=== PATIENT | female | born 1940 | race Caucasian/White ===

== ENCOUNTER → 2018-03-09 14:29 | Outpatient (CLI) | payer MEDICARE, OTHER, SELFPAY ==
[2018-03-09 17:29] LABS: Absolute Lymphocyte Count 2.05 X10^3/ul (0.83-4.51); Absolute Neutrophil Count 5.2 X10^3/uL (2.0-7.7); Basophil# 0.05 X10^3/uL; Basophil% 0.6 % (0-1); Eosinophil# 0.08 X10^3/uL; Hematocrit 40.9 % (37-47); Hemoglobin 13.3 g/dl (12.0-15.0); Lymphocyte # 2.05 X10^3/ul (4.0); Lymphocyte % 26.2 % (19-41); Mean Corp Hgb Conc 32.5 g/gl (32-36); Mean Corpuscular Hgb 28.2 pg (27.0-32.0); Mean Corpuscular Volume 86.7 fL (81-99); Monocyte# 0.42 X10^3/uL; Monocyte% 5.4 % (0-10); Neutrophil % 66.7 % (47-70); Platelet Count 372 K/mm3 (150-450); RBC Distribution Width CV 14.7 % (11.6-14.6); RBC Distribution Width SD 46.1 fl (35.1-43.9); Red Blood Count 4.72 M/mm3 (4.2-5.4); White Blood Count 7.8 K/mm3 (4.4-11.0)
[2018-03-09 17:31] LABS: POSITIVE COUNT NO; POSITIVE DIFFERENTIAL NO; POSITIVE MORPHOLOGY NO
[2018-03-09 18:31] LABS: ALB/GLOB Ratio 0.9 RATIO (0.9-2.4); AST(SGOT) 35 U/L (15-37); Alanine Aminotransfer ALT/SGPT 24 U/L (13-56); Albumin, Serum 3.6 g/dL (3.2-5.0); Alkaline Phosphatase 92 U/L (45-117); Anion Gap 11 (5-15); BUN 22 mg/dL (7-18); Calcium,Total 8.9 mg/dL (8.5-10.1); Chloride 108 mmol/L (98-107); Cholesterol 198 mg/dL (200); EST Glomerular Filtration Rate 51 mL/min (>60); Est Glom Filt Rate - Afr Amer 62 mL/min (>60); Globulin 3.9 g/dL (2.2-4.2); Glucose 81 mg/dL (74-106); High Density Lipoprotein 75 mg/dL; Iron 50 ug/dL (50-170); Potassium 3.8 mmol/L (3.5-5.1); Protein, Total 7.5 g/dL (6.4-8.2); Sodium Level 141 mmol/L (136-145); Thyroid Stim Hormone (TSH) 1.87 uIU/mL (0.358-3.74); Triglycerides 110 mg/dL; Uric Acid 5.2 mg/dL (2.6-6.0); Very Low Density Lipoprotein 22 mg/dL (5-40)
[2018-03-09 20:46] LABS: Vitamin D,25 Hydroxy 30.8 ng/mL (29.95-100.01)
== END ==
PROVIDERS: Family Provider Family Medicine; PCP Family Medicine; Visit Provider Family Medicine
DX: D64.9 Anemia, unspecified (principal); E78.5 Hyperlipidemia, unspecified; E55.9 Vitamin D deficiency, unspecified; M85.80 Other specified disorders of bone density and structure, unspecified site; M10.9 Gout, unspecified
CPT/HCPCS: 36415; 80053; 80061; 82306; 83540; 84443; 84550; 85025

== ENCOUNTER → 2018-09-06 08:19 | Outpatient (CLI) | payer MEDICARE, OTHER, SELFPAY ==
[2017-07-07 21:22] VITALS: BMI 26.4
[2018-09-06 10:29] LABS: ALB/GLOB Ratio 1.2 RATIO (0.9-2.4); AST(SGOT) 30 U/L (15-37); Alanine Aminotransfer ALT/SGPT 21 U/L (13-56); Albumin, Serum 3.5 g/dL (3.2-5.0); Alkaline Phosphatase 83 U/L (45-117); Anion Gap 10 (5-15); BUN 32 mg/dL (7-18); BUN/Creat Ratio 32.3 RATIO (10-20); Calcium,Total 8.7 mg/dL (8.5-10.1); Chloride 110 mmol/L (98-107); Creatinine, Serum 0.99 mg/dL (0.55-1.02); EST Glomerular Filtration Rate 57 mL/min (>60); Est Glom Filt Rate - Afr Amer 70 mL/min (>60); Globulin 2.9 g/dL (2.2-4.2); Glucose 120 mg/dL (74-106); Protein, Total 6.4 g/dL (6.4-8.2); Sodium Level 146 mmol/L (136-145)
== END ==
PROVIDERS: Family Provider Family Medicine; PCP Family Medicine; Referring Provider Family Medicine; Visit Provider Family Medicine
DX: E78.5 Hyperlipidemia, unspecified (principal)
CPT/HCPCS: 36415; 80053

== ENCOUNTER → 2019-04-04 14:14 | Outpatient (CLI) | payer MEDICARE, OTHER, SELFPAY ==
--- NOTE | 2019-04-04 14:18 | BI_ITS ---
BILATERAL DIGITAL MAMMOGRAM WITH TOMOSYNTHESIS: Mediolateraloblique and craniocaudal views demonstrate a dominant spiculated masslike lesion seen in the superior lateral aspect of the right breast at the 10:00 position. An abnormal cluster of new microcalcifications is noted surrounding this spiculated lesion with architectural distortion. Previously this abnormality was not seen on the prior mammogram obtained on 10/01/2016 and is highly suspicious for breast cancer. It must be noted this patient had a previous biopsy of previously noted calcifications in a more medial portion of the right breast which is distant to the above-described lesion. The previously noted calcifications are no longer seen at the biopsy site. No evidence of skin thickening is identified. The left breast appears to be normal. Breast Density: The breast tissue is heterogeneously dense, which may obscure small masses. CAD was used to assist in final assessment. IMPRESSION: A spiculated density containing architectural distortion and new microcalcifications is noted involving the superior lateral aspect of the right breast highly suspicious for breast cancer. A targeted right breast ultrasound of the superior lateral right breast and a biopsy are recommended for further evaluation. FINAL ASSESSMENT: BI-RAD CATEGORY IV (SUSPICIOUS ABNORMALITY - BIOPSY RECOMMENDED). Electronically Signed: Elie Trevino, at 20:33 EDT Tel , Service support , BI/SCREEN MAMM (CAD) W/LUIS CARLOS HOGAN
== END ==
PROVIDERS: Family Provider Family Medicine; PCP Family Medicine; Referring Provider Family Medicine; Visit Provider Family Medicine
DX: Z12.31 Encounter for screening mammogram for malignant neoplasm of breast (principal)
CPT/HCPCS: 77063; 77067

== ENCOUNTER → 2019-04-10 15:09 | Outpatient (CLI) | payer MEDICARE, OTHER, SELFPAY ==
--- NOTE | 2019-04-10 15:14 | US_ITS ---
STUDY: ULTRASOUND BREAST - RIGHT REASON FOR EXAM: Female, 78 years old. Abnormal screening mammogram. TECHNIQUE: Axial and longitudinal images of the RIGHT breast were performed with a high resolution ultrasound transducer. COMPARISON: Comparison is made with prior mammogram dated April 04, 2019. FINDINGS: RIGHT Breast: The mammographic abnormality corresponds to a 9 mm x 6 mm x 8 mm ill-defined hypoechoic solid nodule at the 11:00 position breast at 5 cm from nipple. A carcinoma should be ruled out. Biopsy recommended. US/Breast Limited Unilateral IMPRESSION: The mammographic abnormality corresponds to a suspicious 9 mm x 6 mm x 8 mm hypoechoic irregular solid nodule at the 11:00 position of the breast at 5 cm from nipple. Biopsy is recommended. ASSESSMENT CATEGORY: BIRADS Category 5: Highly Suggestive of Malignancy - Appropriate Action Should Be Taken. A letter regarding these results will be sent to the patient by the facility within 30 days. Electronically Signed: Mann Dinero, at 11:27 EDT , Service support ,
== END ==
PROVIDERS: Family Provider Family Medicine; PCP Family Medicine; Referring Provider Family Medicine; Visit Provider Family Medicine
DX: R92.2 Inconclusive mammogram (principal)
CPT/HCPCS: 76642

== ENCOUNTER → 2019-04-13 10:30 | Outpatient (CLI) | payer MEDICARE, OTHER, SELFPAY ==
[2019-04-11 08:58] VITALS: BMI 26.4
[2019-04-13 12:37] LABS: Anion Gap 6 (5-15); BUN 18 mg/dL (7-18); BUN/Creat Ratio 18.9 RATIO (10-20); Calcium,Total 9.1 mg/dL (8.5-10.1); Chloride 107 mmol/L (98-107); Creatinine, Serum 0.95 mg/dL (0.55-1.02); EST Glomerular Filtration Rate 60 mL/min (>60); Est Glom Filt Rate - Afr Amer 73 mL/min (>60); Glucose 136 mg/dL (74-106); Potassium 3.9 mmol/L (3.5-5.1); Sodium Level 140 mmol/L (136-145)
== END ==
PROVIDERS: Family Provider Family Medicine; PCP Family Medicine; Referring Provider Family Medicine; Visit Provider Family Medicine
DX: I10 Essential (primary) hypertension (principal)
CPT/HCPCS: 36415; 80048

== ENCOUNTER → 2019-04-17 09:43 | Outpatient (CLI) | payer MEDICARE, OTHER, SELFPAY ==
[2019-04-11 08:49] VITALS: BMI 26.4
[2019-04-11 08:58] VITALS: BMI 26.4
--- NOTE | 2019-04-11 09:02 | HP_ITS ---
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 Is patient in pain?: No Allergies codeine Allergy (Verified 04/11/19 08:50) Other Medications Allopurinol [Zyloprim] 300 mg PO DAILY 07/07/17 [History Confirmed 04/11/19] Aspirin [Aspirin, Baby] 81 mg PO DAILY@0800 07/07/17 [History Confirmed 04/11/19] Calcium Carbonate [Calcium] 1,000 mg PO DAILY 07/07/17 [History Confirmed 04/11/19] Cinnamon Bark [Cinnamon] 500 mg PO DAILY 07/07/17 [History Confirmed 04/11/19] Ferrous Gluconate [Iron] 28 mg PO DAILY 07/07/17 [History Confirmed 04/11/19] Fish Oil/Dha/Epa [Fish Oil 1,200 mg Fish Oil] 1 ea PO DAILY 07/07/17 [History Confirmed 04/11/19] Multivit-Min/FA/Lycopen/Lutein [Centrum Silver Tablet] 1 ea PO DAILY 07/07/17 [History Confirmed 04/11/19] Pravastatin [Pravachol] 40 mg PO DAILY 07/07/17 [History Confirmed 04/11/19] Travoprost [Travatan Z] 5 ml EACHEYE QHS 07/07/17 [History Confirmed 04/11/19] acetaminophen ER 650 mg tablet,extended release 650 mg PO ONCE 04/11/19 [History Confirmed 04/11/19] losartan 50 mg tablet 50 mg PO DAILY 04/11/19 [History Confirmed 04/11/19] Is last menstrual period known: No Post menopausal: No Patient : No PFSH Medical History GERD (gastroesophageal reflux disease) (Acute) Gout (Acute) Osteoarthritis (Acute) HTN (hypertension) (Chronic) Surgical History History of colonoscopy (Acute ~2010) History of hysterectomy (Acute) History of lumpectomy of right breast (Acute) Family History Mother Breast cancer CVA (cerebral vascular accident) Brother CVA (cerebral vascular accident) Heart disease Social History (Updated 04/11/19 @ 09:03 by Vishnu Marsh MD) Smoking Status: Never smoker HPI HPI HPI: KING KAUFFMAN, is a 78 F who presents to the office today for HPI HPI Surgical H&P: Yes HPI: KING KAUFFMAN is a 78 F who presents to the office today for Abnormal mammogram and ultrasound patient had her mammogram and ultrasound completed [facility] on 04/04/2019. This was read as a BI-RADS Category 4 showing a lesion within the right breast with new microcalcifications in the superior lateral aspect of the right breast highly suspicious for breast cancer. Ultrasound also confirmed a lobulated mass in this area. Patient herself has not noticed any new lumps or bumps she is not having any breast pain. Patient does have a family history of breast cancer. ROS General General: No weight change, appetite, fatigue, colon cancer, breast cancer or weakness HEENT HEENT: No difficulty swallowing, eye injury, eye surgery, swollen glands or hoarseness Endo Endocrine: No thyroid disease, diabetes mellitus, thyroid cancer, Hair loss, heat intolerance or cold intolerance Breast Breast: Yes abnormal mammogram and abnormal US; no left breast lump, right breast lump, nipple discharge, breast pain or breast enlargement Cardio Cardiovascular: Yes high blood pressure; no murmur, pacemaker, heart disease, atrial fibrillation, heart attack, heart stent, palpitations, shortness of breat with exertion or chest pain Resp Respiratory: No shortness of breath, No sleep apnea, No cough, No COPD, No asthma, No emphysema, No wheezing Gastro Gastrointestinal: No abdominal pain, No nausea or vomiting, No diarrhea, No constipation, No blood in stool, Yes acid reflux, No hemorrhoids, No ulcers, No gallbladder problem, No black,tarry stools Neuro Neurologic: No weakness Exam [facility] Head: normal to inspection, normocephalic, atraumatic Mouth: oropharynx normal, moist mucous membranes Eyes General: appearance normal, both eyes and all related structures Sclera: sclerae normal Neck Neck: trachea midline, no lymphadenopathy noted Neck mass: No Thyroid: thyroid normal Lymphatic: no lymphadenopathy noted Chest Breast inspection: normal inspection of the breasts Breast Palpation: No nipple discharge Resp Other: Respiratory Exam: Deferred Cardio Heart Sounds: no murmurs Other: Cardiac Exam: Deferred GI Other: GI Exam: Deferred Other: Rectal Exam: Deferred Extrem Other: Extremity Exam: Deferred Assessment & Plan Problems 1. Microcalcification of right breast on mammogram R92.0 Plan I have discussed above with the patient. I have recommended Stereotactic guided needle core breast biopsy with vacuum assistance. I have described the procedure to the patient. I have discussed with the patient that sometimes the Stereotactic lesion may be artifact and is user dependent and therefore prior to undergoing the procedure, the patient will have a definitive US to ensure that the lesion is truly present and is not artifact. A marker clip will be placed to identify the location. Patient has been counseled to the risks/benefits of the procedure. I have explained the risks of the surgery, including but not limited to: infection, bleeding, injury to any blood vessels/nerves, scar tissue, missing the lesion, further surgery, etc. - the patient understands and agrees to proceed. I have answered all of the patient's questions to her satisfaction and she has no further questions. Coding Level of Care Code Off vis,new,level 3 Diagnoses Microcalcification of right breast on mammogram R92.0 04/11/19 0903 <Electronically signed by Vishnu mendez MD> Date _ Vishnu Marsh MD I have re-examined the patient. There are no clinical changes since date of exam.
--- NOTE | 2019-04-17 | IMM_PTH ---
PATIENT: KING KAUFFMAN LOC: [facility] U#:[id number] AGE/SX: 84/F ROOM: RE04/17/[address]: Dr. Vishnu Marsh MD : 1940 BED: DIS: SPEC #: [id number] RECD: 04/18/19 15:13 STATUS: FABY REQ #: [id number] OZZIE: 04/17/19 00:[address]: Vishnu Marsh DEPT: IMMUNOHISTOCHEMISTRY RECD BY: Denise Wild ENTERED: 04/18/19 15:14 SP TYPE: IMMUNO OTHR DR: Dr. Alverto Packer MD Tissues: Right breast, NOS Procedures: CALPONIN-1 (add) CK5-6 (add) CK8 (add) E-CAD (add) HER2 FRED (add) KI-67 (add) P53 (add) MT (add) P40 (add) ER (initial) PHYSICIAN & INSTITUTION [place] [address] SPECIMEN INFORMATION: Tissue Source: Right breast Clinical Info: Right breast UOQ microcalcifications Specimen Number: [id number] #1 CPT code: 47138, 86279 x6, 71815 x3 METHODOLOGY: Deparaffinized sections of prefer/formalin-fixed tissue or PAP/DQ stained slides are incubated with monoclonal/polyclonal antibodies/oligonucleotide probes. Localization is made via biotin free immunoperoxidase method. Appropriate controls are performed and reacted as expected. Results on target cell population are indicated in the following table: RESULTS: ANTIBODY / CLONE RESULT E-Cad (ECH-6) positive CK8 (66bhxfX39) positive Calponin-1 (BY164W) negative * CK5-6 (D5 & 1684) negative * P40 (BC28) negative * P53 (DO-7) negative Ki-67 (30-9) positive, moderate *?Positive in the area of ductal carcinoma in situ. MORPHOMETRIC ANALYSIS ER (clone 6F11) 0% MT (clone 16/1E2) 0% Her-2Neu (clone CB11) 3+ The prognostic test for HER2 is performed on formalin-fixed paraffin embedded tissue. A 3+ (positive) staining pattern is defined as intense, homogeneous, complete, circumferential membranous staining in >10% of contiguous tumor cells. A similar weak (2+) staining pattern is interpreted as equivocal. OSMANI follow-up testing is recommended for all equivocal cases. Positivity/negativity for ER/MT is reported if > or < 1% of the tumor cells are immuno- reactive, respectively. The ASCO/CAP criteria is used for scoring. Reference: Journal of Clinical Oncology, 2013; 31:9316-9146 & 2010; 16:1967-1973. Duration of fixation: 8 Hrs; Sample Adequate: Yes. These assays have not been validated on decalcified tissues. Results should be interpreted with caution given the likelihood of false negativity on decalcified specimens. These tests were developed and their performance characteristics determined by [facility]. They may not have been cleared or approved by the U.S. Food and Drug Administration. The FDA has determined that such clearance or approval is not necessary. The above immunohistochemical/dualISH markers are ordered and reviewed by the Pathologist. 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 Negative for estrogen receptors (unfavorable prognostic indicator). Negative for progesterone receptors (unfavorable prognostic indicator). Positive for overexpression of WYU7ben. SJ:tisha 04/19/19
--- NOTE | 2019-04-17 10:45 | BRBX_PTH ---
PATIENT: KING KAUFFMAN LOC: [facility] U#:[id number] AGE/SX: 84/F ROOM: RE04/17/[address]: Dr. Vishnu Marsh MD : 1940 BED: DIS: SPEC #: [id number] RECD: 04/17/19 11:29 STATUS: FABY OWEN #: [id number] OZZIE: 04/17/19 10:[address]: Vishnu Marsh DEPT: SURGICAL PATHOLOGY RECD BY: Hunter Ugarte ENTERED: 04/17/19 11:48 SP TYPE: BREAST BX OTHR DR: Dr. Alverto Packer MD Tissues: Right breast, NOS Procedures: Surgery Specimen Level IV HEADER OPERATION: Right breast stereotactic needle core biopsy PRE-OP DIAGNOSIS: Right breast UOQ microcalcifications TISSUE SUBMITTED: Right breast needle core biopsy ISCHEMIC TIME: 2 minutes FIXATION TIME: 8 hours MICROSCOPIC DIAGNOSIS Right breast, upper outer quadrant microcalcifications, stereotactic needle core biopsy: Invasive ductal carcinoma, nuclear grade 3 (0.8 cm in greatest length). Ductal carcinoma in situ. See comment. RENEE:tisha 04/18/19 COMMENT Ductal carcinoma in situ shows comedo and solid pattern, high nuclear grade, comedo necrosis and calcification. The ductal carcinoma in situ comprise about 50% of the total tumor volume. Immunohistochemistry ([id number]) supports the above diagnosis. ER/MS/Gfp7gzh studies are being performed on sections of tumor and the results from this study will be reported separately ([id number]). MICROSCOPIC DESCRIPTION Slides are reviewed. GROSS DESCRIPTION Received is one container labeled with the patient's name and not further designated. The specimen consists of multiple elongated fragments of ray-yellow fibroadipose tissue that in aggregate measure 5 x 3 x 0.6 cm. The entire specimen is submitted in four cassettes. / RENEE:tisha 04/17/19 TC:0 CPT: 05881
== END ==
PROVIDERS: Family Provider Family Medicine; PCP Family Medicine; Referring Provider Surgery; Visit Provider Surgery
DX: D05.11 Intraductal carcinoma in situ of right breast (principal); K21.9 Gastro-esophageal reflux disease without esophagitis; M10.9 Gout, unspecified; M19.90 Unspecified osteoarthritis, unspecified site; I10 Essential (primary) hypertension; Z80.3 Family history of malignant neoplasm of breast; Z79.82 Long term (current) use of aspirin; Z79.899 Other long term (current) drug therapy
CPT/HCPCS: 19081; 88305; 88341; 88342; J7050; A4648

== ENCOUNTER 2019-04-27 06:45 | Day surgery (SDC) | payer MEDICARE, OTHER, SELFPAY ==
--- NOTE | 2019-04-11 09:02 | HP_ITS ---
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 Is patient in pain?: No Allergies codeine Allergy (Verified 04/11/19 08:50) Other Medications Allopurinol [Zyloprim] 300 mg PO DAILY 07/07/17 [History Confirmed 04/11/19] Aspirin [Aspirin, Baby] 81 mg PO DAILY@0800 07/07/17 [History Confirmed 04/11/19] Calcium Carbonate [Calcium] 1,000 mg PO DAILY 07/07/17 [History Confirmed 04/11/19] Cinnamon Bark [Cinnamon] 500 mg PO DAILY 07/07/17 [History Confirmed 04/11/19] Ferrous Gluconate [Iron] 28 mg PO DAILY 07/07/17 [History Confirmed 04/11/19] Fish Oil/Dha/Epa [Fish Oil 1,200 mg Fish Oil] 1 ea PO DAILY 07/07/17 [History Confirmed 04/11/19] Multivit-Min/FA/Lycopen/Lutein [Centrum Silver Tablet] 1 ea PO DAILY 07/07/17 [History Confirmed 04/11/19] Pravastatin [Pravachol] 40 mg PO DAILY 07/07/17 [History Confirmed 04/11/19] Travoprost [Travatan Z] 5 ml EACHEYE QHS 07/07/17 [History Confirmed 04/11/19] acetaminophen ER 650 mg tablet,extended release 650 mg PO ONCE 04/11/19 [History Confirmed 04/11/19] losartan 50 mg tablet 50 mg PO DAILY 04/11/19 [History Confirmed 04/11/19] Is last menstrual period known: No Post menopausal: No Patient : No PFSH Medical History GERD (gastroesophageal reflux disease) (Acute) Gout (Acute) Osteoarthritis (Acute) HTN (hypertension) (Chronic) Surgical History History of colonoscopy (Acute ~2010) History of hysterectomy (Acute) History of lumpectomy of right breast (Acute) Family History Mother Breast cancer CVA (cerebral vascular accident) Brother CVA (cerebral vascular accident) Heart disease Social History (Updated 04/11/19 @ 09:03 by Vishnu Marsh MD) Smoking Status: Never smoker HPI HPI HPI: KING KAUFFMAN, is a 78 F who presents to the office today for HPI HPI Surgical H&P: Yes HPI: KING KAUFFMAN is a 78 F who presents to the office today for Abnormal mammogram and ultrasound patient had her mammogram and ultrasound completed [facility] on 04/04/2019. This was read as a BI-RADS Category 4 showing a lesion within the right breast with new microcalcifications in the superior lateral aspect of the right breast highly suspicious for breast cancer. Ultrasound also confirmed a lobulated mass in this area. Patient herself has not noticed any new lumps or bumps she is not having any breast pain. Patient does have a family history of breast cancer. ROS General General: No weight change, appetite, fatigue, colon cancer, breast cancer or weakness HEENT HEENT: No difficulty swallowing, eye injury, eye surgery, swollen glands or hoarseness Endo Endocrine: No thyroid disease, diabetes mellitus, thyroid cancer, Hair loss, heat intolerance or cold intolerance Breast Breast: Yes abnormal mammogram and abnormal US; no left breast lump, right breast lump, nipple discharge, breast pain or breast enlargement Cardio Cardiovascular: Yes high blood pressure; no murmur, pacemaker, heart disease, atrial fibrillation, heart attack, heart stent, palpitations, shortness of breat with exertion or chest pain Resp Respiratory: No shortness of breath, No sleep apnea, No cough, No COPD, No asthma, No emphysema, No wheezing Gastro Gastrointestinal: No abdominal pain, No nausea or vomiting, No diarrhea, No constipation, No blood in stool, Yes acid reflux, No hemorrhoids, No ulcers, No gallbladder problem, No black,tarry stools Neuro Neurologic: No weakness Exam [facility] Head: normal to inspection, normocephalic, atraumatic Mouth: oropharynx normal, moist mucous membranes Eyes General: appearance normal, both eyes and all related structures Sclera: sclerae normal Neck Neck: trachea midline, no lymphadenopathy noted Neck mass: No Thyroid: thyroid normal Lymphatic: no lymphadenopathy noted Chest Breast inspection: normal inspection of the breasts Breast Palpation: No nipple discharge Resp Other: Respiratory Exam: Deferred Cardio Heart Sounds: no murmurs Other: Cardiac Exam: Deferred GI Other: GI Exam: Deferred Other: Rectal Exam: Deferred Extrem Other: Extremity Exam: Deferred Assessment & Plan Problems 1. Microcalcification of right breast on mammogram R92.0 Plan I have discussed above with the patient. I have recommended Stereotactic guided needle core breast biopsy with vacuum assistance. I have described the procedure to the patient. I have discussed with the patient that sometimes the Stereotactic lesion may be artifact and is user dependent and therefore prior to undergoing the procedure, the patient will have a definitive US to ensure that the lesion is truly present and is not artifact. A marker clip will be placed to identify the location. Patient has been counseled to the risks/benefits of the procedure. I have explained the risks of the surgery, including but not limited to: infection, bleeding, injury to any blood vessels/nerves, scar tissue, missing the lesion, further surgery, etc. - the patient understands and agrees to proceed. I have answered all of the patient's questions to her satisfaction and she has no further questions. Coding Level of Care Code Off vis,new,level 3 Diagnoses Microcalcification of right breast on mammogram R92.0 04/11/19 0903 <Electronically signed by Vishnu mendez MD> Date _ Vishnu Marsh MD I have re-examined the patient. There are no clinical changes since date of exam.
[2019-04-21 08:03] VITALS: BMI 26.4
--- NOTE | 2019-04-27 | IMM_PTH ---
PATIENT: KING KAUFFMAN LOC: [facility] [place] U#:[id number] AGE/SX: 78/F ROOM: RE04/27/[address]: Dr. Vishnu Marsh MD : 1940 BED: DIS: 04/27/2019 SPEC #: [id number] RECD: 05/01/19 10:21 STATUS: FABY RETorito #: [id number] OZZIE: 04/27/19 00:[address]: Vishnu Marsh DEPT: IMMUNOHISTOCHEMISTRY RECD BY: Denise Wild ENTERED: 05/01/19 10:23 SP TYPE: IMMUNO OTHR DR: Dr. Alverto Packer MD Tissues: B - Axillary lymph node, NOS C - Axillary lymph node, NOS Procedures: CK7 (add) Pankeratin (initial) Pankeratin (add) PHYSICIAN & INSTITUTION [place] [address] SPECIMEN INFORMATION: Tissue Source: B - [place] lymph nodes, C - Additional sentinel lymph node Clinical Info: Right breast microcalcification Specimen Number: [id number] B1-B4, C1 CPT code: 70860 x2, 07783 x8 METHODOLOGY: Deparaffinized sections of prefer/formalin-fixed tissue or PAP/DQ stained slides are incubated with monoclonal/polyclonal antibodies/oligonucleotide probes. Localization is made via biotin free immunoperoxidase method. Appropriate controls are performed and reacted as expected. Results on target cell population are indicated in the following table: RESULTS: ANTIBODY / CLONE RESULT Block B1 AE1-3 (AE1/AE3/PCK26) negative CK7 (OV-TL12/30) negative Block B2 AE1-3 (AE1/AE3/PCK26) negative CK7 (OV-TL12/30) negative Block B3 AE1-3 (AE1/AE3/PCK26) negative CK7 (OV-TL12/30) negative Block B4 AE1-3 (AE1/AE3/PCK26) negative CK7 (OV-TL12/30) negative Block C1 AE1-3 (AE1/AE3/PCK26) negative CK7 (OV-TL12/30) negative These tests were developed and their performance characteristics determined by [facility]. They may not have been cleared or approved by the U.S. Food and Drug Administration. The FDA has determined that such clearance or approval is not necessary. The above immunohistochemical/dualISH markers are ordered and reviewed by the Pathologist. INTERPRETATION: B. [place] lymph nodes, biopsy: Three out of three lymph nodes, negative for metastatic carcinoma. C. Additional sentinel lymph node, biopsy: One lymph node, negative for metastatic carcinoma. SJ:tisha 05/01/19
--- NOTE | 2019-04-27 | BRBX_PTH ---
PATIENT: KING KAUFFMAN [place] [facility] [place][id number] AGE/SX: 78/F ROOM: RE04/27/[address]: Dr. Vishnu Marsh MD : [id number] BED: DIS: 04/27/2019 SPEC #: [id number] RECD: 04/27/19 10:41 STATUS: FABY OWEN #: [id number] OZZIE: 04/27/19 00:[address]: Vishnu Marsh DEPT: SURGICAL PATHOLOGY RECD BY: Denise Wild ENTERED: 04/27/19 11:27 SP TYPE: BREAST BX OTHR DR: Dr. Alverto Packer MD Tissues: A - Right breast, NOS B - Axillary lymph node, NOS C - Axillary lymph node, NOS Procedures: Frozen Section (charge) Frozen Section Add'l ([facility]) Surgery Specimen Level V HEADER OPERATION: Ultrasound-guided wire localization lumpectomy with sentinel lymph node biopsy PRE-OP DIAGNOSIS: Microcalcification of right breast R92.0 TISSUE SUBMITTED: A - Right breast lumpectomy, B - [place] node biopsy, C - Additional sentinel node biopsy FROZEN SECTION DIAGNOSIS B. [place] lymph nodes, biopsy: Three out of three lymph nodes, negative for metastatic carcinoma. C. Additional sentinel lymph node, biopsy: One lymph node, negative for metastatic carcinoma. SJ:tisha 04/27/19 MICROSCOPIC DIAGNOSIS A. 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 Changes consistent with previous biopsy site. See cancer summary below. B. [place] lymph nodes, biopsy: Three out of three lymph nodes, negative for metastatic carcinoma. See comment. C. Additional sentinel lymph node, biopsy: One lymph node, negative for metastatic carcinoma. See comment. RENEE:tisha 05/01/19 INVASIVE BREAST CANCER SUMMARY: (Specimen A) Specimen - partial breast Procedure - excision with wire-guided localization Lymph node sampling - sentinel lymph nodes Specimen integrity - single intact specimen Specimen size - 8 x 5.5 x 4 cm Specimen laterality - right Tumor site - upper outer quadrant (as per clinical information) Tumor size - 1.5 x 1.2 x 1.2 cm Tumor focality - single focus of invasive carcinoma Macroscopic and Microscopic extent of tumor: Skin - invasive carcinoma does not invade into the dermis or epidermis. Nipple - not applicable Skeletal muscle - not applicable Ductal carcinoma in situ (DCIS) - present Extensive intraductal component (EIC) - negative Estimated size (extent) of DCIS - DCIS comprise about 20% of the total tumor volume. Number of blocks with DCIS - 3 Number of blocks examined - 12 Architectural patterns - comedo and solid Nuclear grade - grade 3 (high) Necrosis - present, central (expansive comedo necrosis) Lobular carcinoma in situ (LCIS) - not identified Histologic type of invasive carcinoma - invasive ductal carcinoma (not otherwise specified) Histologic Grade (Lily grade): Glandular/tubular differentiation - score 3 Nuclear pleomorphism - score 3 Mitotic count - score 3 Overall grade - 3 (score of 9) Margins - Margins uninvolved by invasive carcinoma. The DCIS and invasive carcinoma are 0.2 cm away from the closest anterior-superior margin of the specimen. Treatment effect: Response to presurgical (neoadjuvant) therapy - no known presurgical therapy. Lymph-Vascular invasion - not identified Dermal lymph-vascular invasion - not identified Lymph nodes: Number of sentinel lymph nodes examined - 4 Total number of lymph nodes examined (sentinel and nonsentinel) - 4 Number of lymph nodes with macrometastases, micrometastases and isolated tumor cells - 0 Method of evaluation of sentinel lymph nodes - H & E, multiple levels and IHC. Distant metastasis - not applicable Additional pathologic findings - fibrocystic changes and intraductal hyperplasia without atypia. Extensive changes consistent with previous biopsy site. Skin - dermal chronic inflammation and changes consistent with previous biopsy site in the dermis. Ancillary studies - previously performed on section of tumor ([id number] / [id number]). ER - negative (0%) [place] - negative (0%) Her2 jaime - positive (3+) Microcalcifications - present in DCIS and non-neoplastic tissue Clinical history - Please make reference to previous specimen ([id number]) right breast, upper outer quadrant microcalcifications, stereotactic needle core biopsy with diagnosis of invasive ductal carcinoma and ductal carcinoma in situ. PATHOLOGIC STAGE: pT1c pN0(sn) Mx The above summary is in compliance with [employer] (CAP) Cancer Protocols Checklist and [place] Joint Committee on Cancer (AJCC), Staging Manual, 8th Ed. COMMENT B & C - The lymph nodes are negative for metastatic carcinoma on multiple H & E levels and immunohistochemical stains for cytokeratins ([id number]). Case has been reviewed in consultation with Dr. Michelle who concurs with the above diagnosis. IDC:AM MICROSCOPIC DESCRIPTION Slides are reviewed. GROSS DESCRIPTION A - Received fresh for intraoperative consultation labeled with the patient's name is a specimen designated right breast lumpectomy. The specimen consists of a piece of fibroadipose tissue with needle localization measuring 8 x 5.5 x 4 cm. A piece of skin is noted anterior-superiorly measuring 1.5 x 0.5 cm. The specimen is oriented as follows: wire out - anterior-superior, double long - medial, double short - lateral, single long - inferior. The specimen is inked as follows: anterior - yellow, posterior - black, superior - blue, inferior - green, medial - red and lateral - orange. Serial sections reveal a biopsy cavity filled with blood clot measuring 4.5 x 1.5 x 1.5 cm. Focal indurated tumor consistent with tumor mass is noted adjacent to the biopsy cavity which measures 1.5 x 1.2 x 1.2 cm. This mass is 2 mm from the closest anterior-superior margin of the specimen. This information is conveyed to the surgeon intraoperatively. Sections of the rest of the specimen reveal ray-yellow adipose cut surfaces mixed with ray-white fibrous area. The biopsy cavity extends from medial to lateral margin. [employer] sections are submitted as follows: 1 - skin, entirely submitted and perpendicular medial and lateral margins, 2??perpendicular inferior and posterior margins, 3-6 - entire tumor with central biopsy cavity and closest anterior and superior margins, 7-12 - biopsy cavity with surrounding area. / RENEE:tisha 04/28/19 B - Received fresh for frozen section diagnosis labeled with the patient's name is a specimen designated sentinel lymph nodes. The specimen consists of two pieces of adipose tissue measuring 4.5 x 2.5 x 1 cm and 3 x 2.1 cm. Three nodules consistent with lymph nodes are identified measuring 0.5 to 3 cm in greatest dimension. The lymph nodes are submitted for frozen section diagnosis in entirety as follows: 1 & 2 - one bisected lymph node, 3 & 4 - each containing one lymph node. / RENEE:tisha 04/28/19 C - Received fresh for frozen section diagnosis labeled with the patient's name is a specimen designated additional sentinel lymph node. The specimen consists of a piece of adipose tissue measuring 2 x 2 x 0.5 cm. A nodule consistent with lymph node is identified measuring 1 cm in greatest dimension. The lymph node is bisected and submitted in entirety for frozen section diagnosis in one cassette. / RENEE:tisha 04/28/19 TC:0 CPT: 24340 x3, 62510 x2, 50249 x3, 01108
[2019-04-27 07:12] VITALS: BMI 25.9
[2019-04-27 07:29] VITALS: BP 169/71; PULSE 75; RESP 18; TEMP 37; O2SAT 95; BMI 25.9
[2019-04-27] MEDS: Lactated Ringers 1,000 ML 100 ML IV ×2 (07:33→11:31)
--- NOTE | 2019-04-27 07:50 | NM_ITS ---
PROCEDURE: NUCLEAR MEDICINE Injection [place] Node - RIGHT breast(s). REASON FOR EXAM: Female, 78 years old. Right breast cancer. TECHNIQUE: [place] node localization using radionuclide methods of the RIGHT breast(s) was performed following subcutaneous administration of 1.0 mCi of of sulfur colloid Tc-99m. FINDINGS: 1 mCi of technetium labeled sulfur colloid was injected subcutaneously in 4 equal aliquots in the upper slightly lateral aspect of the right breast for sentinel node imaging. NM/Lymph Node Injection Only IMPRESSION: Subcutaneous injection of 1 mCi of technetium labeled sulfur colloid for right sentinel node imaging. Electronically Signed: Mann Dinero, at 8:30 EDT , Service support ,
--- NOTE | 2019-04-27 09:54 | PCM.OPRPT ---
Problem List (1) Malignant neoplasm of upper-outer quadrant of right female breast Status: Acute Qualifiers: Estrogen receptor status: negative Qualified Code(s): C50.411 - Malignant neoplasm of upper-outer quadrant of right female breast; Z17.1 - Estrogen receptor negative status [ER-] Report of Operation Date of Procedure: 04/27/19 Pre-Operative Diagnosis: Female breast cancer upper outer quadrant of right breast estrogen receptor negative Post-Operative Diagnosis: Same Surgery/Procedure Performed:: 1. Ultrasound-guided wire localization of female breast cancer right upper outer quadrant of breast. 2. Injection of 5 cc of Lymphazurin blue. 3. Partial mastectomy right breast upper outer quadrant. 4. Right sentinel lymph node biopsies Type of Anesthesia:: General Anesthesiologist: Rich Hurtado Estimated Blood Loss (mL): <25 cc Description of Procedure: Patient was brought into the operating room and placed in the supine position. Under excellent general anesthetic ultrasound of the right breast revealed the lesion in question. Prepped the skin with alcohol a Kopan's wire was placed through the lesion under direct visualization. After this I prepped the nipple with alcohol and 5 cc of Lymphazurin blue was injected circumareolar Reid. The breast was massaged for 5 minutes. The breast and axillary area were then sterilely prepped and draped in usual fashion. Local was injected in the upper outer quadrant of the breast and incision was made ellipsing around the previous stereotactic biopsy incision. Electrocautery was used to gain access circumferentially around the lesion using the Kopan's wire as my guide. I marked the lesion double long medial double short lateral single long inferiorly in the wire and skin came out anteriorly superiorly. The specimen was sent to radiology for leg the clip in the specimen. I then used electrocautery and went into the clavipectoral fascia and dissected through this area I was using the [place] counter to try to find any hot lymph nodes none of the lymph nodes that I was identified with a blue dye were lighting up on the gamma probe. And in fact no gamma probe activity was identified anywhere within the axillary area. I saw for blue lymph nodes I remove them and sent them to pathology all of them came back negative. I irrigated out my wound I had good hemostasis I brought the subcu together with 2-0 Vicryl deep dermals with 3-0 Vicryl then a running 4-0 Monocryl Dermabond was applied sterile dressings were applied and the patient tolerated the procedure well. - Admit VTE Documentation VTE Present on Admission: No VTE Mechan Device Prophylaxis: SCD's VTE Pharm Prophylaxis ordered?: No Reason prophylaxis not ordered:: Treatment Not Indicated
[2019-04-27] MEDS: Cefazolin 2 GM in 0.9% Normal Saline 100 ML IV (09:55)
[2019-04-27] MEDS: Isosulfan Blue 1% 5 ML Vial (10:12)
--- NOTE | 2019-04-27 10:32 | BI_ITS ---
SURGICAL BREAST SPECIMEN RADIOGRAPH CLINICAL: Document presence of calcifications in biopsy specimen. FINDINGS: Specimen shows presence of calcifications. Electronically Signed: Mann Dinero, at 12:41 EDT , Service support , BI/Breast Biopsy Specimen
[2019-04-27] MEDS: Bupivacaine Mpf 0.5% 30 ML VIAL (10:58)
[2019-04-27 11:23] VITALS: BP 120/59; BP 169/71; PULSE 85; RESP 20; TEMP 36.4; O2SAT 97
[2019-04-27 11:30] VITALS: BP 126/55; BP 169/71; PULSE 85; RESP 18; O2SAT 92
--- NOTE | 2019-04-27 11:36 | DCINST_ITS ---
Discharge Diet: No Restrictions Discharge Activity: May Not Drive - for 2-3 days or while taking narcotic pain meds. May shower in (days): 1 Lifting Restrictions: 10 pounds for 1 week. Call your doctor if your incision/area has: Continuous Slow Oozing, Sudden In creased Bleeding Call your doctor if you observe: Fever of 101 or Higher Suture Line Care: Avoid Pulling/Pushing, Avoid Pinching/Bending Remove Dressing in (days):: 1 - Remove bulky dressing tomorrow. May leave any opsite dressing for 3-4 days. Keep dressing in place until your follow-up appointment. Additional Dressing/Incision Instructions:: Remove bulky dressing tomorrow. May leave any opsite dressing for 3-4 days. Keep dressing in place until your follow-up appointment. Allergies/Adverse Reactions: Allergies codeine Adverse Reaction (Verified 04/27/19 07:11) Other hallucinations Medications to take at Discharge Allopurinol [Zyloprim] 300 mg PO DAILY 07/07/17 Aspirin [Aspirin, Baby] 81 mg PO DAILY@0800 07/07/17 Calcium Carbonate [Calcium] 1,000 mg PO DAILY 07/07/17 Cinnamon Bark [Cinnamon] 500 mg PO DAILY 07/07/17 Ferrous Gluconate [Iron] 28 mg PO DAILY 07/07/17 Fish Oil/Dha/Epa [Fish Oil 1,200 mg Fish Oil] 1 ea PO DAILY 07/07/17 Multivit-Min/FA/Lycopen/Lutein [Centrum Silver Tablet] 1 ea PO DAILY 07/07/17 Pravastatin [Pravachol] 40 mg PO DAILY 07/07/17 Travoprost [Travatan Z] 5 ml EACHEYE QHS 07/07/17 acetaminophen ER 650 mg tablet,extended release 650 mg PO PRN PRN 04/11/19 losartan 50 mg tablet 50 mg PO DAILY 04/11/19 Brimonidine Tartrate 0.2% [Brimonidine 0.2% 5Ml Bottle] 1 drp EACH EYE BID 04/26/19 Timolol 0.5% [Timoptic] 1 drp EACH EYE BID 04/26/19 Oxycodone HCl/Acetaminophen [Percocet 5/325] 1 - 2 tab PO Q4H PRN PRN 6 Days #30 tab 04/27/19 The following prescriptions were given: Oxycodone HCl/Acetaminophen [Percocet 5/325] 1 - 2 tab PO Q4H PRN PRN 6 Days #30 tab PRN Reason: Pain Prescription Printed Primary Care Physician: Jeffrey Packer MD [Primary Care Provider] -
[2019-04-27 11:45] VITALS: BP 132/63; BP 169/71; PULSE 87; RESP 16; O2SAT 92
[2019-04-27 11:57] VITALS: BP 135/59; BP 169/71; PULSE 80; RESP 16; TEMP 36.4; O2SAT 93
[2019-04-27 13:28] VITALS: BP 142/59; BP 169/71; PULSE 96; RESP 16; TEMP 37.2; O2SAT 96
== END 2019-04-27 13:40 | disposition home or self-care (01) ==
LOC: SDC 06:45 → AC 06:46
PROVIDERS: Family Provider Family Medicine; PCP Family Medicine; Referring Provider Surgery; Visit Provider Surgery
PROC: (CPT 19301; principal; 2019-04-27 09:45)
DX: C50.411 Malignant neoplasm of upper-outer quadrant of right female breast (principal); Z17.1 Estrogen receptor negative status [ER-]; K21.9 Gastro-esophageal reflux disease without esophagitis; M10.9 Gout, unspecified; M19.90 Unspecified osteoarthritis, unspecified site; I10 Essential (primary) hypertension; G25.81 Restless legs syndrome; E61.1 Iron deficiency; E78.00 Pure hypercholesterolemia, unspecified; Z80.3 Family history of malignant neoplasm of breast; Z78.0 Asymptomatic menopausal state; Z85.42 Personal history of malignant neoplasm of other parts of uterus; Z79.82 Long term (current) use of aspirin; Z79.899 Other long term (current) drug therapy
CPT/HCPCS: 00400; 19301; 38525; 38792; 76098; 88305; 88307; 88331; 88332; 88341; 88342; A9541; J7120; J2405; Q9968

== ENCOUNTER → 2019-05-23 08:51 | Outpatient (CLI) | payer MEDICARE, OTHER, SELFPAY ==
[2019-04-27 07:29] VITALS: BMI 25.9
--- NOTE | 2019-05-23 08:58 | BD_ITS ---
STUDY: DUAL ENERGY X-RAY ABSORPTIOMETRY / DXA REASON FOR EXAM: Female, 78 years old. Early menopause. Loss of height. TECHNIQUE: Bone Mineral Density (BMD) measurements of lumbar spine and bilateral hips were obtained. COMPARISON: Comparison is made with prior study dated May 06, 2017. FINDINGS: Lumbar Spine (L1-L4): g/cm2 (1.270) / T-score (0.9) / Z-score (2.7) Findings are suggestive of normal bone density with a low fracture risk. Left Femur Total: g/cm2 (0.861) / T-score (-1.2) / Z-score (0.9) Left Femoral Neck: g/cm2 (0.830) / T-score (-1.5) / Z-score (0.7) Right Femur Total: g/cm2 (0.860) / T-score (-1.2) / Z-score (0.8) Right Femoral Neck: g/cm2 (0.839) / T-score (-1.4) / Z-score (0.7) The T-Scores on the most recent prior examination were: Lumbar Spine (L1-L4): There has been worsening of bone density since the previous examination. Left Femur Total: which represents a worsening of 3.1%. Right Femur Total: which represents an improvement of 3%. BD/Dexa Bone Density Study IMPRESSION: The patient is considered osteopenic as outlined below according to World [place]ance Organization (WHO) criteria with a moderate fracture risk. There has been worsening of bone density since the previous examination. Reference Information: The T-score is the number of standard deviations above or below the standard which is normal for young adults at their peak bone mineral density. The World Health Organization (WHO) interprets the T-scores as follows: Above -1 Normal bone density Between -1 and -2.5 Osteopenia Equal to / or below -2.5 Osteoporosis As a practical clinical guideline, osteopenia may be graded as follows: Mild -1 through -1.5 Moderate -1.6 through -2.0 Severe -2.1 through -2.4 The Z-score is the number of standard deviations above or below age-matched controls. A Z-score of less than -1.5 would be considered abnormal. References: 1. NIH Osteoporosis and Related Bone Diseases http://www.osteo.org 2. International Society for Clinical Densitometry http://www.iscd.org 3. National Osteoporosis Foundation http://www.nof.org Electronically Signed: Mann Dinero, at 16:00 EST , Service support ,
== END ==
PROVIDERS: Family Provider Family Medicine; PCP Family Medicine; Referring Provider Family Medicine; Visit Provider Family Medicine
DX: Z00.00 Encounter for general adult medical examination without abnormal findings (principal); Z78.0 Asymptomatic menopausal state
CPT/HCPCS: 77080

== ENCOUNTER → 2019-12-13 11:34 | Outpatient (CLI) | payer MEDICARE, OTHER, SELFPAY ==
[2019-12-13 16:05] LABS: Vitamin D,25 Hydroxy 59.6 ng/mL
[2019-12-13 16:25] LABS: AST(SGOT) 32 U/L (15-37); Alanine Aminotransfer ALT/SGPT 23 U/L (13-56); Albumin, Serum 3.5 g/dL (3.2-5.0); Alkaline Phosphatase 79 U/L (45-117); Anion Gap 10 (5-15); BUN 20 mg/dL (7-18); BUN/Creat Ratio 21.4 RATIO (10-20); Calcium,Total 9.2 mg/dL (8.5-10.1); Chloride 107 mmol/L (98-107); Cholesterol 211 mg/dL (200); Creatinine, Serum 0.94 mg/dL (0.55-1.02); EST Glomerular Filtration Rate 61 mL/min (>60); Est Glom Filt Rate - Afr Amer 74 mL/min (>60); Globulin 3.5 g/dL (2.2-4.2); Glucose 111 mg/dL (74-106); High Density Lipoprotein 73 mg/dL; Potassium 4.4 mmol/L (3.5-5.1); Sodium Level 141 mmol/L (136-145); Thyroid Stim Hormone (TSH) 2.31 uIU/mL (0.358-3.74); Triglycerides 118 mg/dL; Very Low Density Lipoprotein 24 mg/dL (5-40)
== END ==
LOC: MFPLAB 11:34
PROVIDERS: PCP Family Medicine; Visit Provider Family Medicine
DX: E78.5 Hyperlipidemia, unspecified (principal); M85.80 Other specified disorders of bone density and structure, unspecified site
CPT/HCPCS: 36415; 80053; 80061; 82306; 84443

== ENCOUNTER → 2020-04-08 10:52 | Outpatient (CLI) | payer MEDICARE, OTHER, SELFPAY ==
--- NOTE | 2020-04-08 10:55 | BI_ITS ---
MAMMOGRAPHY - BILATERAL SCREENING REASON FOR EXAM: Female, 79 years old. Routine annual screening examination. PERTINENT HISTORY: Personal history of breast cancer. Prior right lumpectomy and radiation therapy. Mother with breast cancer. TECHNIQUE: Digital bilateral breast luis carlos (3D mammographic acquisition) in the CC and MLO projections. 2-D mediolateral oblique (MLO) and craniocaudad (CC) views of both breasts were obtained. CAD: Full Field Digital Mammography with Computer Added Detection was performed. COMPARISON: Comparison is made with prior study dated 04/04/2019 and 04/27/2019. FINDINGS: Breast Composition: The breasts are heterogeneously dense, which may obscure small masses. There are no dominant masses or suspicious calcifications. The patient is status post lumpectomy in the upper lateral portion of the right breast with resection of the spiculated mass and microcalcifications. Postoperative changes are seen. No other significant abnormalities are identified. BI/SCREEN MAMM (CAD) W/LUIS CARLOS BILAT IMPRESSION: Status post lumpectomy in the upper lateral portion of the right breast as described. Yearly follow-up mammogram recommended. (A) ASSESSMENT CATEGORY: BIRADS Category 2: Benign. A letter regarding these results will be sent to the patient by the facility within 30 days. Approximately 10% of breast cancers are not detected by mammography. A normal mammogram should not delay biopsy of a clinically suspicious abnormality. [id number] Electronically Signed: Mann Dinero, at 15:27 EDT , Service support ,
== END ==
PROVIDERS: PCP Family Medicine; Referring Provider Nurse Practitioner; Visit Provider Nurse Practitioner
DX: Z12.31 Encounter for screening mammogram for malignant neoplasm of breast (principal); C50.411 Malignant neoplasm of upper-outer quadrant of right female breast; Z17.1 Estrogen receptor negative status [ER-]
CPT/HCPCS: 77063; 77067

== ENCOUNTER 2020-05-24 05:28 | Emergency (ER) | payer MEDICARE, OTHER, SELFPAY ==
[2020-05-24 05:28] VITALS: BP 189/84; PULSE 83; RESP 16; TEMP 37; O2SAT 96; BMI 26.2
--- NOTE | 2020-05-24 05:35 | US_ITS ---
INDICATION: RUQ PAIN, NAUSEA AND VOMITING SINCE YESTERDAY EXAMINATION: Ultrasound US Gallbladder (abdomen limited) TECHNIQUE: Mann scale and color doppler imaging was performed of the gallbladder. COMPARISON: None. FINDINGS: The gallbladder is normal in size and shape. No echogenic structures are noted within the gallbladder which are casting acoustic shadows. The common bile duct measures 3.7 mm., which is normal. The liver is normal. The hepatic veins are patent and hepatopetal flow is noted in the main portal vein. The head, body and tail of the pancreas were examined and appear to be normal. The right kidney is normal and measures 8.24 cm. x 4.44 cm. x 4.20 cm. in size.. The right renal parenchyma has a normal echogenic relationship to the adjacent liver. No fluid is noted in [place]''s pouch. US/Gallbladder IMPRESSION: Normal gallbladder ultrasound. Electronically Signed: Elie Trevino, at 8:18 EST Tel , Service support ,
--- NOTE | 2020-05-24 05:38 | ED.VISSUMM ---
- ER Visit Summary Date of Service: 05/24/20 Chief Complaint: Abdominal pain History of Present Illness: The patient is a 79 F presenting with abdominal pain. She states this started Wednesday night. It has been intermittent. It is worsened with eating. She has had nausea and vomiting. She denies diarrhea or constipation. She denies fever. She has had a mild cough. Denies other Covid symptoms. Denies urinary complaints. Denies chest pain. Physical Examination: Vitals are stable. Patient is afebrile. Alert no acute distress. HEENT exam is unremarkable. Neck is supple. Lungs are clear and equal bilaterally. Heart is regular rate and rhythm. Abdomen is soft right upper quadrant and epigastric tenderness with no guarding or rebound Extremities are unremarkable. Skin is warm and dry. No focal neurologic deficit. Remainder of exam is unremarkable. Emergency Department Course and Treatment: Patient was given morphine, Zofran IV. CBC normal except 80.7% segs. Chemistries normal except glucose 165, creatinine 1.03. Liver lipase normal. Gallbladder ultrasound will be obtained. This will be signed out to the oncoming physician. Disposition: Pending Impression: Abdominal pain This note was generated with [employer] dictation software. It may contain incorrect words, spelling, and punctuation that were not noted in review of the chart prior to signing ED Disposition - Plan for ED Patient: Referrals: Jeffrey Packer MD [Primary Care Provider] -
[2020-05-24] MEDS: Ondansetron 4 MG/2 ML Vial IV (05:43)
[2020-05-24] MEDS: Morphine 4 MG/ML Syringe IV (05:44)
[2020-05-24 05:57] LABS: Absolute Lymphocyte Count 1.09 X10^3/uL (0.83-4.51); Absolute Neutrophil Count 6.4 X10^3/uL (2.0-7.7); Basophil# 0.04 X10^3/uL; Basophil% 0.5 % (0-1); Eosinophil# 0.01 X10^3/uL; Eosinophils% 0.1 % (0-5); Hematocrit 44.3 % (37-47); Hemoglobin 14.7 g/dL (12.0-15.0); Lymphocyte # 1.09 X10^3/ul (4.0); Lymphocyte % 13.8 % (19-41); Mean Corp Hgb Conc 33.2 g/dL (32-36); Mean Corpuscular Hgb 28.8 pg (27.0-32.0); Mean Corpuscular Volume 86.7 fL (81-99); Mean Platelet Vol. 11.1 fl (6.2-12.0); Monocyte# 0.36 X10^3/uL; Monocyte% 4.6 % (0-10); NRBC Flagged by Analyzer 0 % (0-5); Neutrophil # 6.37 X10^3/uL (2.7-7.7); Neutrophil % 80.7 % (47-70); POSITIVE COUNT YES; Platelet Count 296 K/mm3 (150-450); RBC Distribution Width CV 13.9 % (11.6-14.6); Red Blood Count 5.11 M/mm3 (4.2-5.4); White Blood Count 7.9 K/mm3 (4.4-11.0)
[2020-05-24 05:58] LABS: Differential Indicated SCAN CRITERIA MET
[2020-05-24 06:01] LABS: AST(SGOT) 35 U/L (15-37); Alanine Aminotransfer ALT/SGPT 20 U/L (13-56); Albumin, Serum 3.5 g/dL (3.2-5.0); Alkaline Phosphatase 99 U/L (45-117); Anion Gap 8 (5-15); BUN 17 mg/dL (7-18); BUN/Creat Ratio 16.5 RATIO (10-20); Calcium,Total 8.8 mg/dL (8.5-10.1); Chloride 107 mmol/L (98-107); Creatinine, Serum 1.03 mg/dL (0.55-1.02); EST Glomerular Filtration Rate 55 mL/min (>60); Est Glom Filt Rate - Afr Amer 66 mL/min (>60); Estimated Creatinine Clearance 33.88 ml/min; Globulin 3.4 g/dL (2.2-4.2); Glucose 165 mg/dL (74-106); Lipase 103 U/L (73-393); Potassium 3.5 mmol/L (3.5-5.1); Protein, Total 6.9 g/dL (6.4-8.2); Sodium Level 141 mmol/L (136-145)
--- NOTE | 2020-05-24 06:24 | ED.RN ---
dtr updated about pt. would like update if pt is going to be d/c'd or admitted. Vanesa Riojas- [phone]
[2020-05-24 06:25] LABS: Differential Comment SCANNED
[2020-05-24 06:26] LABS: Platelet Estimate ADEQUATE (ADEQ)
--- NOTE | 2020-05-24 08:28 | ED.DCSUM_ITS ---
- ER Visit Summary Date of Service: 05/24/20 Chief Complaint: [] History of Present Illness: The patient is a 79 F [] Physical Examination: [] Test Results: [] Emergency Department Course and Treatment: [] Treatment Plan: [] Disposition: [] Impression: [] This note was generated with [employer] dictation software. It may contain incorrect words, spelling, and punctuation that were not noted in review of the chart prior to signing ED Disposition - Plan for ED Patient: Disposition: Home or Assisted Living Instructions: ED Abdominal Pain Unkn Cause Fem Prescriptions: Hydrocodone Bitart/Apap 5-325 [[place] 5MG-325MG] 1 tablet PO Q6H PRN PRN 3 Days #10 tablet PRN Reason: Pain Transmission Status: Sent to [facility] #30 Referrals: Jeffrey Packer MD [Primary Care Provider] - 3-5 Days if not improving
[2020-05-24 09:09] VITALS: BP 143/66; PULSE 59; RESP 16; O2SAT 97
== END 2020-05-24 09:12 | disposition home or self-care (01) ==
PROVIDERS: Emergency Medicine; Emergency Provider Emergency Medicine; PCP Family Medicine
DX: R10.9 Unspecified abdominal pain (principal); R11.2 Nausea with vomiting, unspecified; R05 Cough; I10 Essential (primary) hypertension; E78.00 Pure hypercholesterolemia, unspecified; Z85.3 Personal history of malignant neoplasm of breast; Z79.82 Long term (current) use of aspirin; Z79.899 Other long term (current) drug therapy
CPT/HCPCS: 76705; 80053; 83690; 85025; 87426; 96361; 96374; 96375; 99283; J2405

== ENCOUNTER → 2020-09-17 11:07 | Outpatient (CLI) | payer MEDICARE, OTHER, SELFPAY ==
[2020-09-17 12:34] LABS: Anion Gap 6 (5-15); BUN 21 mg/dL (7-18); BUN/Creat Ratio 23.6 RATIO (10-20); Chloride 107 mmol/L (98-107); Creatinine, Serum 0.89 mg/dL (0.55-1.02); EST Glomerular Filtration Rate 65 mL/min (>60); Est Glom Filt Rate - Afr Amer 78 mL/min (>60); Glucose 118 mg/dL (74-106); Potassium 4.1 mmol/L (3.5-5.1); Sodium Level 141 mmol/L (136-145); Uric Acid 3.7 mg/dL (2.6-6.0)
== END ==
PROVIDERS: PCP Family Medicine; Visit Provider Family Medicine
DX: N28.9 Disorder of kidney and ureter, unspecified (principal); M10.9 Gout, unspecified
CPT/HCPCS: 36415; 80048; 84550

== ENCOUNTER → 2021-03-31 08:44 | Outpatient (CLI) | payer MEDICARE, OTHER, SELFPAY ==
[2021-03-31 10:25] LABS: Vitamin D,25 Hydroxy 66.8 ng/mL
[2021-03-31 10:35] LABS: ALB/GLOB Ratio 0.9 RATIO (0.9-2.4); AST(SGOT) 29 U/L (15-37); Alanine Aminotransfer ALT/SGPT 20 U/L (13-56); Albumin, Serum 3.3 g/dL (3.2-5.0); Alkaline Phosphatase 89 U/L (45-117); Anion Gap 7 (5-15); BUN 15 mg/dL (7-18); BUN/Creat Ratio 15.9 RATIO (10-20); Chloride 109 mmol/L (98-107); Cholesterol 180 mg/dL (200); Creatinine, Serum 0.94 mg/dL (0.55-1.02); EST Glomerular Filtration Rate 60 mL/min (>60); Est Glom Filt Rate - Afr Amer 73 mL/min (>60); Globulin 3.8 g/dL (2.2-4.2); Glucose 136 mg/dL (74-106); High Density Lipoprotein 74 mg/dL; Potassium 4.1 mmol/L (3.5-5.1); Protein, Total 7.1 g/dL (6.4-8.2); Sodium Level 139 mmol/L (136-145); Thyroid Stim Hormone (TSH) 2.58 uIU/mL (0.358-3.74); Triglycerides 102 mg/dL; Uric Acid 4.1 mg/dL (2.6-6.0); Very Low Density Lipoprotein 20 mg/dL (5-40)
== END ==
PROVIDERS: PCP Family Medicine; Referring Provider Family Medicine; Visit Provider Family Medicine
DX: M10.9 Gout, unspecified (principal); I10 Essential (primary) hypertension; M85.80 Other specified disorders of bone density and structure, unspecified site
CPT/HCPCS: 36415; 80053; 80061; 82306; 84443; 84550

== ENCOUNTER → 2021-04-09 09:48 | Outpatient (CLI) | payer MEDICARE, OTHER, SELFPAY ==
--- NOTE | 2021-04-09 09:51 | BI_ITS ---
MAMMOGRAPHY - BILATERAL SCREENING REASON FOR EXAM: Female, 80 years old. Routine annual screening examination. PERTINENT HISTORY: Personal history of breast cancer. Prior right lumpectomy with radiation therapy. Left excisional breast biopsy. Mother with breast cancer. TECHNIQUE: Digital bilateral breast luis carlos (3D mammographic acquisition) in the CC and MLO projections. 2-D mediolateral oblique (MLO) and craniocaudad (CC) views of both breasts were obtained. CAD: Full Field Digital Mammography with Computer Added Detection was performed. COMPARISON: Comparison is made with prior examination dated 04/08/2020 and 04/27/2019. FINDINGS: Breast Composition: The breasts are heterogeneously dense, which may obscure small masses. There are no dominant masses or suspicious calcifications. The patient is status post lumpectomy in the upper lateral aspect of the right breast with resultant postoperative deformity and overlying skin thickening. A tissue clip marker is seen in the deep central aspect of the right breast. Stable appearance of the small right axillary lymph nodes. No other significant abnormalities are identified. There has been no significant change since the prior study. BI/SCRN MAMM (CAD)W/LUIS CARLOS BILAT IMPRESSION: Stable bilateral screening mammogram. Yearly follow-up mammogram recommended. (A) ASSESSMENT CATEGORY: BIRADS Category 2: Benign. A letter regarding these results will be sent to the patient by the facility within 30 days. Approximately 10% of breast cancers are not detected by mammography. A normal mammogram should not delay biopsy of a clinically suspicious abnormality. [id number] Electronically Signed: Mann Dinero MD at 10:51 EDT , Service support ,
== END ==
PROVIDERS: PCP Family Medicine; Referring Provider Nurse Practitioner; Visit Provider Nurse Practitioner
DX: C50.411 Malignant neoplasm of upper-outer quadrant of right female breast (principal); Z17.1 Estrogen receptor negative status [ER-]; Z12.31 Encounter for screening mammogram for malignant neoplasm of breast
CPT/HCPCS: 77063; 77067

== ENCOUNTER → 2021-06-12 09:14 | Outpatient (CLI) | payer MEDICARE, OTHER, SELFPAY ==
--- NOTE | 2021-06-12 09:25 | BD_ITS ---
STUDY: DUAL ENERGY X-RAY ABSORPTIOMETRY / DXA REASON FOR EXAM: Female, 80 years old. M85.89. The patient is postmenopausal. TECHNIQUE: Bone Mineral Density (BMD) measurements of lumbar spine and bilateral hips were obtained. COMPARISON: Comparison is made with prior study 05/23/2019. FINDINGS: Lumbar Spine (L1-L4): g/cm2 (1.054) / T-score (0.2) / Z-score (2.9) Findings are suggestive of normal bone density with a low fracture risk. Left Femur Total: g/cm2 (0.821) / T-score (-1.0) / Z-score (1.2) Left Femoral Neck: g/cm2 (0.707) / T-score (-1.3) / Z-score (1.1) Right Femur Total: g/cm2 (0.751) / T-score (-1.7) / Z-score (0.6) Right Femoral Neck: g/cm2 (0.674) / T-score (-1.6) / Z-score (0.8) The T-Scores on the most recent prior examination were: Lumbar Spine (L1-L4): There has been worsening of bone density since the previous examination. Left Femur Total: which represents an improvement of 2.8%. Right Femur Total: which represents a worsening of 5.8%. BD/Dexa Bone Density Study IMPRESSION: The patient is considered osteopenic as outlined below according to World Vance Organization (WHO) criteria with a moderate fracture risk. There has been worsening of bone density since the previous examination. Reference Information: The T-score is the number of standard deviations above or below the standard which is normal for young adults at their peak bone mineral density. The World Health Organization (WHO) interprets the T-scores as follows: Above -1 Normal bone density Between -1 and -2.5 Osteopenia Equal to / or below -2.5 Osteoporosis As a practical clinical guideline, osteopenia may be graded as follows: Mild -1 through -1.5 Moderate -1.6 through -2.0 Severe -2.1 through -2.4 The Z-score is the number of standard deviations above or below age-matched controls. A Z-score of less than -1.5 would be considered abnormal. References: 1. NIH Osteoporosis and Related Bone Diseases www osteo.org 2. International Society for Clinical Densitometry www iscd.org 3. National Osteoporosis Foundation www nof.org Electronically Signed: Mann Dinero MD at 10:20 EST , Service support ,
== END ==
PROVIDERS: PCP Family Medicine; Referring Provider Family Medicine; Visit Provider Family Medicine
DX: M85.80 Other specified disorders of bone density and structure, unspecified site (principal); Z78.0 Asymptomatic menopausal state
CPT/HCPCS: 77080

== ENCOUNTER → 2022-03-30 | Outpatient (CLI) | payer MEDICARE, OTHER, SELFPAY ==
[2022-03-30 10:11] LABS: Mean Corp Hgb Conc 31.8 g/dL (32-36); Mean Corpuscular Hgb 28.9 pg (27.0-32.0); Mean Corpuscular Volume 90.7 fL (81-99); Mean Platelet Vol. 10.8 fl (6.2-12.0); Platelet Count 302 K/mm3 (150-450); RBC Distribution Width CV 14.2 % (11.6-14.6); RBC Distribution Width SD 47.1 fl (35.1-43.9); Red Blood Count 4.85 M/mm3 (4.2-5.4); White Blood Count 5.7 K/mm3 (4.4-11.0)
[2022-03-30 10:23] LABS: ALB/GLOB Ratio 0.8 RATIO (0.9-2.4); AST(SGOT) 28 U/L (15-37); Alanine Aminotransfer ALT/SGPT 24 U/L (13-56); Albumin, Serum 3.3 g/dL (3.2-5.0); Alkaline Phosphatase 101 U/L (45-117); Anion Gap 8 (5-15); BUN 18 mg/dL (7-18); BUN/Creat Ratio 20.8 RATIO (10-20); Chloride 109 mmol/L (98-107); Cholesterol 185 mg/dL (200); Creatinine, Serum 0.86 mg/dL (0.55-1.02); EST Glomerular Filtration Rate 67 mL/min (>60); Est Glom Filt Rate - Afr Amer 81 mL/min (>60); Globulin 3.9 g/dL (2.2-4.2); Glucose 134 mg/dL (74-106); High Density Lipoprotein 66 mg/dL; Potassium 3.9 mmol/L (3.5-5.1); Protein, Total 7.2 g/dL (6.4-8.2); Sodium Level 141 mmol/L (136-145); Triglycerides 135 mg/dL; Uric Acid 4.2 mg/dL (2.6-6.0); Very Low Density Lipoprotein 27 mg/dL (5-40)
[2022-03-30 10:24] LABS: Vitamin D,25 Hydroxy 60.8 ng/mL
== END | disposition home or self-care (01) ==
PROVIDERS: PCP Family Medicine; Visit Provider Family Medicine
DX: K21.9 Gastro-esophageal reflux disease without esophagitis (principal); E55.9 Vitamin D deficiency, unspecified; I10 Essential (primary) hypertension; M10.9 Gout, unspecified
CPT/HCPCS: 36415; 80053; 80061; 82306; 84550; 85027

== ENCOUNTER → 2022-04-13 | Outpatient (CLI) | payer MEDICARE, OTHER, SELFPAY ==
--- NOTE | 2022-04-13 11:00 | BI_ITS ---
MAMMOGRAPHY - BILATERAL SCREENING REASON FOR EXAM: Female, 81 years old. Routine annual screening examination. PERTINENT HISTORY: Personal history of breast cancer. Prior left lumpectomy and radiation treatment. Mother with breast cancer. Prior right stereotactic breast biopsy. TECHNIQUE: Digital bilateral breast luis carlos (3D mammographic acquisition) in the CC and MLO projections. 2-D mediolateral oblique (MLO) and craniocaudad (CC) views of both breasts were obtained. CAD: Full Field Digital Mammography with Computer Added Detection was performed. COMPARISON: Comparison is made with prior study 04/09/2021 and 04/08/2020. FINDINGS: Breast Composition: The breasts are heterogeneously dense, which may obscure small masses. There are no dominant masses or suspicious calcifications. Once again, the patient is status post lumpectomy in the upper lateral aspect of the right breast with resultant postoperative deformity and overlying skin thickening. A tissue clip marker is seen in the deep central aspect of the right breast. Stable small benign appearing bilateral axillary lymph nodes. No other significant abnormalities are identified. There has been no significant change since the prior study. BI/SCRN MAMM (CAD)W/LUIS CARLOS BILAT IMPRESSION: Stable bilateral screening mammogram. Yearly follow-up mammogram recommended. (A) ASSESSMENT CATEGORY: BIRADS Category 2: Benign. A letter regarding these results will be sent to the patient by the facility within 30 days. Approximately 10% of breast cancers are not detected by mammography. A normal mammogram should not delay biopsy of a clinically suspicious abnormality. [id number] Electronically Signed: Mann Dinero MD at 12:35 EDT ,
== END | disposition home or self-care (01) ==
LOC: OPBI 10:59
PROVIDERS: PCP Family Medicine; Visit Provider Nurse Practitioner
DX: Z12.31 Encounter for screening mammogram for malignant neoplasm of breast (principal); C50.411 Malignant neoplasm of upper-outer quadrant of right female breast; Z80.3 Family history of malignant neoplasm of breast; Z17.1 Estrogen receptor negative status [ER-]
CPT/HCPCS: 77063; 77067

== ENCOUNTER → 2022-04-13 | Outpatient (CLI) | payer MEDICARE, OTHER, SELFPAY | END | disposition home or self-care (01) | LOC: OPBI 10:47 | PROVIDERS: PCP Family Medicine; Visit Provider Nurse Practitioner | DX: Z00.00 Encounter for general adult medical examination without abnormal findings (principal) ==

== ENCOUNTER 2022-07-04 08:41 | Emergency (ER) | payer MEDICARE, OTHER, SELFPAY ==
[2022-07-04 08:42] VITALS: BP 159/109; PULSE 94; RESP 17; TEMP 36.7; O2SAT 93; BMI 26.0
--- NOTE | 2022-07-04 09:14 | CT_ITS ---
INDICATION: Diffuse abdominal pain. EXAMINATION: CT ABDOMEN AND PELVIS WITHOUT CONTRAST - CT Abdomen And Pelvis W/O Contrast Injection TECHNIQUE: Helically acquired images were obtained of the abdomen and pelvis without oral or IV contrast. A radiation dose optimization technique was used for this scan. IV Contrast dosage and agent: None. Oral contrast: None. COMPARISON: None. FINDINGS: LOWER CHEST: Lung bases are clear. No cardiomegaly or pericardial effusion. LIVER: Homogeneous. No focal mass. GALLBLADDER AND BILIARY TREE: No calcified gallstones. No gallbladder distension or wall edema. No intra- or extrahepatic biliary ductal dilation. PANCREAS: No focal cystic or solid mass. SPLEEN: Normal size without focal cystic or solid mass. ADRENAL GLANDS: No nodules. KIDNEYS AND URETERS: Normal renal size and position. No hydronephrosis. PERITONEUM: No ascites or free air. No other fluid collection. BOWEL: No evidence of acute appendicitis. Mildly dilated fluid-filled distal small bowel loops. The more proximal and more distal small bowel loops are normal in caliber. No focal inflammatory change. LYMPH NODES: No enlarged mesenteric or retroperitoneal lymph nodes. VESSELS: Aorta is non-dilated. URINARY BLADDER: Unremarkable. REPRODUCTIVE ORGANS: Absent uterus consistent with previous hysterectomy. ABDOMINAL WALL: No discrete abdominal or pelvic wall hernia. BONES: Degenerative changes in the spine. CT/Abdomen/Pelvis without Cont IMPRESSION: Nonspecific fluid filled and mildly dilated distal small bowel loops. The terminal ileum is nondilated. Findings could be due to focal ileus or enteritis. Electronically Signed: Mo Rowley MD at 11:35 [facility] ,
--- NOTE | 2022-07-04 09:17 | EDS_ITS ---
HPI HPI - GI History of Present Illness Chief Complaint: Abd Pain Informant: patient Abdominal Pain/Flank Pain Onset: Yesterday Context: Gradual Onset Timing: Continuous and Waxes and wanes Quality: Aching Location: Diffuse Current Severity: Moderate Maximum Severity: Moderate Worsened by: Nothing Relieved by: Nothing (Had bowel movement this morning no difference) Nausea/Vomiting/Emesis GI Symptom: Negative for Nausea or Vomiting Diarrhea/Melena/Hematochezia GI Symptom: Negative for Diarrhea, Melena or Hematochezia Associated Symptoms Associated Symptoms: Negative for Dysuria, Frequency, Hematuria or Urgency Narrative Narrative: Patient having abdominal discomfort since yesterday evening about 13 hours prior to evaluation. It has been constant, and colicky. Not going away. No associated nausea, blood in the stool, diarrhea, urinary symptoms, chest symptoms, no radiation of the discomfort, no pain in her back. No migration. Seems to be across the middle. Does not radiate to shoulders or scapular area or anywhere else. Never had this before. She has a history of reflux so she took some antiacid but it did not help. When she gets reflux issues that usually is in her lower chest and it feels like burning. She has not had that with this. She has had a prior hysterectomy but no other abdominal surgeries and that was remote. [facility] Medical History Breast cancer, right GERD (gastroesophageal reflux disease) Gout HTN (hypertension) Osteoarthritis Home Medications allopurinol 300 mg tablet 300 mg PO DAILY 07/07/17 [History Last Taken Unknown] aspirin 81 mg chewable tablet 81 mg PO DAILY@0800 07/07/17 [History Last Taken Unknown] calcium carbonate 500 mg calcium (1,250 mg) tablet 1,000 mg PO DAILY 07/07/17 [History Last Taken Unknown] cinnamon bark 500 mg capsule 500 mg PO DAILY 07/07/17 [History Last Taken Unknown] ferrous gluconate 236 mg (27 mg iron) tablet 28 mg PO DAILY 07/07/17 [History Last Taken Unknown] fish oil-dha-epa 1,200 mg-144 mg-216 mg capsule 1 ea PO DAILY 07/07/17 [History Last Taken Unknown] iwxxgaxt-vtg-wynat acid 0.4 mg-lycopene 300 mcg-lutein 250 mcg tablet 1 ea PO DAILY 07/07/17 [History Last Taken Unknown] pravastatin 40 mg tablet 40 mg PO DAILY 07/07/17 [History Last Taken Unknown] travoprost 0.004 % eye drops 5 ml EACHEYE QHS 07/07/17 [History Last Taken Unknown] acetaminophen 650 mg tablet,extended release (Arthritis Pain Relief (acetaminophen) ER) 650 mg PO PRN PRN Pain Or Fever 04/11/19 [History Last Taken Unknown] losartan 50 mg tablet 50 mg PO DAILY 04/11/19 [History Last Taken 04/27/19 06:00] brimonidine 0.2 % eye drops 1 drp EACH EYE BID 04/26/19 [History Last Taken Unknown] timolol maleate 0.5 % eye drops 1 drp EACH EYE BID 04/26/19 [History Last Taken Unknown] dicyclomine 10 mg capsule 20 mg PO Q6H PRN PRN abdominal discomfort #20 CAPSULES 07/04/22 [Rx Last Taken Unknown] omeprazole 40 mg capsule,delayed release 40 mg PO DAILY 07/04/22 [History Last Taken Unknown] ondansetron 4 mg disintegrating tablet 8 mg PO Q8H PRN PRN Nausea #20 tabs 07/04/22 [Rx Last Taken Unknown] Allergy/AdvReac Type Severity Reaction Status Date / Time codeine AdvReac Other Verified 07/04/22 08:41 Family History Mother Breast cancer CVA (cerebral vascular accident) Brother CVA (cerebral vascular accident) Heart disease Surgical History History of colonoscopy (~2010) History of hysterectomy History of lumpectomy of right breast (~03/2019) Social History Smoking Status: Never smoker ROS ROS ED Constitutional Constitutional ED: Denies chills or fever(s) Eyes Eyes: Denies change in vision or diplopia ENT ENT ED: Denies rhinorrhea or sore throat Cardiovascular Cardiovascular: Denies chest pain or palpitations Respiratory/Chest Respiratory/Chest: Denies cough or dyspnea Gastrointestinal Gastrointestinal: Reports abdominal pain; Denies diarrhea, nausea or vomiting Genitourinary Genitourinary ED: Denies dysuria or hematuria Musculoskeletal Musculoskeletal: Denies back pain or neck pain Integumentary Denies abscess or rash Neurologic Neurologic: Denies headache(s), paresthesias or weakness Psychiatric Psychiatric: Denies anxiety or suicidal thoughts EXAM Physical Exam Const Vital Signs: 07/04/22 08:42 Temperature 98.0 F Temperature Source Temporal Pulse Rate 94 Respiratory Rate 17 Blood Pressure 159/109 H Blood Pressure Mean 125 Pulse Ox 93 Oxygen Delivery Method Room Air Positive well nourished and well developed General Appearance ED: well developed and NAD HEENT Reports moist mucous membranes normocephalic and atraumatic Eyes PERRL and EOMs intact bilaterally Neck full ROM and supple Resp normal respiratory effort and clear to auscultation bilaterally Cardio regular rate, regular rhythm and no murmurs GI non-distended GI Narrative: Diffuse tenderness. No guarding or rebound. No pulsatile masses palpable. Auscultation: normoactive bowel sounds Palpation: soft Back/Spine no CVA tenderness General Back: other FROM Extremity normal to inspection General Extremety ED: Negative for edema, pulses abnormal or tenderness General Extremity: Negative for edema or pulses abnormal Neuro oriented x3, CN's II-XII intact bilaterally and no sensory deficits noted Sensorium / Orientation: awake and alert Motor Exam: strength 5/5 throughout Skin no rashes or lesions noted and no wounds MDM MDM MDM Narrative Medical decision making narrative: With this patient's age and symptoms, initially labs and urine and CT of the abdomen/pelvis ordered. No IV contrast. My interpretation of the CT agrees with that of the radiologist. The CT shows some nonspecific small bowel findings as noted below, but nothing specific/acute. Given the patient's age and the fact that she has colicky discomfort and still has her gallbladder, I obtained an ultrasound of the gallbladder. My interpretation of the ultrasound agrees with that of the radiologist. It is negative for any acute. She is feeling much better after fluids, a dose of morphine, and dicyclomine as well as some Zofran. I reexamined her, she has very mild supraumbilical tenderness, no palpable hernia there, no guarding or rebound. She appears well. I discussed with Dr. Banks with surgery and went over the case and imaging with him. He agrees with discharging the patient home with supportive care and outpatient follow-up or returning if worse, discussed that with the patient and family they are comfortable with that plan will prescribe her Zofran and dicyclomine to use as needed if she has recurrent/persistent symptoms. Lab Data Attestation: I reviewed the patient's lab results. Labs: Laboratory Results - last 24 hr 07/04/22 07/04/22 07/04/22 09:28 09:28 11:10 WBC 15.5 H RBC 5.11 Hgb 15.1 H Hct 44.4 MCV 86.9 MCH 29.5 MCHC 34.0 RDW Std Deviation 44.3 H RDW Coeff of Wilfredo 13.9 Plt Count 357 MPV 9.4 Immature Gran % (Auto) 0.300 Neut % (Auto) 87.0 H Lymph % (Auto) 8.2 L [place] % (Auto) 3.9 Eos % (Auto) 0.1 Baso % (Auto) 0.5 Absolute Neuts (auto) 13.5 H Absolute Lymphs (auto) 1.27 Nucleated RBC % 0 Sodium 140 Potassium 3.6 Chloride 109 H Carbon Dioxide 23.0 Anion Gap 8 BUN 17 Creatinine 0.89 Estim Creat Clear Calc 36.14 Est GFR (MDRD) Af Amer 78 Est GFR (MDRD) Non-Af 64 BUN/Creatinine Ratio 19.1 Glucose 149 H Calcium 9.1 Total Bilirubin 0.50 AST 29 ALT 22 Alkaline Phosphatase 101 Total Protein 7.1 Albumin 3.5 Globulin 3.6 Albumin/Globulin Ratio 1.0 Lipase 126 Urine Color Yellow Urine Clarity Clear Urine pH 6.0 Ur Specific [place] 1.015 Urine Protein 15 H Urine Glucose (UA) Normal Urine Ketones 5 H Urine Occult Blood 25 H Urine Nitrite Negative Urine Bilirubin Negative Urine Urobilinogen Normal Ur Leukocyte Esterase 100 H Urine RBC 0-5 SEEN Urine WBC 0 SEEN Ur Squamous Epith Cells 5-10 SEEN Urine Bacteria RARE Urine Mucus 0 SEEN Radiography Diagnostic Testing: Clinical Impression(s) from Imaging Studies Abdomen/Pelvis CT 07/04/22 09:14 IMPRESSION: Nonspecific fluid filled and mildly dilated distal small bowel loops. The terminal ileum is nondilated. Findings could be due to focal ileus or enteritis. Electronically Signed: Mo Rowley MD at 11:35 EST , Gallbladder Ultrasound 07/04/22 11:41 IMPRESSION: 1. Echogenic liver consistent with fatty infiltration with focal fatty sparing. 2. No evidence of gallstones. Electronically Signed: Mo Rowley MD at 13:03 EST , Discharge Plan Triage Chief Complaint: Abd Pain ED Provider: Dennis Skinner Dx/Rx/DC Orders Clinical Impression: Abdominal pain, diffuse Instructions: Abdominal Pain Prescriptions: New dicyclomine 10 MG capsule 20 mg PO Q6H PRN PRN (Reason: abdominal discomfort) Qty: 20 0RF ondansetron [ondansetron] 4 MG tablet 8 mg PO Q8H PRN PRN (Reason: Nausea) Qty: 20 0RF No Action losartan 50 mg tablet 50 mg PO DAILY acetaminophen [Arthritis Pain Relief (acetam)] 650 mg tablet extended release 650 mg PO PRN PRN (Reason: Pain Or Fever) pravastatin 40 MG tablet 40 mg PO DAILY travoprost 5 ML drops 5 ml EACHEYE QHS calcium carbonate 500 MG tablet 1,000 mg PO DAILY aspirin 81 MG tablet,chewable 81 mg PO DAILY@0800 allopurinol 300 MG tablet 300 mg PO DAILY cinnamon bark 500 MG capsule 500 mg PO DAILY kyosckhl-pal-LQ-lycopen-lutein 1 EACH tablet 1 ea PO DAILY fish oil-dha-epa 1 EACH capsule 1 ea PO DAILY ferrous gluconate 236 MG tablet 28 mg PO DAILY brimonidine 1 DROP bottle 1 drp EACH EYE BID timolol maleate 1 DROP drops 1 drp EACH EYE BID omeprazole 40 mg Capsule,Delayed Release(Dr/Ec) 40 mg PO DAILY Primary Care Provider: Jeffrey Packer Referrals: Jeffrey Packer MD [Primary Care Provider] - 3-5 Days Noah Banks MD [Med Staff - Active Staff] - 3-5 Days (if you cannot get into your primary doctor) Disposition Disposition: Home, Self Care
[2022-07-04] MEDS: Ondansetron 4 MG/2 ML Vial IV (09:26)
[2022-07-04] MEDS: Morphine 2 MG/ML Syringe IV (09:27)
[2022-07-04] MEDS: Dicyclomine 10 MG Capsule 20 MG PO (09:27)
[2022-07-04] MEDS: 0.9% Normal Saline 1,000 ML 125 ML IV (09:31)
[2022-07-04 09:35] LABS: Absolute Lymphocyte Count 1.27 X10^3/uL (0.83-4.51); Absolute Neutrophil Count 13.5 X10^3/uL (2.0-7.7); Basophil# 0.08 X10^3/uL; Basophil% 0.5 % (0-1); Eosinophil# 0.02 X10^3/uL; Eosinophils% 0.1 % (0-5); Hematocrit 44.4 % (37-47); Hemoglobin 15.1 g/dL (12.0-15.0); Lymphocyte # 1.27 X10^3/ul (0.83-4.51); Lymphocyte % 8.2 % (19-41); Mean Corpuscular Hgb 29.5 pg (27.0-32.0); Mean Corpuscular Volume 86.9 fL (81-99); Mean Platelet Vol. 9.4 fl (6.2-12.0); Monocyte% 3.9 % (0-10); NRBC Flagged by Analyzer 0 % (0-5); Neutrophil # 13.48 X10^3/uL (2.7-7.7); Platelet Count 357 K/mm3 (150-450); RBC Distribution Width CV 13.9 % (11.6-14.6); RBC Distribution Width SD 44.3 fl (35.1-43.9); Red Blood Count 5.11 M/mm3 (4.2-5.4); White Blood Count 15.5 K/mm3 (4.4-11.0)
[2022-07-04 09:51] LABS: AST(SGOT) 29 U/L (15-37); Alanine Aminotransfer ALT/SGPT 22 U/L (13-56); Albumin, Serum 3.5 g/dL (3.2-5.0); Alkaline Phosphatase 101 U/L (45-117); Anion Gap 8 (5-15); BUN 17 mg/dL (7-18); BUN/Creat Ratio 19.1 RATIO (10-20); Calcium,Total 9.1 mg/dL (8.5-10.1); Chloride 109 mmol/L (98-107); Creatinine, Serum 0.89 mg/dL (0.55-1.02); EST Glomerular Filtration Rate 64 mL/min (>60); Est Glom Filt Rate - Afr Amer 78 mL/min (>60); Estimated Creatinine Clearance 36.14 ml/min; Globulin 3.6 g/dL (2.2-4.2); Glucose 149 mg/dL (74-106); Lipase 126 U/L (73-393); Potassium 3.6 mmol/L (3.5-5.1); Protein, Total 7.1 g/dL (6.4-8.2); Sodium Level 140 mmol/L (136-145)
[2022-07-04 11:11] LABS: Mucous, Urine 0 SEEN /hpf (<or=2+); White Blood Cells 0 SEEN /hpf (0-5)
[2022-07-04 11:14] LABS: Color, Urine Yellow (Yellow); Glucose, Dipstick Normal (Normal); Ketone-Dipstick 5 mg/dl (Negative); Leukocyte Esterase-Dipstick 100 /ul (Negative); Nitrite-Dipstick Negative (Negative); Occult Blood-Urine 25 /ul (Negative); Protein-Dipstick 15 mg/dl (Negative); Specific Gravity, Urine 1.015 (1.002-1.030); Urine Bilirubin Dipstick Negative (Negative); Urine Clarity Clear (Clear); Urine Urobilinogen Normal (Normal)
[2022-07-04 11:20] LABS: Bacteria RARE /hpf (None Seen); Red Blood Cells-Urine 0-5 SEEN /hpf (0-5); Squamous Epithelial Cells - UA 5-10 SEEN /hpf (5-10)
--- NOTE | 2022-07-04 11:41 | US_ITS ---
PROCEDURE: ABDOMINAL ULTRASOUND-RIGHT UPPER QUADRANT REASON FOR EXAM: Female, 81 years old. Midline abdominal pain. TECHNIQUE: Transabdominal TECHNICAL QUALITY: Limited. Examination limited by bowel gas. COMPARISON: None. FINDINGS: Liver: Normal size of the liver. The liver measures 14 cm. There is increased echogenicity consistent with fatty infiltration. The bile ducts are within normal limits. There is hepatic color flow. There is portal color flow. Focal hypoechoic area adjacent to gallbladder fossa likely representing focal fatty sparing. Gallbladder: Normal distended gallbladder. The gallbladder wall measures 1.7 mm. There is a negative sonographic Sunshine''s sign. There is no pericholecystic fluid. There are no gallstones. Common Bile Duct (C.B.D.): Normal size C.B.D. The common bile duct measures 3.9 mm. Pancreas: The pancreas is obscured by bowel gas and not visualized. Right Kidney: Normal size of the right kidney. The right kidney measures 8.2 cm. Normal renal cortex. The right cortex measures 1.2 cm. There is no demonstrated renal mass or cyst. There are no demonstrated renal calculi. There is no hydronephrosis. There is no ascites. US/Gallbladder IMPRESSION: 1. Echogenic liver consistent with fatty infiltration with focal fatty sparing. 2. No evidence of gallstones. Electronically Signed: Mo Rowley MD at 13:03 EST ,
[2022-07-04 14:40] VITALS: PULSE 87; RESP 17; O2SAT 94
== END 2022-07-04 14:50 | disposition home or self-care (01) ==
PROVIDERS: Emergency Provider Emergency Medicine; PCP Family Medicine; Visit Provider Emergency Medicine
DX: R10.9 Unspecified abdominal pain (principal); I10 Essential (primary) hypertension; K21.9 Gastro-esophageal reflux disease without esophagitis; Z79.899 Other long term (current) drug therapy
CPT/HCPCS: 74176; 76705; 80053; 81001; 83690; 85025; 96374; 96375; 99284; J7030; A4216; J2405

== ENCOUNTER → 2022-12-24 | Outpatient (CLI) | payer MEDICARE, OTHER, SELFPAY ==
[2022-12-24 17:37] LABS: Absolute Lymphocyte Count 1.83 X10^3/uL (0.83-4.51); Absolute Neutrophil Count 9.1 X10^3/uL (2.0-7.7); Basophil# 0.08 X10^3/uL; Basophil% 0.7 % (0-1); Eosinophil# 0.15 X10^3/uL; Eosinophils% 1.3 % (0-5); Hematocrit 36.3 % (37-47); Hemoglobin 12.1 g/dL (12.0-15.0); Lymphocyte # 1.83 X10^3/ul (0.83-4.51); Lymphocyte % 15.7 % (19-41); Mean Corp Hgb Conc 33.3 g/dL (32-36); Mean Corpuscular Volume 87.1 fL (81-99); Mean Platelet Vol. 10.2 fl (6.2-12.0); Monocyte# 0.49 X10^3/uL; Monocyte% 4.2 % (0-10); NRBC Flagged by Analyzer 0 % (0-5); Neutrophil # 9.05 X10^3/uL (2.7-7.7); Neutrophil % 77.7 % (47-70); Platelet Count 613 K/mm3 (150-450); RBC Distribution Width CV 15.6 % (11.6-14.6); RBC Distribution Width SD 49.6 fl (35.1-43.9); Red Blood Count 4.17 M/mm3 (4.2-5.4); White Blood Count 11.7 K/mm3 (4.4-11.0)
[2022-12-24 17:52] LABS: ALB/GLOB Ratio 0.5 RATIO (0.9-2.4); AST(SGOT) 117 U/L (15-37); Alanine Aminotransfer ALT/SGPT 136 U/L (13-56); Albumin, Serum 2.4 g/dL (3.2-5.0); Alkaline Phosphatase 656 U/L (45-117); Anion Gap 10 (5-15); BUN 28 mg/dL (7-18); BUN/Creat Ratio 16.9 RATIO (10-20); Calcium,Total 9.1 mg/dL (8.5-10.1); Chloride 110 mmol/L (98-107); Creatinine, Serum 1.66 mg/dL (0.55-1.02); EST Glomerular Filtration Rate 31 mL/min (>60); Est Glom Filt Rate - Afr Amer 38 mL/min (>60); Globulin 5.2 g/dL (2.2-4.2); Glucose 124 mg/dL (74-106); Protein, Total 7.6 g/dL (6.4-8.2); Sodium Level 141 mmol/L (136-145)
== END | disposition home or self-care (01) ==
LOC: MFPLAB 14:33
PROVIDERS: PCP Family Medicine; Visit Provider Nurse Practitioner Family
DX: R53.83 Other fatigue (principal)
CPT/HCPCS: 36415; 80053; 85025

== ENCOUNTER → 2023-01-01 | Outpatient (CLI) | payer MEDICARE, OTHER, SELFPAY ==
[2023-01-01 11:18] LABS: Mucous, Urine 0 SEEN /hpf (<or=2+)
[2023-01-01 15:29] LABS: Color, Urine Yellow (Yellow); Glucose, Dipstick Normal (Normal); Ketone-Dipstick Negative (Negative); Leukocyte Esterase-Dipstick 500 /ul (Negative); Nitrite-Dipstick Positive (Negative); Occult Blood-Urine 25 /ul (Negative); Protein-Dipstick 30 mg/dl (Negative); Urine Bilirubin Dipstick Negative (Negative); Urine Clarity Cloudy (Clear); Urine Urobilinogen Normal (Normal); Urine pH 6.5 (5.0 - 8.0)
[2023-01-01 15:46] LABS: ALB/GLOB Ratio 0.6 RATIO (0.9-2.4); AST(SGOT) 28 U/L (15-37); Alanine Aminotransfer ALT/SGPT 31 U/L (13-56); Albumin, Serum 2.9 g/dL (3.2-5.0); Alkaline Phosphatase 244 U/L (45-117); Anion Gap 8 (5-15); BUN 11 mg/dL (7-18); BUN/Creat Ratio 8.5 RATIO (10-20); Calcium,Total 9.2 mg/dL (8.5-10.1); Chloride 111 mmol/L (98-107); Creatinine, Serum 1.29 mg/dL (0.55-1.02); EST Glomerular Filtration Rate 42 mL/min (>60); Est Glom Filt Rate - Afr Amer 51 mL/min (>60); Globulin 4.5 g/dL (2.2-4.2); Glucose 113 mg/dL (74-106); Potassium 4.2 mmol/L (3.5-5.1); Protein, Total 7.4 g/dL (6.4-8.2); Sodium Level 144 mmol/L (136-145)
[2023-01-01 15:50] LABS: Red Blood Cells-Urine 0-5 SEEN /hpf (0-5); Squamous Epithelial Cells - UA 0-5 SEEN /hpf (5-10); White Blood Cells >100 SEEN /hpf (0-5)
[2023-01-01 15:51] LABS: Amorphous Sediment 1+ URATE; Bacteria 2+ /hpf (None Seen)
== END | disposition home or self-care (01) ==
LOC: MFPLAB 11:15
PROVIDERS: PCP Family Medicine; Visit Provider Family Medicine
DX: K75.9 Inflammatory liver disease, unspecified (principal); R63.0 Anorexia
CPT/HCPCS: 36415; 80053; 81001

== ENCOUNTER → 2023-01-04 | Outpatient (CLI) | payer MEDICARE, OTHER, SELFPAY ==
[2023-01-04 15:41] LABS: Hematocrit 42.1 % (37-47); Hemoglobin 12.9 g/dL (12.0-15.0); Mean Corp Hgb Conc 30.6 g/dL (32-36); Mean Corpuscular Hgb 28.5 pg (27.0-32.0); Mean Corpuscular Volume 92.9 fL (81-99); Mean Platelet Vol. 10.8 fl (6.2-12.0); Platelet Count 536 K/mm3 (150-450); RBC Distribution Width CV 14.7 % (11.6-14.6); RBC Distribution Width SD 50.3 fl (35.1-43.9); Red Blood Count 4.53 M/mm3 (4.2-5.4); White Blood Count 7.3 K/mm3 (4.4-11.0)
== END | disposition home or self-care (01) ==
LOC: MFPLAB 12:13
PROVIDERS: Nurse Practitioner Family; PCP Family Medicine; Visit Provider Family Medicine
DX: R82.90 Unspecified abnormal findings in urine (principal)
CPT/HCPCS: 36415; 85027; 87086; 87088; 87186

== ENCOUNTER → 2023-01-18 | Outpatient (CLI) | payer MEDICARE, OTHER, SELFPAY | END | disposition home or self-care (01) | LOC: MFPLAB 12:09 | PROVIDERS: PCP Family Medicine; Visit Provider Family Medicine | DX: R35.0 Frequency of micturition (principal) | CPT/HCPCS: 87086; 87088; 87186 ==

== ENCOUNTER → 2023-04-01 | Outpatient (CLI) | payer MEDICARE, OTHER, SELFPAY ==
[2023-04-01 10:25] LABS: Absolute Lymphocyte Count 1.92 X10^3/uL (0.83-4.51); Absolute Neutrophil Count 3.5 X10^3/uL (2.0-7.7); Basophil# 0.06 X10^3/uL; Eosinophil# 0.21 X10^3/uL; Eosinophils% 3.4 % (0-5); Hematocrit 42.1 % (37-47); Hemoglobin 13.2 g/dL (12.0-15.0); Lymphocyte # 1.92 X10^3/ul (0.83-4.51); Lymphocyte % 31.1 % (19-41); Mean Corp Hgb Conc 31.4 g/dL (32-36); Mean Corpuscular Hgb 28.2 pg (27.0-32.0); Mean Platelet Vol. 10.3 fl (6.2-12.0); Monocyte# 0.42 X10^3/uL; Monocyte% 6.8 % (0-10); NRBC Flagged by Analyzer 0 % (0-5); Neutrophil # 3.54 X10^3/uL (2.7-7.7); Neutrophil % 57.4 % (47-70); Platelet Count 324 K/mm3 (150-450); RBC Distribution Width CV 15.4 % (11.6-14.6); RBC Distribution Width SD 50.6 fl (35.1-43.9); Red Blood Count 4.68 M/mm3 (4.2-5.4); White Blood Count 6.2 K/mm3 (4.4-11.0)
[2023-04-01 10:47] LABS: ALB/GLOB Ratio 0.9 RATIO (0.9-2.4); AST(SGOT) 22 U/L (15-37); Alanine Aminotransfer ALT/SGPT 19 U/L (13-56); Albumin, Serum 3.4 g/dL (3.2-5.0); Alkaline Phosphatase 95 U/L (45-117); Anion Gap 8 (5-15); BUN 21 mg/dL (7-18); BUN/Creat Ratio 16.9 RATIO (10-20); Calcium,Total 8.9 mg/dL (8.5-10.1); Chloride 113 mmol/L (98-107); Cholesterol 182 mg/dL (200); Creatinine, Serum 1.24 mg/dL (0.55-1.02); EST Glomerular Filtration Rate 44 mL/min (>60); Est Glom Filt Rate - Afr Amer 53 mL/min (>60); Globulin 3.8 g/dL (2.2-4.2); Glucose 159 mg/dL (74-106); High Density Lipoprotein 60 mg/dL; Iron 65 ug/dL (50-170); Potassium 3.8 mmol/L (3.5-5.1); Protein, Total 7.2 g/dL (6.4-8.2); Sodium Level 143 mmol/L (136-145); Thyroid Stim Hormone (TSH) 5.16 uIU/mL (0.358-3.74); Triglycerides 179 mg/dL; Very Low Density Lipoprotein 36 mg/dL (5-40)
[2023-04-02 17:36] LABS: T4 Free Direct 0.78 ng/dL (0.76-1.46)
== END | disposition home or self-care (01) ==
LOC: MTLAB 07:55
PROVIDERS: PCP Family Medicine; Referring Provider Family Medicine; Visit Provider Family Medicine
DX: Z13.29 Encounter for screening for other suspected endocrine disorder (principal); D69.1 Qualitative platelet defects; R53.83 Other fatigue; K52.9 Noninfective gastroenteritis and colitis, unspecified; I10 Essential (primary) hypertension; R73.01 Impaired fasting glucose; M85.80 Other specified disorders of bone density and structure, unspecified site; M10.9 Gout, unspecified; K76.0 Fatty (change of) liver, not elsewhere classified; N28.9 Disorder of kidney and ureter, unspecified; E55.9 Vitamin D deficiency, unspecified
CPT/HCPCS: 36415; 80053; 80061; 82248; 82306; 83540; 84439; 84443; 84550; 85025

== ENCOUNTER → 2023-04-08 | Outpatient (CLI) | payer MEDICARE, OTHER, SELFPAY ==
--- NOTE | 2023-04-07 09:00 | LES_PTH ---
PATIENT: KING KAUFFMAN LOC: [facility] U#:[id number] AGE/SX: 82/F ROOM: RE04/08/[address]: Dr. Alverto Packer MD : 1940 BED: DIS: 04/08/2023 SPEC #: [id number] RECD: 04/08/23 10:06 STATUS: FABY OWEN #: [id number] OZZIE: 04/07/23 09:[address]: Alverto Packer DEPT: SURGICAL PATHOLOGY RECD BY: Deirdre Gavin Tissues: Skin of back, NOS Procedures: Surgery Specimen Level IV HEADER OPERATION: Shave biopsy PRE-OP DIAGNOSIS: Atypical nevus TISSUE SUBMITTED: Upper back MICROSCOPIC DIAGNOSIS Skin lesion of upper back, shave biopsy: Seborrheic keratosis, hyperkeratotic type, inflamed. AM:tisha 04/09/2023 MICROSCOPIC DESCRIPTION Slides are reviewed. GROSS DESCRIPTION Received in fixative is one container labeled with the patient's name and designated back. The specimen consists of a light ray shave biopsy of skin measuring 1.2 x 0.8 x 0.2 cm. The specimen is sectioned and totally submitted in one cassette. / AM:tisha 04/08/2023 TC:5 CPT: 96417
== END | disposition home or self-care (01) ==
LOC: LABSPEC 10:16
PROVIDERS: PCP Family Medicine; Visit Provider Family Medicine
DX: C49.9 Malignant neoplasm of connective and soft tissue, unspecified (principal)
CPT/HCPCS: 88305

== ENCOUNTER → 2023-04-14 | Outpatient (CLI) | payer MEDICARE, OTHER, SELFPAY ==
--- NOTE | 2023-04-14 09:46 | BI_ITS ---
MAMMOGRAPHY - BILATERAL SCREENING REASON FOR EXAM: Female, 82 years old. Routine annual screening examination. PERTINENT HISTORY: Personal history of breast cancer. Prior right lumpectomy with radiation treatment. Prior right stereotactic breast biopsy. Prior left excisional breast biopsy. Mother with breast cancer. TECHNIQUE: Digital bilateral breast luis carlos (3D mammographic acquisition) in the CC and MLO projections. 2-D mediolateral oblique (MLO) and craniocaudad (CC) views of both breasts were obtained. CAD: Full Field Digital Mammography with Computer Added Detection was performed. COMPARISON: Comparison is made with prior study April 13, 2022 and April 09, 2021. FINDINGS: Breast Composition: The breasts are heterogeneously dense, which may obscure small masses. There are no dominant masses or suspicious calcifications. Once again, the patient is status post lumpectomy in the upper lateral aspect of the right breast with resultant postoperative deformity and skin thickening. A tissue clip marker is also seen in the deep central aspect of the right breast. Stable small benign appearing axillary lymph nodes. No other significant abnormalities are identified. There has been no significant change since the prior study. BI/SCRN MAMM (CAD)W/LUIS CARLOS BILAT IMPRESSION: Stable bilateral screening mammogram. Yearly follow-up mammogram recommended. (A) ASSESSMENT CATEGORY: BIRADS Category 2: Benign. A letter regarding these results will be sent to the patient by the facility within 30 days. Approximately 10% of breast cancers are not detected by mammography. A normal mammogram should not delay biopsy of a clinically suspicious abnormality. [id number] Electronically Signed: Mann Dinero MD at 12:53 EDT ,
== END | disposition home or self-care (01) ==
LOC: OPBI 09:43
PROVIDERS: PCP Family Medicine; Referring Provider Nurse Practitioner; Visit Provider Nurse Practitioner
DX: Z12.31 Encounter for screening mammogram for malignant neoplasm of breast (principal); C50.411 Malignant neoplasm of upper-outer quadrant of right female breast; Z17.1 Estrogen receptor negative status [ER-]
CPT/HCPCS: 77063; 77067

== ENCOUNTER 2023-04-17 17:19 | Emergency (ER) | payer MEDICARE, OTHER, SELFPAY ==
[2023-04-17 17:20] VITALS: BP 142/75; PULSE 87; RESP 16; TEMP 36.6; O2SAT 98
--- NOTE | 2023-04-17 17:28 | CT_ITS ---
INDICATION: Trauma EXAMINATION: CT CERVICAL SPINE - CT Spine Cervical W/O Contrast Injection TECHNIQUE: Helically acquired images were obtained of the cervical spine. 2D reformatted images were reviewed. A radiation dose optimization technique was used for this scan. IV Contrast dosage and agent: None. COMPARISON: None. FINDINGS: Slight anterolisthesis of C3 on C4. Disc height preserved C2-C4. Moderate disc narrowing C4/C5, C5/C6 and C6/C7. Anterior osteophytosis noted at C4-C7. Slight loss of vertebral body height at C6 has a chronic appearance. Disc bulges are most prominent at C4-C7. This likely contributes to right-sided foraminal narrowing which is moderate to severe at C4/C5 with moderate to severe left-sided disease at C5/C6 and C6/C7. Prevertebral soft tissues are normal. There is no high-grade central canal stenosis. Clear lung apices. 13 mm right-sided thyroid nodule, indeterminate. No pathologic cervical adenopathy detected. CT/Spine Cervical without Contras IMPRESSION: No evidence of acute cervical spinal fracture or spondylolisthesis. Degenerative change as outlined. Electronically Signed: Shaw Cisneros MD at 18:07 EDT ,
--- NOTE | 2023-04-17 17:28 | CT_ITS ---
INDICATION: Trauma EXAMINATION: CT BRAIN - CT Head or Brain W/O Contrast Injection TECHNIQUE: Multiple axial images were obtained of the head without intravenous contrast. A radiation dose optimization technique was used for this scan. IV Contrast dosage and agent: None. COMPARISON: None FINDINGS: BRAIN PARENCHYMA: No intra- or extra-axial hemorrhage. No evidence of acute infarct. No intracranial mass or mass effect. There is preservation of the spears/white matter interface. Posterior fossa structures are unremarkable. CSF SPACES: Mild cortical and central involutional change. No hydrocephalus. Basal cisterns are patent. CALVARIUM, SKULL BASE, PARANASAL SINUSES AND MASTOID AIR CELLS: Chronic appearing left maxillary sinus mucosal disease with some frothy secretions. No discrete lytic or blastic abnormalities. ORBITS: Surgical change involving both globes. Extraocular muscles, optic nerves and retrobulbar fat appear unremarkable. CT/Brain/Head without Contrast IMPRESSION: No acute intracranial hemorrhage or fracture Electronically Signed: Shaw Cisneros MD at 18:09 EDT ,
--- NOTE | 2023-04-17 17:30 | EDS_ITS ---
HPI HPI - Fall History of Present Illness Chief Complaint: Fall Narrative Narrative: 82-year-old female presents via EMS status post mechanical fall. She states that she was at a friend's house, and thought that she was going into the bathroom, it was dark, and instead of entering the bathroom, she fell down the stairs. She does not know how many. Although she may have hit her head, she denies any loss of consciousness. She states that after she had fallen, they would not allow her to stand up. She denies any leg pain or hip pain, no arm pain or chest pain. She denies neck pain. She did sustain either laceration or abrasion to the occiput. She is unsure of her last tetanus immunization. Additionally, she does take a baby aspirin as an anticoagulant. She presents status post fall downstairs. [facility] Medical History Breast cancer, right GERD (gastroesophageal reflux disease) Gout HTN (hypertension) Osteoarthritis Home Medications allopurinol 300 mg tablet 300 mg PO DAILY 07/07/17 [History Last Taken Unknown] aspirin 81 mg chewable tablet 81 mg PO DAILY@0800 07/07/17 [History Last Taken Unknown] calcium carbonate 500 mg calcium (1,250 mg) tablet 1,000 mg PO DAILY 07/07/17 [History Last Taken Unknown] cinnamon bark 500 mg capsule 1,000 mg PO DAILY 07/07/17 [History Last Taken Unknown] ferrous gluconate 236 mg (27 mg iron) tablet 28 mg PO DAILY 07/07/17 [History Last Taken Unknown] fish oil-dha-epa 1,200 mg-144 mg-216 mg capsule 1 ea PO DAILY 07/07/17 [History Last Taken Unknown] zvdenfni-ytn-jjwtb acid 0.4 mg-lycopene 300 mcg-lutein 250 mcg tablet 1 ea PO DAILY 07/07/17 [History Last Taken Unknown] pravastatin 40 mg tablet 40 mg PO DAILY 07/07/17 [History Last Taken Unknown] acetaminophen 650 mg tablet,extended release (Arthritis Pain Relief (acetaminophen) ER) 650 mg PO PRN PRN Pain Or Fever 04/11/19 [History Last Taken Unknown] losartan 50 mg tablet 50 mg PO DAILY 04/11/19 [History Last Taken 04/27/19 06:00] brimonidine 0.2 % eye drops 1 drp EACH EYE BID 04/26/19 [History Last Taken Unknown] timolol maleate 0.5 % eye drops 1 drp EACH EYE BID 04/26/19 [History Last Taken Unknown] omeprazole 40 mg capsule,delayed release 40 mg PO DAILY 07/04/22 [History Last Taken Unknown] dorzolamide 22.3 mg-timolol 6.8 mg/mL eye drops 1 drp ophthalmic (eye) QHS 04/17/23 [History Last Taken Unknown] Allergy/AdvReac Type Severity Reaction Status Date / Time lisinopril Allergy NEEDS Verified 04/17/23 17:24 FOLLOW-UP codeine AdvReac Other Verified 04/17/23 17:24 Family History Mother Breast cancer CVA (cerebral vascular accident) Brother CVA (cerebral vascular accident) Heart disease Surgical History History of colonoscopy (~2010) History of hysterectomy History of lumpectomy of right breast (~03/2019) Social History Smoking Status: Never smoker ROS ROS ED ROS Narrative Constitutional: No fever, no chills. HEENT: No sore throat. No neck pain. No loss of vision. No rhinorrhea. Laceration to occipital scalp. Cardiovascular: No chest pain. No palpitations. No pedal edema. Respiratory: No cough, no shortness of breath. Abdominal: No abdominal pain. No nausea. No vomiting. Genitourinary: No dysuria. No hematuria. Musculoskeletal: No myalgias. No arthralgias. Neurologic: No headaches. No dizziness. No lightheadedness. Skin: No rash. No change in color. Psychiatric: No depression. No anxiety. EXAM Physical Exam Narrative Exam Narrative: Afebrile. Vital signs noted. GCS 15. ABCs intact. HEENT: Normocephalic. Positive laceration occiput with dried blood on hair. PERRL, EOMI. Neck soft and supple. No point tenderness or step off. Cardiovascular: Regular rate and rhythm. No murmurs, rubs, or gallops appreciated. Respiratory: No tachypnea. Lungs clear to auscultation bilaterally. Gastrointestinal: Abdomen soft, nontender, with normoactive bowel sounds. No rebound or guarding. Neurological: Awake. Alert. Oriented x3. Nonfocal, nonlateralizing. Able to raise arms above head without difficulty. Skin: No rash. Normal color. No pallor. Mild bruising to left wrist, dorsum. Musculoskeletal: No pedal edema. Full range of motion extremities. Pelvis stable. No pain with logrolling of bilateral femurs. EHL intact bilaterally. Flexion and extension of bilateral hips and knees intact. Const Vital Signs: 04/17/23 17:20 04/17/23 17:28 04/17/23 19:42 Temperature 97.8 F Temperature Source Oral Pulse Rate 87 72 Respiratory Rate 16 16 Respiratory Effort Normal Non-Labored Respiratory Depth Normal Respiratory Pattern Normal Blood Pressure 142/75 H 146/69 H Blood Pressure Mean 97 94 Pulse Ox 98 97 Oxygen Delivery Method Room Air Room Air Room Air MDM MDM MDM Narrative Medical decision making narrative: As she is unsure of her last tetanus immunization, she will be updated on her tetanus immunization in the form of Boostrix. In the differential diagnosis would be for skull fracture and intracranial hemorrhage given her fall with minor anticoagulation with baby aspirin. She could also have neck fracture from her fall down multiple stairs. However, she has a neurological examination that is normal so I am not concerned for central cord syndrome with a neck injury. Given her age, CT of the brain and of the cervical spine will be obtained to rule out fracture. I reviewed the radiology report for the CT of the brain and of the cervical spine, and there is no evidence of acute skull fracture, cervical spine fracture, or intracranial hemorrhage. LET was applied to the occipital laceration, and wound was cleansed by RN. When I remove the let, patient noticed increased bruising and swelling to her left wrist. It is mildly tender but she has full range of motion. X-rays will be obtained of the left wrist and 3 views and interpreted by myself independently. I see no evidence of acute fracture. I reviewed the radiology report which confirms my independent interpretation. Patient declined any analgesics here in the emergency department. She will use [id number]-ztt-apvcahp medications. I do not feel narcotics are indicated. She was instructed on brain rest as well. She declined any splinting or Raciel wrapping of her left wrist contusion. At this point in time, after 5 surgical darius were inserted to her occipital scalp, she was told to have them removed in approximately 10 days by her primary care provider. Return instructions to the emergency department were reviewed. Disposition is discharged home in stable condition. History & Record Review Discussion w/independent historian: Patient and Family Additional record(s) reviewed:: Prior ED visit (Noncontributory to current chief complaint.) Radiography Diagnostic Testing: Clinical Impression(s) from Imaging Studies Brain CT 04/17/23 17:28 IMPRESSION: No acute intracranial hemorrhage or fracture Electronically Signed: Shaw Cisneros MD at 18:09 EDT , Cervical Spine CT 04/17/23 17:28 IMPRESSION: No evidence of acute cervical spinal fracture or spondylolisthesis. Degenerative change as outlined. Electronically Signed: Shaw Cisneros MD at 18:07 EDT , Wrist X-Ray 04/17/23 19:19 IMPRESSION: Soft tissue swelling without acute fracture. Electronically Signed: Shaw Cisneros MD at 19:35 EDT , Discharge Plan Triage Chief Complaint: Fall ED Provider: Jb Barber Dx/Rx/DC Orders Clinical Impression: Fall down stairs, Occipital scalp laceration, Contusion of left wrist Instructions: ED Contusion, Upper Extremity, ED Mechanical Fall, ED Head Injury (Adult), ED Laceration Scalp Stitches or Darius Prescriptions: No Action losartan 50 mg tablet 50 mg PO DAILY acetaminophen [Arthritis Pain Relief (acetam)] 650 mg tablet extended release 650 mg PO PRN PRN (Reason: Pain Or Fever) pravastatin 40 MG tablet 40 mg PO DAILY calcium carbonate 500 MG tablet 1,000 mg PO DAILY aspirin 81 MG tablet,chewable 81 mg PO DAILY@0800 allopurinol 300 MG tablet 300 mg PO DAILY cinnamon bark 500 MG capsule 1,000 mg PO DAILY swutmvhb-end-HR-lycopen-lutein 1 EACH tablet 1 ea PO DAILY fish oil-dha-epa 1 EACH capsule 1 ea PO DAILY ferrous gluconate 236 MG tablet 28 mg PO DAILY brimonidine 1 DROP bottle 1 drp EACH EYE BID timolol maleate 1 DROP drops 1 drp EACH EYE BID omeprazole 40 mg Capsule,Delayed Release(Dr/Ec) 40 mg PO DAILY dorzolamide-timolol 22.3-6.8 mg/mL drops 1 drp ophthalmic (eye) [facility] [place] Patient Comments: Instill 1 drop in both eyes twice a day Primary Care Provider: Jeffrey Packer Referrals: Jeffrey Packer MD [Primary Care Provider] - 10 Day for suture removal Activity Restrictions/Additional Instructions: Have the darius removed in 7 to 10 days, preferably 10. Take gjgo-son-hookxia analgesics for your wrist contusion and your head injury. Disposition Disposition: Home, Self Care
[2023-04-17 17:38] VITALS: BMI 24.9
[2023-04-17] MEDS: Lidocaine/Epi/Tetracaine 50 ML 1 APPLIC TOPICAL (18:08)
--- NOTE | 2023-04-17 19:19 | RAD_ITS ---
INDICATION: Pain EXAMINATION/TECHNIQUE: X-RAY - LEFT XR Wrist Min 3 Views 3 VIEWS COMPARISON: None. FINDINGS: Significant degenerative change involving first CMC articulation. Scaphoid bone intact. Distal radius and ulna show no acute fracture. Mild radioulnar joint degenerative change. Visualized metacarpals are acutely intact. Patient does have some soft tissue swelling over the dorsum of the wrist. RAD/Wrist min 3 Views IMPRESSION: Soft tissue swelling without acute fracture. Electronically Signed: Shaw Cisneros MD at 19:35 EDT ,
[2023-04-17 19:42] VITALS: BP 146/69; PULSE 72; RESP 16; O2SAT 97
[2023-04-17] MEDS: Diphth,Pertuss(Acell),Tet Vac 0.5 ML Vial IM (20:04)
== END 2023-04-17 20:07 | disposition home or self-care (01) ==
PROVIDERS: Emergency Provider Emergency Medicine; PCP Family Medicine; Visit Provider Emergency Medicine
DX: S01.01XA Laceration without foreign body of scalp, initial encounter (principal); I10 Essential (primary) hypertension; S60.212A Contusion of left wrist, initial encounter; W10.9XXA Fall (on) (from) unspecified stairs and steps, initial encounter; Y92.019 Unspecified place in single-family (private) house as the place of occurrence of the external cause; M10.9 Gout, unspecified; Z79.899 Other long term (current) drug therapy; Z79.82 Long term (current) use of aspirin; Z85.3 Personal history of malignant neoplasm of breast; K21.9 Gastro-esophageal reflux disease without esophagitis; Z90.710 Acquired absence of both cervix and uterus; Z23 Encounter for immunization
CPT/HCPCS: 12001; 70450; 72125; 73110; 90471; 90715; 99284

== ENCOUNTER → 2023-06-17 | Outpatient (CLI) | payer MEDICARE, OTHER, SELFPAY ==
--- NOTE | 2023-06-17 08:34 | BD_ITS ---
STUDY: DUAL ENERGY X-RAY ABSORPTIOMETRY / DXA REASON FOR EXAM: Female, 82 years old. [id number] TECHNIQUE: Bone Mineral Density (BMD) measurements of lumbar spine and bilateral hips were obtained. COMPARISON: Comparison is made with prior study dated June 12, 2021. FINDINGS: Lumbar Spine (L1-L4): g/cm2 (1.118) / T-score (0.6) / Z-score (3.5) Findings are suggestive of normal bone density with a low fracture risk. Left Femur Total: g/cm2 (0.838) / T-score (-0.9) / Z-score (1.5) Left Femoral Neck: g/cm2 (0.685) / T-score (-1.5) / Z-score (1.) Right Femur Total: g/cm2 (0.770) / T-score (-1.4) / Z-score (0.9) Right Femoral Neck: g/cm2 (0.707) / T-score (-1.3) / Z-score (1.) The T-Scores on the most recent prior examination were: Lumbar Spine (L1-L4): There has been worsening of bone density since the previous examination. Left Femur Total: which represents an improvement of 2.1%. Right Femur Total: which represents a worsening of 2.5%. BD/Dexa Bone Density Study IMPRESSION: The patient is considered osteopenic as outlined below according to World Vance Organization (WHO) criteria with a low fracture risk. There has been improvement of bone density since the previous examination. Reference Information: The T-score is the number of standard deviations above or below the standard which is normal for young adults at their peak bone mineral density. The World Health Organization (WHO) interprets the T-scores as follows: Above -1 Normal bone density Between -1 and -2.5 Osteopenia Equal to / or below -2.5 Osteoporosis As a practical clinical guideline, osteopenia may be graded as follows: Mild -1 through -1.5 Moderate -1.6 through -2.0 Severe -2.1 through -2.4 The Z-score is the number of standard deviations above or below age-matched controls. A Z-score of less than -1.5 would be considered abnormal. References: 1. NIH Osteoporosis and Related Bone Diseases www osteo.org 2. International Society for Clinical Densitometry www iscd.org 3. National Osteoporosis Foundation www nof.org Electronically Signed: Mann Dinero MD at 12:20 EST ,
== END | disposition home or self-care (01) ==
PROVIDERS: PCP Family Medicine; Referring Provider Family Medicine; Visit Provider Family Medicine
DX: Z13.820 Encounter for screening for osteoporosis (principal); Z78.0 Asymptomatic menopausal state
CPT/HCPCS: 77080

== ENCOUNTER → 2023-11-04 | Outpatient (CLI) | payer MEDICARE, OTHER, SELFPAY ==
[2023-11-04 16:12] LABS: Hematocrit 40.1 % (37-47); Hemoglobin 12.9 g/dL (12.0-15.0); Mean Corp Hgb Conc 32.2 g/dL (32-36); Mean Corpuscular Volume 90.1 fL (81-99); Mean Platelet Vol. 10.9 fl (6.2-12.0); Platelet Count 322 K/mm3 (150-450); RBC Distribution Width CV 14.5 % (11.6-14.6); RBC Distribution Width SD 47.5 fl (35.1-43.9); Red Blood Count 4.45 M/mm3 (4.2-5.4); White Blood Count 8.6 K/mm3 (4.4-11.0)
[2023-11-04 16:55] LABS: Anion Gap 7 (5-15); BUN 23 mg/dL (7-18); Calcium,Total 9.1 mg/dL (8.5-10.1); Chloride 110 mmol/L (98-107); Creatinine, Serum 1.15 mg/dL (0.55-1.02); EST Glomerular Filtration Rate 48 mL/min (>60); Est Glom Filt Rate - Afr Amer 58 mL/min (>60); Glucose 146 mg/dL (74-106); Iron 96 ug/dL (50-170); Potassium 4.1 mmol/L (3.5-5.1); Sodium Level 139 mmol/L (136-145); T4 Free Direct 0.76 ng/dL (0.76-1.46)
[2023-11-04 17:46] LABS: Vitamin D,25 Hydroxy 83.6 ng/mL
== END | disposition home or self-care (01) ==
LOC: MFPLAB 10:24
PROVIDERS: PCP Family Medicine; Visit Provider Family Medicine
DX: Z13.29 Encounter for screening for other suspected endocrine disorder (principal); N18.30 Chronic kidney disease, stage 3 unspecified
CPT/HCPCS: 80048; 82306; 83540; 83970; 84439; 85027

== ENCOUNTER 2023-11-14 08:20 | Inpatient (IN) | payer MEDICARE, OTHER, SELFPAY ==
[2023-11-14 08:20] VITALS: BP 143/80; PULSE 91; RESP 18; TEMP 36.6; O2SAT 97; BMI 26.5
--- NOTE | 2023-11-14 08:48 | CT_ITS ---
EXAM: CT ABDOMEN AND PELVIS WITH INTRAVENOUS CONTRAST CLINICAL INDICATION: Diffuse abdominal pain, distention, nausea and vomiting. TECHNIQUE: Helically acquired images were obtained of the abdomen and pelvis with intravenous contrast. This CT exam was performed using one or more of the following dose reduction techniques: automated exposure control, adjustment of the mA and/or kV according to patient size, and/or use of iterative reconstruction technique. CONTRAST: IV 70mL Isovue-370 RADIATION DOSE: CTDIvol = 10.80 mGy, DLP = 583.56 mGy-cm COMPARISON: No relevant prior studies available. FINDINGS: LOWER THORAX: Unremarkable. Lung bases are clear. No cardiomegaly. No significant pericardial effusion. ABDOMEN: LIVER: Unremarkable. Homogeneous. No focal mass. GALLBLADDER AND BILE DUCTS: Unremarkable. No calcified gallstones. No gallbladder distention or wall edema. No intra- or extrahepatic biliary ductal dilation. PANCREAS: Unremarkable. No focal cystic or solid mass. SPLEEN: Unremarkable. Normal size without focal cystic or solid mass. ADRENALS: Unremarkable. No nodules. KIDNEYS AND URETERS: Unremarkable. Normal renal size and position. No hydronephrosis. STOMACH AND BOWEL: Fluid-filled dilatation of the small bowel loops. The zone of transition is in the right side of the posterior lower pelvis. This is worrisome for partial distal small bowel obstruction. Normal terminal ileum. Normal and largely empty colon. No focal inflammatory change. PELVIS: APPENDIX: Normal. BLADDER: Unremarkable. REPRODUCTIVE: Unremarkable as visualized. No mass. ABDOMEN and PELVIS: INTRAPERITONEAL SPACE: Small ascites in the central pelvis and right side of the pelvis. No free air. BONES/JOINTS: Mild dextroscoliosis of the lumbar spine. Pronounced degenerative disc space height narrowing throughout the lumbar spine. No lytic or blastic lesions. SOFT TISSUES: Unremarkable. No discrete abdominal or pelvic wall hernia. VASCULATURE: Unremarkable. Abdominal aorta is non-dilated. LYMPH NODES: Unremarkable. No enlarged lymph nodes. CT/Abdomen/Pelvis W IV Cont ONLY IMPRESSION: 1. Suspicious partial distal small bowel obstruction with a zone of transition in the right lower pelvis. Etiology is unknown since they are no obstructing mass lesion. 2. Small ascites in the central pelvis and right lower pelvis. Electronically Signed: Jb Valdez MD at 10:31 EDT ,
--- NOTE | 2023-11-14 08:49 | ED.VIS.GI ---
HPI HPI - GI History of Present Illness Chief Complaint: Abd Pain Informant: patient and family Abdominal Pain/Flank Pain Onset: Days (2-3) Context: Gradual Onset Timing: Continuous and Waxes and wanes Quality: Aching Location: Diffuse Current Severity: Moderate Maximum Severity: Moderate Nausea/Vomiting/Emesis GI Symptom: Positive for Nausea and Vomiting Quality: Positive for Nonbilious Severity: Moderate Diarrhea/Melena/Hematochezia GI Symptom: Positive for - (Going less, eating less, but bowel movements are normal-appearing when she goes.); Negative for Diarrhea, Melena or Hematochezia Associated Symptoms Associated Symptoms: Negative for Dysuria, Frequency, Hematuria or Urgency Narrative Narrative: Diffuse abdominal pain and bloating/distention for the last couple days, yesterday was not as bad but worse today. Decreased appetite. Nausea and vomiting, nonbilious nonbloody. No melena. Normal urination. Radiates up into her chest some, and she has had a couple episodes of dyspnea, either when she is getting around due to distention or when the pain gets really bad but no palpitations, near-syncope or syncope. No history of any of this or abdominal surgeries in the past. [facility] Medical History Breast cancer, right Gout Osteoarthritis GERD (gastroesophageal reflux disease) HTN (hypertension) Home Medications ?Medication ?Instructions ?Recorded ?Last Taken ?Type allopurinol 300 mg tablet 300 mg PO DAILY 07/07/17 Unknown History aspirin 81 mg chewable tablet 81 mg PO DAILY@0800 07/07/17 Unknown History calcium carbonate 1,000 mg PO DAILY 07/07/17 Unknown History cinnamon bark 500 mg capsule 1,000 mg PO DAILY 07/07/17 Unknown History ferrous gluconate 236 mg (27 mg 28 mg PO DAILY 07/07/17 Unknown History iron) tablet fish oil-dha-epa 1,200 mg-144 1 ea PO DAILY 07/07/17 Unknown History mg-216 mg capsule fetunquv-tng-clyiw acid 0.4 1 ea PO DAILY 07/07/17 Unknown History mg-lycopene 300 mcg-lutein 250 mcg tablet pravastatin 40 mg tablet 40 mg PO DAILY 07/07/17 Unknown History acetaminophen 650 mg 650 mg PO PRN PRN Pain Or Fever 04/11/19 Unknown History tablet,extended release (Arthritis Pain Relief (acetaminophen) ER) losartan 50 mg tablet 50 mg PO DAILY 04/11/19 04/27/19 06:00 History brimonidine 0.2 % eye drops 1 drp EACH EYE BID 04/26/19 Unknown History timolol maleate 0.5 % eye drops 1 drp EACH EYE BID 04/26/19 Unknown History omeprazole 40 mg capsule,delayed 40 mg PO DAILY 07/04/22 Unknown History release dorzolamide 22.3 mg-timolol 6.8 1 drp ophthalmic (eye) QHS 04/17/23 Unknown History mg/mL eye drops cetirizine 10 mg tablet 10 mg PO DAILY 11/14/23 Unknown History Allergy/AdvReac Type Severity Reaction Status Date / Time lisinopril Allergy NEEDS Verified 04/17/23 17:24 FOLLOW-UP codeine AdvReac Other Verified 04/17/23 17:24 Family History Mother Breast cancer CVA (cerebral vascular accident) Brother CVA (cerebral vascular accident) Heart disease Surgical History History of colonoscopy (~2010) History of hysterectomy History of lumpectomy of right breast (~03/2019) Social History Smoking Status: Never smoker ROS ROS ED Constitutional Constitutional ED: Denies chills or fever(s) Eyes Eyes: Denies change in vision or diplopia ENT ENT ED: Denies rhinorrhea or sore throat Cardiovascular Cardiovascular: Reports chest pain; Denies palpitations Respiratory/Chest Respiratory/Chest: Reports dyspnea; Denies cough Gastrointestinal Gastrointestinal: Reports abdominal pain, nausea and vomiting; Denies diarrhea or melena Genitourinary Genitourinary ED: Denies dysuria or hematuria Musculoskeletal Musculoskeletal: Denies back pain or neck pain Integumentary Denies abscess or rash Neurologic Neurologic: Denies headache(s), paresthesias or weakness Psychiatric Psychiatric: Denies anxiety or suicidal thoughts EXAM Physical Exam Const Vital Signs: 11/14/23 08:20 11/14/23 10:20 Temperature 97.9 F Temperature Source Temporal Pulse Rate 91 81 Respiratory Rate 18 16 Blood Pressure 143/80 H 141/78 H Blood Pressure Mean 101 99 Pulse Ox 97 97 Oxygen Delivery Method Room Air Room Air Positive well nourished and well developed General Appearance ED: well developed and NAD HEENT Reports moist mucous membranes normocephalic and atraumatic Eyes PERRL and EOMs intact bilaterally Neck full ROM and supple Resp normal respiratory effort and clear to auscultation bilaterally Cardio regular rate, regular rhythm and no murmurs GI GI Narrative: Distended. No palpable hernias. Diffuse tenderness, no part of the exam is necessarily worse than the other. No guarding or rebound. Auscultation: normoactive bowel sounds Palpation: soft Back/Spine no CVA tenderness General Back: other FROM Extremity normal to inspection General Extremety ED: Negative for edema, pulses abnormal or tenderness General Extremity: Negative for edema or pulses abnormal Neuro oriented x3, CN's II-XII intact bilaterally and no sensory deficits noted Sensorium / Orientation: awake and alert Motor Exam: strength 5/5 throughout Skin no rashes or lesions noted and no wounds MDM MDM MDM Narrative Medical decision making narrative: Labs and CT were obtained, differential includes diverticulitis, bowel obstruction, mesenteric ischemia given that she is having diffuse pain, likely her lactic acid is well within normal limits and she does not have a significant leukocytosis making acute mesenteric ischemia much less likely. I reviewed the imaging and report of the CT which I agree with, basically shows suspicion for a partial small bowel obstruction. With regards to patient's symptoms she is doing better with pain medication, fluids, nausea. Discussed with surgery, recommends placing NG tube, will consult and follow along, medicine will admit. Lab Data Attestation: I reviewed the patient's lab results. Labs: Laboratory Results - last 24 hr 11/14/23 11/14/23 11/14/23 08:30 09:00 10:28 WBC 10.3 RBC 4.96 Hgb 14.8 Hct 43.5 MCV 87.7 MCH 29.8 MCHC 34.0 RDW Std Deviation 44.9 H RDW Coeff of Wilfredo 14.0 Plt Count 361 MPV 10.6 Immature Gran % (Auto) 0.200 Neut % (Auto) 64.0 Lymph % (Auto) 25.1 [place] % (Auto) 9.8 Eos % (Auto) 0.3 Baso % (Auto) 0.6 Absolute Neuts (auto) 6.6 Absolute Lymphs (auto) 2.58 Nucleated RBC % 0 Sodium 135 L Potassium 3.5 Chloride 101 Carbon Dioxide 23.0 Anion Gap 11 BUN 27 H Creatinine 1.39 H Estim Creat Clear Calc 25.77 Est GFR (MDRD) Af Amer 46 L Est GFR (MDRD) Non-Af 38 L BUN/Creatinine Ratio 19.4 Glucose 153 H Lactic Acid 1.5 Calcium 9.6 Total Bilirubin 0.60 AST 31 ALT 17 Alkaline Phosphatase 92 Total Protein 7.4 Albumin 3.6 Globulin 3.8 Albumin/Globulin Ratio 0.9 Lipase 18 Urine Color Yellow Urine Clarity Clear Urine pH 6.0 Ur Specific [place] 1.010 Urine Protein Negative Urine Glucose (UA) Normal Urine Ketones Negative Urine Occult Blood Negative Urine Nitrite Negative Urine Bilirubin Negative Urine Urobilinogen Normal Ur Leukocyte Esterase 25 H Urine RBC 0 SEEN Urine WBC 0 SEEN Ur Squamous Epith Cells 0-5 SEEN Urine Bacteria 0 SEEN Urine Mucus 0 SEEN Radiography Diagnostic Testing: Clinical Impression(s) from Imaging Studies Abdomen/Pelvis CT 11/14/23 08:48 IMPRESSION: 1. Suspicious partial distal small bowel obstruction with a zone of transition in the right lower pelvis. Etiology is unknown since they are no obstructing mass lesion. 2. Small ascites in the central pelvis and right lower pelvis. Electronically Signed: Jb Valdez MD at 10:31 EDT , Management Discussion w/another healthcare provider: Hospitalist and Lime Trimmer (Dr. Corley surgery) Discharge Plan Dx/Rx/DC Orders Clinical Impression: Partial small bowel obstruction Disposition Disposition: Acute Care Hospital [facility]
[2023-11-14] MEDS: Morphine 4 MG/ML Syringe IV ×4 (09:03→21:29)
[2023-11-14] MEDS: Ondansetron 4 MG/2 ML Vial IV (09:03)
[2023-11-14] MEDS: 0.9% Normal Saline (1000mL) 1,000 ML 125 ML IV ×3 (09:03→22:05)
[2023-11-14 09:05] LABS: Absolute Lymphocyte Count 2.58 X10^3/uL (0.83-4.51); Absolute Neutrophil Count 6.6 X10^3/uL (2.0-7.7); Basophil# 0.06 X10^3/uL; Basophil% 0.6 % (0-1); Eosinophil# 0.03 X10^3/uL; Eosinophils% 0.3 % (0-5); Hematocrit 43.5 % (37-47); Hemoglobin 14.8 g/dL (12.0-15.0); Lymphocyte # 2.58 X10^3/ul (0.83-4.51); Lymphocyte % 25.1 % (19-41); Mean Corpuscular Hgb 29.8 pg (27.0-32.0); Mean Corpuscular Volume 87.7 fL (81-99); Mean Platelet Vol. 10.6 fl (6.2-12.0); Monocyte# 1.01 X10^3/uL; Monocyte% 9.8 % (0-10); NRBC Flagged by Analyzer 0 % (0-5); Neutrophil # 6.56 X10^3/uL (2.7-7.7); Platelet Count 361 K/mm3 (150-450); RBC Distribution Width SD 44.9 fl (35.1-43.9); Red Blood Count 4.96 M/mm3 (4.2-5.4); White Blood Count 10.3 K/mm3 (4.4-11.0)
[2023-11-14 09:50] LABS: ALB/GLOB Ratio 0.9 RATIO (0.9-2.4); AST(SGOT) 31 U/L (15-37); Alanine Aminotransfer ALT/SGPT 17 U/L (13-56); Albumin, Serum 3.6 g/dL (3.2-5.0); Alkaline Phosphatase 92 U/L (45-117); Anion Gap 11 (5-15); BUN 27 mg/dL (7-18); BUN/Creat Ratio 19.4 RATIO (10-20); Calcium,Total 9.6 mg/dL (8.5-10.1); Chloride 101 mmol/L (98-107); Creatinine, Serum 1.39 mg/dL (0.55-1.02); EST Glomerular Filtration Rate 38 mL/min (>60); Est Glom Filt Rate - Afr Amer 46 mL/min (>60); Estimated Creatinine Clearance 25.77 ml/min; Globulin 3.8 g/dL (2.2-4.2); Glucose 153 mg/dL (74-106); Lipase 18 U/L (13-75); Potassium 3.5 mmol/L (3.5-5.1); Protein, Total 7.4 g/dL (6.4-8.2); Sodium Level 135 mmol/L (136-145)
[2023-11-14 09:52] LABS: Lactic Acid 1.5 mmol/L (0.4-1.9)
[2023-11-14 10:20] VITALS: BP 141/78; PULSE 81; RESP 16; O2SAT 97
[2023-11-14 10:44] LABS: Bacteria 0 SEEN /hpf (None Seen); Mucous, Urine 0 SEEN /hpf (<or=2+); Red Blood Cells-Urine 0 SEEN /hpf (0-5); White Blood Cells 0 SEEN /hpf (0-5)
[2023-11-14 10:51] LABS: Color, Urine Yellow (Yellow); Glucose, Dipstick Normal (Normal); Ketone-Dipstick Negative (Negative); Leukocyte Esterase-Dipstick 25 /ul (Negative); Nitrite-Dipstick Negative (Negative); Occult Blood-Urine Negative /ul (Negative); Protein-Dipstick Negative (Negative); Urine Bilirubin Dipstick Negative (Negative); Urine Clarity Clear (Clear); Urine Urobilinogen Normal (Normal)
[2023-11-14 10:56] LABS: Squamous Epithelial Cells - UA 0-5 SEEN /hpf (5-10)
--- NOTE | 2023-11-14 11:24 | RAD_ITS ---
EXAM: XR ABDOMEN, 1 VIEW CLINICAL INDICATION: NG Insertion TECHNIQUE: Frontal supine view of the abdomen/pelvis. COMPARISON: No relevant prior studies available. FINDINGS: LOWER THORAX: No acute pathology. GASTROINTESTINAL TRACT: Mild gaseous dilatation of small bowel loops. ORGANS: Unremarkable as visualized. No organomegaly. No abnormal calcifications. BONES/JOINTS: No acute pathology. SOFT TISSUES: No acute pathology. TUBES, LINES AND DEVICES: NG tube makes a loop inside the left gastric cavity and the tip is at the EG junction. RAD/Abdomen Single View (Portable) IMPRESSION: NG tube makes a loop inside the left gastric cavity and the tip is at the EG junction. Electronically Signed: Jb Valdez MD at 12:59 EDT ,
[2023-11-14 12:00] VITALS: BP 143/88; PULSE 81; RESP 16; O2SAT 97
[2023-11-14] MEDS: Oxymetazoline 0.05% 1 SPRAY SPRAY.BTL 2 SPRAY NASAL (12:04)
[2023-11-14] MEDS: Lidocaine Jelly 2% 20 ML Syringe (URO-JET) 1 APPLIC TOPICAL (12:41)
[2023-11-14 13:21] VITALS: BMI 26.5
[2023-11-14 13:30] VITALS: BP 168/80; PULSE 88; RESP 18; TEMP 36.9; O2SAT 93
[2023-11-14] MEDS: Pantoprazole Sodium 40 MG in 0.9% Normal Saline (100mL MB+) 100 ML 330 MG IV (13:58)
[2023-11-14] MEDS: BRIMONIDINE 0.2% 5ML BOTTLE 1 DRP EACH EYE (15:02)
[2023-11-14 16:10] VITALS: BP 130/56; PULSE 82; RESP 18; TEMP 36.7; O2SAT 93
[2023-11-14] MEDS: 0.9% Saline Lock 10 ML Syringe IV (16:15)
--- NOTE | 2023-11-14 16:15 | EX.PCM.CON.S ---
Assessment & Plan Assessment/Plan (1) Partial small bowel obstruction: PLAN: Plan Plan for n.p.o./NG/IV fluids. Likely plan for Gastrografin small bowel follow-through in the morning. Patient and her daughter do understand that if it does not make it through to the colon we will be talking about more urgent surgery. They were agreeable with plan. Continue pain control Jalyn Corley M.D. Pager: [phone] [facility] [address] [place] [address], Outpatient [place], [address] [place] [address] Office: [phone] HPI Consult Data Date of Consult: 11/15/23 HPI Narrative Reason for Consultation: Partial small bowel obstruction HPI Narrative: KING KAUFFMAN, is a 82 F who presents to the ER due to nausea and vomiting. Patient CT abdomen pelvis showed partial small bowel obstruction. Patient states started having abdominal pain on Wednesday night did improve initially Wednesday morning but did come back Wednesday afternoon she was having nausea and vomiting. Patient denies any previous history of bowel obstruction. Patient's only abdominal surgery is hysterectomy. Patient had a normal white blood cell count on admit. Patient states she only had a small bowel movement Wednesday and previous to that was having her normal bowel movements, but she does have occasional constipation where she takes MiraLAX. [facility] Medical History Breast cancer, right Gout Osteoarthritis GERD (gastroesophageal reflux disease) HTN (hypertension) Home Medications ?Medication ?Instructions ?Recorded ?Last Taken ?Type allopurinol 300 mg tablet 300 mg PO DAILY 07/07/17 Unknown History aspirin 81 mg chewable tablet 81 mg PO DAILY@0800 07/07/17 Unknown History cinnamon bark 500 mg capsule 1,000 mg PO DAILY 07/07/17 11/13/23 History fish oil-dha-epa 1,200 mg-144 1 ea PO DAILY 07/07/17 11/13/23 History mg-216 mg capsule mqttkuzq-sup-oftyh acid 0.4 1 ea PO DAILY 07/07/17 11/13/23 History mg-lycopene 300 mcg-lutein 250 mcg tablet pravastatin 40 mg tablet 40 mg PO DAILY 07/07/17 11/13/23 History acetaminophen 650 mg 650 mg PO PRN PRN Pain Or Fever 04/11/19 Unknown History tablet,extended release (Arthritis Pain Relief (acetaminophen) ER) losartan 50 mg tablet 50 mg PO DAILY 04/11/19 11/13/23 History brimonidine 0.2 % eye drops 1 drp EACH EYE TID 04/26/19 Unknown History timolol maleate 0.5 % eye drops 1 drp EACH EYE BID 04/26/19 11/13/23 History omeprazole 40 mg capsule,delayed 40 mg PO DAILY 07/04/22 11/13/23 History release calcium carbonate (Calcium 600) 1,200 mg PO DAILY 11/14/23 11/13/23 History dicyclomine 10 mg capsule 10 mg PO TID PRN GAS PAIN 11/14/23 Unknown History ferrous sulfate 325 mg (65 mg 325 mg PO DAILY 11/14/23 11/13/23 History iron) tablet (Feosol) latanoprost 0.005 % eye drops 1 drp ophthalmic (eye) QHS 11/14/23 Unknown History Allergy/AdvReac Type Severity Reaction Status Date / Time lisinopril Allergy NEEDS Verified 04/17/23 17:24 FOLLOW-UP codeine AdvReac Other Verified 04/17/23 17:24 Family History Mother Breast cancer CVA (cerebral vascular accident) Brother CVA (cerebral vascular accident) Heart disease Surgical History History of colonoscopy (~2010) History of hysterectomy History of lumpectomy of right breast (~03/2019) Social History Smoking Status: Never smoker ROS Constitutional Constitutional: Reports anorexia ENT HEENT: Denies dysphagia Cardiovascular Cardiovascular: Denies chest pain Respiratory/Chest Respiratory/Chest: Denies productive cough Gastrointestinal Gastrointestinal: Reports abdominal pain, constipation, nausea and vomiting; Denies diarrhea Genitourinary Genitourinary: Denies hematuria Musculoskeletal Musculoskeletal: Denies joint swelling Integumentary Integumentary: Denies jaundice Neurologic Neurologic: Denies focal weakness Psychiatric Psychiatric: Denies anxiety or depression Hematologic/Lymphatic Hematologic/Lymphatic: Denies easy bleeding Physical Exam Const alert, oriented x3 and no apparent distress HEENT normocephalic and head/scalp atraumatic Resp normal respiratory effort Cardio regular rate GI soft to palpation; Negative for non-distended Palpation: tender other (Mainly right-sided, no peritoneal signs); Negative for guarding Extremity no clubbing, cyanosis or edema Neuro CN's II-XII intact bilaterally Psych mental status grossly normal Lab / Micro Data 11/15/23 05:25 11/14/23 08:30 Labs: Laboratory Results - last 24 hr 11/14/23 08:30: WBC 10.3, RBC 4.96, Hgb 14.8, Hct 43.5, MCV 87.7, MCH 29.8, MCHC 34.0, RDW Std Deviation 44.9 H, RDW Coeff of Wilfredo 14.0, Plt Count 361, MPV 10.6, Immature Gran % (Auto) 0.200, Neut % (Auto) 64.0, Lymph % (Auto) 25.1, [place] % (Auto) 9.8, Eos % (Auto) 0.3, Baso % (Auto) 0.6, Absolute Neuts (auto) 6.6, Absolute Lymphs (auto) 2.58, Nucleated RBC % 0, Sodium 135 L, Potassium 3.5, Chloride 101, Carbon Dioxide 23.0, Anion Gap 11, BUN 27 H, Creatinine 1.39 H, Estim Creat Clear Calc 25.77, Est GFR (MDRD) Af Amer 46 L, Est GFR (MDRD) Non-Af 38 L, BUN/Creatinine Ratio 19.4, Glucose 153 H, Calcium 9.6, Total Bilirubin 0.60, AST 31, ALT 17, Alkaline Phosphatase 92, Total Protein 7.4, Albumin 3.6, Globulin 3.8, Albumin/Globulin Ratio 0.9, Lipase 18 11/14/23 09:00: Lactic Acid 1.5 11/14/23 10:28: Urine Color Yellow, Urine Clarity Clear, Urine pH 6.0, Ur Specific [place] 1.010, Urine Protein Negative, Urine Glucose (UA) Normal, Urine Ketones Negative, Urine Occult Blood Negative, Urine Nitrite Negative, Urine Bilirubin Negative, Urine Urobilinogen Normal, Ur Leukocyte Esterase 25 H, Urine RBC 0 SEEN, Urine WBC 0 SEEN, Ur Squamous Epith Cells 0-5 SEEN, Urine Bacteria 0 SEEN, Urine Mucus 0 SEEN Imaging Radiology Impression Abdomen/Pelvis CT 11/14/23 08:48 IMPRESSION: 1. Suspicious partial distal small bowel obstruction with a zone of transition in the right lower pelvis. Etiology is unknown since they are no obstructing mass lesion. 2. Small ascites in the central pelvis and right lower pelvis. Electronically Signed: Jb Valdez MD at 10:31 EDT , KUB X-Ray 11/14/23 11:24 IMPRESSION: NG tube makes a loop inside the left gastric cavity and the tip is at the EG junction. Electronically Signed: Jb Valdez MD at 12:59 EDT , Charges/Coding Visit Charges Inpatient E&M: 14880 Init Hosp L3
--- NOTE | 2023-11-14 16:22 | PCM.HP.STD ---
HPI - General General Date of Admission: 11/14/23 Date of Service: 11/14/23 Chief Complaint: Abdominal bloating, distention, generalized abdominal pain HPI Narrative KING KAUFFMAN, is a 82 F who presents to the emergency room at [facility] with complaints of generalized abdominal distention, bloating, and pain x 24 hours, patient has had nausea and vomiting. Patient denies any melena, patient denies any hematemesis. Labs obtained in the emergency room showed normal white blood cell count at 10.3, hemoglobin was 14.8, creatinine was elevated at 1.39 and BUN was 27. CT of the abdomen pelvis was obtained which showed suspicious partial distal small bowel obstruction with a zone of transition in the right lower pelvis, there is also noted to be small ascites in the central pelvis and right lower pelvic area. General surgery was contacted by the emergency department and recommended insertion of an NG tube and admission to the hospitalist service for further care. Patient will be admitted to [place] [address], IV fluids will be administered and she will be seen in consultation by general surgery, NG tube was placed and this will be continued. If her blood pressure is elevated, she will receive IV Trandate. REPLACED BY [facility] Medical History Breast cancer, right Gout Osteoarthritis GERD (gastroesophageal reflux disease) HTN (hypertension) Home Medications ?Medication ?Instructions ?Recorded ?Last Taken ?Type allopurinol 300 mg tablet 300 mg PO DAILY 07/07/17 Unknown History aspirin 81 mg chewable tablet 81 mg PO DAILY@0800 07/07/17 Unknown History cinnamon bark 500 mg capsule 1,000 mg PO DAILY 07/07/17 11/13/23 History fish oil-dha-epa 1,200 mg-144 1 ea PO DAILY 07/07/17 11/13/23 History mg-216 mg capsule azqukyzr-psl-eaerb acid 0.4 1 ea PO DAILY 07/07/17 11/13/23 History mg-lycopene 300 mcg-lutein 250 mcg tablet pravastatin 40 mg tablet 40 mg PO DAILY 07/07/17 11/13/23 History acetaminophen 650 mg 650 mg PO PRN PRN Pain Or Fever 04/11/19 Unknown History tablet,extended release (Arthritis Pain Relief (acetaminophen) ER) losartan 50 mg tablet 50 mg PO DAILY 04/11/19 11/13/23 History brimonidine 0.2 % eye drops 1 drp EACH EYE TID 04/26/19 Unknown History timolol maleate 0.5 % eye drops 1 drp EACH EYE BID 04/26/19 11/13/23 History omeprazole 40 mg capsule,delayed 40 mg PO DAILY 07/04/22 11/13/23 History release calcium carbonate (Calcium 600) 1,200 mg PO DAILY 11/14/23 11/13/23 History dicyclomine 10 mg capsule 10 mg PO TID PRN GAS PAIN 11/14/23 Unknown History ferrous sulfate 325 mg (65 mg 325 mg PO DAILY 11/14/23 11/13/23 History iron) tablet (Feosol) latanoprost 0.005 % eye drops 1 drp ophthalmic (eye) QHS 11/14/23 Unknown History Allergy/AdvReac Type Severity Reaction Status Date / Time lisinopril Allergy NEEDS Verified 04/17/23 17:24 FOLLOW-UP codeine AdvReac Other Verified 04/17/23 17:24 Family History Mother Breast cancer CVA (cerebral vascular accident) Brother CVA (cerebral vascular accident) Heart disease Surgical History History of colonoscopy (~2010) History of hysterectomy History of lumpectomy of right breast (~03/2019) Social History Smoking Status: Never smoker ROS Constitutional Constitutional: Denies anorexia, change in weight, chills, fatigue, fever(s), malaise, night sweats or weakness Eyes Eyes: Denies blurry vision, change in vision, discharge from eye(s) or eye pain Cardiovascular Cardiovascular: Denies chest pain, claudication, dyspnea on exertion, edema or palpitations Respiratory/Chest Respiratory/Chest: Denies cough, hemoptysis, productive cough, shortness of breath at rest or shortness of breath with exertion Gastrointestinal Gastrointestinal: Reports abdominal pain, nausea, vomiting and other Details: Abdominal distention and bloating ; Denies constipation, diarrhea, hematemesis, hematochezia or melena Genitourinary Genitourinary: Denies dysuria, hematuria, urinary frequency, urinary hesitancy, urinary incontinence or urinary urgency Musculoskeletal Musculoskeletal: Denies back pain, joint pain, joint stiffness, joint swelling, myalgias or neck pain Neurologic Neurologic: Denies abnormal gait, abnormal speech, confusion, dizziness, focal weakness, headache(s), loss of vision, numbness, other visual disturbances, paresthesias, syncope or tingling Psychiatric Psychiatric: Denies anxiety, cognitive impairment, depression, irritability, mood swings or suicidal ideation Endocrine Endocrinology: Denies change in body appearance, cold intolerance, excessive sweating, heat intolerance, polydipsia or polyuria Hematologic/Lymphatic Hematologic/Lymphatic: Denies none, anemia, easy bleeding, easy bruising or lymphadenopathy Allergic/Immunologic Allergic/Immunologic: Denies rhinitis, urticaria, eczemia or asthma Vital Signs Vital Signs Vital Signs: 11/14/23 08:20 11/14/23 10:20 11/14/23 12:00 Temperature 97.9 F Temperature Source Temporal Pulse Rate 91 81 81 Respiratory Rate 18 16 16 Respiratory Effort Respiratory Depth Respiratory Pattern Blood Pressure 143/80 H 141/78 H 143/88 H Blood Pressure Mean 101 99 106 Blood Pressure Source Blood Pressure Position Blood Pressure Location Pulse Ox 97 97 97 Oxygen Delivery Method Room Air Room Air 11/14/23 13:21 11/14/23 13:30 Temperature 98.4 F Temperature Source Oral Pulse Rate 88 Respiratory Rate 18 Respiratory Effort Normal Non-Labored Respiratory Depth Normal Respiratory Pattern Normal Blood Pressure 168/80 H Blood Pressure Mean 109 Blood Pressure Source Monitor Blood Pressure Position Semi-Fowlers Blood Pressure Location Left Arm Pulse Ox 93 Oxygen Delivery Method Room Air Room Air Weight Weight: 63.775 kg Body Mass Index (BMI) 26.5 Physical Exam Const alert, oriented x3, no apparent distress, average body habitus and healthy appearing General Appearance: cooperative, well kempt and well developed Orientation / Consciousness: awake, oriented to person, oriented to place and oriented to time HEENT normocephalic, head/scalp atraumatic and moist oral mucous membranes Eyes PERRL, EOMs intact bilaterally and conjunctivae normal Neck supple, no JVD, thyroid normal and no carotid bruits General: trachea midline Resp normal respiratory effort and clear to auscultation bilaterally Auscultation: Negative for rales, rhonchi or wheezes Cardio regular rate, regular rhythm, no murmurs, no rub and no gallops GI GI Narrative: Patient's abdomen is distended, there are sparse bowel sounds heard, diffuse abdominal tenderness was noted on palpation Extremity normal to inspection and no clubbing, cyanosis or edema Skin no rashes or lesions noted General Skin Exam: no breakdown Neuro oriented x3, CN's II-XII intact bilaterally, moves all extremities, no focal motor deficits and no sensory deficits noted Sensorium / Orientation: awake and alert Speech: speech normal Psych affect normal Results Lab / Micro Data 11/14/23 08:30 11/14/23 08:30 Labs: Laboratory Results - last 24 hr 11/14/23 08:30: WBC 10.3, RBC 4.96, Hgb 14.8, Hct 43.5, MCV 87.7, MCH 29.8, MCHC 34.0, RDW Std Deviation 44.9 H, RDW Coeff of Wilfredo 14.0, Plt Count 361, MPV 10.6, Immature Gran % (Auto) 0.200, Neut % (Auto) 64.0, Lymph % (Auto) 25.1, [place] % (Auto) 9.8, Eos % (Auto) 0.3, Baso % (Auto) 0.6, Absolute Neuts (auto) 6.6, Absolute Lymphs (auto) 2.58, Nucleated RBC % 0, Sodium 135 L, Potassium 3.5, Chloride 101, Carbon Dioxide 23.0, Anion Gap 11, BUN 27 H, Creatinine 1.39 H, Estim Creat Clear Calc 25.77, Est GFR (MDRD) Af Amer 46 L, Est GFR (MDRD) Non-Af 38 L, BUN/Creatinine Ratio 19.4, Glucose 153 H, Calcium 9.6, Total Bilirubin 0.60, AST 31, ALT 17, Alkaline Phosphatase 92, Total Protein 7.4, Albumin 3.6, Globulin 3.8, Albumin/Globulin Ratio 0.9, Lipase 18 11/14/23 09:00: Lactic Acid 1.5 11/14/23 10:28: Urine Color Yellow, Urine Clarity Clear, Urine pH 6.0, Ur Specific [place] 1.010, Urine Protein Negative, Urine Glucose (UA) Normal, Urine Ketones Negative, Urine Occult Blood Negative, Urine Nitrite Negative, Urine Bilirubin Negative, Urine Urobilinogen Normal, Ur Leukocyte Esterase 25 H, Urine RBC 0 SEEN, Urine WBC 0 SEEN, Ur Squamous Epith Cells 0-5 SEEN, Urine Bacteria 0 SEEN, Urine Mucus 0 SEEN Imaging Radiology Impression Abdomen/Pelvis CT 11/14/23 08:48 IMPRESSION: 1. Suspicious partial distal small bowel obstruction with a zone of transition in the right lower pelvis. Etiology is unknown since they are no obstructing mass lesion. 2. Small ascites in the central pelvis and right lower pelvis. Electronically Signed: Jb Valdez MD at 10:31 EDT , KUB X-Ray 11/14/23 11:24 IMPRESSION: NG tube makes a loop inside the left gastric cavity and the tip is at the EG junction. Electronically Signed: Jb Valdez MD at 12:59 EDT , Assessment & Plan Assessment/Plan (1) Partial small bowel obstruction: PLAN: Plan 1. Partial small bowel obstruction-etiology unknown, patient was admitted to [facility], NG tube was inserted in the emergency room and she will continue to receive low intermittent suction, patient was placed on IV Protonix, she will be seen in consultation by general surgery, IV fluids will be administered. Labs will be monitored. #2 essential hypertension-patient is allergic to lisinopril so Vasotec cannot be given to the patient, I will place her on Trandate IV as needed for blood pressure #3 glaucoma-patient will be maintained on her eyedrops #4 hyperlipidemia-patient's cholesterol medication will be held #5 chronic kidney disease stage IIIb-complicates care, management, recovery, and prognosis, labs will be monitored Total clinical time spent by myself addressing the patient's medical issues, reviewing all of her data and collaborating with patient's care team: 75 minutes Charges/Coding Visit Charges Inpatient E&M: 74204 Init Hosp L3
[2023-11-14] MEDS: BENZOCAINE/MENTHOL 1 LOZENGE MUCOUS MEM (18:09)
[2023-11-14] MEDS: Latanoprost 0.005% 1 Bottle 1 DRP OPHTHALMIC (22:14)
[2023-11-14 22:23] VITALS: BP 126/59; PULSE 89; RESP 16; TEMP 37.1; O2SAT 96
[2023-11-15 03:54] VITALS: BP 132/66; PULSE 87; RESP 16; TEMP 37; O2SAT 95
[2023-11-15] MEDS: BENZOCAINE/MENTHOL 1 LOZENGE MUCOUS MEM (05:36)
[2023-11-15] MEDS: BRIMONIDINE 0.2% 5ML BOTTLE 1 DRP EACH EYE ×2 (05:38→13:18)
[2023-11-15 05:55] LABS: Absolute Lymphocyte Count 1.95 X10^3/uL (0.83-4.51); Absolute Neutrophil Count 3.1 X10^3/uL (2.0-7.7); Basophil# 0.06 X10^3/uL; Eosinophil# 0.16 X10^3/uL; Eosinophils% 2.7 % (0-5); Hematocrit 36.4 % (37-47); Hemoglobin 11.5 g/dL (12.0-15.0); Lymphocyte # 1.95 X10^3/ul (0.83-4.51); Lymphocyte % 32.8 % (19-41); Mean Corp Hgb Conc 31.6 g/dL (32-36); Mean Corpuscular Hgb 29.1 pg (27.0-32.0); Mean Corpuscular Volume 92.2 fL (81-99); Mean Platelet Vol. 10.2 fl (6.2-12.0); Monocyte% 11.8 % (0-10); NRBC Flagged by Analyzer 0 % (0-5); Neutrophil # 3.06 X10^3/uL (2.7-7.7); Neutrophil % 51.5 % (47-70); Platelet Count 270 K/mm3 (150-450); RBC Distribution Width CV 14.5 % (11.6-14.6); Red Blood Count 3.95 M/mm3 (4.2-5.4); White Blood Count 5.9 K/mm3 (4.4-11.0)
--- NOTE | 2023-11-15 05:55 | RAD_ITS ---
STUDY: X-RAY - ABDOMEN/PELVIS REASON FOR EXAM: Female, 82 years old. Small bowel obstruction. Follow-up. TECHNIQUE: Single AP view of the abdomen / pelvis on 2 images. COMPARISON: Abdominal x-ray dated November 14, [address] of the abdomen and pelvis dated November 14, 2023. FINDINGS: NG tube present and coiled in distal upper mid abdomen. Tip is projected just below the GE junction. X-ray does not prove that the tip of the catheter is within the stomach. Therefore, replacing the NG tube may be an appropriate next step if clinically indicated. Substantial decrease in small bowel dilatation and small bowel gas with air seen to the rectosigmoid. Moderate amount of feces in the colon. Contrast in the bladder. Phleboliths. Normal visualized osseous structures. RAD/Abdomen Single View IMPRESSION: Substantial improvement in the appearance of the abdomen with no disproportionate dilatation of bowel and air seen to the rectosigmoid. NG tube coiled near the GE junction. The tip is not definitively within the stomach and therefore, if clinically not thought to be necessary, withdrawal of the NG tube or replacement of the NG tube would be appropriate, given the imaging findings. Electronically Signed: Wiley Roberts MD at 15:28 EDT ,
[2023-11-15] MEDS: 0.9% Normal Saline (1000mL) 1,000 ML 125 ML IV ×2 (06:35→13:17)
--- NOTE | 2023-11-15 06:54 | PCM.PN.SRG ---
Subjective Subjective Patient states her abdominal pain is improved this morning. Patient's KUB also looks improved with less dilated small bowel. Objective Data Objective Data Vital Signs: Vital Signs Temp Pulse Resp BP Pulse Ox O2 Del Method 98.6 F 87 16 132/66 H 95 Room Air 11/15/23 03:54 11/15/23 03:54 11/15/23 03:54 11/15/23 03:54 11/15/23 03:54 11/15/23 03:54 Oxygen Delivery Method Room Air Weight: 140 lb 9.6 oz Body Mass Index (BMI) 26.5 Intake & Output: Intake and Output for Last 24 Hours 11/13/23 11/14/23 11/15/23 23:59 23:59 23:59 Intake Total 1860.00 / 1860.00 1050 / 1050 Output Total 150 / 150 350 / 350 Balance 1710.00 / 1710.00 700 / 700 Lab / Micro Data 11/15/23 05:25 11/14/23 08:30 Labs: Laboratory Results - last 24 hr 11/14/23 08:30: WBC 10.3, RBC 4.96, Hgb 14.8, Hct 43.5, MCV 87.7, MCH 29.8, MCHC 34.0, RDW Std Deviation 44.9 H, RDW Coeff of Wilfredo 14.0, Plt Count 361, MPV 10.6, Immature Gran % (Auto) 0.200, Neut % (Auto) 64.0, Lymph % (Auto) 25.1, [place] % (Auto) 9.8, Eos % (Auto) 0.3, Baso % (Auto) 0.6, Absolute Neuts (auto) 6.6, Absolute Lymphs (auto) 2.58, Nucleated RBC % 0, Sodium 135 L, Potassium 3.5, Chloride 101, Carbon Dioxide 23.0, Anion Gap 11, BUN 27 H, Creatinine 1.39 H, Estim Creat Clear Calc 25.77, Est GFR (MDRD) Af Amer 46 L, Est GFR (MDRD) Non-Af 38 L, BUN/Creatinine Ratio 19.4, Glucose 153 H, Calcium 9.6, Total Bilirubin 0.60, AST 31, ALT 17, Alkaline Phosphatase 92, Total Protein 7.4, Albumin 3.6, Globulin 3.8, Albumin/Globulin Ratio 0.9, Lipase 18 05/19/24 09:00: Lactic Acid 1.5 11/14/23 10:28: Urine Color Yellow, Urine Clarity Clear, Urine pH 6.0, Ur Specific [place] 1.010, Urine Protein Negative, Urine Glucose (UA) Normal, Urine Ketones Negative, Urine Occult Blood Negative, Urine Nitrite Negative, Urine Bilirubin Negative, Urine Urobilinogen Normal, Ur Leukocyte Esterase 25 H, Urine RBC 0 SEEN, Urine WBC 0 SEEN, Ur Squamous Epith Cells 0-5 SEEN, Urine Bacteria 0 SEEN, Urine Mucus 0 SEEN 11/15/23 05:25: WBC 5.9, RBC 3.95 L, Hgb 11.5 L, Hct 36.4 L, MCV 92.2 D, MCH 29.1, MCHC 31.6 L D, RDW Std Deviation 49.0 H, RDW Coeff of Wilfredo 14.5, Plt Count 270, MPV 10.2, Immature Gran % (Auto) 0.200, Neut % (Auto) 51.5, Lymph % (Auto) 32.8, [place] % (Auto) 11.8 H, Eos % (Auto) 2.7, Baso % (Auto) 1.0, Absolute Neuts (auto) 3.1, Absolute Lymphs (auto) 1.95, Nucleated RBC % 0 Radiography Diagnostic Testing: Radiology Impression Abdomen/Pelvis CT 11/14/23 08:48 IMPRESSION: 1. Suspicious partial distal small bowel obstruction with a zone of transition in the right lower pelvis. Etiology is unknown since they are no obstructing mass lesion. 2. Small ascites in the central pelvis and right lower pelvis. Electronically Signed: Jb Valdez MD at 10:31 EDT Reading Location ID and State: [facility] / [place] , Service support , KUB X-Ray 11/14/23 11:24 IMPRESSION: NG tube makes a loop inside the left gastric cavity and the tip is at the EG junction. Electronically Signed: Jb Valdez MD at 12:59 EDT , Physical Exam Const oriented x3 and no apparent distress Resp normal respiratory effort Cardio regular rate GI soft to palpation and non-tender Inspection: Negative for abdominal distention Assessment & Plan Assessment/Plan (1) Partial small bowel obstruction: PLAN: Plan Will plan for Gastrografin small bowel follow-through this morning. Continue NG/n.p.o./IV fluids. Continue pain control Jalyn Corley M.D. Pager: [phone] [facility] [address] [place] [address], [facility], [address] [place] [id number] Office: [phone] Charges/Coding Visit Charges Inpatient E&M: 98305 Subs Hosp L2
[2023-11-15 06:57] LABS: Anion Gap 7 (5-15); BUN 22 mg/dL (7-18); BUN/Creat Ratio 22.6 RATIO (10-20); Calcium,Total 7.9 mg/dL (8.5-10.1); Chloride 115 mmol/L (98-107); Creatinine, Serum 0.97 mg/dL (0.55-1.02); EST Glomerular Filtration Rate 58 mL/min (>60); Est Glom Filt Rate - Afr Amer 70 mL/min (>60); Estimated Creatinine Clearance 36.93 ml/min; Glucose 89 mg/dL (74-106); Potassium 3.6 mmol/L (3.5-5.1); Sodium Level 143 mmol/L (136-145)
--- NOTE | 2023-11-15 07:15 | RAD_ITS ---
INDICATION: Evaluate for small bowel obstruction. EXAMINATION/TECHNIQUE: Gastrografin was administered through the NG tube and follow-up images to 1 hour were obtained. COMPARISON: FINDINGS: The supine abdomen study obtained immediately after Gastrografin administration shows contrast in the proximal jejunum. One hour portable x-ray shows contrast in normal small bowel, ileum, cecum and ascending colon. Normal morphology of the visualized stomach and bowel. No evidence of small bowel obstruction. RAD/Small Bowel Series Only IMPRESSION: No evidence of small bowel obstruction. No other abnormality identified. Electronically Signed: Wiley Roberts MD at 9:18 EDT ,
--- NOTE | 2023-11-15 08:09 | PCM.PN.HOSP ---
Reason for Visit Reason for Visit: Diagnoses Partial intestinal obstruction, unspecified as to cause (11/14/23) Subjective Subjective Patient is an 82-year-old lady admitted with abdominal pain with associated nausea and vomiting. Imaging studies demonstrated partial distal small bowel obstruction admitted to regular nursing floor for subsequent management Objective Data Objective Data Vital Signs: Vital Signs Temp Pulse Resp BP Pulse Ox O2 Del Method 98.6 F 87 16 132/66 H 95 Room Air 11/15/23 03:54 11/15/23 03:54 11/15/23 03:54 11/15/23 03:54 11/15/23 03:54 11/15/23 03:54 Oxygen Delivery Method Room Air Weight: 63.775 kg Body Mass Index (BMI) 26.5 Intake & Output: Intake and Output for Last 24 Hours 11/13/23 11/14/23 11/15/23 23:59 23:59 23:59 Intake Total 1860.00 / 1860.00 1050 / 1050 Output Total 150 / 150 350 / 350 Balance 1710.00 / 1710.00 700 / 700 Lab / Micro Data 11/15/23 05:25 11/15/23 05:25 Labs: Laboratory Results - last 24 hr 11/14/23 08:30: WBC 10.3, RBC 4.96, Hgb 14.8, Hct 43.5, MCV 87.7, MCH 29.8, MCHC 34.0, RDW Std Deviation 44.9 H, RDW Coeff of Wilfredo 14.0, Plt Count 361, MPV 10.6, Immature Gran % (Auto) 0.200, Neut % (Auto) 64.0, Lymph % (Auto) 25.1, [place] % (Auto) 9.8, Eos % (Auto) 0.3, Baso % (Auto) 0.6, Absolute Neuts (auto) 6.6, Absolute Lymphs (auto) 2.58, Nucleated RBC % 0, Sodium 135 L, Potassium 3.5, Chloride 101, Carbon Dioxide 23.0, Anion Gap 11, BUN 27 H, Creatinine 1.39 H, Estim Creat Clear Calc 25.77, Est GFR (MDRD) Af Amer 46 L, Est GFR (MDRD) Non-Af 38 L, BUN/Creatinine Ratio 19.4, Glucose 153 H, Calcium 9.6, Total Bilirubin 0.60, AST 31, ALT 17, Alkaline Phosphatase 92, Total Protein 7.4, Albumin 3.6, Globulin 3.8, Albumin/Globulin Ratio 0.9, Lipase 18 11/14/23 09:00: Lactic Acid 1.5 11/14/23 10:28: Urine Color Yellow, Urine Clarity Clear, Urine pH 6.0, Ur Specific [place] 1.010, Urine Protein Negative, Urine Glucose (UA) Normal, Urine Ketones Negative, Urine Occult Blood Negative, Urine Nitrite Negative, Urine Bilirubin Negative, Urine Urobilinogen Normal, Ur Leukocyte Esterase 25 H, Urine RBC 0 SEEN, Urine WBC 0 SEEN, Ur Squamous Epith Cells 0-5 SEEN, Urine Bacteria 0 SEEN, Urine Mucus 0 SEEN 11/15/23 05:25: WBC 5.9, RBC 3.95 L, Hgb 11.5 L, Hct 36.4 L, MCV 92.2 D, MCH 29.1, MCHC 31.6 L D, RDW Std Deviation 49.0 H, RDW Coeff of Wilfredo 14.5, Plt Count 270, MPV 10.2, Immature Gran % (Auto) 0.200, Neut % (Auto) 51.5, Lymph % (Auto) 32.8, [place] % (Auto) 11.8 H, Eos % (Auto) 2.7, Baso % (Auto) 1.0, Absolute Neuts (auto) 3.1, Absolute Lymphs (auto) 1.95, Nucleated RBC % 0, Sodium 143, Potassium 3.6, Chloride 115 H, Carbon Dioxide 21.0, Anion Gap 7, BUN 22 H, Creatinine 0.97, Estim Creat Clear Calc 36.93, Est GFR (MDRD) Af Amer 70, Est GFR (MDRD) Non-Af 58 L, BUN/Creatinine Ratio 22.6 H, Glucose 89, Calcium 7.9 L Radiography Diagnostic Testing: Radiology Impression Abdomen/Pelvis CT 11/14/23 08:48 IMPRESSION: 1. Suspicious partial distal small bowel obstruction with a zone of transition in the right lower pelvis. Etiology is unknown since they are no obstructing mass lesion. 2. Small ascites in the central pelvis and right lower pelvis. Electronically Signed: Jb Valdez MD at 10:31 EDT , KUB X-Ray 11/14/23 11:24 IMPRESSION: NG tube makes a loop inside the left gastric cavity and the tip is at the EG junction. Electronically Signed: Jb Valdez MD at 12:59 EDT Reading Location ID and State: [facility] / [place] , Service support , Physical Exam Narrative GENERAL: cooperative HEENT: Atraumatic; normocephalic EYES; Anicteric, Normal Conjunctiva NECK; supple, normal thyroid, RESPIRATORY: Diminished to auscultation CARDIOVASCULAR: Regular S1 S2, GI: soft, normoactive bowel sounds, : No Renal angle tenderness; EXTREMITIES: No edema, no clubbing, MUSCULOSKELETAL: no muscle wasting NEURO: Awake; no lateralizing signs. SKIN: No Rash PSYCH; Flat affect Assessment & Plan Assessment/Plan (1) Partial small bowel obstruction: PLAN: Plan Patient is an 82-year-old lady admitted with abdominal pain with associated nausea and vomiting. Imaging studies demonstrated partial distal small bowel obstruction admitted to regular nursing floor for subsequent management 1. Partial small bowel obstruction ? Patient admitted to regular nursing floor managed conservatively with bowel rest, NG tube to suction IV fluids with consultation placed to general surgery. Plan is for patient to undergo Gastrografin small bowel follow-through study this morning as ordered by general surgery ? Patient contrast was found to be in the colon 1 hour into the study case was discussed with Dr. Christie with general surgery plan is for patient to be started on clears advance as tolerated and discharge home 2. Hypertension - Blood pressure controlled, home medications continued with dose adjustment as needed 3. Gout ? Patient is on allopurinol 4. GERD ? On PPI 5. Dyslipidemia -Patient is on statin therapy, continued at home dose 6. Acute kidney injury ? Secondary to dehydration managed with IV fluids. Creatinine went down from 1.39 on admission to 0.97 7. Anemia - Secondary to chronic disorder monitoring H&H and transfuse if patient becomes symptomatic or hemoglobin falls below 7. Patient is on iron supplement daily we will continue once oral feeding is restarted 8. DVT prophylaxis ?SC heparin Time spent in the patient's overall evaluation,decision-making process, review of diagnostic data, adjustment of management, discussion with other providers, nursing nursing and ancillary staff involved in patient's care documentation, 36 . Minutes Charges/Coding Visit Charges Inpatient E&M: 70769 Subs Hosp L2
[2023-11-15] MEDS: Timolol 0.5% 5ML OPTH.BTL 1 DRP EACH EYE (09:18)
[2023-11-15] MEDS: 0.9% Saline Lock 10 ML Syringe IV (09:19)
[2023-11-15] MEDS: Pantoprazole Sodium 40 MG in 0.9% Normal Saline (100mL MB+) 100 ML 330 MG IV (09:24)
[2023-11-15] MEDS: Multivitamins,Ther W-Minerals Tablet 1 TABLET PO (09:51)
[2023-11-15 09:54] VITALS: BP 119/58; PULSE 78; RESP 16; TEMP 37.4; O2SAT 92
--- NOTE | 2023-11-15 10:12 | CASEMGMT ---
ANGLE ARELLANO Assessment: Face to Face with pt for initial transition planning/care coordination assessment. ANGLE ARELLANO introduced self and role at [facility], pt voices understanding and consents to assessment. Pt is A&O x4 and answers all questions appropriately at this time. Pt lying in bed in no distress. Care providers, pharmacy, and demographics verified/updated. Admitting Dx: SBO PCP:Ochoa Specialists:None Preferred Pharmacy: [facility] Supp Prescription Benefit: yes LNOK: Vanesa Riojas dtr; Kamila Stover dtr Living Arrangements: Pt lives alone in a mobile home with a ramp to enter. Pt reports she is I in ADL's and IADL's. Pt denies any concerns at home. Transportation: Pt drives self and denies concerns with transportation. DME:cane- does not use HHC/SNF: Denies hx of Pt states no concerns with going home at time of dc. Pt states no further concerns/needs. Pt states she feels she has good strength. 6 clicks=20, no therapy ordered. CM to follow. Advised pt to ask CM if any further question/concerns/needs arise, voices understanding. Pt Goal: Home Plan: Home Ranjana BARBOUR CM
--- NOTE | 2023-11-15 11:04 | PCM.DC.SUM ---
Providers Date of Admission: 11/14/23 Date of Discharge: 11/15/23 Primary Care Physician: Dr. Alverto Packer MD Consultations 11/14/23 13:13 Consult: General Surgery Routine Consulting Provider: Jalyn Corley Reason for Consult: small bowel obstruction EMERGENT Consult: No MD Notified: Yes Date Notified: 11/14/23 Time Notified: 11:32 Method of Notification: Verbal Reason For Visit: SMALL BOWEL OBSTRUCTION Diagnosis Discharge Diagnosis (1) Partial small bowel obstruction: Status: Acute Code(s): K56.600 - Partial intestinal obstruction, unspecified as to cause Plan Patient is an 82-year-old lady admitted with abdominal pain with associated nausea and vomiting. Imaging studies demonstrated partial distal small bowel obstruction admitted to regular nursing floor for subsequent management 1. Partial small bowel obstruction ? Patient admitted to regular nursing floor managed conservatively with bowel rest, NG tube to suction IV fluids with consultation placed to general surgery. Plan is for patient to undergo Gastrografin small bowel follow-through study this morning as ordered by general surgery ? Patient contrast was found to be in the colon 1 hour into the study case was discussed with Dr. Christie with general surgery plan is for patient to be started on clears advance as tolerated and discharge home -Patient was expected to stay for at least 2 midnight however given his right unexpected rapid improvement decision was made to discharge patient home 2. Hypertension - Blood pressure controlled, home medications continued with dose adjustment as needed 3. Gout ? Patient is on allopurinol 4. GERD ? On PPI 5. Dyslipidemia -Patient is on statin therapy, continued at home dose 6. Acute kidney injury ? Secondary to dehydration managed with IV fluids. Creatinine went down from 1.39 on admission to 0.97 7. Anemia - Secondary to chronic disorder monitoring H&H and transfuse if patient becomes symptomatic or hemoglobin falls below 7. Patient is on iron supplement daily we will continue once oral feeding is restarted 8. DVT prophylaxis ?SC heparin Time spent in the patient's overall evaluation,decision-making process, review of diagnostic data, adjustment of management, discussion with other providers, nursing nursing and ancillary staff involved in patient's care documentation, 36 . Minutes Medications at Discharge Home Medications allopurinol 300 mg tablet 300 mg PO DAILY 07/07/17 aspirin 81 mg chewable tablet 81 mg PO DAILY@0800 07/07/17 cinnamon bark 500 mg capsule 1,000 mg PO DAILY 07/07/17 fish oil-dha-epa 1,200 mg-144 mg-216 mg capsule 1 ea PO DAILY 07/07/17 dshnzwit-dnw-mshmp acid 0.4 mg-lycopene 300 mcg-lutein 250 mcg tablet 1 ea PO DAILY 07/07/17 pravastatin 40 mg tablet 40 mg PO DAILY 07/07/17 acetaminophen 650 mg tablet,extended release (Arthritis Pain Relief (acetaminophen) ER) 650 mg PO PRN PRN Pain Or Fever 04/11/19 losartan 50 mg tablet 50 mg PO DAILY 04/11/19 brimonidine 0.2 % eye drops 1 drp EACH EYE TID 04/26/19 timolol maleate 0.5 % eye drops 1 drp EACH EYE BID 04/26/19 omeprazole 40 mg capsule,delayed release 40 mg PO DAILY 07/04/22 calcium carbonate (Calcium 600) 1,200 mg PO DAILY 11/14/23 dicyclomine 10 mg capsule 10 mg PO TID PRN GAS PAIN 11/14/23 ferrous sulfate 325 mg (65 mg iron) tablet (Feosol) 325 mg PO DAILY 11/14/23 latanoprost 0.005 % eye drops 1 drp ophthalmic (eye) QHS 11/14/23 Physical Exam Narrative GENERAL: cooperative HEENT: Atraumatic; normocephalic EYES; Anicteric, Normal Conjunctiva NECK; supple, normal thyroid, RESPIRATORY: Diminished to auscultation CARDIOVASCULAR: Regular S1 S2, GI: soft, normoactive bowel sounds, : No Renal angle tenderness; EXTREMITIES: No edema, no clubbing, MUSCULOSKELETAL: no muscle wasting NEURO: Awake; no lateralizing signs. SKIN: No Rash PSYCH; Flat affect Weight / BMI Weight Weight: 63.775 kg Body Mass Index (BMI) 26.5 ABG / Lab / Microbiology Data 11/15/23 05:25 11/15/23 05:25 Laboratory: Laboratory Results - last 24 hr 11/15/23 05:25: WBC 5.9, RBC 3.95 L, Hgb 11.5 L, Hct 36.4 L, MCV 92.2 D, MCH 29.1, MCHC 31.6 L D, RDW Std Deviation 49.0 H, RDW Coeff of Wilfredo 14.5, Plt Count 270, MPV 10.2, Immature Gran % (Auto) 0.200, Neut % (Auto) 51.5, Lymph % (Auto) 32.8, [place] % (Auto) 11.8 H, Eos % (Auto) 2.7, Baso % (Auto) 1.0, Absolute Neuts (auto) 3.1, Absolute Lymphs (auto) 1.95, Nucleated RBC % 0, Sodium 143, Potassium 3.6, Chloride 115 H, Carbon Dioxide 21.0, Anion Gap 7, BUN 22 H, Creatinine 0.97, Estim Creat Clear Calc 36.93, Est GFR (MDRD) Af Amer 70, Est GFR (MDRD) Non-Af 58 L, BUN/Creatinine Ratio 22.6 H, Glucose 89, Calcium 7.9 L Radiography Diagnostic Testing: Radiology Impression KUB X-Ray 11/14/23 11:24 IMPRESSION: NG tube makes a loop inside the left gastric cavity and the tip is at the EG junction. Electronically Signed: Jb Valdez MD at 12:59 EDT , Small Bowel X-Ray 11/15/23 07:15 IMPRESSION: No evidence of small bowel obstruction. No other abnormality identified. Electronically Signed: Wiley Roberts MD at 9:18 EDT , D/C Instructions Discharge Diet: No restrictions Discharge Activity: Return to Normal Activity Call your doctor if you observe: Fever of 101 or Higher, Shortness of breath, Fainting spells and Chest pain Meaningful Use Info Meaningful Use Meaningful Use Diagnoses (Choose all that apply): None applicable Ischemic Stroke Statin Dosing Therapy Reference: STATIN DOSE THERAPY REFERENCE: * Patients > 75 years receive moderate or high dose statin therapy. * Patients 75 years or YOUNGER should receive HIGH intensity statin dose unless contraindicated. You will be required to document reason for non-treatment if statin daily dose does not meet guidelines. HIGH DOSE STATIN THERAPY DAILY Atorvastatin > than or = to 40 mg Rosuvastatin > than or = to 20 mg Amlodipine + Atorvastatin > than or = to 2.5/40 mg Ezetimibe + Simvastatin 10/80 mg Simvastatin 80mg Discharge Plan Admission Admit Date/Time: 11/14/23 11:27 Attending Provider: Enrique Gomez Primary Care Provider: Alverto Packer Consulting Providers: Jalyn Corley; Gagan Daigle Discharge Orders/Prescriptions Prescriptions: Continued losartan 50 mg tablet 50 mg PO DAILY acetaminophen [Arthritis Pain Relief (acetam)] 650 mg tablet extended release 650 mg PO PRN PRN (Reason: Pain Or Fever) pravastatin 40 MG tablet 40 mg PO DAILY aspirin 81 MG tablet,chewable 81 mg PO DAILY@0800 allopurinol 300 MG tablet 300 mg PO DAILY cinnamon bark 500 MG capsule 1,000 mg PO DAILY kfsstugu-tfd-KF-lycopen-lutein 1 EACH tablet 1 ea PO DAILY fish oil-dha-epa 1 EACH capsule 1 ea PO DAILY brimonidine 1 DROP bottle 1 drp EACH EYE TID timolol maleate 1 DROP drops 1 drp EACH EYE BID omeprazole 40 mg Capsule,Delayed Release(Dr/Ec) 40 mg PO DAILY latanoprost 0.005 % drops 1 drp ophthalmic (eye) QHS Rx Instructions: both eyes calcium carbonate [Calcium 600] 600 mg calcium (1,500 mg) tablet 1,200 mg PO DAILY ferrous sulfate [Feosol] 325 mg (65 mg iron) tablet 325 mg PO DAILY dicyclomine 10 mg capsule 10 mg PO TID PRN Referrals / Follow Up: Alverto Packer MD [Primary Care Provider] - Disposition Disposition (needs filled in before D/C Order can be placed): Home, Self Care Charges/Coding Visit Charges Inpatient E&M: 72455 Disch Hosp >30min
--- NOTE | 2023-11-15 11:47 | PHA.DC.MR.R ---
Pharmacy [place] Med Reconciliation Pharmacy Service has performed discharge medication reconciliation for this patient. The patient's discharge medication list was reviewed for discrepancies and discrepancies were resolved. Medications at Discharge Home Medications allopurinol 300 mg tablet 300 mg PO DAILY 07/07/17 aspirin 81 mg chewable tablet 81 mg PO DAILY@0800 07/07/17 cinnamon bark 500 mg capsule 1,000 mg PO DAILY 07/07/17 fish oil-dha-epa 1,200 mg-144 mg-216 mg capsule 1 ea PO DAILY 07/07/17 aggvrmti-ecl-plwlt acid 0.4 mg-lycopene 300 mcg-lutein 250 mcg tablet 1 ea PO DAILY 07/07/17 pravastatin 40 mg tablet 40 mg PO DAILY 07/07/17 acetaminophen 650 mg tablet,extended release (Arthritis Pain Relief (acetaminophen) ER) 650 mg PO PRN PRN Pain Or Fever 04/11/19 losartan 50 mg tablet 50 mg PO DAILY 04/11/19 brimonidine 0.2 % eye drops 1 drp EACH EYE TID 04/26/19 timolol maleate 0.5 % eye drops 1 drp EACH EYE BID 04/26/19 omeprazole 40 mg capsule,delayed release 40 mg PO DAILY 07/04/22 calcium carbonate (Calcium 600) 1,200 mg PO DAILY 11/14/23 dicyclomine 10 mg capsule 10 mg PO TID PRN GAS PAIN 11/14/23 ferrous sulfate 325 mg (65 mg iron) tablet (Feosol) 325 mg PO DAILY 11/14/23 latanoprost 0.005 % eye drops 1 drp ophthalmic (eye) QHS 11/14/23
[2023-11-15 15:45] VITALS: BP 114/62; PULSE 75; RESP 14; TEMP 37.2; O2SAT 96
[2023-11-15 15:54] VITALS: BP 116/60; PULSE 74; RESP 16; TEMP 37.1; O2SAT 97
== END 2023-11-15 15:58 | disposition home or self-care (01) | DRG 389 ==
LOC: ED 11:16 → MS3 13:10
PROVIDERS: Admitting Provider Internal Medicine; Emergency Provider Emergency Medicine; PCP Family Medicine; Visit Provider Internal Medicine
DX: K56.600 Partial intestinal obstruction, unspecified as to cause (principal); N17.9 Acute kidney failure, unspecified; D63.8 Anemia in other chronic diseases classified elsewhere; N18.32 Chronic kidney disease, stage 3b; I12.9 Hypertensive chronic kidney disease with stage 1 through stage 4 chronic kidney disease, or unspecified chronic kidney disease; K21.9 Gastro-esophageal reflux disease without esophagitis; E78.5 Hyperlipidemia, unspecified; M10.9 Gout, unspecified; H40.9 Unspecified glaucoma; Z79.899 Other long term (current) drug therapy; Z79.82 Long term (current) use of aspirin; Z90.710 Acquired absence of both cervix and uterus
CPT/HCPCS: 36415; 74018; 74177; 74250; 80048; 80053; 81001; 83605; 83690; 85025; 99284; J7030; Q9967; A4216; J2405

== ENCOUNTER 2024-02-21 12:44 | Inpatient (IN) | payer MEDICARE, OTHER, SELFPAY ==
[2024-02-21 12:44] VITALS: BP 127/74; PULSE 81; RESP 18; TEMP 36.9; O2SAT 97; BMI 24.9
[2024-02-21 13:23] LABS: ALB/GLOB Ratio 0.9 RATIO (0.9-2.4); AST(SGOT) 37 U/L (15-37); Alanine Aminotransfer ALT/SGPT 19 U/L (13-56); Albumin, Serum 3.7 g/dL (3.2-5.0); Alkaline Phosphatase 90 U/L (45-117); Anion Gap 10 (5-15); BUN 23 mg/dL (7-18); BUN/Creat Ratio 17.3 RATIO (10-20); Calcium,Total 9.8 mg/dL (8.5-10.1); Chloride 108 mmol/L (98-107); Creatinine, Serum 1.33 mg/dL (0.55-1.02); EST Glomerular Filtration Rate 40 mL/min (>60); Est Glom Filt Rate - Afr Amer 49 mL/min (>60); Estimated Creatinine Clearance 25.69 ml/min; Globulin 3.9 g/dL (2.2-4.2); Glucose 175 mg/dL (74-106); Potassium 4.6 mmol/L (3.5-5.1); Protein, Total 7.6 g/dL (6.4-8.2); Sodium Level 138 mmol/L (136-145)
[2024-02-21 13:24] LABS: Bacteria 0 SEEN /hpf (None Seen); Mucous, Urine 0 SEEN /hpf (<or=2+); Red Blood Cells-Urine 0 SEEN /hpf (0-5)
[2024-02-21 13:29] LABS: Glucose, Dipstick Normal (Normal); Ketone-Dipstick Negative (Negative); Leukocyte Esterase-Dipstick 500 /ul (Negative); Nitrite-Dipstick Negative (Negative); Occult Blood-Urine 25 /ul (Negative); Protein-Dipstick 15 mg/dl (Negative); Urine Bilirubin Dipstick Negative (Negative); Urine Urobilinogen Normal (Normal)
[2024-02-21 13:39] LABS: Color, Urine YELLOW (Yellow); Urine Clarity Clear (Clear)
[2024-02-21 13:47] LABS: Squamous Epithelial Cells - UA 5-10 SEEN /hpf (5-10); White Blood Cells 5-10 SEEN /hpf (0-5)
[2024-02-21 13:56] LABS: Absolute Lymphocyte Count 1.16 X10^3/uL (0.83-4.51); Absolute Neutrophil Count 11.3 X10^3/uL (2.0-7.7); Basophil# 0.05 X10^3/uL; Basophil% 0.4 % (0-1); Hematocrit 43.1 % (37-47); Hemoglobin 14.3 g/dL (12.0-15.0); Lymphocyte # 1.16 X10^3/ul (0.83-4.51); Lymphocyte % 8.9 % (19-41); Mean Corp Hgb Conc 33.2 g/dL (32-36); Mean Corpuscular Hgb 29.1 pg (27.0-32.0); Mean Corpuscular Volume 87.8 fL (81-99); Mean Platelet Vol. 10.1 fl (6.2-12.0); Monocyte# 0.42 X10^3/uL; Monocyte% 3.2 % (0-10); NRBC Flagged by Analyzer 0 % (0-5); Neutrophil # 11.29 X10^3/uL (2.7-7.7); Neutrophil % 87.1 % (47-70); Platelet Count 342 K/mm3 (150-450); RBC Distribution Width CV 14.3 % (11.6-14.6); RBC Distribution Width SD 45.5 fl (35.1-43.9); Red Blood Count 4.91 M/mm3 (4.2-5.4)
--- NOTE | 2024-02-21 14:45 | CT_ITS ---
STUDY: CT ABDOMEN AND PELVIS WITHOUT CONTRAST REASON FOR EXAM: Female, 83 years old. Vomiting -- r/o sbo. Abdominal pain. RADIATION DOSAGE (If Supplied By Facility): CTDIvol = ( 6.58 ) mGy, DLP = ( 303.94 ) mGycm TECHNIQUE: Transaxial images were obtained from the dome of the diaphragm to the symphysis pubis without oral contrast, and without intravenous contrast. Sagittal and coronal images were reconstructed. Individualized dose optimization techniques were used for this CT. COMPARISON: Comparison is made with prior examination November 14, 2023. FINDINGS: The visualized lung bases are unremarkable. Coronary artery calcification. Normal liver. The gallbladder is distended. No definite gallstones are seen. Normal spleen. Normal pancreas. Normal bilateral adrenal glands. Normal right kidney. Normal left kidney. There is a small hiatal hernia. Mildly dilated fluid-filled distal small bowel loops. Early distal small bowel obstruction should be ruled out. The transition point is in the right lower pelvis. Normal colon. There is non-visualization of the appendix. Small lymph nodes are seen within the mesenteric fat in the right lower quadrant is suggestive of mesenteric adenitis. Normal abdominal aorta. Normal inferior vena cava. Normal retroperitoneum. Normal urinary bladder. Normal abdominal wall. There are degenerative changes of the visualized lumbar spine. CT/Abdomen/Pelvis without Cont IMPRESSION: Mildly dilated fluid-filled distal small bowel loops suggestive of very early distal small bowel obstruction. Follow-up recommended. Electronically Signed: Mann Dinero MD at 15:26 EDT ,
--- NOTE | 2024-02-21 14:46 | ED.VIS.GI ---
HPI HPI - GI History of Present Illness Chief Complaint: Abd Pain Informant: patient and family Narrative Narrative: Presents here both daughters present for increasing mid abdominal pain throughout the night. Nausea and vomiting x 5 last time in the ED no hematemesis. States she had a very small bowel movement 6 AM decreasing flatus. Mild distention of abdomen. Hysterectomy in the past. Reports symptoms are similar when she had a bowel obstruction in the past. Denies urinary symptoms. Denies fevers or chills. Prior similar symptoms: Yes PFSH PFSH Medical History Breast cancer, right Gout Osteoarthritis GERD (gastroesophageal reflux disease) HTN (hypertension) Home Medications ?Medication ?Instructions ?Recorded ?Last Taken ?Type allopurinol 300 mg tablet 300 mg PO DAILY 07/07/17 Unknown History aspirin 81 mg chewable tablet 81 mg PO DAILY@0800 07/07/17 Unknown History cinnamon bark 500 mg capsule 1,000 mg PO DAILY 07/07/17 11/13/23 History fish oil-dha-epa 1,200 mg-144 1 ea PO DAILY 07/07/17 11/13/23 History mg-216 mg capsule skkybfho-xkm-hzcix acid 0.4 1 ea PO DAILY 07/07/17 11/13/23 History mg-lycopene 300 mcg-lutein 250 mcg tablet pravastatin 40 mg tablet 40 mg PO DAILY 07/07/17 11/13/23 History acetaminophen 650 mg 650 mg PO PRN PRN Pain Or Fever 04/11/19 Unknown History tablet,extended release (Arthritis Pain Relief (acetaminophen) ER) losartan 50 mg tablet 50 mg PO DAILY 04/11/19 11/13/23 History brimonidine 0.2 % eye drops 1 drp EACH EYE TID 04/26/19 Unknown History timolol maleate 0.5 % eye drops 1 drp EACH EYE BID 04/26/19 11/13/23 History omeprazole 40 mg capsule,delayed 40 mg PO DAILY 07/04/22 11/13/23 History release calcium carbonate (Calcium 600) 1,200 mg PO DAILY 11/14/23 11/13/23 History dicyclomine 10 mg capsule 10 mg PO TID PRN GAS PAIN 11/14/23 Unknown History ferrous sulfate 325 mg (65 mg 325 mg PO DAILY 11/14/23 11/13/23 History iron) tablet (Feosol) latanoprost 0.005 % eye drops 1 drp ophthalmic (eye) QHS 11/14/23 Unknown History Allergy/AdvReac Type Severity Reaction Status Date / Time lisinopril Allergy NEEDS Verified 02/21/24 12:44 FOLLOW-UP codeine AdvReac Other Verified 02/21/24 12:44 Family History Mother Breast cancer CVA (cerebral vascular accident) Brother CVA (cerebral vascular accident) Heart disease Surgical History History of hysterectomy History of colonoscopy (~2010) History of lumpectomy of right breast (~03/2019) Social History Smoking Status: Former smoker ROS ROS ED Constitutional Constitutional ED: Denies chills, fever(s) or sweats Eyes Eyes: Denies change in vision ENT ENT ED: Denies dysphagia or sore throat Cardiovascular Cardiovascular: Denies chest pain, leg edema, palpitations or racing heartbeat Respiratory/Chest Respiratory/Chest: Denies cough, dyspnea or dyspnea on exertion Gastrointestinal Gastrointestinal: Reports abdominal pain, nausea and vomiting; Denies diarrhea Genitourinary Genitourinary ED: Denies dysuria, hematuria or urinary frequency Musculoskeletal Musculoskeletal: Denies back pain, extremity pain or neck pain Integumentary Denies rash or wounds Neurologic Neurologic: Denies headache(s), paresthesias or weakness EXAM Physical Exam Const Vital Signs: 02/21/24 12:44 02/21/24 14:53 02/21/24 16:32 Temperature 98.4 F Temperature Source Oral Pulse Rate 81 86 76 Respiratory Rate 18 16 16 Blood Pressure 127/74 H 136/80 H 136/79 H Blood Pressure Mean 91 98 98 Pulse Ox 97 98 98 Oxygen Delivery Method Room Air Room Air Room Air Positive well nourished and well developed General Appearance ED: well developed and NAD HEENT Reports moist mucous membranes normocephalic and atraumatic Eyes EOMs intact bilaterally and conjunctivae normal General Eye ED: Yes normal appearance of both eyes Neck no lymphadenopathy and supple General: Negative for tenderness Chest Wall Chest: Negative for tenderness Resp normal respiratory effort and normal air movement Effort and Inspection: symmetric chest movement; Negative for respiratory distress Cardio regular rate, regular rhythm and no murmurs Peripheral Pulses: pulses 2+ throughout GI GI Narrative: Mild distention unable to hear bowel sounds in 4 quadrants. Mild generalized tenderness. No guarding or rebound. Palpation: Negative for guarding or rebound tenderness present Back/Spine no CVA tenderness and no thoracic nor lumbar tenderness Extremity normal to inspection General Extremety ED: Negative for edema or tenderness General Extremity: Negative for edema Neuro oriented x3 and no sensory deficits noted Sensorium / Orientation: awake and alert Skin no rashes or lesions noted and no wounds MDM MDM MDM Narrative Medical decision making narrative: Interventions / MDM: Differential diagnosis: Bowel obstruction, abdominal pain, nausea and vomiting Diagnosis considered but do not suspect: N/A My EKG interpretation: N/A Imaging independently reviewed and interpreted by myself: CT abdomen pelvis: Air-fluid levels and slight gastric distention consistent with bowel obstruction. KUB: NG tube in adequate position. External documents reviewed: N/A Test considered but not ordered:N/A ED course: Nursing call initiated labs added on lipase. After evaluation morphine Zofran fluids were started. Concerns for bowel obstruction with her history, noncontrast CT scan ordered. CT results concerns of obstruction findings appear patient white count was 13. Electrolytes were normal. Creatinine 1.33. Discussed findings with surgery Dr. Corley, who manage the patient this past May with similar symptoms. Recent NG tube placement. She evaluated the patient in the ED and admission. Re-evaluation: stable Disposition discussed with patient/family/significant other: Patient and family Case discussed with consulting clinician: General Surgery This note was generated with [employer] dictation software. It may contain incorrect words, spelling, and punctuation that were not noted in checking the note before signing. Lab Data Attestation: I reviewed the patient's lab results. Labs: Laboratory Results - last 24 hr 02/21/24 02/21/24 02/21/24 13:00 13:00 13:17 WBC Cancelled Corrected WBC Cancelled RBC Cancelled Hgb Cancelled Hct Cancelled MCV Cancelled MCH Cancelled MCHC Cancelled RDW Std Deviation Cancelled RDW Coeff of Wilfredo Cancelled Plt Count Cancelled MPV Cancelled Immature Gran % (Auto) Cancelled Neut % (Auto) Cancelled Lymph % (Auto) Cancelled [place] % (Auto) Cancelled Eos % (Auto) Cancelled Baso % (Auto) Cancelled Absolute Neuts (auto) Cancelled Absolute Lymphs (auto) Cancelled Total Counted Cancelled Neutrophils % (Manual) Cancelled Band Neutrophils % Cancelled Lymphocytes % (Manual) Cancelled Monocytes % (Manual) Cancelled Eosinophils % (Manual) Cancelled Basophils % (Manual) Cancelled Metamyelocytes % Cancelled Myelocytes % Cancelled Promyelocytes % Cancelled Blast Cells % Cancelled Plasma Cell % (Manual) Cancelled Other Cells % Cancelled Nucleated RBC % Cancelled Nucleated RBCs/100 WBC Cancelled Differential Comment Cancelled Diff Path Review Cancelled Hypersegmented Neuts Cancelled Atypical Lymphocytes Cancelled Reactive Lymphocytes Cancelled Smudge Cells Cancelled Toxic Granulation Cancelled Toxic Vacuolation Cancelled Dohle Bodies Cancelled Ministerio Rods Cancelled Platelet Estimate Cancelled Plt Morphology Comment Cancelled RBC Morphology Cancelled Cancelled Polychromasia Cancelled Hypochromasia Cancelled Basophilic Stippling Cancelled Anisocytosis Cancelled Microcytosis Cancelled Macrocytosis Cancelled Spherocytes Cancelled Sickle Cells Cancelled Target Cells Cancelled Tear Drop Cells Cancelled Ovalocytes Cancelled Stomatocytes Cancelled [place] Bodies Cancelled Kayleigh Cells Cancelled Bite Cells Cancelled Crenated Cell Cancelled Acanthocytes (Spur) Cancelled Rouleaux Cancelled Schistocytes Cancelled Sodium 138 Potassium 4.6 Chloride 108 H Carbon Dioxide 20.0 L Anion Gap 10 BUN 23 H Creatinine 1.33 H Estim Creat Clear Calc 25.69 Est GFR (MDRD) Af Amer 49 L Est GFR (MDRD) Non-Af 40 L BUN/Creatinine Ratio 17.3 Glucose 175 H Calcium 9.8 Total Bilirubin 0.50 AST 37 ALT 19 Alkaline Phosphatase 90 Total Protein 7.6 Albumin 3.7 Globulin 3.9 Albumin/Globulin Ratio 0.9 Lipase 31 Urine Color YELLOW Urine Clarity Clear Urine pH 6.0 Ur Specific [place] 1.020 Urine Protein 15 H Urine Glucose (UA) Normal Urine Ketones Negative Urine Occult Blood 25 H Urine Nitrite Negative Urine Bilirubin Negative Urine Urobilinogen Normal Ur Leukocyte Esterase 500 H Urine RBC 0 SEEN Urine WBC 5-10 SEEN Ur Squamous Epith Cells 5-10 SEEN Urine Bacteria 0 SEEN Urine Mucus 0 SEEN 02/21/24 13:35 WBC 13.0 H Corrected WBC RBC 4.91 Hgb 14.3 Hct 43.1 MCV 87.8 MCH 29.1 MCHC 33.2 RDW Std Deviation 45.5 H RDW Coeff of Wilfredo 14.3 Plt Count 342 MPV 10.1 Immature Gran % (Auto) 0.400 Neut % (Auto) 87.1 H Lymph % (Auto) 8.9 L [place] % (Auto) 3.2 Eos % (Auto) 0.0 Baso % (Auto) 0.4 Absolute Neuts (auto) 11.3 H Absolute Lymphs (auto) 1.16 Total Counted Neutrophils % (Manual) Band Neutrophils % Lymphocytes % (Manual) Monocytes % (Manual) Eosinophils % (Manual) Basophils % (Manual) Metamyelocytes % Myelocytes % Promyelocytes % Blast Cells % Plasma Cell % (Manual) Other Cells % Nucleated RBC % 0 Nucleated RBCs/100 WBC Differential Comment Diff Path Review Hypersegmented Neuts Atypical Lymphocytes Reactive Lymphocytes Smudge Cells Toxic Granulation Toxic Vacuolation Dohle Bodies Ministerio Rods Platelet Estimate Plt Morphology Comment RBC Morphology Polychromasia Hypochromasia Basophilic Stippling Anisocytosis Microcytosis Macrocytosis Spherocytes Sickle Cells Target Cells Tear Drop Cells Ovalocytes Stomatocytes [place] Bodies Kayleigh Cells Bite Cells Crenated Cell Acanthocytes (Spur) Rouleaux Schistocytes Sodium Potassium Chloride Carbon Dioxide Anion Gap BUN Creatinine Estim Creat Clear Calc Est GFR (MDRD) Af Amer Est GFR (MDRD) Non-Af BUN/Creatinine Ratio Glucose Calcium Total Bilirubin AST ALT Alkaline Phosphatase Total Protein Albumin Globulin Albumin/Globulin Ratio Lipase Urine Color Urine Clarity Urine pH Ur Specific [place] Urine Protein Urine Glucose (UA) Urine Ketones Urine Occult Blood Urine Nitrite Urine Bilirubin Urine Urobilinogen Ur Leukocyte Esterase Urine RBC Urine WBC Ur Squamous Epith Cells Urine Bacteria Urine Mucus Radiography Diagnostic Testing: Clinical Impression(s) from Imaging Studies Abdomen/Pelvis CT 02/21/24 14:45 IMPRESSION: Mildly dilated fluid-filled distal small bowel loops suggestive of very early distal small bowel obstruction. Follow-up recommended. Electronically Signed: Mann Dinero MD at 15:26 EDT , KUB X-Ray 02/21/24 16:24 IMPRESSION: undefined Discharge Plan Dx/Rx/DC Orders Clinical Impression: SBO (small bowel obstruction), Acute renal insufficiency, Nausea & vomiting Disposition Disposition: Acute Care Hospital [facility] Discharge Date/Time: 02/21/24 17:59
[2024-02-21 14:53] VITALS: BP 136/80; PULSE 86; RESP 16; O2SAT 98
[2024-02-21] MEDS: 0.9% Normal Saline (1000mL) 1,000 ML 1000 ML IV (14:53)
[2024-02-21] MEDS: Ondansetron 4 MG/2 ML Vial IV (14:54)
[2024-02-21] MEDS: Morphine 4 MG/ML Syringe IV ×3 (14:55→18:55)
[2024-02-21 15:04] LABS: Lipase 31 U/L (13-75)
--- NOTE | 2024-02-21 16:24 | RAD_ITS ---
STUDY: X-RAY - ABDOMEN/PELVIS REASON FOR EXAM: Female, 83 years old. NG Insertion TECHNIQUE: Single AP view of the abdomen / pelvis. COMPARISON: None. FINDINGS: Normal visualized lung bases. Nasogastric tube terminates in the distal stomach. There is an unremarkable bowel gas pattern. There is no demonstrated free abdominal air. Electronically Signed: Austin Lock MD at 17:24 EDT , RAD/Abdomen Single View (Portable) IMPRESSION: undefined
[2024-02-21 16:32] VITALS: BP 136/79; PULSE 76; RESP 16; O2SAT 98
[2024-02-21] MEDS: 0.9% Normal Saline (1000mL) 1,000 ML 150 ML IV (16:34)
[2024-02-21] MEDS: Oxymetazoline 0.05% 1 SPRAY SPRAY.BTL 2 SPRAY NASAL (16:35)
[2024-02-21 17:18] VITALS: BP 136/68; PULSE 88; RESP 22; TEMP 36.4; O2SAT 97
--- NOTE | 2024-02-21 18:08 | PCM.HP.STD ---
HPI - General General Date of Admission: 02/21/24 HPI Narrative KING KAUFFMAN, is a 83 F who presents to the ER due to abdominal pain nausea and vomiting since last night. Patient is known to me from a previous hospitalization in October 2023 for small bowel obstruction which did resolve with conservative measures and Gastrografin was seen in the colon in 1 hour. Patient is only abdominal surgeries hysterectomy. NG was placed in the ER and CT abdomen pelvis was done showed early bowel obstruction. Patient did have a leukocytosis of 13 also had 500 leukoesterase in urine. Patient currently rates her pain a 7 out of 10. Patient did have some flatus today as well as had a bowel movement this morning. Patient did have a recent UTI about 2 weeks ago. [facility] Medical History Breast cancer, right Gout Osteoarthritis GERD (gastroesophageal reflux disease) HTN (hypertension) Home Medications ?Medication ?Instructions ?Recorded ?Last Taken ?Type allopurinol 300 mg tablet 300 mg PO DAILY 07/07/17 Unknown History aspirin 81 mg chewable tablet 81 mg PO DAILY@0800 07/07/17 Unknown History cinnamon bark 500 mg capsule 1,000 mg PO DAILY 07/07/17 11/13/23 History fish oil-dha-epa 1,200 mg-144 1 ea PO DAILY 07/07/17 11/13/23 History mg-216 mg capsule lxnuzmam-mjs-azbxg acid 0.4 1 ea PO DAILY 07/07/17 11/13/23 History mg-lycopene 300 mcg-lutein 250 mcg tablet pravastatin 40 mg tablet 40 mg PO DAILY 07/07/17 11/13/23 History acetaminophen 650 mg 650 mg PO PRN PRN Pain Or Fever 04/11/19 Unknown History tablet,extended release (Arthritis Pain Relief (acetaminophen) ER) losartan 50 mg tablet 50 mg PO DAILY 04/11/19 11/13/23 History brimonidine 0.2 % eye drops 1 drp EACH EYE TID 04/26/19 Unknown History timolol maleate 0.5 % eye drops 1 drp EACH EYE BID 04/26/19 11/13/23 History omeprazole 40 mg capsule,delayed 40 mg PO DAILY 07/04/22 11/13/23 History release calcium carbonate (Calcium 600) 1,200 mg PO DAILY 11/14/23 11/13/23 History dicyclomine 10 mg capsule 10 mg PO TID PRN GAS PAIN 11/14/23 Unknown History ferrous sulfate 325 mg (65 mg 325 mg PO DAILY 11/14/23 11/13/23 History iron) tablet (Feosol) latanoprost 0.005 % eye drops 1 drp ophthalmic (eye) QHS 11/14/23 Unknown History Allergy/AdvReac Type Severity Reaction Status Date / Time lisinopril Allergy NEEDS Verified 02/21/24 12:44 FOLLOW-UP codeine AdvReac Other Verified 02/21/24 12:44 Family History Mother Breast cancer CVA (cerebral vascular accident) Brother CVA (cerebral vascular accident) Heart disease Surgical History History of hysterectomy History of colonoscopy (~2010) History of lumpectomy of right breast (~03/2019) Social History Smoking Status: Former smoker ROS Eyes Eyes: Denies blurry vision ENT HEENT: Denies dysphagia Cardiovascular Cardiovascular: Denies chest pain Respiratory/Chest Respiratory/Chest: Denies cough Gastrointestinal Gastrointestinal: Reports abdominal pain, nausea and vomiting; Denies constipation or diarrhea Genitourinary Genitourinary: Denies dysuria Integumentary Integumentary: Denies rash Neurologic Neurologic: Denies focal weakness Psychiatric Psychiatric: Denies depression Endocrine Endocrinology: Denies palpitations Hematologic/Lymphatic Hematologic/Lymphatic: Denies easy bleeding Vital Signs Vital Signs Vital Signs: 02/21/24 12:44 02/21/24 14:53 02/21/24 16:32 Temperature 98.4 F Temperature Source Oral Pulse Rate 81 86 76 Respiratory Rate 18 16 16 Blood Pressure 127/74 H 136/80 H 136/79 H Blood Pressure Mean 91 98 98 Pulse Ox 97 98 98 Oxygen Delivery Method Room Air Room Air Room Air 02/21/24 17:18 Temperature 97.6 F L Temperature Source Pulse Rate 88 Respiratory Rate 22 H Blood Pressure 136/68 H Blood Pressure Mean 90 Pulse Ox 97 Oxygen Delivery Method Weight Weight: 132 lb Body Mass Index (BMI) 24.9 Physical Exam Const alert, oriented x3 and no apparent distress HEENT normocephalic and head/scalp atraumatic Resp normal respiratory effort Cardio regular rate GI soft to palpation; Negative for non-distended Palpation: tender LLQ and RLQ; Negative for guarding Extremity no clubbing, cyanosis or edema Neuro CN's II-XII intact bilaterally Psych mental status grossly normal Results Lab / Micro Data 02/22/24 06:44 02/21/24 13:00 Labs: Laboratory Results - last 24 hr 02/21/24 13:00: WBC Cancelled, Corrected WBC Cancelled, RBC Cancelled, Hgb Cancelled, Hct Cancelled, MCV Cancelled, MCH Cancelled, MCHC Cancelled, RDW Std Deviation Cancelled, RDW Coeff of Wilfredo Cancelled, Plt Count Cancelled, MPV Cancelled, Immature Gran % (Auto) Cancelled, Neut % (Auto) Cancelled, Lymph % (Auto) Cancelled, [place] % (Auto) Cancelled, Eos % (Auto) Cancelled, Baso % (Auto) Cancelled, Absolute Neuts (auto) Cancelled, Absolute Lymphs (auto) Cancelled, Total Counted Cancelled, Neutrophils % (Manual) Cancelled, Band Neutrophils % Cancelled, Lymphocytes % (Manual) Cancelled, Monocytes % (Manual) Cancelled, Eosinophils % (Manual) Cancelled, Basophils % (Manual) Cancelled, Metamyelocytes % Cancelled, Myelocytes % Cancelled, Promyelocytes % Cancelled, Blast Cells % Cancelled, Plasma Cell % (Manual) Cancelled, Other Cells % Cancelled, Nucleated RBC % Cancelled, Nucleated RBCs/100 WBC Cancelled, Differential Comment Cancelled, Diff Path Review Cancelled, Hypersegmented Neuts Cancelled, Atypical Lymphocytes Cancelled, Reactive Lymphocytes Cancelled, Smudge Cells Cancelled, Toxic Granulation Cancelled, Toxic Vacuolation Cancelled, Dohle Bodies Cancelled, Ministerio Rods Cancelled, Platelet Estimate Cancelled, Plt Morphology Comment Cancelled, RBC Morphology Cancelled 02/21/24 13:00: RBC Morphology Cancelled, Polychromasia Cancelled, Hypochromasia Cancelled, Basophilic Stippling Cancelled, Anisocytosis Cancelled, Microcytosis Cancelled, Macrocytosis Cancelled, Spherocytes Cancelled, Sickle Cells Cancelled, Target Cells Cancelled, Tear Drop Cells Cancelled, Ovalocytes Cancelled, Stomatocytes Cancelled, [place] Bodies Cancelled, [place]leigh Cells Cancelled, Bite Cells Cancelled, Crenated Cell Cancelled, Acanthocytes (Spur) Cancelled, Rouleaux Cancelled, Schistocytes Cancelled, Sodium 138, Potassium 4.6, Chloride 108 H, Carbon Dioxide 20.0 L, Anion Gap 10, BUN 23 H, Creatinine 1.33 H, Estim Creat Clear Calc 25.69, Est GFR (MDRD) Af Amer 49 L, Est GFR (MDRD) Non-Af 40 L, BUN/Creatinine Ratio 17.3, Glucose 175 H, Calcium 9.8, Total Bilirubin 0.50, AST 37, ALT 19, Alkaline Phosphatase 90, Total Protein 7.6, Albumin 3.7, Globulin 3.9, Albumin/Globulin Ratio 0.9, Lipase 31 02/21/24 13:17: Urine Color YELLOW, Urine Clarity Clear, Urine pH 6.0, Ur Specific [place] 1.020, Urine Protein 15 H, Urine Glucose (UA) Normal, Urine Ketones Negative, Urine Occult Blood 25 H, Urine Nitrite Negative, Urine Bilirubin Negative, Urine Urobilinogen Normal, Ur Leukocyte Esterase 500 H, Urine RBC 0 SEEN, Urine WBC 5-10 SEEN, Ur Squamous Epith Cells 5-10 SEEN, Urine Bacteria 0 SEEN, Urine Mucus 0 SEEN 02/21/24 13:35: WBC 13.0 H, RBC 4.91, Hgb 14.3, Hct 43.1, MCV 87.8, MCH 29.1, MCHC 33.2, RDW Std Deviation 45.5 H, RDW Coeff of Wilfredo 14.3, Plt Count 342, MPV 10.1, Immature Gran % (Auto) 0.400, Neut % (Auto) 87.1 H, Lymph % (Auto) 8.9 L, [place] % (Auto) 3.2, Eos % (Auto) 0.0, Baso % (Auto) 0.4, Absolute Neuts (auto) 11.3 H, Absolute Lymphs (auto) 1.16, Nucleated RBC % 0 Imaging Radiology Impression Abdomen/Pelvis CT 02/21/24 14:45 IMPRESSION: Mildly dilated fluid-filled distal small bowel loops suggestive of very early distal small bowel obstruction. Follow-up recommended. Electronically Signed: Mann Dinero MD at 15:26 EDT , KUB X-Ray 02/21/24 16:24 IMPRESSION: undefined Assessment & Plan Assessment/Plan (1) SBO (small bowel obstruction): (2) Urinary tract infection: PLAN: Plan Will plan to treat conservatively currently with n.p.o./NG/IV fluids. Will likely do small bowel follow-through with Gastrografin tomorrow. Patient UA was consistent with urinary tract infection culture is pending. Patient is on Ancef 1 g every 8. Jalyn Corley M.D. Pager: [phone] [facility] [address] [place] [address], [facility], [address] [place] [id number] Office: [phone] Charges/Coding Multi Select Codes Visit Charges Visit Charges: 00431 Init Hosp L3
[2024-02-21 18:23] VITALS: BMI 25.4
[2024-02-21 18:52] VITALS: BP 146/84; PULSE 96; RESP 16; TEMP 36.9; O2SAT 94
[2024-02-21] MEDS: 0.9% Saline Lock 10 ML Syringe IV (18:56)
[2024-02-21] MEDS: Pantoprazole Sodium 40 MG in 0.9% Normal Saline (100mL MB+) 100 ML 330 MG IV (19:52)
[2024-02-21] MEDS: Cefazolin 0.5 GM in 0.9% Normal Saline (50mL Bag) 50 ML IV (20:22)
[2024-02-21 20:40] VITALS: O2SAT 98
[2024-02-21] MEDS: Lactated Ringers 1,000 ML 100 ML IV (21:28)
[2024-02-21] MEDS: Latanoprost 0.005% 1 Bottle 1 DRP OPHTHALMIC (22:00)
[2024-02-21] MEDS: Timolol 0.5% 5ML OPTH.BTL 1 DRP EACH EYE (22:00)
[2024-02-21] MEDS: BRIMONIDINE 0.2% 5ML BOTTLE 1 DRP EACH EYE (22:00)
[2024-02-22 00:23] VITALS: RESP 15
[2024-02-22 03:00] VITALS: BP 135/65; PULSE 92; RESP 15; TEMP 37.1; O2SAT 92
--- NOTE | 2024-02-22 05:55 | RAD_ITS ---
EXAM: XR ABDOMEN, 1 VIEW CLINICAL INDICATION: sbo TECHNIQUE: Frontal supine view of the abdomen/pelvis. COMPARISON: Abdominal radiograph and abdominal pelvic CT of 02/21/2024. FINDINGS: LOWER THORAX: No acute pathology. GASTROINTESTINAL TRACT: Multiple gas-filled mid abdominal small bowel loops are present, measuring up to 3.1 cm in diameter. A small amount of gas is scattered within nondistended colon. ORGANS: Unremarkable as visualized. No organomegaly. No abnormal calcifications. BONES/JOINTS: No acute pathology. Lumbar dextroscoliosis again noted with multilevel lumbar degenerative disc disease and facet arthritis. SOFT TISSUES: No acute pathology. TUBES, LINES AND DEVICES: NG tube remains in place extending into the stomach; the tip of the tube is projected to the right of L1, in the region of the gastric antrum. Sidehole of the NG tube is projected in the region of the gastric body. RAD/Abdomen Single View (Portable) IMPRESSION: Satisfactory NG tube positioning. Multiple adjacent borderline distended small bowel loops, suspicious for early/mild small bowel obstruction, as noted on previous CT of one day ago. Electronically Signed: Allan Kaiser MD at 6:57 EDT ,
[2024-02-22] MEDS: BRIMONIDINE 0.2% 5ML BOTTLE 1 DRP EACH EYE ×3 (06:45→21:02)
[2024-02-22] MEDS: Lactated Ringers 1,000 ML 100 ML IV ×2 (06:59→16:47)
[2024-02-22 07:12] LABS: Absolute Lymphocyte Count 1.59 X10^3/uL (0.83-4.51); Absolute Neutrophil Count 2.6 X10^3/uL (2.0-7.7); Basophil# 0.04 X10^3/uL; Basophil% 0.8 % (0-1); Eosinophil# 0.08 X10^3/uL; Eosinophils% 1.6 % (0-5); Hematocrit 36.4 % (37-47); Hemoglobin 12.1 g/dL (12.0-15.0); Lymphocyte # 1.59 X10^3/ul (0.83-4.51); Lymphocyte % 31.9 % (19-41); Mean Corp Hgb Conc 33.2 g/dL (32-36); Mean Corpuscular Hgb 29.2 pg (27.0-32.0); Mean Corpuscular Volume 87.9 fL (81-99); Mean Platelet Vol. 9.8 fl (6.2-12.0); Monocyte# 0.64 X10^3/uL; Monocyte% 12.9 % (0-10); NRBC Flagged by Analyzer 0 % (0-5); Neutrophil # 2.62 X10^3/uL (2.7-7.7); Neutrophil % 52.6 % (47-70); Platelet Count 276 K/mm3 (150-450); RBC Distribution Width CV 14.6 % (11.6-14.6); RBC Distribution Width SD 46.6 fl (35.1-43.9); Red Blood Count 4.14 M/mm3 (4.2-5.4)
--- NOTE | 2024-02-22 07:47 | RAD_ITS ---
STUDY: LIMITED GASTROGRAFIN SMALL BOWEL SERIES. REASON FOR EXAM: Female, 83 years old. sbo-gastrografin -- mod KUB immed/1hr/3 hr-gastrografin TECHNIQUE: The patient ingested Gastrografin. Imaging was obtained immediately as well as one hour following the ingestion of Gastrografin. COMPARISON: None. FINDINGS: At 1 hour, Gastrografin is seen within the colon. No evidence of a small bowel obstruction. RAD/Small Bowel Series Only IMPRESSION: Gastrografin is seen within the colon following 1 hour of ingestion of Gastrografin. Electronically Signed: Mann Dinero MD at 12:28 EDT ,
--- NOTE | 2024-02-22 07:49 | PN.SURG_ITS ---
Subjective Subjective Patient states her abdominal pain has improved and is minimal. Patient only required pain meds when she first got to the floor. NG has about 500 cc out. Objective Data Objective Data Vital Signs: Vital Signs Temp Pulse Resp BP Pulse Ox O2 Del Method 98.7 F 92 15 135/65 H 92 Room Air 02/22/24 03:00 02/22/24 03:00 02/22/24 03:00 02/22/24 03:00 02/22/24 03:00 02/22/24 05:43 Oxygen Delivery Method Room Air Weight: 134 lb 8 oz Body Mass Index (BMI) 25.4 Intake & Output: Intake and Output for Last 24 Hours 02/20/24 02/21/24 02/22/24 23:59 23:59 23:59 Intake Total 1932.5 / 1962.5 1011.67 / 1011.67 Output Total 200 / 200 Balance 1932.5 / 1762.5 811.67 / 811.67 Lab / Micro Data 02/22/24 06:44 02/21/24 13:00 Labs: Laboratory Results - last 24 hr 02/21/24 13:00: WBC Cancelled, Corrected WBC Cancelled, RBC Cancelled, Hgb Cancelled, Hct Cancelled, MCV Cancelled, MCH Cancelled, MCHC Cancelled, RDW Std Deviation Cancelled, RDW Coeff of Wilfredo Cancelled, Plt Count Cancelled, MPV Cancelled, Immature Gran % (Auto) Cancelled, Neut % (Auto) Cancelled, Lymph % (Auto) Cancelled, [place] % (Auto) Cancelled, Eos % (Auto) Cancelled, Baso % (Auto) Cancelled, Absolute Neuts (auto) Cancelled, Absolute Lymphs (auto) Cancelled, Total Counted Cancelled, Neutrophils % (Manual) Cancelled, Band Neutrophils % Cancelled, Lymphocytes % (Manual) Cancelled, Monocytes % (Manual) Cancelled, Eosinophils % (Manual) Cancelled, Basophils % (Manual) Cancelled, Metamyelocytes % Cancelled, Myelocytes % Cancelled, Promyelocytes % Cancelled, Blast Cells % Cancelled, Plasma Cell % (Manual) Cancelled, Other Cells % Cancelled, Nucleated RBC % Cancelled, Nucleated RBCs/100 WBC Cancelled, Differential Comment Cancelled, Diff Path Review Cancelled, Hypersegmented Neuts Cancelled, Atypical Lymphocytes Cancelled, Reactive Lymphocytes Cancelled, Smudge Cells Cancelled, Toxic Granulation Cancelled, Toxic Vacuolation Cancelled, Dohle Bodies Cancelled, Ministerio Rods Cancelled, Platelet Estimate Cancelled, Plt Morphology Comment Cancelled, RBC Morphology Cancelled 02/21/24 13:00: RBC Morphology Cancelled, Polychromasia Cancelled, Hypochromasia Cancelled, Basophilic Stippling Cancelled, Anisocytosis Cancelled, Microcytosis Cancelled, Macrocytosis Cancelled, Spherocytes Cancelled, Sickle Cells Cancelled, Target Cells Cancelled, Tear Drop Cells Cancelled, Ovalocytes Cancelled, Stomatocytes Cancelled, [place] Bodies Cancelled, Kayleigh Cells Cancelled, Bite Cells Cancelled, Crenated Cell Cancelled, Acanthocytes (Spur) Cancelled, Rouleaux Cancelled, Schistocytes Cancelled, Sodium 138, Potassium 4.6, Chloride 108 H, Carbon Dioxide 20.0 L, Anion Gap 10, BUN 23 H, Creatinine 1.33 H, Estim Creat Clear Calc 25.69, Est GFR (MDRD) Af Amer 49 L, Est GFR (MDRD) Non-Af 40 L, BUN/Creatinine Ratio 17.3, Glucose 175 H, Calcium 9.8, Total Bilirubin 0.50, AST 37, ALT 19, Alkaline Phosphatase 90, Total Protein 7.6, Albumin 3.7, Globulin 3.9, Albumin/Globulin Ratio 0.9, Lipase 31 02/21/24 13:17: Urine Color YELLOW, Urine Clarity Clear, Urine pH 6.0, Ur Specific [place] 1.020, Urine Protein 15 H, Urine Glucose (UA) Normal, Urine Ketones Negative, Urine Occult Blood 25 H, Urine Nitrite Negative, Urine Bilirubin Negative, Urine Urobilinogen Normal, Ur Leukocyte Esterase 500 H, Urine RBC 0 SEEN, Urine WBC 5-10 SEEN, Ur Squamous Epith Cells 5-10 SEEN, Urine Bacteria 0 SEEN, Urine Mucus 0 SEEN 02/21/24 13:35: WBC 13.0 H, RBC 4.91, Hgb 14.3, Hct 43.1, MCV 87.8, MCH 29.1, MCHC 33.2, RDW Std Deviation 45.5 H, RDW Coeff of Wilfredo 14.3, Plt Count 342, MPV 10.1, Immature Gran % (Auto) 0.400, Neut % (Auto) 87.1 H, Lymph % (Auto) 8.9 L, [place] % (Auto) 3.2, Eos % (Auto) 0.0, Baso % (Auto) 0.4, Absolute Neuts (auto) 11.3 H, Absolute Lymphs (auto) 1.16, Nucleated RBC % 0 02/22/24 06:44: WBC 5.0, RBC 4.14 L, Hgb 12.1, Hct 36.4 L, MCV 87.9, MCH 29.2, MCHC 33.2, RDW Std Deviation 46.6 H, RDW Coeff of Wilfredo 14.6, Plt Count 276, MPV 9.8, Immature Gran % (Auto) 0.200, Neut % (Auto) 52.6, Lymph % (Auto) 31.9, [place] % (Auto) 12.9 H, Eos % (Auto) 1.6, Baso % (Auto) 0.8, Absolute Neuts (auto) 2.6, Absolute Lymphs (auto) 1.59, Nucleated RBC % 0 Radiography Diagnostic Testing: Radiology Impression Abdomen/Pelvis CT 02/21/24 14:45 IMPRESSION: Mildly dilated fluid-filled distal small bowel loops suggestive of very early distal small bowel obstruction. Follow-up recommended. Electronically Signed: Mann Dinero MD at 15:26 EDT , KUB X-Ray 02/21/24 16:24 IMPRESSION: undefined KUB X-Ray 02/22/24 05:55 IMPRESSION: Satisfactory NG tube positioning. Multiple adjacent borderline distended small bowel loops, suspicious for early/mild small bowel obstruction, as noted on previous CT of one day ago. Electronically Signed: Allan Kaiser MD at 6:57 EDT , Physical Exam Const oriented x3 and no apparent distress Resp normal respiratory effort Cardio regular rate GI soft to palpation GI Narrative: Very minimal tenderness suprapubic, no peritoneal signs Inspection: Negative for abdominal distention Assessment & Plan Assessment/Plan (1) SBO (small bowel obstruction): (2) Urinary tract infection: PLAN: Plan Will continue with n.p.o./NG/IV fluids. Gastrografin small bowel follow- through today. Patient UA was consistent with urinary tract infection culture is pending. Patient is on Ancef 0.5 g q12 -edited by pharmacy. Jalyn Corley M.D. Pager: [phone] [facility] [address] [place] [address], [address] [place] [address] Office: [phone] Charges/Coding Multi Select Codes Visit Charges Visit Charges: 73967 Subs Hosp L3
[2024-02-22 08:07] VITALS: BP 128/59; PULSE 85; RESP 18; TEMP 37; O2SAT 92
[2024-02-22] MEDS: Pantoprazole Sodium 40 MG in 0.9% Normal Saline (100mL MB+) 100 ML 330 MG IV (10:09)
--- NOTE | 2024-02-22 10:14 | NURSING ---
NG tube removed at [address] Corley's telephone order. Clear liquid diet ordered
[2024-02-22 10:16] LABS: Anion Gap 11 (5-15); BUN 25 mg/dL (7-18); BUN/Creat Ratio 23.6 RATIO (10-20); Chloride 112 mmol/L (98-107); Creatinine, Serum 1.06 mg/dL (0.55-1.02); EST Glomerular Filtration Rate 52 mL/min (>60); Est Glom Filt Rate - Afr Amer 63 mL/min (>60); Estimated Creatinine Clearance 32.52 ml/min; Glucose 119 mg/dL (74-106); Magnesium 1.9 mg/dL (1.6-2.6); Potassium 3.9 mmol/L (3.5-5.1); Sodium Level 144 mmol/L (136-145)
[2024-02-22] MEDS: Cefazolin 0.5 GM in 0.9% Normal Saline (50mL Bag) 50 ML IV ×2 (11:28→21:03)
[2024-02-22 11:30] VITALS: BP 138/62; PULSE 89; RESP 18; TEMP 36.8; O2SAT 95
[2024-02-22] MEDS: Losartan Potassium 50 MG Tablet PO (11:35)
[2024-02-22] MEDS: Pravastatin 40 MG Tablet PO (11:35)
[2024-02-22] MEDS: Timolol 0.5% 5ML OPTH.BTL 1 DRP EACH EYE ×2 (11:36→21:02)
[2024-02-22 16:44] VITALS: BP 107/50; PULSE 87; RESP 18; TEMP 36.9; O2SAT 95
[2024-02-22 20:51] VITALS: BP 131/61; PULSE 77; RESP 18; TEMP 37; O2SAT 96
[2024-02-22] MEDS: Latanoprost 0.005% 1 Bottle 1 DRP OPHTHALMIC (21:03)
[2024-02-23 02:38] VITALS: BP 125/56; PULSE 87; RESP 18; TEMP 36.6; O2SAT 95
[2024-02-23] MEDS: Lactated Ringers 1,000 ML 100 ML IV (02:43)
[2024-02-23] MEDS: BRIMONIDINE 0.2% 5ML BOTTLE 1 DRP EACH EYE ×2 (06:43→08:33)
[2024-02-23 08:29] VITALS: BP 134/70; PULSE 74; RESP 18; TEMP 36.6; O2SAT 94
[2024-02-23] MEDS: Losartan Potassium 50 MG Tablet PO (08:32)
[2024-02-23] MEDS: Pravastatin 40 MG Tablet PO (08:32)
--- NOTE | 2024-02-23 09:11 | PCM.PN.SRG ---
Subjective Subjective Patient was evaluated resting comfortably in bed. She notes her abdomen is much improved. She denies any nausea, vomiting. She notes loose stools. She notes being able to pass some flatus. She tolerated full liquids for dinner. Objective Data Objective Data Vital Signs: Vital Signs Temp Pulse Resp BP Pulse Ox O2 Del Method 97.9 F 74 18 134/70 H 94 Room Air 02/23/24 08:29 02/23/24 08:29 02/23/24 08:29 02/23/24 08:29 02/23/24 08:29 02/23/24 08:29 Oxygen Delivery Method Room Air Weight: 134 lb 8 oz Body Mass Index (BMI) 25.4 Intake & Output: Intake and Output for Last 24 Hours 02/21/24 02/22/24 02/23/24 23:59 23:59 23:59 Intake Total 1932.5 / 1962.5 2111.67 / 2111.67 993.33 / 993.33 Output Total 250 / 250 Balance 1932.5 / 1762.5 1861.67 / 1861.67 993.33 / 993.33 Lab / Micro Data 02/22/24 06:44 02/22/24 06:44 Labs: Laboratory Results - last 24 hr 02/22/24 06:44: Sodium 144, Potassium 3.9, Chloride 112 H, Carbon Dioxide 21.0, Anion Gap 11, BUN 25 H, Creatinine 1.06 H, Estim Creat Clear Calc 32.52, Est GFR (MDRD) Af Amer 63, Est GFR (MDRD) Non-Af 52 L, BUN/Creatinine Ratio 23.6 H, Glucose 119 H, Calcium 8.0 L, Magnesium 1.9 Radiography Diagnostic Testing: Radiology Impression Small Bowel X-Ray 02/22/24 07:47 IMPRESSION: Gastrografin is seen within the colon following 1 hour of ingestion of Gastrografin. Electronically Signed: Mann Dinero MD at 12:28 EDT , Physical Exam GI GI Narrative: Abdomen- soft, nontender. Positive bowel sounds. Assessment & Plan Assessment/Plan (1) SBO (small bowel obstruction): PLAN: I am following this patient in conjunction with Dr. Corley. Increase diet to regular low fiber diet Discharge today Charges/Coding Visit Charges Inpatient E&M: 52640 [facility] Hosp L1
[2024-02-23] MEDS: Pantoprazole Sodium 40 MG in 0.9% Normal Saline (100mL MB+) 100 ML 330 MG IV (09:19)
[2024-02-23] MEDS: Timolol 0.5% 5ML OPTH.BTL 1 DRP EACH EYE (09:48)
[2024-02-23] MEDS: Cefazolin 0.5 GM in 0.9% Normal Saline (50mL Bag) 50 ML IV (09:49)
--- NOTE | 2024-02-23 10:22 | PCM.DC.SUM ---
Providers Date of Admission: 02/22/24 Primary Care Physician: Dr. Alverto Packer MD Reason For Visit: SBO Diagnosis Discharge Diagnosis (1) SBO (small bowel obstruction): Status: Acute Code(s): K56.609 - Unspecified intestinal obstruction, unspecified as to partial versus complete obstruction Plan: I am following this patient in conjunction with Dr. Corley. Increase diet to regular low fiber diet Discharge today Medications at Discharge Home Medications allopurinol 300 mg tablet 300 mg PO DAILY 07/07/17 aspirin 81 mg chewable tablet 81 mg PO DAILY@0800 07/07/17 cinnamon bark 500 mg capsule 1,000 mg PO DAILY 07/07/17 fish oil-dha-epa 1,200 mg-144 mg-216 mg capsule 1 ea PO DAILY 07/07/17 ohxpswwb-ujn-gqzfe acid 0.4 mg-lycopene 300 mcg-lutein 250 mcg tablet 1 ea PO DAILY 07/07/17 pravastatin 40 mg tablet 40 mg PO DAILY 07/07/17 acetaminophen 650 mg tablet,extended release (Arthritis Pain Relief (acetaminophen) ER) 650 mg PO PRN PRN Pain Or Fever 04/11/19 losartan 50 mg tablet 50 mg PO DAILY 04/11/19 brimonidine 0.2 % eye drops 1 drp EACH EYE TID 04/26/19 timolol maleate 0.5 % eye drops 1 drp EACH EYE BID 04/26/19 omeprazole 40 mg capsule,delayed release 40 mg PO DAILY 07/04/22 calcium carbonate (Calcium 600) 1,200 mg PO DAILY 11/14/23 dicyclomine 10 mg capsule 10 mg PO TID PRN GAS PAIN 11/14/23 ferrous sulfate 325 mg (65 mg iron) tablet (Feosol) 325 mg PO DAILY 11/14/23 latanoprost 0.005 % eye drops 1 drp ophthalmic (eye) QHS 11/14/23 cephalexin 500 mg capsule 500 mg PO BID 7 days #14 caps 02/22/24 Hospital Course Operations None Summary of Care Provided Minutes Spent on Discharge: 35 Hospital Course: Patient is an 83 y/o F who presented with abdominal pain, nausea and vomiting. Ct scan of the ab/pel was obtained and demonstrated distal small bowel obstruction. NG tube was placed in the ED. Patient had a small bowel follow-through with Gastrografin on 02/21. Gastrografin was to the large colon within an hour after Gastrografin was provided. NG tube was pulled and patient was started on clear liquids. Patient had multiple loose stools and flatus. She was less distended. Patient was advanced to full liquids and tolerated this well. Upon discharge, patient denies nausea, vomiting. She is tolerating her diet well. She denies any abdominal pain/discomfort. She has no urinary symptoms. She will be sent home on Keflex x 7 days for treatment of recurrent urinary tract infection. Patient will need to follow-up with Dr. Corley in 1-2 weeks. She will be discharged home on a low fiber diet. Weight / BMI Weight Weight: 134 lb 8 oz Body Mass Index (BMI) 25.4 ABG / Lab / Microbiology Data 02/22/24 06:44 02/22/24 06:44 Microbiology: Microbiology 02/21/24 13:17 Urine, Midstream Urine Culture - Final Mixed Gram Positive Organisms Radiography Diagnostic Testing: Radiology Impression Small Bowel X-Ray 02/22/24 07:47 IMPRESSION: Gastrografin is seen within the colon following 1 hour of ingestion of Gastrografin. Electronically Signed: Mann Dinero MD at 12:28 EDT , D/C Instructions Discharge Diet: - (Fiber restricted diet) Discharge Activity: Return to Normal Activity Please Follow Up With: Jalyn Corley MD When: Follow-up with Dr. Corley in 1-2 weeks. Call [phone], option #2, to schedule an appointment Meaningful Use Info Meaningful Use Meaningful Use Diagnoses (Choose all that apply): None applicable Ischemic Stroke Statin Dosing Therapy Reference: STATIN DOSE THERAPY REFERENCE: * Patients > 75 years receive moderate or high dose statin therapy. * Patients 75 years or YOUNGER should receive HIGH intensity statin dose unless contraindicated. You will be required to document reason for non-treatment if statin daily dose does not meet guidelines. HIGH DOSE STATIN THERAPY DAILY Atorvastatin > than or = to 40 mg Rosuvastatin > than or = to 20 mg Amlodipine + Atorvastatin > than or = to 2.5/40 mg Ezetimibe + Simvastatin 10/80 mg Simvastatin 80mg Discharge Plan Admission Admit Date/Time: 02/22/24 11:47 Primary Reason for Your Visit: Small bowel obstruction Attending Provider: Jalyn Corley Primary Care Provider: Alverto Packer Instructions Additional Instructions / Restrictions: What are low-fiber foods? If your doctor tells you to follow a low-fiber diet, here are low-fiber foods you can eat and higher-fiber foods you should avoid. Remember to always choose foods that you would normally eat. Do not try any foods that caused you discomfort or allergic reactions in the past. If you are on a ?low-residue diet,? your food choices are even more restricted than those listed below. Talk with your cancer care team or dietitian if you have questions about certain foods or amounts. Meat, fish, poultry, and protein Eat: Tender cuts of meat Ground meat Tofu Fish and shellfish Smooth peanut butter Eggs Bake, broil, or poach meats, and use mild seasonings. Try preparing meats as stews, roasts, meatloaves, casseroles, sandwiches, and soups using ingredients on the approved lists. Scramble, poach, or boil eggs; or make omelets, souffl?s, custard, puddings, and casseroles, using ingredients noted below. You might want to ask your doctor, nurse, or dietitian about other foods may be OK for you to eat, and find out when you can go back to your normal diet. Avoid: All beans, nuts, peas, lentils, and legumes Processed meats, hot dogs, sausage, and cold cuts Tough meats with gristle Dairy: Milk and cheese Eat: Only in small to medium amounts and only if they don?t cause problems for you Milk, chocolate milk, buttermilk, and milk drinks Yogurt without seeds or granola Sour cream Cheese Cottage cheese Custard or pudding Ice cream or frozen desserts (without nuts) Cream sauces, soups, and casseroles You can use these items in desserts, snacks, or breads. Bread, cereals, and grains Eat: White breads, waffles, English toast, plain white rolls, or white bread toast Pretzels Plain pasta or noodles White rice Crackers, zwieback, shreya, and matzoh (no cracked wheat or whole grains) Cereals without whole grains, added fiber, seeds, raisins, or other dried fruit Use white flour for baking and making sauces. Grains, such as white rice, Cream of Wheat, or grits, should be well-cooked. Include the above grains in casseroles, dumplings, souffl?s, cheese strata, kugels, and pudding. Avoid any food that contains: Brown or wild rice Whole grains, cracked grains, or whole wheat products Kasha (buckwheat) Cornbread or cornmeal Evan crackers Bran Wheat germ Nuts Granola Coconut Dried fruit Seeds Vegetables and potatoes Eat: Tender, well-cooked fresh or canned vegetables without seeds, stems, or skins Cooked sweet or white potatoes without skins Strained vegetable juices without pulp or spices You can also eat these with cream sauces, or in soups, souffl?s, kugels, and casseroles. Avoid: All raw or steamed vegetables All types of beans Potatoes with skin Peas [place] Cabbage, broccoli, cauliflower, [place] sprouts, and greens Sauerkraut Onions Fruits and desserts Eat: Soft canned or cooked fruit without seeds or skins (small amounts) Small amounts of well-ripened banana Strained or clear juices Small amounts of soft cantaloupe or honeydew melon Cookies and other desserts without whole grains, dried fruit, berries, nuts, or coconut Sherbet and popsicles Serving suggestions include gelatins, milk shakes, frozen desserts, puddings, tapioca, cakes, and sauces. Avoid: All raw or dried fruits Berries Prune juice, prunes, and raisins Other foods Eat: Mayonnaise and mild salad dressings Margarine, butter, cream, and oils in small amounts Plain gravies Plain bouillon and broth Ketchup and mild mustard Spices, cooked herbs, and salt Sugar, honey, and syrup Clear jellies Hard candy and marshmallows Plain chocolate Avoid: Marmalade Pickles, olives, relish, and horseradish Popcorn Potato chips Liquids Keep in mind that low-fiber foods cause fewer bowel movements and smaller stools. You may need to drink extra fluids to help prevent constipation while you are on a low-fiber diet. Drink plenty of water unless your doctor tells you otherwise, and use juices and milk as noted above. Discharge Orders/Prescriptions Prescriptions: New cephalexin 500 mg capsule 500 mg PO BID 7 Days Qty: 14 0RF Continued losartan 50 mg tablet 50 mg PO DAILY acetaminophen [Arthritis Pain Relief (acetam)] 650 mg tablet extended release 650 mg PO PRN PRN (Reason: Pain Or Fever) pravastatin 40 MG tablet 40 mg PO DAILY aspirin 81 MG tablet,chewable 81 mg PO DAILY@0800 allopurinol 300 MG tablet 300 mg PO DAILY cinnamon bark 500 MG capsule 1,000 mg PO DAILY vyqrbtqt-tmw-DJ-lycopen-lutein 1 EACH tablet 1 ea PO DAILY fish oil-dha-epa 1 EACH capsule 1 ea PO DAILY brimonidine 1 DROP bottle 1 drp EACH EYE TID timolol maleate 1 DROP drops 1 drp EACH EYE BID omeprazole 40 mg Capsule,Delayed Release(Dr/Ec) 40 mg PO DAILY latanoprost 0.005 % drops 1 drp ophthalmic (eye) QHS Rx Instructions: both eyes calcium carbonate [Calcium 600] 600 mg calcium (1,500 mg) tablet 1,200 mg PO DAILY ferrous sulfate [Feosol] 325 mg (65 mg iron) tablet 325 mg PO DAILY dicyclomine 10 mg capsule 10 mg PO TID PRN Referrals / Follow Up: Alverto Packer MD [Primary Care Provider] - Jalyn Corley MD [Med Staff - Active Staff] - Within 2 Weeks (Please contact our office to schedule an appointment for 1-2 week from discharge) Disposition Disposition (needs filled in before D/C Order can be placed): Home, Self Care Charges/Coding Visit Charges Inpatient E&M: 92336 Disch Hosp >30min
--- NOTE | 2024-02-23 10:35 | CASEMGMT ---
ANGLE ARELLANO Assessment: ANGLE ARELLANO to room to meet with pt for initial transition planning/care coordination assessment. ANGLE ARELLANO introduced self and role at [facility], pt voices understanding and consents to assessment. Pt is A&O and answers all questions appropriately at this time. Pt sitting up in chair in room in no distress. Care providers, pharmacy, and demographics verified/updated. Admitting Dx: SBO Strata: 3 PCP: Dr Packer Specialists:None Preferred Pharmacy: [facility] retail @ [facility]. Insurance: [facility], [facility] Supp Prescription Benefit: yes LNOK: Vanesa Riojas dtr; Kamila Stover dtr Living Arrangements: Pt lives alone in a mobile home with a ramp to enter. Pt reports she is I in ADL's and IADL's. Pt denies any concerns at home. Transportation: Pt drives self and denies concerns with transportation. Dtr, Kamila, will take her home @ [facility]. DME: Pt has a cane available, but does not use HHC/SNF: Denies hx of either. No needs identified. Pt states no concerns with going home at time of dc. Pt states no further concerns/needs. Advised pt to ask CM if any further question/concerns/needs arise, voices understanding. Plan: Home Oral ROJAS RN, CM
[2024-02-23 12:50] VITALS: BP 160/78; PULSE 78; RESP 18; TEMP 35.9; O2SAT 98
== END 2024-02-23 13:26 | disposition home or self-care (01) | DRG 390 ==
LOC: ED 15:32 → MS3 17:38
PROVIDERS: Admitting Provider Surgery; Emergency Provider Emergency Medicine; PCP Family Medicine; Visit Provider Surgery
DX: K56.609 Unspecified intestinal obstruction, unspecified as to partial versus complete obstruction (principal); I10 Essential (primary) hypertension; M10.9 Gout, unspecified; K21.9 Gastro-esophageal reflux disease without esophagitis; Z87.891 Personal history of nicotine dependence; Z90.710 Acquired absence of both cervix and uterus; Z85.3 Personal history of malignant neoplasm of breast; Z79.899 Other long term (current) drug therapy; Z79.82 Long term (current) use of aspirin
CPT/HCPCS: 36415; 74018; 74176; 74250; 80048; 80053; 81001; 83690; 83735; 85025; 87086; 87088; 94668; 97161; 99285; J7030; J7120; A4216; J2405; J3490

== ENCOUNTER → 2024-04-17 | Outpatient (CLI) | payer MEDICARE, OTHER, SELFPAY ==
--- NOTE | 2024-04-17 10:02 | BI_ITS ---
MAMMOGRAPHY - BILATERAL SCREENING REASON FOR EXAM: Female, 83 years old. Routine annual screening examination. PERTINENT HISTORY: Personal history of breast cancer. Prior right lumpectomy with radiation therapy. Prior right stereotactic breast biopsy and left excisional breast biopsy. Mother with breast cancer. TECHNIQUE: Digital bilateral breast luis carlos (3D mammographic acquisition) in the CC and MLO projections. 2-D mediolateral oblique (MLO) and craniocaudad (CC) views of both breasts were obtained. CAD: Full Field Digital Mammography with Computer Added Detection was performed. COMPARISON: Comparison is made with prior study April 14, 2023 and April 13, 2022. FINDINGS: Breast Composition: The breasts are heterogeneously dense, which may obscure small masses. There are no dominant masses or suspicious calcifications. Once again, the patient is status post lumpectomy in the upper lateral aspect of the right breast with resultant postoperative deformity and skin thickening. A tissue clip marker is also seen in the deep central aspect of the right breast. No other significant abnormalities are identified. There has been no significant change since the prior study. BI/SCRN MAMM (CAD)W/LUIS CARLOS BILAT IMPRESSION: Stable bilateral screening mammogram. Yearly follow-up mammogram recommended. (A) ASSESSMENT CATEGORY: BIRADS Category 2: Benign. A letter regarding these results will be sent to the patient by the facility within 30 days. Approximately 10% of breast cancers are not detected by mammography. A normal mammogram should not delay biopsy of a clinically suspicious abnormality. [id number] Electronically Signed: Mann Dinero MD at 12:21 EDT ,
== END | disposition home or self-care (01) ==
LOC: OPBI 09:54
PROVIDERS: PCP Family Medicine; Referring Provider Nurse Practitioner; Visit Provider Nurse Practitioner
DX: Z12.31 Encounter for screening mammogram for malignant neoplasm of breast (principal); Z85.3 Personal history of malignant neoplasm of breast
CPT/HCPCS: 77063; 77067

== ENCOUNTER 2024-04-24 05:49 | Day surgery (SDC) | payer MEDICARE, OTHER, SELFPAY ==
[2024-04-24] VITALS (13 sets, daily range): BP systolic 108–144; BP diastolic 52–92; PULSE 62–86; RESP 16–18; TEMP 36.3–36.9; O2SAT 94–100; BMI 23.4
--- OUTSIDE RECORDS SUMMARY | 2024-04-24 05:51 | XMS RPT_ITS | CCD ---
Author Organization [facility] Care Team Providers Care [employer] Administrator Name Role Phone Reid GARNICA MD, [place] Unavailable Saray Packer MD Primary Care Provider EDUARDO JOHNSON Attending Unavailable SARAY PACKER Primary Care Unavailabl e EDUARDO JOHNSON Attending Unavailable EDUARDO JOHNSON Referring Unavailable SARAY PACKER Primary Care Unavailtayler e Allergies Allergy Classification Reported Allergen(s) Allergy Type Date of Onset Reaction(s) Facility (6 sources) Codeine; Translations: [CODEINE] Drug Allergy 12-09-2011 Mental Status Change [facility] (6 sources) Garlic preparation; Translations: [GARLIC OIL] Drug Allergy 01-26-2020 Hives [facility] (2 sources) Doxycycline; Translations: [DOXYCYCLINE] Drug Allergy 07-08-2023 Unknown [facility] (2 sources) Lisinopril; Translations: [LISINOPRIL] Drug Allergy 07-08-2023 Unknown [facility] Medications Current Medications Medication Drug Class(es) Dates Sig (Normalized) Sig (Original) 8 hr acetaminophen 650 mg extended release oral tablet (5 sources) take 1 tablet by mouth every eight hours as needed acetaminophen 650 mg CR tablet Take 650 mg by mouth every 8 hours as needed. 0 Active Comment on above: Take 650 mg by mouth every 8 hours as needed. allopurinol 300 mg oral tablet (5 sources) Xanthine Oxidase Inhibitor Start: 08-14-2014 take 1 tablet by mouth once daily allopurinol (ZYLOPRIM) 300 mg tablet Indications: Gout Take 1 tablet by mouth once daily. For gout. 90 tablet 2 08/14/2014 Active Comment on above: Take 1 tablet by vickey once daily. For gout. aspirin 81 mg oral tablet (5 sources) Platelet Aggregation Inhibitor, Nonsteroidal Anti-inflammatory Drug Start: 12-09-2011 take 1 tablet by mouth once daily at mealtime Aspirin 81 mg Tab Take 1 tablet by mouth once daily. Take with food. 30 tablet 11 12/09/2011 Active Comment on above: Take 1 tablet by vickey th once daily. Take with food. brimonidine tartrate 2 mg/ml ophthalmic solution (5 sources) alpha-Adrenergic Agonist Start: 04-19-2019 take 1 drop(s) into the eye(s) twice daily brimonidine (ALPHAGAN) 0.2 % ophthalmic solution Use 1 Drop in both eyes twice daily. 12 04/19/2019 Active Start: 04-19-2019 take 1 drop(s) into the eye(s) twice daily brimonidine (ALPHAGAN) 0.2 % ophthalmic solution Use 1 Drop in both eyes twice daily. 12 04/19/2019 Active Comment on above: Use 1 Drop in both e yes twice daily. calcium carbonate 1500 mg / cholecalciferol 200 unt oral tablet (5 sources) Vitamin D Start: 012 take 1 tablet by mouth twice daily calcium carbonate 600 mg-cholecalciferol 200 units 600 mg-5 mcg (200 unit) tab Take 1 tablet by mouth twice daily. 0 12/09/2011 Active Comment on above: Take 1 tablet by vickey th twice daily. cinnamon bark 500 mg oral capsule (5 sources) Start: 012 take 1 capsule by mouth once daily Cinnamon Bark 500 mg cap Take 500 mg by mouth once daily. 0 12/09/2011 Active Comment on above: Take 500 mg by mouth once daily. dicyclomine hydrochloride 10 mg oral capsule (1 source) Anticholinergic dicyclomine (BENTYL) 10 mg capsule Take 10 mg by mouth as needed. 0 Active ferrous sulfate 325 mg oral tablet (5 sources) Start: 014 take 1 tablet by mouth once daily Ferrous Sulfate 325 mg (65 mg iron) tablet Indications: Iron deficiency anemia Take 1 tablet by mouth once daily. 0 05/23/2014 Active Comment on above: Take 1 tablet by vickey once daily. latanoprost 0.05 mg/ml ophthalmic solution (5 sources) Prostaglandin Analog Start: 020 take 1 drop(s) into the eye(s) once daily latanoprost (XALATAN) 0.005 % ophthalmic solution Place 1 drop in both eyes nightly 0 12/09/2019 Active Comment on above: Place 1 drop in both eyes nightly losartan potassium 50 mg oral tablet (5 sources) Angiotensin 2 Receptor Davin take 1 tablet by mouth once daily losartan (COZAAR) 50 mg tablet Take 50 mg by mouth once daily. 0 Active Comment on above: Take 50 mg by mouth once daily. multivitamin tablet (5 sources) Start: 012 take 1 tablet by mouth once daily multivitamin tablet Take 1 tablet by mouth once daily. 0 12/09/2011 Active Comment on above: Take 1 tablet by vickey th once daily. Slidell-3 Fatty Acids 500 mg cap (4 sources) Start: 012 take 1 capsule by mouth once daily Sl[place]ell-3 Fatty Acids 500 mg cap Take 500 mg by mouth once daily. 0 12/09/2011 Active Start: 12-09-2011 take 2 capsules by m outh once daily [place]-3 Fatty Acids 500 mg cap Take 2 capsules by mouth once daily. 0 12/09/2011 Active Comment on above: Take 2 capsules by m outh once daily. omeprazole 40 mg delayed release oral capsule (5 sources) Proton Pump Inhibitor take 1 capsule by mouth once daily omeprazole (PRILOSEC) 40 mg capsule Take 40 mg by mouth once daily. 0 Active Comment on above: Take 40 mg by mouth once daily. pravastatin sodium 40 mg oral tablet (5 sources) HMG-CoA Reductase Inhibitor Start: 5 take 1 tablet by mouth once daily at bedtime pravastatin (PRAVACHOL) 40 mg tablet Indications: Hyperlipidemia Take 1 tablet by mouth daily at bedtime. 90 tablet 1 11/12/2014 Active Comment on above: Take 1 tablet by vickey th daily at bedtime. 12 hr timolol 5 mg/ml ophthalmic solution (5 sources) beta-Adrenergic Davin Start: 9 timolol maleate (TIMOPTIC) 0.5 % ophthalmic solution Use 1 Drop in both eyes twice daily. 12 04/19/2019 Active Start: 04-19-2019 timolol maleat e (TIMOPTIC) 0.5 % ophthalmic solution Use 1 Drop in both eyes twice daily. 12 04/19/2019 Active Comment on above: Use 1 Drop in both e yes twice daily. Completed/Discontinued Medications Medication Drug Class(es) Dates Sig (Normalized) Sig (Original) amoxicillin 875 mg / clavulanate 125 mg oral tablet (1 source) Penicillin-class Antibacterial Start: 07-06-2023 End: 01-06-2024 take 1 tablet by mouth twice daily amoxicillin-clavul anate potassium (AUGMENTIN) 875-125 mg per tablet Take 1 tablet by mouth two times a day. 0 07/06/2023 01/06/2024 Discontinued (Other) Slidell-3 Fatty Acids (FISH OIL) 500 mg Cap (1 source) Start: 12-09-2011 take 2 capsules by mouth once daily Slidell-3 Fatty Acids (FISH OIL) 500 mg Cap Take 2 capsules by mouth once daily. 0 12/09/2011 Active Comment on above: Take 2 capsules by m outh once daily. Problems Problem Classification Problem Date Documented Da te Episodic/Chronic Cancer of breast (9 sources) Malignant neoplasm of upper-outer quadrant of female breast; Translations: [Malignant neoplasm of upper-outer quadrant of right female breast] Onset: 05-16-2019 Chronic Cancer of uterus (5 sources) History of malignant neoplasm of uterine body; Translations: [Personal history of malignant neoplasm of other parts of uterus] 06-23-2021 Episodic Deficiency and other anemia (5 sources) Iron deficiency anemia; Translations: [Iron deficiency anemia, unspecified] 11-15-2012 Episodic Disorders of lipid metabolism (5 sources) Hyperlipidemia; Translations: [Hyperlipidemia, unspecified] 05-13-2012 Chronic Essential hypertension (5 sources) Hypertensive disorder; Translations: [Essential (primary) hypertension] 05-13-2012 Chronic Glaucoma (5 sources) Glaucoma; Translations: [Unspecified glaucoma] 06-23-2021 Chronic Gout and other crystal arthropathies (5 sources) Gout; Translations: [Gout, unspecified] 05-13-2012 Chronic Other bone disease and musculoskeletal deformities (5 sources) Osteopenia; Translations: [Other specified disorders of bone density and structure, unspecified site] 06-23-2021 Episodic Other non-traumatic joint disorders (5 sources) Pain of right shoulder joint; Translations: [Pain in right shoulder] 06-23-2021 Episodic Other nutritional; endocrine; and metabolic disorders (5 sources) Metabolic syndrome X; Translations: [Metabolic syndrome] 06-23-2021 Chronic Other screening for suspected conditions (not mental disorders or infectious disease) (2 sources) Patient encounter status; Translations: [Encounter for screening mammogram for malignant neoplasm of breast] Episodic Prolapse of female genital organs (5 sources) Midline cystocele; Translations: [Cystocele, midline] Onset: 03-26-2015 03-26-2015 Chronic Results Test Name Value Interpretation Reference Range Tammy Harris 01-06-2024 CNOVSP Visit (SP) Office ([facility]) KING KAUFFMAN ([id number]) 1940 F Date Time Provider Department 01/06/24 10:00 AM EDUARDO JOHNSON During your visit today, we recorded the following information about you: Temperature Pulse Blood pressure Weight 98.4 degrees 78/minute 120/77 62.2 kg Eduardo Johnson APRN.CNP 01/06/2024 10:02 AM Signed Chief Complaint Patient presents with: Established Patient HPI: King Kauffman is a 83 year old female who presents here today for follow up breast cancer. Per Dr. Posey's previous note: H/o hypertension, hyperlipidemia, iron deficiency anemia, uterus cancer (hysterectomy 1984), dysmetabolic syndrome and gout. Had abnormality of right breast on screening mammogram. Stereotactic biopsy on 04/17/2019. 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 See comment. 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 The ductal carcinoma in situ comprise about 50% of the total tumor volume. ER (clone 6F11) 0% DC (clone 16/1E2) 0% Her-2Neu (clone CB11) 3+ Underwent ultrasound-guided wire localization lumpectomy with sentinel lymph node biopsy on 04/27/2019. Pathology: FROZEN SECTION DIAGNOSIS B. [place] lymph nodes, biopsy: Three out of three lymph nodes, negative for metastatic carcinoma. C. Additional sentinel lymph node, biopsy: One lymph node, negative for metastatic carcinoma. MICROSCOPIC DIAGNOSIS A. 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 Changes consistent with previous biopsy site. See cancer summary below. B. [place] lymph nodes, biopsy: Three out of three lymph nodes, negative for metastatic carcinoma. See comment. C. Additional sentinel lymph node, biopsy: One lymph node, negative for metastatic carcinoma. See comment. INVASIVE BREAST CANCER SUMMARY: (Specimen A) Specimen - partial breast Procedure - excision with wire-guided localization Lymph node sampling - sentinel lymph nodes Specimen integrity - single intact specimen Specimen size - 8 x 5.5 x 4 cm Specimen laterality - right Tumor site - upper outer quadrant (as per clinical information) Tumor size - 1.5 x 1.2 x 1.2 cm Tumor focality - single focus of invasive carcinoma Macroscopic and Microscopic extent of tumor: Skin - invasive carcinoma does not invade into the dermis or epidermis. Nipple - not applicable Skeletal muscle - not applicable Ductal carcinoma in situ (DCIS) - present Extensive intraductal component (EIC) - negative Estimated size (extent) of DCIS - DCIS comprise about 20% of the total tumor volume. Number of blocks with DCIS - 3 Number of blocks examined - 12 Architectural patterns - comedo and solid Nuclear grade - grade 3 (high) Necrosis - present, central (expansive comedo necrosis) Lobular carcinoma in situ (LCIS) - not identified Histologic type of invasive carcinoma - invasive ductal carcinoma (not otherwise specified) Histologic Grade ([place] grade): Glandular/tubular differentiation - score 3 Nuclear pleomorphism - score 3 Mitotic count - score 3 Overall grade - 3 (score of 9) Margins - Margins uninvolved by invasive carcinoma. The DCIS and invasive carcinoma are 0.2 cm away from the closest anterior-superior margin of the specimen. Treatment effect: Response to presurgical (neoadjuvant) therapy - no known presurgical therapy. Lymph-Vascular invasion - not identified Dermal lymph-vascular invasion - not identified Lymph nodes: Number of sentinel lymph nodes examined - 4 Total number of lymph nodes examined (sentinel and nonsentinel) - 4 Number of lymph nodes with macrometastases, micrometastases and isolated tumor cells - 0 Method of evaluation of sentinel lymph nodes - H AND E, multiple levels and IHC. Distant metastasis - not applicable Additional pathologic findings - fibrocystic changes and intraductal hyperplasia without atypia. Extensive changes consistent with previous biopsy site. Skin - dermal chronic inflammation and changes consistent with previous biopsy site in the dermis. Ancillary studies - previously performed on section of tumor ([id number] / [id number]). ER - negative (0%) DC - negative (0%) Her2 jaime - positive (3+) Microcalcifications - present in DCIS and non-neoplastic tissue Clinical history - Please make reference to previous specimen ([id number]) right breast, upper outer quadrant microcalcifications, stereotactic needle core biopsy with diagnosis of invasive ductal carcinoma and ductal carcinoma in situ. PATHOLOGIC STAGE: pT1c pN0(sn) Mx Completed palliative radiation on 06/30/19 (more content not included)... [facility] CNOVSPon 07-08-2023 CNOVSP Visit (SP) Office ([facility]) KING KAUFFMAN Inocente ([id number]) 1940 F Date Time Provider Department 07/08/23 9:30 AM EDUARDO JOHNSON During your visit today, we recorded the following information about you: Temperature Pulse Blood pressure Weight 98.6 degrees 80/minute 122/80 59 kg Height 1.53 m Eduardo Johnson APRN.RECREATIONAL VEHICLE REPAIRER 07/08/2023 9:49 AM Signed Chief Complaint Patient presents with: Established Patient HPI: King Kauffman is a 82 year old female who presents here today for follow up breast cancer. Per Dr. Posey's previous note: H/o hypertension, hyperlipidemia, iron deficiency anemia, uterus cancer (hysterectomy 1984), dysmetabolic syndrome and gout. Had abnormality of right breast on screening mammogram. Stereotactic biopsy on 04/17/2019. 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 See comment. 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 The ductal carcinoma in situ comprise about 50% of the total tumor volume. ER (clone 6F11) 0% DC (clone 16/1E2) 0% Her-2Neu (clone CB11) 3+ Underwent ultrasound-guided wire localization lumpectomy with sentinel lymph node biopsy on 04/27/2019. Pathology: FROZEN SECTION DIAGNOSIS B. [place] lymph nodes, biopsy: Three out of three lymph nodes, negative for metastatic carcinoma. C. Additional sentinel lymph node, biopsy: One lymph node, negative for metastatic carcinoma. MICROSCOPIC DIAGNOSIS A. 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 Changes consistent with previous biopsy site. See cancer summary below. B. [place] lymph nodes, biopsy: Three out of three lymph nodes, negative for metastatic carcinoma. See comment. C. Additional sentinel lymph node, biopsy: One lymph node, negative for metastatic carcinoma. See comment. INVASIVE BREAST CANCER SUMMARY: (Specimen A) Specimen - partial breast Procedure - excision with wire-guided localization Lymph node sampling - sentinel lymph nodes Specimen integrity - single intact specimen Specimen size - 8 x 5.5 x 4 cm Specimen laterality - right Tumor site - upper outer quadrant (as per clinical information) Tumor size - 1.5 x 1.2 x 1.2 cm Tumor focality - single focus of invasive carcinoma Macroscopic and Microscopic extent of tumor: Skin - invasive carcinoma does not invade into the dermis or epidermis. Nipple - not applicable Skeletal muscle - not applicable Ductal carcinoma in situ (DCIS) - present Extensive intraductal component (EIC) - negative Estimated size (extent) of DCIS - DCIS comprise about 20% of the total tumor volume. Number of blocks with DCIS - 3 Number of blocks examined - 12 Architectural patterns - comedo and solid Nuclear grade - grade 3 (high) Necrosis - present, central (expansive comedo necrosis) Lobular carcinoma in situ (LCIS) - not identified Histologic type of invasive carcinoma - invasive ductal carcinoma (not otherwise specified) Histologic Grade ([place] grade): Glandular/tubular differentiation - score 3 Nuclear pleomorphism - score 3 Mitotic count - score 3 Overall grade - 3 (score of 9) Margins - Margins uninvolved by invasive carcinoma. The DCIS and invasive carcinoma are 0.2 cm away from the closest anterior-superior margin of the specimen. Treatment effect: Response to presurgical (neoadjuvant) therapy - no known presurgical therapy. Lymph-Vascular invasion - not identified Dermal lymph-vascular invasion - not identified Lymph nodes: Number of sentinel lymph nodes examined - 4 Total number of lymph nodes examined (sentinel and nonsentinel) - 4 Number of lymph nodes with macrometastases, micrometastases and isolated tumor cells - 0 Method of evaluation of sentinel lymph nodes - H AND E, multiple levels and IHC. Distant metastasis - not applicable Additional pathologic findings - fibrocystic changes and intraductal hyperplasia without atypia. Extensive changes consistent with previous biopsy site. Skin - dermal chronic inflammation and changes consistent with previous biopsy site in the dermis. Ancillary studies - previously performed on section of tumor ([id number] / [id number]). ER - negative (0%) DC - negative (0%) Her2 jaime - positive (3+) Microcalcifications - present in DCIS and non-neoplastic tissue Clinical history - Please make reference to previous specimen ([id number]) right breast, upper outer quadrant microcalcifications, stereotactic needle core biopsy with diagnosis of invasive ductal carcinoma and ductal carcinoma in situ. PATHOLOGIC STAGE: pT1c pN0(sn) Mx Completed palliative radia (more content not included)... [facility] Angela 07-08-2023 ARMIDAN Telephone (LISA) KING KAUFMFAN ([id number]) 1940 F Date Time Provider Department 07/08/23 EDUARDO JOHNSON During your visit today, we recorded the following information about you: Amy Miranda 07/08/2023 10:03 AM Signed - Mammogram due 2023. Pt. has this done at [facility]. - Follow up in 6 months. - Pt. aware to call office with any questions/concerns. Six month caitlin with patient Please fax MAMMO order to [facility] Candice Cox LPN 07/08/2023 10:11 AM Signed Orders faxed. Candice Cox LPN Allergies As of Date: 07/08/2023 Noted Allergy Reaction CODEINE 12/09/2011 1 - Mental Status Change DOXYCYCLINE 07/08/2023 16 - Unknown GARLIC OIL 01/26/2020 4 - Hives Comments: garlic pill supplements LISINOPRIL 07/08/2023 16 - Unknown Date Reviewed: 07/08/2023 Reviewed by: Eduardo Johnson APRN.RECREATIONAL VEHICLE REPAIRER - Fully Assessed Prescriptions as of 07/08/2023 - amoxicillin-clavulanat e potassium (AUGMENTIN) 875-125 mg per tablet Take 1 tablet by mouth two times a day. - omeprazole (PRILOSEC) 40 mg capsule Take 40 mg by mouth once daily. - latanoprost (XALATAN) 0.005 % ophthalmic solution Place 1 drop in both eyes nightly - acetaminophen 650 mg CR tablet Take 650 mg by mouth every 8 hours as needed. - losartan (COZAAR) 50 mg tablet Take 50 mg by mouth once daily. - timolol maleate (TIMOPTIC) 0.5 % ophthalmic solution Use 1 Drop in both eyes twice daily. - brimonidine (ALPHAGAN) 0.2 % ophthalmic solution Use 1 Drop in both eyes twice daily. - pravastatin (PRAVACHOL) 40 mg tablet Take 1 tablet by mouth daily at bedtime. - allopurinol (ZYLOPRIM) 300 mg tablet Take 1 tablet by mouth once daily. For gout. - Ferrous Sulfate 325 mg (65 mg iron) tablet Take 1 tablet by mouth once daily. - Aspirin 81 mg Tab Take 1 tablet by mouth once daily. Take with food. - calcium carbonate 600 mg-cholecalciferol 200 units 600 mg-5 mcg (200 unit) tab Take 1 tablet by mouth twice daily. - [place]-3 Fatty Acids 500 mg cap Take 500 mg by mouth once daily. - Cinnamon Bark 500 mg cap Take 500 mg by mouth once daily. - multivitamin tablet Take 1 tablet by mouth once daily. Problem List As Of Date 07/08/2023 Noted Resolved Hypertension [I10] Hyperlipidemia [E78.5] Glaucoma [H40.9] Gout [M10.9] History of uterine cancer [Z85.42] Dysmetabolic syndrome [E88.810] Pain, joint, shoulder, right [M25.511] Iron deficiency anemia [D50.9] Midline cystocele [N81.11] 03/26/2015 Osteopenia [M85.80] Malignant neoplasm of upper-outer quadrant of r*05/16/2019 Encounter Status:Closed by CANDICE COX on 07/08/23 [facility] Angela 04-15-2023 SKYLER Telephone (LISA) KING KAUFFMAN ([id number]) 1940 F Date Time Provider Department 04/15/23 EDUARDO JOHNSON During your visit today, we recorded the following information about you: Eduardo Johnson APRN.ARMIDA 04/15/2023 3:01 PM Signed Please inform pt. that her mammogram looks good. Follow up as scheduled. Thank you. Eduardo Johnson APRN.Candice Dan LPN 04/15/2023 3:24 PM Signed Left detailed message on identified voicemail to contact office concerning mamm results. KEY Maria Kristin 04/15/2023 3:34 PM Signed Patient verified by name and . The messaged was relayed to her and she verbalized understanding. Allergies As of Date: 04/15/2023 Noted Allergy Reaction CODEINE 12/09/2011 1 - Mental Status Change GARLIC OIL 01/26/2020 4 - Hives Comments: garlic pill supplements Date Reviewed: 01/05/2023 Reviewed by: Eduardo Johnson APRN.ARMIDA - Fully Assessed Prescriptions as of 04/15/2023 - omeprazole (PRILOSEC) 40 mg capsule Take 40 mg by mouth once daily. - latanoprost (XALATAN) 0.005 % ophthalmic solution Place 1 drop in both eyes nightly - acetaminophen 650 mg CR tablet Take 650 mg by mouth every 8 hours as needed. - losartan (COZAAR) 50 mg tablet Take 50 mg by mouth once daily. - timolol maleate (TIMOPTIC) 0.5 % ophthalmic solution Use 1 Drop in both eyes twice daily. - brimonidine (ALPHAGAN) 0.2 % ophthalmic solution Use 1 Drop in both eyes twice daily. - pravastatin (PRAVACHOL) 40 mg tablet Take 1 tablet by mouth daily at bedtime. - allopurinol (ZYLOPRIM) 300 mg tablet Take 1 tablet by mouth once daily. For gout. - Ferrous Sulfate 325 mg (65 mg iron) tablet Take 1 tablet by mouth once daily. - Aspirin 81 mg Tab Take 1 tablet by mouth once daily. Take with food. - calcium carbonate 600 mg-cholecalciferol 200 units 600 mg-5 mcg (200 unit) tab Take 1 tablet by mouth twice daily. - [place]-3 Fatty Acids 500 mg cap Take 2 capsules by mouth once daily. - Cinnamon Bark 500 mg cap Take 500 mg by mouth once daily. - multivitamin tablet Take 1 tablet by mouth once daily. Problem List As Of Date 04/15/2023 Noted Resolved Hypertension [I10] Hyperlipidemia [E78.5] Glaucoma [H40.9] Gout [M10.9] History of uterine cancer [Z85.42] Dysmetabolic syndrome [E88.810] Pain, joint, shoulder, right [M25.511] Iron deficiency anemia [D50.9] Midline cystocele [N81.11] 03/26/2015 Osteopenia [M85.80] Malignant neoplasm of upper-outer quadrant of r*05/16/2019 Encounter Status:Closed by GIANA SOLORIO on 04/15/23 [facility] Vital Signs Date Time Vital Sign Value Performing Clinician Tamanna moreno 01-06-2024 09:52-0400 Body mass index (BMI) [Ratio] 26.57 kg/m2 Eduardo Johnson APRN.CNP Work Phone: [facility] 01-06-2024 09:52-0400 Body temperature 98.4 [degF] Eduardo Johnson APRN.CNP Work Phone: [facility] 01-06-2024 09:52-0400 Body weight 62.23 kg Eduardo Johnson APRN.CNP Work Phone: [facility] 01-06-2024 09:52-0400 Diastolic blood pressure 77 mm[Hg] Eduardo Johnson RADIATION THERAPY TECHNOLOGIST.RECREATIONAL VEHICLE REPAIRER Work Phone: [facility] 01-06-2024 09:52-0400 Heart rate 78 /min [place] Johnson RADIATION THERAPY TECHNOLOGIST.RECREATIONAL VEHICLE REPAIRER Work Phone: [facility] 01-06-2024 09:52-0400 SaO2% (BldA) [Mass fraction] 98 % [place] Johnson RADIATION THERAPY TECHNOLOGIST.RECREATIONAL VEHICLE REPAIRER Work Phone: [facility] 01-06-2024 09:52-0400 Systolic blood pressure 120 mm[Hg] [place] Johnson RADIATION THERAPY TECHNOLOGIST.RECREATIONAL VEHICLE REPAIRER Work Phone: [facility] 01-05-2023 08:55-0400 Body height 153.5 cm Eduardo Johnson RADIATION THERAPY TECHNOLOGIST.RECREATIONAL VEHICLE REPAIRER Work Phone: [facility] 01-05-2023 08:55-0400 Body temperature 99.61 [degF] Eduardo Johnson RADIATION THERAPY TECHNOLOGIST.RECREATIONAL VEHICLE REPAIRER Work Phone: [facility] 01-05-2023 08:55-0400 Body weight 60.1 kg [place] Johnson RADIATION THERAPY TECHNOLOGIST.RECREATIONAL VEHICLE REPAIRER Work Phone: [facility] 01-05-2023 08:55-0400 Diastolic blood pressure 81 mm[Hg] Eduardo Johnson RADIATION THERAPY TECHNOLOGIST.RECREATIONAL VEHICLE REPAIRER Work Phone: [facility] 01-05-2023 08:55-0400 Heart rate 84 /min Eduardo Johnson RADIATION THERAPY TECHNOLOGIST.RECREATIONAL VEHICLE REPAIRER Work Phone: [facility] 01-05-2023 08:55-0400 SaO2% (BldA) [Mass fraction] 98 % [place] Johnson RADIATION THERAPY TECHNOLOGIST.RECREATIONAL VEHICLE REPAIRER Work Phone: [facility] 01-05-2023 08:55-0400 Systolic blood pressure 132 mm[Hg] [place] Johnson RADIATION THERAPY TECHNOLOGIST.RECREATIONAL VEHICLE REPAIRER Work Phone: [facility] 07-16-2022 09:26-0500 Body height 153.7 cm Eduardo Johnson RADIATION THERAPY TECHNOLOGIST.RECREATIONAL VEHICLE REPAIRER Work Phone: [facility] 07-16-2022 09:26-0500 Body temperature 99.3 [degF] Eduardo Johnson RADIATION THERAPY TECHNOLOGIST.RECREATIONAL VEHICLE REPAIRER Work Phone: [facility] 07-16-2022 09:26-0500 Body weight 61.92 kg Eduardo Johnson RADIATION THERAPY TECHNOLOGIST.RECREATIONAL VEHICLE REPAIRER Work Phone: [facility] 07-16-2022 09:26-0500 Diastolic blood pressure 72 mm[Hg] [place] Johnson RADIATION THERAPY TECHNOLOGIST.RECREATIONAL VEHICLE REPAIRER Work Phone: [facility] 07-16-2022 09:26-0500 Heart rate 89 /min [place] Johnson RADIATION THERAPY TECHNOLOGIST.RECREATIONAL VEHICLE REPAIRER Work Phone: [facility] 07-16-2022 09:26-0500 SaO2% (BldA) [Mass fraction] 98 % [place] Johnson RADIATION THERAPY TECHNOLOGIST.RECREATIONAL VEHICLE REPAIRER Work Phone: [facility] 07-16-2022 09:26-0500 Systolic blood pressure 159 mm[Hg] Eduardo Johnson RADIATION THERAPY TECHNOLOGIST.RECREATIONAL VEHICLE REPAIRER Work Phone: [facility] 01-13-2022 10:35-0400 Body height 153.3 cm [place] Johnson RADIATION THERAPY TECHNOLOGIST.RECREATIONAL VEHICLE REPAIRER Work Phone: [facility] 01-13-2022 10:35-0400 Body temperature 99 [degF] [place] Johnson RADIATION THERAPY TECHNOLOGIST.RECREATIONAL VEHICLE REPAIRER Work Phone: [facility] 01-13-2022 10:35-0400 Body weight 63.28 kg [place] Johnson RADIATION THERAPY TECHNOLOGIST.RECREATIONAL VEHICLE REPAIRER Work Phone: [facility] 01-13-2022 10:35-0400 Diastolic blood pressure 69 mm[Hg] [place] Johnson RADIATION THERAPY TECHNOLOGIST.RECREATIONAL VEHICLE REPAIRER Work Phone: [facility] 01-13-2022 10:35-0400 Heart rate 80 /min Eduardo Johnson RADIATION THERAPY TECHNOLOGIST.RECREATIONAL VEHICLE REPAIRER Work Phone: [facility] 01-13-2022 10:35-0400 SaO2% (BldA) [Mass fraction] 97 % Eduardo Johnson RADIATION THERAPY TECHNOLOGIST.RECREATIONAL VEHICLE REPAIRER Work Phone: [facility] 01-13-2022 10:35-0400 Systolic blood pressure 137 mm[Hg] [place] Johnson RADIATION THERAPY TECHNOLOGIST.RECREATIONAL VEHICLE REPAIRER Work Phone: [facility] Encounters Encounter Date Encounter Type Care Provider Facility Start: 01-06-2024 End: 01-06-2024 ambulatory Eduardo Johnson RADIATION THERAPY TECHNOLOGIST.RECREATIONAL VEHICLE REPAIRER Work Phone: Hematology/Oncology Comment on above: Malignant 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, estrogen receptor negative (HCC) (Primary Dx) Start: 01-06-2024 End: 01-06-2024 Patient encounter procedure Eduardo Johnson RADIATION THERAPY TECHNOLOGIST.RECREATIONAL VEHICLE REPAIRER Work Phone: Hematology/Oncology Start: 07-08-2023 End: 07-08-2023 ambulatory EDUARDO JOHNSON Facility:[facility] Start: 04-15-2023 Telephone encounter Eduardo gonzalez RADIATION THERAPY TECHNOLOGIST.RECREATIONAL VEHICLE REPAIRER Work Phone: Hematology/Oncology Start: 01-05-2023 End: 01-05-2023 ambulatory Eduardo Johnson RADIATION THERAPY TECHNOLOGIST.RECREATIONAL VEHICLE REPAIRER Work Phone: Hematology/Oncology Comment on above: Malignant 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, estrogen receptor negative (HCC) (Primary Dx) Start: 01-05-2023 End: 01-05-2023 Patient encounter procedure Eduardo Johnson RADIATION THERAPY TECHNOLOGIST.RECREATIONAL VEHICLE REPAIRER Work Phone: [facility] Start: 07-16-2022 End: 07-16-2022 ambulatory Eduardo Johnson RADIATION THERAPY TECHNOLOGIST.RECREATIONAL VEHICLE REPAIRER Work Phone: Hematology/Oncology Comment on above: Malignant 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, estrogen receptor negative (HCC) (Primary Dx); Encounter for screening mammogram for high-risk patient Start: 07-16-2022 End: 07-16-2022 Patient encounter procedure Eduardo Johnson RADIATION THERAPY TECHNOLOGIST.RECREATIONAL VEHICLE REPAIRER Work Phone: [facility] Start: 01-13-2022 End: 01-13-2022 ambulatory Eduardo Johnson RADIATION THERAPY TECHNOLOGIST.RECREATIONAL VEHICLE REPAIRER Work Phone: Hematology/Oncology Comment on above: Malignant 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, estrogen receptor negative (HCC) (Primary Dx); Encounter for screening mammogram for high-risk patient Start: 01-13-2022 End: 01-13-2022 Patient encounter procedure Eduardo Johnson APRN.RECREATIONAL VEHICLE REPAIRER Work Phone: [facility] Plan of Treatment Date Care Activity Detail Author Start: 04-17-2033 Urine microalbumin profile DTaP,Tdap,Td Vaccine (3 - Td or Tdap) [facility] Start: 07-10-2024 End: 07-10-2024 ambulatory 07/10/2024 10:00 AM EST Visit (SP) Office Hematology/Oncology [address] [place] [address] Eduardo Johnson APRN.RECREATIONAL VEHICLE REPAIRER [address] [place] [address] 6 MO OV* Hematology/Oncology Comment on above: 6 MO OV* Start: 02-27-2024 Influenza vaccination Influenza Vacc ine (#1) [facility] Start: 06-28-2023 Advance Directive Discussion Advance Directive Discussion [facility] Start: 06-28-2023 Behavioral Health Screening Behavioral Health Screening [facility] Start: 02-26-2023 Covid-19 Vaccine ( season) Covid-19 Vaccine ( season) [facility] Start: 02-26-2023 Influenza vaccination [facility] Start: 07-26-2022 COVID-19 VACCINE (5 - Moderna series) COVID-19 VACCINE (5 - Moderna series) [facility] Start: 06-28-2022 ADVANCE DIRECTIVE DISCUSSION ADVANCE DIRECTIVE DISCUSSION [facility] Start: 06-28-2022 DEPRESSION ASSESSMENT DEPRESSION ASS ESSMENT [facility] Start: 02-26-2022 Influenza vaccination INFLUENZA (#1) [facility] Start: 10-24-2021 COVID-19 VACCINE (4 - Booster for Moderna series) COVID-19 VACCINE (4 - Booster for Moderna series) [facility] Start: 06-28-2021 ADVANCE DIRECTIVE DISCUSSION ADVANCE DIRECTIVE DISCUSSION [facility] Start: 05-31-2017 [facility] Start: 05-31-2017 Diabetes Screening Diabetes Screenin g [facility] Start: 01-16-2011 Shingrix Vaccine (2 of 3) Shingrix Vaccine (2 of 3) [facility] Start: 12-24-2003 Pneumococcal Vaccine : 65+ (1 - PCV) Pneumococcal Vaccine: 65+ (1 - PCV) [facility] Start: 12-24-2003 PNEUMOCOCCAL: 65+ (1 - PCV) PNEUMOCOCCAL: 65+ (1 - PCV) [facility] Start: 1998 RSV Vaccine (1 - 1-d ose 60+ series) RSV Vaccine (1 - 1-dose 60+ series) [facility] Start: 1988 SHINGRIX VACCINE (1 of 2) SHINGRIX VACCINE (1 of 2) [facility] Start: 1957 Urine microalbumin profile [facility] End: 02-12-2023 JOSE ALBERTO SCREENING W LUIS CARLOS JOSE ALBERTO SCREENING W [facility] CARLOS Radiology Routine Malignant neoplasm of upper-outer quadrant of right breast in female, estrogen receptor negative (HCC) Encounter for screening mammogram for high-risk patient 1 Occurrences starting 01/13/2022 until 02/12/2023 [facility] Work Phone: Comment on above: 1 Occurrences starti ng 01/13/2022 until 02/12/2023 End: 08-15-2023 JOSE ALBERTO SCREENING W [facility]OS JOSE ALBERTO SCREENING W [facility] Radiology Routine Malignant neoplasm of upper-outer quadrant of right breast in female, estrogen receptor negative (HCC) Encounter for screening mammogram for high-risk patient 1 Occurrences starting 07/16/2022 until 08/15/2023 [facility] Work Phone: Comment on above: 1 Occurrences starti ng 07/16/2022 until 08/15/2023 [facility] Immunizations Immunization Date Immunization Notes Care Provider [facility] 03-30-2023 influenza virus vaccine, unspecified formulation Eduardo Johnson RADIATION THERAPY TECHNOLOGIST.RECREATIONAL VEHICLE REPAIRER Work Phone: [facility] 03-26-2022 influenza virus vaccine, unspecified formulation Eduardo Johnson RADIATION THERAPY TECHNOLOGIST.RECREATIONAL VEHICLE REPAIRER Work Phone: [facility] 05-23-2013 influenza virus vaccine, unspecified formulation Eduardo Johnson RADIATION THERAPY TECHNOLOGIST.RECREATIONAL VEHICLE REPAIRER Work Phone: [facility] 05-13-2012 influenza virus vaccine, unspecified formulation Eduardo Johnson RADIATION THERAPY TECHNOLOGIST.[facility] Work Phone: [facility] Work Phone: Payers Date Payer Category Payer Unknown [id number] 2018 Unknown [employer] [id number] 2018-Present [phone] [address] [address] [place] [address] Indemnity [id number] 2018 Unknown [id number] 2018 Medicare [id number] 2003 Medicare MEDICARE MEDICAR E A AND B [id number] 2003-Present [phone] [place] [address] Medicare [id number] 2003 Medicare MEDICARE MEDICAR E A AND B [id number] 2003-Present [phone] [place] [address] Medicare [id number] 2003 Medicare [id number] Social History Date Type Detail Facility Start: 05-13-2012 End: 05-10-2019 Tobacco smoking status TNIS Ex-smoker [facility] Work Phone: End: 06-28-1973 History of tobacco use Current smoker [facility] Work Phone: End: 06-28-1973 History of tobacco use Cigarette Smoker [facility] Work Phone: Start: 05-13-2012 End: 07-08-2023 Cigarettes smoked current (pack per day) - Reported 1 [facility] Start: 05-13-2012 End: 05-10-2019 Tobacco use and exposure Smokeless tobacco non-user [facility] Work Phone: Start: 01-13-2022 End: 01-06-2024 Alcohol intake Current non-drinker of alcohol (finding) [facility] Start: 1940 Sex Assigned At Not on file [facility] Start: 01-03-2022 End: 01-13-2022 Exposure to SARS-CoV-2 (event) Not sure [facility] Start: 01-05-2023 End: 07-08-2023 Tobacco use panel [facility] Adult Depression Screening Assessment 0 [facility] Clinical Notes 01-13-2022 to 01-06-2024 Eduardo Johnson APRN.RECREATIONAL VEHICLE REPAIRER - 01/06/2024 9:48 AM EDTTelephone Encounter - Giana Solorio - 04/15/2023 3:34 PM EDTTelephone Encounter - Candice Cox LPN - 04/15/2023 3:23 PM EDT Note Date & Type Note Facility 01-06-2024 Note HNO ID: [id number] Author: EDUARDO JOHNSON APRN.RECREATIONAL VEHICLE REPAIRER Service: ? Author Type: Nurse Practitioner Type: Progress Notes Filed: 01/06/2024 10:02 Note Text: Chief Complaint Patient presents with: Established Patient HPI: King Kauffman is a 83 year old female who presents here today for follow up breast cancer. Per Dr. Posey's previous note: H/o hypertension, hyperlipidemia, iron deficiency anemia, uterus cancer (hysterectomy 1984), dysmetabolic syndrome and gout. Had abnormality of right breast on screening mammogram. Stereotactic biopsy on 04/17/2019. 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 See comment. 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 The ductal carcinoma in situ comprise about 50% of the total tumor volume. ER (clone 6F11) 0% DC (clone 16/1E2) 0% Her-2Neu (clone CB11) 3+ Underwent ultrasound-guided wire localization lumpectomy with sentinel lymph node biopsy on 04/27/2019. Pathology: FROZEN SECTION DIAGNOSIS B. [place] lymph nodes, biopsy: Three out of three lymph nodes, negative for metastatic carcinoma. C. Additional sentinel lymph node, biopsy: One lymph node, negative for metastatic carcinoma. MICROSCOPIC DIAGNOSIS A. 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 Changes consistent with previous biopsy site. See cancer summary below. B. [place] lymph nodes, biopsy: Three out of three lymph nodes, negative for metastatic carcinoma. See comment. C. Additional sentinel lymph node, biopsy: One lymph node, negative for metastatic carcinoma. See comment. INVASIVE BREAST CANCER SUMMARY: (Specimen A) Specimen - partial breast Procedure - excision with wire-guided localization Lymph node sampling - sentinel lymph nodes Specimen integrity - single intact specimen Specimen size - 8 x 5.5 x 4 cm Specimen laterality - right Tumor site - upper outer quadrant (as per clinical information) Tumor size - 1.5 x 1.2 x 1.2 cm Tumor focality - single focus of invasive carcinoma Macroscopic and Microscopic extent of tumor: Skin - invasive carcinoma does not invade into the dermis or epidermis. Nipple - not applicable Skeletal muscle - not applicable Ductal carcinoma in situ (DCIS) - present Extensive intraductal component (EIC) - negative Estimated size (extent) of DCIS - DCIS comprise about 20% of the total tumor volume. Number of blocks with DCIS - 3 Number of blocks examined - 12 Architectural patterns - comedo and solid Nuclear grade - grade 3 (high) Necrosis - present, central (expansive comedo necrosis) Lobular carcinoma in situ (LCIS) - not identified Histologic type of invasive carcinoma - invasive ductal carcinoma (not otherwise specified) Histologic Grade (Lily grade): Glandular/tubular differentiation - score 3 Nuclear pleomorphism - score 3 Mitotic count - score 3 Overall grade - 3 (score of 9) Margins - Margins uninvolved by invasive carcinoma. The DCIS and invasive carcinoma are 0.2 cm away from the closest anterior-superior margin of the specimen. Treatment effect: Response to presurgical (neoadjuvant) therapy - no known presurgical therapy. Lymph-Vascular invasion - not identified Dermal lymph-vascular invasion - not identified Lymph nodes: Number of sentinel lymph nodes examined - 4 Total number of lymph nodes examined (sentinel and nonsentinel) - 4 Number of lymph nodes with macrometastases, micrometastases and isolated tumor cells - 0 Method of evaluation of sentinel lymph nodes - H AND E, multiple levels and IHC. Distant metastasis - not applicable Additional pathologic findings - fibrocystic changes and intraductal hyperplasia without atypia. Extensive changes consistent with previous biopsy site. Skin - dermal chronic inflammation and changes consistent with previous biopsy site in the dermis. Ancillary studies - previously performed on section of tumor ([id number] / [id number]). ER - negative (0%) DC - negative (0%) Her2 jaime - positive (3+) Microcalcifications - present in DCIS and non-neoplastic tissue Clinical history - Please make reference to previous specimen ([id number]) right breast, upper outer quadrant microcalcifications, stereotactic needle core biopsy with diagnosis of invasive ductal carcinoma and ductal carcinoma in situ. PATHOLOGIC STAGE: pT1c pN0(sn) Mx Completed palliative radiation on 06/30/2019. No new concerns today. Appetite: Pretty good. Wt. up. Energy level: Good. Denies fevers. Resp:denies cough or sob Cardiac:denies chest pain/palpitations GI:denies abd pain, n/v, moving bowels regularly :denies dysuria/hematuria Extrem:denies pain En (more content not included)... [facility] 01-06-2024 History of Presen t illness Narrative Chief Complaint Patient presents with: Established Patient HPI: King Kauffman is a 83 year old female who presents here today for follow up breast cancer. Per Dr. Posey's previous note: H/o hypertension, hyperlipidemia, iron deficiency anemia, uterus cancer (hysterectomy 1984), dysmetabolic syndrome and gout. Had abnormality of right breast on screening mammogram. Stereotactic biopsy on 04/17/2019. 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 See comment. 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 The ductal carcinoma in situ comprise about 50% of the total tumor volume. ER (clone 6F11) 0% DC (clone 16/1E2) 0% Her-2Neu (clone CB11) 3+ Underwent ultrasound-guided wire localization lumpectomy with sentinel lymph node biopsy on 04/27/2019. Pathology: FROZEN SECTION DIAGNOSIS B. [place] lymph nodes, biopsy: Three out of three lymph nodes, negative for metastatic carcinoma. C. Additional sentinel lymph node, biopsy: One lymph node, negative for metastatic carcinoma. MICROSCOPIC DIAGNOSIS A. 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 Changes consistent with previous biopsy site. See cancer summary below. B. [place] lymph nodes, biopsy: Three out of three lymph nodes, negative for metastatic carcinoma. See comment. C. Additional sentinel lymph node, biopsy: One lymph node, negative for metastatic carcinoma. See comment. INVASIVE BREAST CANCER SUMMARY: (Specimen A) Specimen - partial breast Procedure - excision with wire-guided localization Lymph node sampling - sentinel lymph nodes Specimen integrity - single intact specimen Specimen size - 8 x 5.5 x 4 cm Specimen laterality - right Tumor site - upper outer quadrant (as per clinical information) Tumor size - 1.5 x 1.2 x 1.2 cm Tumor focality - single focus of invasive carcinoma Macroscopic and Microscopic extent of tumor: Skin - invasive carcinoma does not invade into the dermis or epidermis. Nipple - not applicable Skeletal muscle - not applicable Ductal carcinoma in situ (DCIS) - present Extensive intraductal component (EIC) - negative Estimated size (extent) of DCIS - DCIS comprise about 20% of the total tumor volume. Number of blocks with DCIS - 3 Number of blocks examined - 12 Architectural patterns - comedo and solid Nuclear grade - grade 3 (high) Necrosis - present, central (expansive comedo necrosis) Lobular carcinoma in situ (LCIS) - not identified Histologic type of invasive carcinoma - invasive ductal carcinoma (not otherwise specified) Histologic Grade (Lily grade): Glandular/tubular differentiation - score 3 Nuclear pleomorphism - score 3 Mitotic count - score 3 Overall grade - 3 (score of 9) Margins - Margins uninvolved by invasive carcinoma. The DCIS and invasive carcinoma are 0.2 cm away from the closest anterior-superior margin of the specimen. Treatment effect: Response to presurgical (neoadjuvant) therapy - no known presurgical therapy. Lymph-Vascular invasion - not identified Dermal lymph-vascular invasion - not identified Lymph nodes: Number of sentinel lymph nodes examined - 4 Total number of lymph nodes examined (sentinel and nonsentinel) - 4 Number of lymph nodes with macrometastases, micrometastases and isolated tumor cells - 0 Method of evaluation of sentinel lymph nodes - H & E, multiple levels and IHC. Distant metastasis - not applicable Additional pathologic findings - fibrocystic changes and intraductal hyperplasia without atypia. Extensive changes consistent with previous biopsy site. Skin - dermal chronic inflammation and changes consistent with previous biopsy site in the dermis. Ancillary studies - previously performed on section of tumor ([id number] / [id number]). ER - negative (0%) DC - negative (0%) Her2 jaime - positive (3+) Microcalcifications - present in DCIS and non-neoplastic tissue Clinical history - Please make reference to previous specimen ([id number]) right breast, upper outer quadrant microcalcifications, stereotactic needle core biopsy with diagnosis of invasive ductal carcinoma and ductal carcinoma in situ. PATHOLOGIC STAGE: pT1c pN0(sn) Mx Completed palliative radiation on 06/30/2019. No new concerns today. Appetite: Pretty good. Wt. up. Energy level: Good. Denies fevers. Resp:denies cough or sob Cardiac:denies chest pain/palpitations GI:denies abd pain, n/v, moving bowels regularly :denies dysuria/hematuria Extrem:denies pain Endo:denies hot flashes Neuro:denies symptoms of neuropathy Skin:denies rashes/lesions Heme:denies bleeding The ROS is otherwise negative. Past medical history, appointments, medications, allergies reviewed. No changes. EXAM: BP 120/77 Pulse 78 Temp 36.9 C (98.4 F) (Temporal) Wt 62.2 kg (137 lb 3.2 oz) SpO2 98% BMI 26.57 kg/m APPEARANCE Well appearing, alert, in no acute distress, well-hydrated, well nourished. HEART RRR with normal S1 and S2, no murmurs LUNG clear to auscultation BREAST FEMALE no mass/nodule b/l LYMPH NODES No cervical lymphadenopathy, No supraclavicular lymphadenopathy, and No axillary lymphadenopathy. ABDOMEN bowel sounds normoactive, soft, non-tender EXTREMITIES No edema NEURO Awake, alert and oriented x 3, Normal gait, and No involuntary motions. SKIN Skin color, texture, turgor normal, no suspicious rashes or lesions ASSESSMENT/PLAN: 1. 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 S/p right breast lumpectomy and sentinel node biopsy on 04/27/19. Radiation completed 06/30/19. - No concerning findings on exam. - Reviewed mammogram with pt. - Mammogram due 2023. Pt. has [facility] done at [facility]. - Follow up in 6 months. Then as needed. - Pt. aware to call office with any questions/concerns. The patient indicates understanding of these issues and agrees with the plan. All documentation from previous visit of 07/08/23-Dr. Posey/myself was copied and pasted, documentation has been reviewed and edited as necessary for today's visit. Eduardo Johnson APRN.ARMIDA documented in this encounter [facility] 07-08-2023 Note HNO ID: [id number] Author: EDUARDO JOHNSON APRN.CNP Service: ? Author Type: Nurse Practitioner Type: Progress Notes Filed: 07/08/2023 09:49 Note Text: Chief Complaint Patient presents with: Established Patient HPI: King Kauffman is a 82 year old female who presents here today for follow up breast cancer. Per Dr. Posey's previous note: H/o hypertension, hyperlipidemia, iron deficiency anemia, uterus cancer (hysterectomy 1984), dysmetabolic syndrome and gout. Had abnormality of right breast on screening mammogram. Stereotactic biopsy on 04/17/2019. 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 See comment. 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 The ductal carcinoma in situ comprise about 50% of the total tumor volume. ER (clone 6F11) 0% DC (clone 16/1E2) 0% Her-2Neu (clone CB11) 3+ Underwent ultrasound-guided wire localization lumpectomy with sentinel lymph node biopsy on 04/27/2019. Pathology: FROZEN SECTION DIAGNOSIS B. [place] lymph nodes, biopsy: Three out of three lymph nodes, negative for metastatic carcinoma. C. Additional sentinel lymph node, biopsy: One lymph node, negative for metastatic carcinoma. MICROSCOPIC DIAGNOSIS A. 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 Changes consistent with previous biopsy site. See cancer summary below. B. [place] lymph nodes, biopsy: Three out of three lymph nodes, negative for metastatic carcinoma. See comment. C. Additional sentinel lymph node, biopsy: One lymph node, negative for metastatic carcinoma. See comment. INVASIVE BREAST CANCER SUMMARY: (Specimen A) Specimen - partial breast Procedure - excision with wire-guided localization Lymph node sampling - sentinel lymph nodes Specimen integrity - single intact specimen Specimen size - 8 x 5.5 x 4 cm Specimen laterality - right Tumor site - upper outer quadrant (as per clinical information) Tumor size - 1.5 x 1.2 x 1.2 cm Tumor focality - single focus of invasive carcinoma Macroscopic and Microscopic extent of tumor: Skin - invasive carcinoma does not invade into the dermis or epidermis. Nipple - not applicable Skeletal muscle - not applicable Ductal carcinoma in situ (DCIS) - present Extensive intraductal component (EIC) - negative Estimated size (extent) of DCIS - DCIS comprise about 20% of the total tumor volume. Number of blocks with DCIS - 3 Number of blocks examined - 12 Architectural patterns - comedo and solid Nuclear grade - grade 3 (high) Necrosis - present, central (expansive comedo necrosis) Lobular carcinoma in situ (LCIS) - not identified Histologic type of invasive carcinoma - invasive ductal carcinoma (not otherwise specified) Histologic Grade ([place] grade): Glandular/tubular differentiation - score 3 Nuclear pleomorphism - score 3 Mitotic count - score 3 Overall grade - 3 (score of 9) Margins - Margins uninvolved by invasive carcinoma. The DCIS and invasive carcinoma are 0.2 cm away from the closest anterior-superior margin of the specimen. Treatment effect: Response to presurgical (neoadjuvant) therapy - no known presurgical therapy. Lymph-Vascular invasion - not identified Dermal lymph-vascular invasion - not identified Lymph nodes: Number of sentinel lymph nodes examined - 4 Total number of lymph nodes examined (sentinel and nonsentinel) - 4 Number of lymph nodes with macrometastases, micrometastases and isolated tumor cells - 0 Method of evaluation of sentinel lymph nodes - H AND E, multiple levels and IHC. Distant metastasis - not applicable Additional pathologic findings - fibrocystic changes and intraductal hyperplasia without atypia. Extensive changes consistent with previous biopsy site. Skin - dermal chronic inflammation and changes consistent with previous biopsy site in the dermis. Ancillary studies - previously performed on section of tumor ([id number] / [id number]). ER - negative (0%) DC - negative (0%) Her2 jaime - positive (3+) Microcalcifications - present in DCIS and non-neoplastic tissue Clinical history - Please make reference to previous specimen ([id number]) right breast, upper outer quadrant microcalcifications, stereotactic needle core biopsy with diagnosis of invasive ductal carcinoma and ductal carcinoma in situ. PATHOLOGIC STAGE: pT1c pN0(sn) Mx Completed palliative radiation on 06/30/2019. Pt. on augmentin per PCP for R facial cellulits-Pt. feels that it is improving. Pt. was seen this week by her PCP. Appetite: Pretty good. Energy level: Pretty good. Denies fevers. Resp:denies cough or sob Cardiac:denies chest pain/palpitations GI:denies a (more content not included)... [facility] 04-15-2023 Miscellaneous Notes Patient verified by name and . The messaged was relayed to her and she verbalized understanding. Left detailed message on identified voicemail to contact office concerning mamm results. Candice Cox LPN Please inform pt. that her mammogram looks good. Follow up as scheduled. Thank you. Eduardo Johnson APRN.ARMIDA documented in this encounter [facility] 01-05-2023 History of Presen t illness Narrative Chief Complaint Patient presents with: Established Patient HPI: King Kauffman is a 82 year old female who presents here today for follow up breast cancer. Per Dr. Posey's previous note: H/o hypertension, hyperlipidemia, iron deficiency anemia, uterus cancer (hysterectomy 1985), dysmetabolic syndrome and gout. Had abnormality of right breast on screening mammogram. Stereotactic biopsy on 04/17/2019. 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 See comment. 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 The ductal carcinoma in situ comprise about 50% of the total tumor volume. ER (clone 6F11) 0% DC (clone 16/1E2) 0% Her-2Neu (clone CB11) 3+ Underwent ultrasound-guided wire localization lumpectomy with sentinel lymph node biopsy on 04/27/2019. Pathology: FROZEN SECTION DIAGNOSIS B. [place] lymph nodes, biopsy: Three out of three lymph nodes, negative for metastatic carcinoma. C. Additional sentinel lymph node, biopsy: One lymph node, negative for metastatic carcinoma. MICROSCOPIC DIAGNOSIS A. 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 Changes consistent with previous biopsy site. See cancer summary below. B. [place] lymph nodes, biopsy: Three out of three lymph nodes, negative for metastatic carcinoma. See comment. C. Additional sentinel lymph node, biopsy: One lymph node, negative for metastatic carcinoma. See comment. INVASIVE BREAST CANCER SUMMARY: (Specimen A) Specimen - partial breast Procedure - excision with wire-guided localization Lymph node sampling - sentinel lymph nodes Specimen integrity - single intact specimen Specimen size - 8 x 5.5 x 4 cm Specimen laterality - right Tumor site - upper outer quadrant (as per clinical information) Tumor size - 1.5 x 1.2 x 1.2 cm Tumor focality - single focus of invasive carcinoma Macroscopic and Microscopic extent of tumor: Skin - invasive carcinoma does not invade into the dermis or epidermis. Nipple - not applicable Skeletal muscle - not applicable Ductal carcinoma in situ (DCIS) - present Extensive intraductal component (EIC) - negative Estimated size (extent) of DCIS - DCIS comprise about 20% of the total tumor volume. Number of blocks with DCIS - 3 Number of blocks examined - 12 Architectural patterns - comedo and solid Nuclear grade - grade 3 (high) Necrosis - present, central (expansive comedo necrosis) Lobular carcinoma in situ (LCIS) - not identified Histologic type of invasive carcinoma - invasive ductal carcinoma (not otherwise specified) Histologic Grade ([place] grade): Glandular/tubular differentiation - score 3 Nuclear pleomorphism - score 3 Mitotic count - score 3 Overall grade - 3 (score of 9) Margins - Margins uninvolved by invasive carcinoma. The DCIS and invasive carcinoma are 0.2 cm away from the closest anterior-superior margin of the specimen. Treatment effect: Response to presurgical (neoadjuvant) therapy - no known presurgical therapy. Lymph-Vascular invasion - not identified Dermal lymph-vascular invasion - not identified Lymph nodes: Number of sentinel lymph nodes examined - 4 Total number of lymph nodes examined (sentinel and nonsentinel) - 4 Number of lymph nodes with macrometastases, micrometastases and isolated tumor cells - 0 Method of evaluation of sentinel lymph nodes - H & E, multiple levels and IHC. Distant metastasis - not applicable Additional pathologic findings - fibrocystic changes and intraductal hyperplasia without atypia. Extensive changes consistent with previous biopsy site. Skin - dermal chronic inflammation and changes consistent with previous biopsy site in the dermis. Ancillary studies - previously performed on section of tumor ([id number] / [id number]). ER - negative (0%) DC - negative (0%) Her2 jaime - positive (3+) Microcalcifications - present in DCIS and non-neoplastic tissue Clinical history - Please make reference to previous specimen ([id number]) right breast, upper outer quadrant microcalcifications, stereotactic needle core biopsy with diagnosis of invasive ductal carcinoma and ductal carcinoma in situ. PATHOLOGIC STAGE: pT1c pN0(sn) Mx Completed palliative radiation on 06/30/2019. No new concerns today. Appetite: Pretty good. Energy level: Good. Denies fevers. Resp:denies cough or sob Cardiac:denies chest pain/palpitations GI:denies abd pain, n/v, moving bowels regularly :denies dysuria/hematuria Extrem:denies pain Endo:denies hot flashes Neuro:denies symptoms of neuropathy Skin:denies rashes/lesions Heme:denies bleeding The ROS is otherwise negative. Past medical history, appointments, medications, allergies reviewed. No changes. EXAM: BP 132/81 Pulse 84 Temp 37.6 C (99.6 F) Ht 153.5 cm (5' 0.43 ) Wt 60.1 kg (132 lb 8 oz) SpO2 98% BMI 25.51 kg/m APPEARANCE Well appearing, alert, in no acute distress, well-hydrated, well nourished. HEART RRR with normal S1 and S2, no murmurs LUNG clear to auscultation BREAST FEMALE no mass/nodule b/l LYMPH NODES No cervical lymphadenopathy, No supraclavicular lymphadenopathy, and No axillary lymphadenopathy. ABDOMEN bowel sounds normoactive, soft, non-tender EXTREMITIES No edema NEURO Awake, alert and oriented x 3, Normal gait, and No involuntary motions. SKIN Skin color, texture, turgor normal, no suspicious rashes or lesions ASSESSMENT/PLAN: 1. 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 S/p right breast lumpectomy and sentinel node biopsy on 04/27/19. Radiation completed 06/30/19. - No concerning findings on exam. - Mammogram due 2022. Pt. has this done at [facility]. - Follow up in 6 months. - Pt. aware to call office with any questions/concerns. The patient indicates understanding of these issues and agrees with the plan. All documentation from previous visit of 07/16/22-Dr. Posey/myself was copied and pasted, documentation has been reviewed and edited as necessary for today's visit. Eduardo Johnson APRN.ARMIDA documented in this encounter [facility] 07-16-2022 History of Presen t illness Narrative Chief Complaint Patient presents with: Established Patient HPI: King Kauffman is a 81 year old female who presents here today for follow up breast cancer. Per Dr. Posey's previous note: H/o hypertension, hyperlipidemia, iron deficiency anemia, uterus cancer (hysterectomy 1984), dysmetabolic syndrome and gout. Had abnormality of right breast on screening mammogram. Stereotactic biopsy on 04/17/2019. 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 See comment. 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 The ductal carcinoma in situ comprise about 50% of the total tumor volume. ER (clone 6F11) 0% DC (clone 16/1E2) 0% Her-2Neu (clone CB11) 3+ Underwent ultrasound-guided wire localization lumpectomy with sentinel lymph node biopsy on 04/27/2019. Pathology: FROZEN SECTION DIAGNOSIS B. [place] lymph nodes, biopsy: Three out of three lymph nodes, negative for metastatic carcinoma. C. Additional sentinel lymph node, biopsy: One lymph node, negative for metastatic carcinoma. MICROSCOPIC DIAGNOSIS A. 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 Changes consistent with previous biopsy site. See cancer summary below. B. [place] lymph nodes, biopsy: Three out of three lymph nodes, negative for metastatic carcinoma. See comment. C. Additional sentinel lymph node, biopsy: One lymph node, negative for metastatic carcinoma. See comment. INVASIVE BREAST CANCER SUMMARY: (Specimen A) Specimen - partial breast Procedure - excision with wire-guided localization Lymph node sampling - sentinel lymph nodes Specimen integrity - single intact specimen Specimen size - 8 x 5.5 x 4 cm Specimen laterality - right Tumor site - upper outer quadrant (as per clinical information) Tumor size - 1.5 x 1.2 x 1.2 cm Tumor focality - single focus of invasive carcinoma Macroscopic and Microscopic extent of tumor: Skin - invasive carcinoma does not invade into the dermis or epidermis. Nipple - not applicable Skeletal muscle - not applicable Ductal carcinoma in situ (DCIS) - present Extensive intraductal component (EIC) - negative Estimated size (extent) of DCIS - DCIS comprise about 20% of the total tumor volume. Number of blocks with DCIS - 3 Number of blocks examined - 12 Architectural patterns - comedo and solid Nuclear grade - grade 3 (high) Necrosis - present, central (expansive comedo necrosis) Lobular carcinoma in situ (LCIS) - not identified Histologic type of invasive carcinoma - invasive ductal carcinoma (not otherwise specified) Histologic Grade ([place] grade): Glandular/tubular differentiation - score 3 Nuclear pleomorphism - score 3 Mitotic count - score 3 Overall grade - 3 (score of 9) Margins - Margins uninvolved by invasive carcinoma. The DCIS and invasive carcinoma are 0.2 cm away from the closest anterior-superior margin of the specimen. Treatment effect: Response to presurgical (neoadjuvant) therapy - no known presurgical therapy. Lymph-Vascular invasion - not identified Dermal lymph-vascular invasion - not identified Lymph nodes: Number of sentinel lymph nodes examined - 4 Total number of lymph nodes examined (sentinel and nonsentinel) - 4 Number of lymph nodes with macrometastases, micrometastases and isolated tumor cells - 0 Method of evaluation of sentinel lymph nodes - H & E, multiple levels and IHC. Distant metastasis - not applicable Additional pathologic findings - fibrocystic changes and intraductal hyperplasia without atypia. Extensive changes consistent with previous biopsy site. Skin - dermal chronic inflammation and changes consistent with previous biopsy site in the dermis. Ancillary studies - previously performed on section of tumor ([id number] / [id number]). ER - negative (0%) DC - negative (0%) Her2 jaime - positive (3+) Microcalcifications - present in DCIS and non-neoplastic tissue Clinical history - Please make reference to previous specimen ([id number]) right breast, upper outer quadrant microcalcifications, stereotactic needle core biopsy with diagnosis of invasive ductal carcinoma and ductal carcinoma in situ. PATHOLOGIC STAGE: pT1c pN0(sn) Mx Completed palliative radiation on 06/30/2019. Pt. was in the ED at [facility] for abd pain. She was not admitted. US/CT neg. Feeling better. Appetite: Pretty good. Energy level: Pretty good. Denies fevers or recent illness. Resp:denies cough or sob Cardiac:denies chest pain/palpitations GI:denies abd pain, n/v, moving bowels regularly :denies dysuria/hematuria Extrem:denies pain Endo:denies hot flashes Neuro:denies symptoms of neuropathy Skin:denies rashes/lesions Heme:denies bleeding The ROS is otherwise negative. Past medical history, appointments, medications, allergies reviewed. No changes. EXAM: BP 159/72 Pulse 89 Temp 37.4 C (99.3 F) Ht 153.7 cm (5' 0.53 ) Wt 61.9 kg (136 lb 8 oz) SpO2 98% BMI 26.19 kg/m APPEARANCE Well appearing, alert, in no acute distress, well-hydrated, well nourished. HEART RRR with normal S1 and S2, no murmurs LUNG clear to auscultation BREAST FEMALE no mass/nodule b/l LYMPH NODES No cervical lymphadenopathy, No supraclavicular lymphadenopathy, and No axillary lymphadenopathy. ABDOMEN bowel sounds normoactive, soft, non-tender EXTREMITIES No edema NEURO Awake, alert and oriented x 3, Normal gait, and No involuntary motions. SKIN Skin color, texture, turgor normal, no suspicious rashes or lesions ASSESSMENT/PLAN: 1. 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 S/p right breast lumpectomy and sentinel node biopsy on 04/27/19. Radiation completed 06/30/19. - No concerning findings on exam. - Reviewed mammogram with pt. - Mammogram due 2022. Pt. has this done at [facility]. - Follow up in 6 months. - Pt. aware to call office with any questions/concerns. The patient indicates understanding of these issues and agrees with the plan. All documentation from previous visit of 01/13/22-Dr. Posey/myself was copied and pasted, documentation has been reviewed and edited as necessary for today's visit. Eduardo Johnson APRN.ARMIDA documented in this encounter [facility] 01-13-2022 History of Presen t illness Narrative Chief Complaint Patient presents with: Established Patient HPI: King Kauffman is a 81 year old female who presents here today for follow up breast cancer. Per Dr. Posey's previous note: H/o hypertension, hyperlipidemia, iron deficiency anemia, uterus cancer (hysterectomy 1984), dysmetabolic syndrome and gout. Had abnormality of right breast on screening mammogram. Stereotactic biopsy on 04/17/2019. 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 See comment. 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 The ductal carcinoma in situ comprise about 50% of the total tumor volume. ER (clone 6F11) 0% DC (clone 16/1E2) 0% Her-2Neu (clone CB11) 3+ Underwent ultrasound-guided wire localization lumpectomy with sentinel lymph node biopsy on 04/27/2019. Pathology: FROZEN SECTION DIAGNOSIS B. [place] lymph nodes, biopsy: Three out of three lymph nodes, negative for metastatic carcinoma. C. Additional sentinel lymph node, biopsy: One lymph node, negative for metastatic carcinoma. MICROSCOPIC DIAGNOSIS A. 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 Changes consistent with previous biopsy site. See cancer summary below. B. [place] lymph nodes, biopsy: Three out of three lymph nodes, negative for metastatic carcinoma. See comment. C. Additional sentinel lymph node, biopsy: One lymph node, negative for metastatic carcinoma. See comment. INVASIVE BREAST CANCER SUMMARY: (Specimen A) Specimen partial breast Procedure excision with wire-guided localization Lymph node sampling sentinel lymph nodes Specimen integrity single intact specimen Specimen size 8 x 5.5 x 4 cm Specimen laterality - right Tumor site upper outer quadrant (as per clinical information) Tumor size 1.5 x 1.2 x 1.2 cm Tumor focality single focus of invasive carcinoma Macroscopic and Microscopic extent of tumor: Skin invasive carcinoma does not invade into the dermis or epidermis. Nipple not applicable Skeletal muscle - not applicable Ductal carcinoma in situ (DCIS) present Extensive intraductal component (EIC) - negative Estimated size (extent) of DCIS DCIS comprise about 20% of the total tumor volume. Number of blocks with DCIS - 3 Number of blocks examined - 12 Architectural patterns comedo and solid Nuclear grade grade 3 (high) Necrosis present, central (expansive comedo necrosis) Lobular carcinoma in situ (LCIS) not identified Histologic type of invasive carcinoma invasive ductal carcinoma (not otherwise specified) Histologic Grade ([place] grade): Glandular/tubular differentiation - score 3 Nuclear pleomorphism - score 3 Mitotic count score 3 Overall grade - 3 (score of 9) Margins - Margins uninvolved by invasive carcinoma. The DCIS and invasive carcinoma are 0.2 cm away from the closest anterior-superior margin of the specimen. Treatment effect: Response to presurgical (neoadjuvant) therapy - no known presurgical therapy. Lymph-Vascular invasion not identified Dermal lymph-vascular invasion - not identified Lymph nodes: Number of sentinel lymph nodes examined - 4 Total number of lymph nodes examined (sentinel and nonsentinel) - 4 Number of lymph nodes with macrometastases, micrometastases and isolated tumor cells - 0 Method of evaluation of sentinel lymph nodes - H & E, multiple levels and IHC. Distant metastasis not applicable Additional pathologic findings fibrocystic changes and intraductal hyperplasia without atypia. Extensive changes consistent with previous biopsy site. Skin dermal chronic inflammation and changes consistent with previous biopsy site in the dermis. Ancillary studies - previously performed on section of tumor ([id number] / [id number]). ER negative (0%) DC - negative (0%) Her2 jaime positive (3+) Microcalcifications present in DCIS and non-neoplastic tissue Clinical history - Please make reference to previous specimen ([id number]) right breast, upper outer quadrant microcalcifications, stereotactic needle core biopsy with diagnosis of invasive ductal carcinoma and ductal carcinoma in situ. PATHOLOGIC STAGE: pT1c pN0(sn) Mx Completed palliative radiation on 06/30/2019. No new concerns today. Appetite: Pretty good. Energy level: Pretty fair. Denies fevers or recent illness. Resp:denies cough or sob Cardiac:denies chest pain/palpitations GI:denies abd pain, n/v, moving bowels regularly :denies dysuria/hematuria Extrem:denies pain Endo:denies hot flashes Neuro:denies symptoms of neuropathy Skin:denies rashes/lesions Heme:denies bleeding The ROS is otherwise negative. Past medical history, appointments, medications, allergies reviewed. No changes. EXAM: BP 137/69 Pulse 80 Temp 37.2 C (99 F) Ht 153.3 cm (5' 0.34 ) Wt 63.3 kg (139 lb 8 oz) SpO2 97% BMI 26.94 kg/m APPEARANCE Well appearing, alert, in no acute distress, well-hydrated, well nourished. HEART RRR with normal S1 and S2, no murmurs LUNG clear to auscultation BREAST FEMALE no mass/nodule b/l LYMPH NODES No cervical lymphadenopathy, No supraclavicular lymphadenopathy and No axillary lymphadenopathy. ABDOMEN bowel sounds normoactive, soft, non-tender, non-distended, without organomegaly or palpable masses EXTREMITIES No edema NEURO Awake, alert and oriented x 3, Normal gait and No involuntary motions. SKIN Skin color, texture, turgor normal, no suspicious rashes or lesions ASSESSMENT/PLAN: 1. 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 S/p right breast lumpectomy and sentinel node biopsy on 04/27/19. Radiation completed 06/30/19. - No concerning findings on exam. - Mammogram due in mid 2021. Pt. has this done at [facility]. - Follow up in 6 months. - Pt. aware to call office with any questions/concerns. The patient indicates understanding of these issues and agrees with the plan. All documentation from previous visit of 07/28/21-Dr. Posey/myself was copied and pasted, documentation has been reviewed and edited as necessary for today's visit. Eduardo Johnson APRN.CNP documented in this encounter [facility] Evaluation note Diagnosis Malignant neoplasm of upper-outer quadrant of right breast in female, estrogen receptor negative (HCC)- Primary Encounter for screening mammogram for high-risk patient [facility] Malignant neoplasm of upper-outer quadrant of right breast in female, estrogen receptor negative (HCC)- [facility] [place] [facility] Diagnosis Malignant neoplasm of upper-outer quadrant of right breast in female, estrogen receptor negative (HCC)- Primary [facility] this [facility] Diagnostic Procedure Only (Routine) - Pending Review Specialty Diagnoses / Procedures Referred By Monica rausch Referred To Contact [facility] Diagnoses Malignant neoplasm of upper-outer quadrant of right breast in female, estrogen receptor negative (HCC) Encounter for screening mammogram for high-risk patient Procedures JOSE ALBERTO SCREENING W LUIS CARLOS SCREENING DIGITAL BREAST TOMOSYNTHESIS BI SCREENING MAMMOGRAPHY BI 2-VIEW BREAST INC Eduardo Flores APRN.CNP [address] [place] [address] [facility] [address] [place] [address] Referral ID Status Reason Start Date Expiration Date Visits Requested Visits Authorized [id number] Pending Review Auto-Generat ed Referral 01/13/2022 02/12/2023 1 1 [facility] Diagnostic Procedure Only (Routine) - Pending Review Specialty Diagnoses / Procedures Referred By Contac t Referred To Contact [facility] Diagnoses Malignant neoplasm of upper-outer quadrant of right breast in female, estrogen receptor negative (HCC) Encounter for screening mammogram for high-risk patient Procedures JOSE ALBERTO SCREENING W LUIS CARLOS SCREENING DIGITAL BREAST TOMOSYNTHESIS BI SCREENING MAMMOGRAPHY BI 2-VIEW BREAST INC Eduardo Flores APRN.CNP [address] [place] [address] [facility] [address] [place] [address] Referral ID Status Reason Start Date Expiration Date Visits Requested Visits Authorized [id number] Pending Review Auto-Generat ed Referral 07/16/2022 08/15/2023 1 1 [facility] Summary Purpose Family History No Family History Records Found Advance Directives No Advanced Directives Records Found Additional Source Comments Source Comments (unrecognize d section and content) In the event this informatio n is protected by the Federal Confidentiality of Alcohol and Drug Abuse Patient Records regulations: The Federal rules restrict any use of the information to criminally investigate or prosecute any alcohol or drug abuse patient.[facility] the event this information is protected by the Federal Confidentiality of Alcohol and Drug Abuse Patient Records regulations: The Federal rules restrict any use of the information to criminally investigate or prosecute any alcohol or drug abuse patient.[facility] the event this information is protected by the Federal Confidentiality of Alcohol and Drug Abuse Patient Records regulations: The Federal rules restrict any use of the information to criminally investigate or prosecute any alcohol or drug abuse patient.[facility] the event this information is protected by the Federal Confidentiality of Alcohol and Drug Abuse Patient Records regulations: The Federal rules restrict any use of the information to criminally investigate or prosecute any alcohol or drug abuse patient.[facility] event this information is protected by the Federal Confidentiality of Alcohol and Drug Abuse Patient Records regulations: The Federal rules restrict any use of the information to criminally investigate or prosecute any alcohol or drug abuse patient.[facility] Reason for Visit (unrecogniz ed section and content) Reason Comments Established Patient Reason Comments Established Patient Care Teams (unrecognized sec tion and content) [employer] Administrator Relationship Specialty Start Date End Date Saray Packer MD [address] [place], [place] [id number] PCP - General Family Practice 07/28/21 Babar Mathews MD, [address] [place] [address] Physician Radiation Oncology 05/11/19 [employer] Administrator Relationship Specialty Start Date End Date Saray Packer MD [address] [place] [address] PCP - General Family Medicine 07/28/21 Babar Mathews MD, [address] [place] [address] Physician Radiation Oncology 05/11/19 [employer] Administrator Relationship Specialty Start Date End Date Saary Packer MD [address] [place] [address] PCP - General Family Medicine 07/28/21 Babar Mathews MD, [address] [place] [address] Physician Radiation Oncology 05/11/19 [employer] Administrator Relationship Specialty Start Date End Date Saray Packer MD [address] [place] [address] PCP - General Family Medicine 07/28/21 Babar Mathews MD, [address] [place] [address] Physician Radiation Oncology 05/11/19 [employer] Administrator Relationship Specialty Start Date End Date Saray Packer MD [address] [place] [address] PCP - General Family Medicine 07/28/21 Babar Mathews MD [address] [place], [place] [address] Physician Radiation Oncology 05/11/19 INFORMATION SOURCE (unrecogn ized section and content) DATE CREATED AUTHOR 01/12/2024 [facility] FOR RECORDS PERTAINING TO PATIENTS WHO ARE OR HAVE BEEN ENROLLED IN A CHEMICAL DEPENDENCY/SUBSTANCEABUSE PROGRAM, SOME INFORMATION MAY BE OMITTED. This clinical summary was aggregated from multiple sources. Caution should be exercised in using it in the provision of clinical care. This summary normalizes information from multiple sources, and as a consequence, information in this document may materially change the coding, format and clinical context of patient data. In addition, data may be omitted in some cases. CLINICAL DECISIONS SHOULD BE BASED ON THE PRIMARY CLINICAL RECORDS. [employer] [facility]. provides no warranty or guarantee of the accuracy or completeness of information in this document.
[2024-04-24] MEDS: Lactated Ringers 1,000 ML 15 ML IV (06:39)
--- NOTE | 2024-04-24 06:45 | PRE.ANES_ITS ---
ASA Classification* ASA Classification ASA Classification: 2 Assessment & Plan Anesthesia* Anesthesia Assessment Anesthesia Assessment: Discussed sedation and/or anesthesia options, risks, benefits, and alternatives with patient/parents/legal guardian/POA. Questions invited. The patient/parents/legal guardian/POA seems to understand and agrees to proceed with anesthesia plan. Reviewed the physical assessment, medical history, allergy history and patient home medications list prior to surgery/procedure/anesthetic and documented any changes. Performed airway and anesthesia risk assessments. Anesthesia Type Anesthesia Type: General Anesthesia Focused Assessment* Temperature: 98.4 F Pulse Rate: 66 Blood Pressure: 140/69 Respiratory Rate: 18 Pulse Ox: 98 Airway Assessment Mouth opens: >3 cm Mallampati Score: II Focused Labs Anesthesia Preop lab: CBC WBC 5.0 K/mm3 (4.4-11.0) 02/22/24 06:44 RBC 4.14 M/mm3 (4.2-5.4) L 02/22/24 06:44 Hgb 12.1 g/dL (12.0-15.0) 02/22/24 06:44 Hct 36.4 % (37-47) L 02/22/24 06:44 Plt Count 276 K/mm3 (150-450) 02/22/24 06:44 CHEMISTRY Potassium 3.9 mmol/L (3.5-5.1) 02/22/24 06:44 Sodium 144 mmol/L (136-145) 02/22/24 06:44 Magnesium 1.9 mg/dL (1.6-2.6) 02/22/24 06:44 BUN 25 mg/dL (7-18) H 02/22/24 06:44 Creatinine 1.06 mg/dL (0.55-1.02) H 02/22/24 06:44 Glucose 119 mg/dL (74-106) H 02/22/24 06:44 TSH 5.16 uIU/mL (0.358-3.74) H 04/01/23 07:58 COAG Pre-Assessment Diagnosis/Proposed Procedure Planned Operative Procedure(s): LAPROSCOPY POSS OPEN POSS BOWEL RESECTION Anesthesia History 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 When Was Last Pacemaker Check QUESTION #4 FULL TEXT: You/Your Family Experience fever (hyperthermia) with Anesthesia Last Oral Intake Last Oral intake: Last Oral Intake NPO since 18:00 04/24/24 06:24 Meds taken in AM with sips of No 04/24/24 06:24 water? Meds patient instructed to take am of surgery PONV PONV - software configuration analyst: PONV - software configuration analyst Female Yes 04/12/24 09:54 HX of Motion Sickness No 04/12/24 09:54 HX of N/V After Surgery No 04/12/24 09:54 Non-Smoker Yes 04/12/24 09:54 Duration of Surgery greater Yes 04/12/24 09:54 than 60 minutes Number of Risk Factors 3 04/12/24 09:54 PONV Score Moderate Risk 04/12/24 09:54 Height & Weight Height & Weight: Anesthesia: Height & Weight Height 5 ft 1 in 04/24/24 06:24 Weight: 56.3 kg 04/24/24 06:24 Body Mass Index (BMI) 23.4 04/24/24 06:24 Respiratory Assessment Respiratory Assessment - software configuration analyst: Respiratory Tract Infection Hx - software configuration analyst Hx Respiratory Tract Infection No 04/12/24 09:54 STOP Sleep Apnea STOP Sleep Apnea - software configuration analyst: STOP Sleep Apnea - software configuration analyst Hx Hypertension Yes: CONTROLLED WITH MED 04/12/24 09:54 Hx Sleep Apnea No 04/12/24 09:54 CPAP BIPAP Do you snore loudly (louder No 04/12/24 09:54 than talking or can be heard Do you often feel tired/ No 04/12/24 09:54 fatigued/ sleepy during daytime? Has anyone observed you stop No 04/12/24 09:54 breathing during sleep? STOP Results Negative 04/12/24 09:54 QUESTION #5 FULL TEXT : Do you snore loudly (louder than talking or can be heard through closed doors)? Tobacco Use History Tobacco Use History - software configuration analyst: Tobacco Use History - software configuration analyst Tobacco Use Smoking Status Former smoker 04/12/24 09:54 Hx Tobacco Use No 04/12/24 09:54 Years Smoking Packs Smoked per Day Smoking Cessation Date was No - quit smoking greater 04/12/24 09:54 within the last 15 years than 15 years ago Hx Smoking Cessation Date Hx Smoking Cessation No 04/12/24 09:54 Counseling Hematologic Medial History Hematologic Hx - software configuration analyst: Hematologic Medical Hx - stick inserter Hx of Blood Transfusion No 04/12/24 09:54 Hx of Transfusion in last 3 No 04/12/24 09:54 Months Date of Last Transfusion (if within last 3 months) Ever experience any problems No 04/12/24 09:54 with transfusion(s)? Specify any problems Hx of Preganancy in last 3 No 04/12/24 09:54 Months Nurse Filling Out Transfusion DSCHRIBER 04/12/24 09:54 & Questions: Date: 04/12/24 04/12/24 09:54 Time: 09:56 04/12/24 09:54 Patient unable to answer at this time (ie. confused, unrespo /Reproduction History /Reproductive History - software configuration analyst: /Reproductive Hx- software configuration analyst Hx Now No 04/12/24 09:54 Gestational Age (in weeks): EDC: Hx Hx Para Hx Section SAB No 04/12/24 09:54 Active Medications Active Medications: Current Medications Generic Name Dose Route Start Last Admin Trade Name Freq PRN Reason Stop Dose Admin Cefazolin Sodium 2 gm/ N/A 20 mls @ 400 mls/hr 04/24/24 07:30 IV 04/24/24 07:32 PREOP ONE Lactated Ringer's 1,000 mls @ 15 mls/hr 04/24/24 06:15 04/24/24 06:39 IV 04/29/24 19:34 15 mls/hr .Q48H HILARIO Administration Protocol PFSH Medical History Wears glasses Wears dentures Post-menopausal Low iron High cholesterol Constipation Former smoker Leg cramps History of stress test H/O small bowel obstruction Breast cancer, right Gout Osteoarthritis GERD (gastroesophageal reflux disease) HTN (hypertension) Home Medications ?Medication ?Instructions ?Recorded ?Last Taken ?Type allopurinol 300 mg tablet 300 mg PO DAILY 07/07/17 04/23/24 History aspirin 81 mg chewable tablet 81 mg PO DAILY@0800 07/07/17 04/17/24 History cinnamon bark 500 mg capsule 1,000 mg PO DAILY 07/07/17 04/23/24 History fish oil-dha-epa 1,200 mg-144 1 ea PO DAILY 07/07/17 04/18/24 History mg-216 mg capsule lqmhfxqr-wwg-cwvzw acid 0.4 1 ea PO DAILY 07/07/17 11/13/23 History mg-lycopene 300 mcg-lutein 250 mcg tablet pravastatin 40 mg tablet 40 mg PO DAILY 07/07/17 04/23/24 History acetaminophen 650 mg 650 mg PO PRN PRN Pain Or Fever 04/11/19 04/21/24 History tablet,extended release (Arthritis Pain Relief (acetaminophen) ER) losartan 50 mg tablet 100 mg PO DAILY 04/11/19 11/13/23 History brimonidine 0.2 % eye drops 1 drp EACH EYE TID 04/26/19 04/24/24 History timolol maleate 0.5 % eye drops 1 drp EACH EYE BID 04/26/19 04/24/24 History omeprazole 40 mg capsule,delayed 40 mg PO DAILY 07/04/22 04/24/24 History release calcium carbonate (Calcium 600) 1,200 mg PO DAILY 11/14/23 04/23/24 History dicyclomine 10 mg capsule 10 mg PO TID PRN GAS PAIN 11/14/23 Unknown History ferrous sulfate 325 mg (65 mg 325 mg PO DAILY 11/14/23 04/23/24 History iron) tablet (Feosol) latanoprost 0.005 % eye drops 1 drp ophthalmic (eye) QHS 11/14/23 04/24/24 History Allergy/AdvReac Type Severity Reaction Status Date / Time garlic Allergy Intermediate Hives Verified 04/24/24 06:21 lisinopril Allergy NEEDS Verified 04/24/24 06:21 FOLLOW-UP doxycycline AdvReac Intermediate Other Verified 04/24/24 06:21 codeine AdvReac Other Verified 04/24/24 06:21 Family History Mother Breast cancer CVA (cerebral vascular accident) Brother CVA (cerebral vascular accident) Heart disease Surgical History History of hysterectomy History of colonoscopy (~2010) History of lumpectomy of right breast (~03/2019) Social History Smoking Status: Former smoker alcohol intake: never substance use type: does not use Review of Systems (Anesthesia) ROS Narrative System reviewed and no additional complaints, except as documented.
--- NOTE | 2024-04-24 07:11 | PCM.HP.BLA ---
History and Physical Date of Admission: 04/24/24 Date of Service: 03/07/24 MR#: [id number] Acct: [id number] Name: KING KAUFFMAN Rep #: [id number] : 1940 Provider: Dr. Jalyn Corley MD Age/Sex: 83/F Location: [facility] Status: Signed Intake Vital Signs 02/20/2418:23 03/07/2408:26 03/07/2408:44 Height 5 ft 1 in 5 ft 1 in Weight: 131 lb 2 oz BMI 24.7 BP 177/81 H 149/80 H Blood Pressure Location Lt brachial Lt brachial Position Sitting Sitting Respiration 18 Pulse 70 Pulse Source Monitor Temp 97.4 F L Temp Source Temporal Pulse Oximetry (%) 98 Oxygen Delivery Method room air Intake Visit Reasons: [facility] FU, DISCUSS SURGERY Chief Complaint: [facility] FU, DISCUSS SURGERY Accompanied by: Daughter Is patient in pain?: No Allergies lisinopril Allergy (Verified 03/07/24 08:27) NEEDS FOLLOW-UPcodeine Adverse Reaction (Verified 03/07/24 08:27) Other Medications ?Medication ?Instructions ?Recorded ?Confirmed ?Type allopurinol 300 mg tablet 300 mg PO DAILY 07/07/17 03/07/24 History aspirin 81 mg chewable tablet 81 mg PO DAILY@0800 07/07/17 03/07/24 History cinnamon bark 500 mg capsule 1,000 mg PO DAILY 07/07/17 03/07/24 History fish oil-dha-epa 1,200 mg-144 1 ea PO DAILY 07/07/17 03/07/24 History mg-216 mg capsule vxmhrluk-xbk-vrkmk acid 0.4 1 ea PO DAILY 07/07/17 03/07/24 History mg-lycopene 300 mcg-lutein 250 mcg tablet pravastatin 40 mg tablet 40 mg PO DAILY 07/07/17 03/07/24 History acetaminophen 650 mg 650 mg PO PRN PRN Pain Or Fever 04/11/19 03/07/24 History tablet,extended release (Arthritis Pain Relief (acetaminophen) ER) losartan 50 mg tablet 50 mg PO DAILY 04/11/19 03/07/24 History brimonidine 0.2 % eye drops 1 drp EACH EYE TID 04/26/19 03/07/24 History timolol maleate 0.5 % eye drops 1 drp EACH EYE BID 04/26/19 03/07/24 History omeprazole 40 mg capsule,delayed 40 mg PO DAILY 07/04/22 03/07/24 History release calcium carbonate (Calcium 600) 1,200 mg PO DAILY 11/14/23 03/07/24 History dicyclomine 10 mg capsule 10 mg PO TID PRN GAS PAIN 11/14/23 03/07/24 History ferrous sulfate 325 mg (65 mg 325 mg PO DAILY 11/14/23 03/07/24 History iron) tablet (Feosol) latanoprost 0.005 % eye drops 1 drp ophthalmic (eye) QHS 11/14/23 03/07/24 History Have you fallen in the past year?: No PFSH Medical History H/O small bowel obstruction Breast cancer, right Gout Osteoarthritis GERD (gastroesophageal reflux disease) HTN (hypertension) Surgical History History of hysterectomy History of colonoscopy (~2010) History of lumpectomy of right breast (~03/2019) Family History Mother Breast cancer CVA (cerebral vascular accident)Brother CVA (cerebral vascular accident) Heart disease Social History (Updated 03/07/24 @ 08:26 by Radha Lemus LPN) Smoking Status: Former smoker alcohol intake: never substance use type: does not use HPI HPI HPI: 83-year-old female presents to discuss possible diagnostic laparoscopy due to 2 recent small bowel obstructions which did resolve conservatively--October & January 2024. Patient is only surgery is a hysterectomy in the past. On CAT scan the area that looks to be the transition is in the pelvis on the right. Patient is concerned about getting another small bowel obstruction I would like to have surgery to see if there is an adhesion that can be removed to prevent this. Currently patient is tolerating the low fiber diet having bowel function and denies any abdominal pain. ROS General General: Yes weight change (loss) and breast cancer; No appetite, fatigue, colon cancer or weakness HEENT HEENT: No difficulty swallowing, eye injury, eye surgery, swollen glands or hoarseness Endo Endocrine: No thyroid disease, diabetes mellitus, thyroid cancer, Hair loss, heat intolerance or cold intolerance Skin Skin: No rash or changing moles Musc Musculoskeletal: Yes arthritis and gout; No back problems, rheumatoid arthritis or joint pain Cardio Cardiovascular: Yes high blood pressure; No murmur, pacemaker, heart disease, atrial fibrillation, heart attack, heart stent, palpitations, shortness of breat with exertion or chest pain Psych Psychiatric: No depression, anxiety or hearing voices Resp Respiratory: No shortness of breath, No sleep apnea, No cough, No COPD, No asthma, No emphysema and No wheezing Gastro Gastrointestinal: Yes abdominal pain, Yes nausea or vomiting, No diarrhea, No constipation, No blood in stool, Yes acid reflux, No hemorrhoids, No ulcers, No gallbladder problem and No black,tarry stools Raghavendra Hematologic: Yes blood thinners, No blood disorders, No bleeding, No anemia and No blood clots Additional Details: aspirin and fish oil Neuro Neurologic: No numbness, No tingling and No weakness Exam Const General: cooperative, healthy appearing, comfortable and no acute distress [facility] Head: normocephalic and atraumatic Neck Neck: supple Resp Effort & Inspection: normal respiratory effort Cardio Rate: regular rate GI Inspection: non-distended Palpation: soft, no hernias and nontender Skin General: no rashes or lesions noted Neuro General: CN's II-XI intact bilaterally Extrem General: normal to inspection Psych Mental Status: mental status grossly normal Attitude: cooperative Assessment and Plan Assessment and Plan (1) H/O small bowel obstruction: Status: Acute Plan Patient has had hospitalization in October and January for bowel obstructions which did resolve conservatively. Will plan for a diagnostic laparoscopy, possible bowel resection, possible open. Discussed the risk of the surgery including but not limited to bleeding, infection, injury to another organ, adhesions in the future and possible recurrent bowel obstructions. Patient and her daughter had no further questions at this time. Jalyn Corley M.D. Pager: [phone] [facility] [address] [place] [address], [address] [place] [address] Office: [phone] Coding Level of Care Code Off vis,est,level 3 Diagnoses H/O small bowel obstruction Z87.19 Clinical Quality Measures Falls Risk Screening/Assistive Devices Have you fallen in the past year?: No 03/09/24 0856 <Electronically signed by Jalyn Corley MD> Date Jalyn Corley MD
[2024-04-24] MEDS: Cefazolin 2 GM in Syringe IV (07:29)
--- NOTE | 2024-04-24 08:17 | OP.PCM_ITS ---
Operative Report (Standard) Operative Information Surgery/Procedure Performed: Exploratory laparoscopy, lysis adhesions Surgeon: Jalyn Corley Date of Procedure: 04/24/24 Procedure Start Time: 07:49 Procedure Stop Time: 08:24 Pre-Operative Diagnosis: History of small bowel obstructions Post-Operative Diagnosis: Same Select all DRAINS/GRAFTS/IMPLANTS that apply: None Type of Anesthesia: General/Supplemental Special Medications: Ancef 2 g IV x 1 Estimated Blood Loss: 10 cc Specimen collected: No Description of surgery: Indications: 83-year-old female presenting with multiple small bowel obstructions history with resolved with conservative management. Patient is interested in diagnostic laparoscopy to try to prevent these in the future. Description: Patient brought to operating placed supine on the operating table. A timeout was completed verifying correct patient, procedure, site, positioning, special equipment prior to beginning procedure. General anesthesia was induced. Abdomen was prepped and draped in usual sterile fashion. Incision was made above the umbilicus with a 15 blade scalpel deepened to the fascia. The fascia was elevated and incised under direct visualization. Hoover trocar was placed. The abdomen was insufflated to 12 to 15 mmHg. Patient tolerated insufflation well. Laparoscope was placed. There is no injury noted upon entry into the abdomen. Abdomen was inspected and noted to have omentum adhesed to her previous hysterectomy lower midline incision. 5 mm trocars placed in the left lower quadrant under direct visualization. The Enseal was used to take down the omental adhesions. Then additional 5 mm trocars placed in the inferior midline under direct visualization. Starting at the cecum the small bowel was ran to the ligament of Treitz. There is no other adhesions seen or appreciated. Abdomen was allowed to collapse. Trocars were removed under direct visualization. Supraumbilical 12 mm trocar site was closed using 0 Vicryl figure of 8 suture. Local anesthesia of 0.25% Marcaine was used throughout the case. Skin was closed with 4-0 Monocryl suture Steri-Strips and OpSite's. Patient tolerated procedure well and stated to the postanesthesia care in stable condition. 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
[2024-04-24] MEDS: Bupiv/Epi 0.25% 30 ML Vial (08:20)
--- NOTE | 2024-04-24 08:36 | EX.PCM.DISCH ---
Discharge Instructions Diet Discharge Diet: Light diet - advance as tolerated Activity Discharge Activity: May Not Drive (while taking narcotic pain medications.) May shower in (days): 1 Lifting Restrictions: no lifting >20 lbs x 2 wks, no strenuous exercise for 4 wks Dressing / Incision Call your doctor if your incision/area has: Continuous Slow Oozing, Sudden Increased Bleeding, Increased Pain/ Swelling, Increased Redness, Foul Smelling Discharge and Swelling at the incision site Call your doctor if you observe: Fever of 101 or Higher Remove Dressing in: 2 days Cleanse incision/area with: Soap & Water Additional Dressing/Incision Instructions:: Steri-Strips will fall off in 7 to 10 days, if they do not fall off okay to remove after 10 days. Follow Up Care Please Follow Up With: Jalyn Corley MD When: Call the office for a follow-up appointment 2 weeks; after 5 PM and on the weekends call [phone] with any concerns. Test Results: Test results from this visit will be discussed in further detail at your follow-up appointment, if applicable. Discharge Plan Admission Attending Provider: Jalyn Corley Primary Care Provider: Alverto Packer Instructions Print Language: Jamaican Discharge Orders/Prescriptions Prescriptions: Continued losartan 50 mg tablet 100 mg PO DAILY acetaminophen [Arthritis Pain Relief (acetam)] 650 mg tablet extended release 650 mg PO PRN PRN (Reason: Pain Or Fever) pravastatin 40 MG tablet 40 mg PO DAILY allopurinol 300 MG tablet 300 mg PO DAILY cinnamon bark 500 MG capsule 1,000 mg PO DAILY twkfzcrb-mgd-LF-lycopen-lutein 1 EACH tablet 1 ea PO DAILY fish oil-dha-epa 1 EACH capsule 1 ea PO DAILY brimonidine 1 DROP bottle 1 drp EACH EYE TID timolol maleate 1 DROP drops 1 drp EACH EYE BID omeprazole 40 mg Capsule,Delayed Release(Dr/Ec) 40 mg PO DAILY latanoprost 0.005 % drops 1 drp ophthalmic (eye) QHS Rx Instructions: both eyes calcium carbonate [Calcium 600] 600 mg calcium (1,500 mg) tablet 1,200 mg PO DAILY ferrous sulfate [Feosol] 325 mg (65 mg iron) tablet 325 mg PO DAILY dicyclomine 10 mg capsule 10 mg PO TID PRN Held aspirin 81 MG tablet,chewable 81 mg PO DAILY@0800 Hold Instructions: Resume on 04/26/24. Referrals / Follow Up: Alverto Packer MD [Primary Care Provider] - Disposition Disposition (needs filled in before D/C Order can be placed): Home, Self Care
--- NOTE | 2024-04-24 08:44 | PCM.POST.ANE ---
Anesthesia: Postop Eval I Current Vital Signs Temperature: 97.4 F Pulse Rate: 86 Blood Pressure: 108/92 Respiratory Rate: 16 Pulse Ox: 98 Oxygen Delivery Method: Room Air Assessment Airway patent: Yes Spontaneous unlabored respirations: Yes Mental status: Asleep (Arousable) nausea: No Vomiting: No Anesthesia Complication: No Fluid Hydration Crystalloid volume administer (ml): 800 Total IV fluid infused: 800 Progress Note Anesthesia document: Postop Eval 1 completed: Yes
--- NOTE | 2024-04-24 09:31 | PCM.POSTANE2 ---
Anesthesia Postop Eval I Sum Postop Eval Completion status Anesthesia document: Postop Eval 1 completed: Yes Anesthesia Postop Eval I Summary Anesthesia Postop Eval I Summary: Anesthesia Postop Eval I: Assessment Summary Airway patent Yes 04/24/24 08:54 Spontaneous unlabored Yes 04/24/24 08:54 respirations Mental status Asleep - Arousable 04/24/24 08:54 nausea No 04/24/24 08:54 Vomiting No 04/24/24 08:54 Anesthesia Postop Eval I: Fluid Summary Crystalloid volume administer 800 04/24/24 08:54 (ml) Colloids volume administered ( ml) Blood Product volume administered (ml) Total IV fluid infused 800 04/24/24 08:54 Anesthesia Postop Eval I: Summary Notes Anesthesia Complication No 04/24/24 08:54 Anesthesia Complication Comment: Post-operative progress note Anesthesia: Postop Eval II Evaluation Mental status: Awake Pain Level: 0 nausea: No Vomiting: No
[2024-04-24] MEDS: Acetaminophen 325 MG Tablet 650 MG PO (09:50)
[2024-04-24] MEDS: traMADol 50 MG Tablet PO (09:50)
--- NOTE | 2024-04-24 12:54 | SUR.PHASEII ---
PATIENT IS UP WALKING IN THE HALLS WITH HER DAUGHTER TO HELP FACILITATE VOIDING.
--- NOTE | 2024-04-24 16:00 | SUR.PHASEII ---
THIS NURSE ASSISTED DR. FALCON IN THE INSERTION OF TRAN CATHETER. SHE ATTEMPTED TO PUSH BLADDER BACK UP INTO CAVITY, BUT IT DROPPED BACK DOWN. SHE WAS ABLE TO GET TRAN CATHETER INSERTED. SHE IS GOING TO CONSULT UROLOGY FOR THIS PATIENT. INSTRUCTIONS GIVEN BY DR. FALCON ON WHEN TO REMOVE TRAN AT 7:00AM TOMORROW AND TO CONTACT HER OFFICE IF UNABLE TO VOID AFTER 6 HOURS.
== END 2024-04-24 16:51 | disposition home or self-care (01) ==
LOC: SDC 05:50 → AC 05:57
PROVIDERS: PCP Family Medicine; Referring Provider Surgery; Visit Provider Surgery
PROC: (CPT 44202; principal; 2024-04-24 07:10)
DX: K66.0 Peritoneal adhesions (postprocedural) (postinfection) (principal); Z87.891 Personal history of nicotine dependence; I10 Essential (primary) hypertension; K21.9 Gastro-esophageal reflux disease without esophagitis; Z79.01 Long term (current) use of anticoagulants; Z87.19 Personal history of other diseases of the digestive system; Z79.82 Long term (current) use of aspirin; Z79.899 Other long term (current) drug therapy; E78.00 Pure hypercholesterolemia, unspecified
CPT/HCPCS: 44180; 00840; 93005; J7120; C1760; J2405

== ENCOUNTER 2024-05-05 20:28 | Observation (INO) | payer MEDICARE, OTHER, SELFPAY ==
[2024-05-05 20:29] VITALS: BP 132/57; PULSE 68; RESP 15; TEMP 36.4; O2SAT 99; BMI 27.8
[2024-05-05 21:03] LABS: Absolute Lymphocyte Count 2.34 X10^3/uL (0.83-4.51); Absolute Neutrophil Count 4.7 X10^3/uL (2.0-7.7); Basophil# 0.07 X10^3/uL; Basophil% 0.9 % (0-1); Eosinophil# 0.22 X10^3/uL; Eosinophils% 2.8 % (0-5); Hematocrit 39.8 % (37-47); Hemoglobin 13.2 g/dL (12.0-15.0); Lymphocyte # 2.34 X10^3/ul (0.83-4.51); Mean Corp Hgb Conc 33.2 g/dL (32-36); Mean Corpuscular Hgb 29.6 pg (27.0-32.0); Mean Corpuscular Volume 89.2 fL (81-99); Mean Platelet Vol. 10.8 fl (6.2-12.0); Monocyte# 0.46 X10^3/uL; Monocyte% 5.9 % (0-10); NRBC Flagged by Analyzer 0 % (0-5); Neutrophil # 4.69 X10^3/uL (2.7-7.7); Neutrophil % 60.1 % (47-70); Platelet Count 308 K/mm3 (150-450); RBC Distribution Width CV 14.6 % (11.6-14.6); RBC Distribution Width SD 47.7 fl (35.1-43.9); Red Blood Count 4.46 M/mm3 (4.2-5.4); White Blood Count 7.8 K/mm3 (4.4-11.0)
[2024-05-05 21:22] LABS: Anion Gap 9 (5-15); BUN 16 mg/dL (7-18); BUN/Creat Ratio 11.3 RATIO (10-20); Calcium,Total 8.9 mg/dL (8.5-10.1); Chloride 110 mmol/L (98-107); Creatinine, Serum 1.41 mg/dL (0.55-1.02); EST Glomerular Filtration Rate 38 mL/min (>60); Est Glom Filt Rate - Afr Amer 46 mL/min (>60); Estimated Creatinine Clearance 25.55 ml/min; Glucose 162 mg/dL (74-106); Potassium 3.6 mmol/L (3.5-5.1); Sodium Level 138 mmol/L (136-145); Troponin-I HS (w/2H Reflex) 5 pg/mL (3.0-54.0)
[2024-05-05 21:25] VITALS: BP 125/53; PULSE 64; RESP 18; O2SAT 98
[2024-05-05 21:53] VITALS: BP 123/58; PULSE 62; RESP 18; O2SAT 98
[2024-05-05 21:58] LABS: D-Dimer Quantitative (DVT/PE) 0.64 FEU/ug/m (0.27-0.49)
[2024-05-05 22:38] VITALS: BP 135/55; PULSE 70; RESP 15; TEMP 36.4; O2SAT 97
[2024-05-05 23:00] VITALS: BP 137/64; PULSE 67; RESP 18; O2SAT 98
[2024-05-05 23:00] LABS: Reflex Troponin-HS? (from REC) Y
[2024-05-05 23:25] VITALS: BMI 22.4
[2024-05-05 23:42] LABS: Troponin-I HS 7 pg/mL (3.0-54.0)
[2024-05-06 00:03] VITALS: BP 142/46; PULSE 71; RESP 16; TEMP 36.3; O2SAT 100
[2024-05-06] MEDS: 0.9% Normal Saline (1000mL) 1,000 ML 70 ML IV (00:06)
[2024-05-06] MEDS: 0.9% Saline Lock 10 ML Syringe IV (00:06)
[2024-05-06 03:45] VITALS: BP 155/68; BP 158/72; BP 170/78; PULSE 70; PULSE 71; PULSE 72; RESP 18; TEMP 36.4; O2SAT 97
[2024-05-06] MEDS: Heparin Injection (Vial) 5,000 UNIT/ML VIAL 5000 UNIT SC ×2 (04:53→14:05)
[2024-05-06] MEDS: BRIMONIDINE 0.2% 5ML BOTTLE 1 DRP EACH EYE ×2 (04:54→14:05)
[2024-05-06 05:37] LABS: Absolute Lymphocyte Count 2.17 X10^3/uL (0.83-4.51); Absolute Neutrophil Count 3.7 X10^3/uL (2.0-7.7); Basophil# 0.06 X10^3/uL; Basophil% 0.9 % (0-1); Eosinophil# 0.15 X10^3/uL; Eosinophils% 2.3 % (0-5); Hematocrit 34.7 % (37-47); Hemoglobin 11.6 g/dL (12.0-15.0); Lymphocyte # 2.17 X10^3/ul (0.83-4.51); Lymphocyte % 33.5 % (19-41); Mean Corp Hgb Conc 33.4 g/dL (32-36); Mean Corpuscular Hgb 29.5 pg (27.0-32.0); Mean Corpuscular Volume 88.3 fL (81-99); Mean Platelet Vol. 10.4 fl (6.2-12.0); Monocyte# 0.42 X10^3/uL; Monocyte% 6.5 % (0-10); NRBC Flagged by Analyzer 0 % (0-5); Neutrophil # 3.66 X10^3/uL (2.7-7.7); Neutrophil % 56.5 % (47-70); Platelet Count 281 K/mm3 (150-450); RBC Distribution Width CV 14.4 % (11.6-14.6); RBC Distribution Width SD 46.4 fl (35.1-43.9); Red Blood Count 3.93 M/mm3 (4.2-5.4); White Blood Count 6.5 K/mm3 (4.4-11.0)
[2024-05-06 06:00] VITALS: BMI 22.4
[2024-05-06 06:01] LABS: Troponin-I HS 9 pg/mL (3.0-54.0)
[2024-05-06 06:57] LABS: ALB/GLOB Ratio 1.1 RATIO (0.9-2.4); AST(SGOT) 25 U/L (15-37); Alanine Aminotransfer ALT/SGPT 14 U/L (13-56); Albumin, Serum 3.2 g/dL (3.2-5.0); Alkaline Phosphatase 77 U/L (45-117); Anion Gap 7 (5-15); BUN 14 mg/dL (7-18); BUN/Creat Ratio 13.9 RATIO (10-20); Calcium,Total 8.3 mg/dL (8.5-10.1); Chloride 115 mmol/L (98-107); Creatinine, Serum 1.01 mg/dL (0.55-1.02); EST Glomerular Filtration Rate 55 mL/min (>60); Est Glom Filt Rate - Afr Amer 67 mL/min (>60); Estimated Creatinine Clearance 30.73 ml/min; Globulin 2.8 g/dL (2.2-4.2); Glucose 108 mg/dL (74-106); Phosphorus 3.5 mg/dL (2.5-4.9); Potassium 3.5 mmol/L (3.5-5.1); Sodium Level 142 mmol/L (136-145)
[2024-05-06 07:15] LABS: Bacteria 0 SEEN /hpf (None Seen); Mucous, Urine 0 SEEN /hpf (<or=2+); Red Blood Cells-Urine 0 SEEN /hpf (0-5); Squamous Epithelial Cells - UA 0 SEEN /hpf (5-10)
[2024-05-06 07:18] LABS: Color, Urine Yellow (Yellow); Glucose, Dipstick Normal (Normal); Ketone-Dipstick Negative (Negative); Leukocyte Esterase-Dipstick 100 /ul (Negative); Nitrite-Dipstick Negative (Negative); Occult Blood-Urine Negative /ul (Negative); Protein-Dipstick Negative (Negative); Urine Bilirubin Dipstick Negative (Negative); Urine Clarity Sl. Cloudy (Clear); Urine Urobilinogen Normal (Normal)
[2024-05-06 07:43] VITALS: O2SAT 96
[2024-05-06 07:47] LABS: White Blood Cells 0-5 SEEN /hpf (0-5)
[2024-05-06 08:50] VITALS: BP 122/69; PULSE 69; RESP 16; TEMP 36.7; O2SAT 100
[2024-05-06] MEDS: Ferrous Sulfate 325 MG Tablet PO (08:51)
[2024-05-06] MEDS: Multivitamins,Ther W-Minerals Tablet 1 TABLET PO (08:51)
[2024-05-06] MEDS: Calcium Carbonate 500 MG Tablet 1000 MG PO (08:51)
[2024-05-06] MEDS: Aspirin 81 MG TAB.CHEW PO (08:51)
[2024-05-06] MEDS: Allopurinol 300 MG Tablet PO (08:52)
[2024-05-06] MEDS: Omega-3 Acid Ethyl Esters 1 GM Capsule PO (08:52)
[2024-05-06] MEDS: Pantoprazole Sodium 40 MG Tablet PO (08:52)
[2024-05-06] MEDS: Losartan Potassium 50 MG Tablet PO (08:52)
[2024-05-06] MEDS: Timolol 0.5% 5ML OPTH.BTL 1 DRP EACH EYE (08:53)
[2024-05-06 12:30] VITALS: BP 139/66; PULSE 63; RESP 16; TEMP 36.7; O2SAT 98
== END 2024-05-06 15:41 | disposition home or self-care (01) ==
LOC: ED 22:11 → PCU 22:40
PROVIDERS: Admitting Provider Internal Medicine; Emergency Provider Emergency Medicine; PCP Family Medicine; Visit Provider Internal Medicine
DX: R55 Syncope and collapse (principal); N18.2 Chronic kidney disease, stage 2 (mild); E78.00 Pure hypercholesterolemia, unspecified; Z92.3 Personal history of irradiation; I12.9 Hypertensive chronic kidney disease with stage 1 through stage 4 chronic kidney disease, or unspecified chronic kidney disease; K21.9 Gastro-esophageal reflux disease without esophagitis; Z87.891 Personal history of nicotine dependence; D50.9 Iron deficiency anemia, unspecified; I44.0 Atrioventricular block, first degree; M10.9 Gout, unspecified; Z79.899 Other long term (current) drug therapy; Z79.82 Long term (current) use of aspirin; Z98.890 Other specified postprocedural states; H40.9 Unspecified glaucoma; M19.90 Unspecified osteoarthritis, unspecified site
CPT/HCPCS: 36415; 71045; 80048; 80053; 81001; 83735; 84100; 84443; 84484; 85025; 85379; 93005; 93306; 96372; 97162; 97165; 99221; 99285; J7030; A4216; G0378

== ENCOUNTER 2024-10-04 08:35 | Inpatient (IN) | payer MEDICARE, OTHER, SELFPAY ==
[2024-10-04 08:35] VITALS: BP 131/85; PULSE 82; RESP 14; TEMP 36.2; O2SAT 99; BMI 24.3
--- NOTE | 2024-10-04 08:45 | CT_ITS ---
PROCEDURE: ABDOMEN/PELVIS W IV CONT ONLY 10/04/2024 REASON FOR EXAM: ABDOMINAL PAIN TECHNIQUE: Abdomen and pelvis CT with intravenous contrast. Coronal and Sagittal reformats were generated. PATIENT PREPARATION: Per protocol ORAL CONTRAST TYPE: None. AMOUNT: mL CONTRAST: Isovue 370 VOLUME: 70 mL One or more dose reduction techniques were used (e.g., Automated exposure control, adjustment of the mA and/or kV according to patient size, use of iterative reconstruction technique. RADIATION DOSE SUMMARY: CTDlvol: 6.65+ 10.64 mGy DLP: 548.38 mGycm COMPARISON: None. FINDINGS: Lung bases: Partially imaged 4 mm RIGHT lower lobe pulmonary nodule (series 2, image 1). Surgical clips and/or biopsy markers in the RIGHT breast. Liver: Unremarkable. Spleen: Unremarkable. Gallbladder: Distended without calcified stones, convincing inflammation, or biliary dilatation. Pancreas: Atrophic. Adrenals: 1.0 cm indeterminate LEFT adrenal nodule versus nodular thickening. Kidneys: Mildly lobulated RIGHT renal contours with suspected multifocal cortical scarring. Bowel: Proximal small bowel and terminal ileum are decompressed. Of mid a segment and distal small bowel loops mildly fluid and gas dilated to maximum diameter of 3.9. cm with a distal transition point along the low RIGHT pelvic sidewall where relatively focal small bowel wall thickening is present (series 2, image 92). There is a questionable gradual proximal transition point along the mid anterior abdominal wall (series 601.2 image 19). There are areas of mild mesenteric edema associated with the dilated loops. Normal caliber appendix. Diverticulosis. Lymph nodes: Mesenteric nodes up to 10 mm short axis.. Vasculature: Trace to mild atherosclerosis.. Peritoneum: As above. Trace to small volume free intraperitoneal fluid. Bladder: Underdistended and suboptimally evaluated. Evidence of pelvic floor dysfunction including a small cystocele Reproductive Organs: Hysterectomy. Evidence of pelvic floor dysfunction including descent of the cervix.. Body Wall: Unremarkable. Bones: Demineralization. Multilevel spondylosis. Lumbar dextroscoliosis. Few punctate nonspecific sclerotic foci (for example, RIGHT ischium, series 2 image 104, sacrum on images 74 and 76, and RIGHT acetabulum on image 87). Variable spinal canal stenoses up to at least [id number]-[id number] at L4-L5, suboptimally evaluated by CT. CT/Abdomen/Pelvis W IV Cont ONLY IMPRESSION: 1. Small-bowel obstruction with distal transition point in the RIGHT pelvis whe re small bowel wall thickening is present suggesting enteritis. Question a gradual proximal transition point with associ ated mesenteric edema. Note that this configuration can be seen in the setting of a developing closed loop obstructio n which can coexist with a simple mechanical obstruction. Recommend surgical consultation. No definite imaging evidence of current bowel ischemia, however correlate with clinical evaluation including serum lactate. Trace to small volume free fluid and borderline mesenteric lymphadenopathy may be reactive. 2. Distended gallbladder without calcified stones, convincing inflammation, or biliary dilatation. This could be related to fasting state. If there is concern, consider RIGHT upper quadrant ultrasound a nd/or HIDA. 3. Indeterminate findings including borderline mesenteric lymphadenopathy as ab ove, a 1.0 cm LEFT adrenal nodule versus nodular thickening, punctate bony sclerotic foci in the pelvis, and a partially imaged at least 4 mm RIGHT basilar pulmonary nodule,. Given reported history of malignancy, recommend outpatient clinical/oncologic f ollow-up. Comparison with any available outside imaging may also be helpful to establish stability. 4. Additional description as above. Reading Location: [id number]
--- NOTE | 2024-10-04 08:45 | ED.VIS.GI ---
HPI HPI - GI History of Present Illness Chief Complaint: Abd Pain Narrative Narrative: 83-year-old female past medical history of previous lysis of adhesions and hysterectomy presents with abdominal pain, fever, nausea, vomiting, and diarrhea that she has had over the last 2 to 3 days. She relates history that she had partial bowel obstruction and lysis of adhesions previously performed by Dr. Corley. Over the last few days, she has had subjective fever, and yesterday had nausea and vomiting 1 episode that was nonbloody. She had a loose stool/diarrhea. She is having increasing periumbilical abdominal pain. No exacerbating or alleviating factors. Her daughter does state that she was exposed to someone with COVID as well. [facility] Medical History Hx of hyperlipidemia History of hypertension Cystocele (Unknown) Urinary retention Bladder prolapse Wears glasses Wears dentures Post-menopausal Low iron High cholesterol Constipation Former smoker Leg cramps History of stress test H/O small bowel obstruction Breast cancer, right Gout Osteoarthritis GERD (gastroesophageal reflux disease) HTN (hypertension) Home Medications ?Medication ?Instructions ?Recorded ?Last Taken ?Type allopurinol 300 mg tablet 300 mg PO DAILY 07/07/17 10/03/24 History aspirin 81 mg chewable tablet 81 mg PO DAILY@0800 07/07/17 10/03/24 History cinnamon bark 500 mg capsule 500 mg PO QODAY PRN vitamins 07/07/17 10/03/24 History fish oil-dha-epa 1,200 mg-144 1 ea PO DAILY 07/07/17 10/03/24 History mg-216 mg capsule hdmtrwtz-nis-hnkmq acid 0.4 1 ea PO DAILY 07/07/17 10/03/24 History mg-lycopene 300 mcg-lutein 250 mcg tablet pravastatin 40 mg tablet 40 mg PO DAILY 07/07/17 10/03/24 History acetaminophen 650 mg 650 mg PO PRN PRN Pain Or Fever 04/11/19 10/03/24 History tablet,extended release (Arthritis Pain Relief (acetaminophen) ER) brimonidine 0.2 % eye drops 1 drp EACH EYE TID 04/26/19 10/03/24 History timolol maleate 0.5 % eye drops 1 drp EACH EYE BID 04/26/19 10/03/24 History omeprazole 40 mg capsule,delayed 40 mg PO DAILY 07/04/22 10/03/24 History release calcium carbonate (Calcium 600) 1,200 mg PO DAILY 11/14/23 10/03/24 History ferrous sulfate 325 mg (65 mg 325 mg PO DAILY 11/14/23 10/03/24 History iron) tablet (Feosol) latanoprost 0.005 % eye drops 1 drp ophthalmic (eye) QHS 11/14/23 10/03/24 History dorzolamide 22.3 mg-timolol 6.8 1 drp ophthalmic (eye) BID 10/04/24 10/03/24 History mg/mL eye drops losartan 100 mg tablet 100 mg PO DAILY 10/04/24 10/03/24 History Allergy/AdvReac Type Severity Reaction Status Date / Time garlic Allergy Intermediate Hives Verified 10/04/24 08:36 lisinopril Allergy NEEDS Verified 10/04/24 08:36 FOLLOW-UP doxycycline AdvReac Intermediate Other Verified 10/04/24 08:36 codeine AdvReac Other Verified 10/04/24 08:36 Family History Mother Breast cancer CVA (cerebral vascular accident) Brother CVA (cerebral vascular accident) Heart disease Surgical History S/P laparoscopy with lysis of adhesions History of hysterectomy History of colonoscopy (~2010) History of lumpectomy of right breast (~03/2019) Social History Smoking Status: Former smoker alcohol intake: never substance use type: does not use ROS ROS ED ROS Narrative Review of systems positive for periumbilical abdominal pain, 1 episode of nausea and vomiting, nonbloody, diarrhea/loose stool. Positive subjective fever. Positive COVID exposure. No exacerbating or alleviating factors. No chest pain or shortness of breath. EXAM Physical Exam Narrative Exam Narrative: Afebrile. Vital signs noted. Nontoxic-appearing. Cardiovascular examination reveals a regular rate and rhythm. Lungs are clear to auscultation bilaterally. The abdomen is soft with diffuse periumbilical pain. Positive bowel sounds to slightly hyperactive. No guarding or rebound. Neurological examination nonfocal and nonlateralizing. Able to transfer from standing to cot without difficulty. Awake, alert, interactive. Const Vital Signs: 10/04/24 08:35 10/04/24 10:35 Temperature 97.1 F L Temperature Source Temporal Pulse Rate 82 72 Respiratory Rate 14 18 Blood Pressure 131/85 H 146/69 H Blood Pressure Mean 100 94 Pulse Ox 99 96 Oxygen Delivery Method Room Air MDM MDM MDM Narrative Medical decision making narrative: The differential diagnosis includes but not limited to partial small bowel obstruction versus gastroenteritis versus colitis versus pancreatitis. I have low suspicion for a UTI. Comprehensive workup was pursued. I reviewed her prior EMR, and she is status post laparoscopy with lysis of adhesions. I do feel that laboratory work and CT imaging is indicated. Patient was administered morphine and Zofran for analgesia. I reviewed her laboratory work and she has normal white count 7.0, hemoglobin 14.7 with hematocrit 42.2, platelet count normal at 371. Electrolyte panel is significant for CO2 of 19.3, but there has been lab error in the past regarding this. Anion gap also elevated at 17. This may also be secondary to lab error as she has a normal sodium at 135 and potassium 3.9, chloride 99. Lipase is normal at 20 so I doubt pancreatitis. LFTs are grossly unremarkable. Patient required additional fentanyl 25 mcg for analgesia. I reviewed the radiology report after reviewing the imaging of the CT of the abdomen and pelvis. There is concern for small bowel obstruction with transition point in the right lower quadrant of the abdomen. This is where small bowel thickening is present with concern for enteritis. Radiology also comments on gradual proximal transition point which could also be concern for closed-loop bowel obstruction coexistent with mechanical obstruction. However, there is no evidence of bowel ischemia currently. I did discuss this with Dr. San with surgery. He would like NG tube placed, and patient admitted to his service. NG tube was placed, and I individually interpreted the x-ray for NG tube placement and the tip is in the stomach. I did not lactic acid at the suggestion of radiology, and reviewed it it is normal at 1.2. With the clinical correlation as well, I have low suspicion for ischemic bowel currently. Disposition is admit in stable condition. History & Record Review Discussion w/independent historian: Patient and Family Lab Data Attestation: I reviewed the patient's lab results. Labs: Laboratory Results - last 24 hr 10/04/24 10/04/24 09:00 10:25 WBC 7.0 RBC 4.81 Hgb 14.7 Hct 42.2 MCV 87.7 MCH 30.6 MCHC 34.8 RDW Std Deviation 44.6 H RDW Coeff of Wilfredo 13.9 Plt Count 371 MPV 9.7 Immature Gran % (Auto) 0.300 Neut % (Auto) 70.3 H Lymph % (Auto) 20.3 [place] % (Auto) 8.4 Eos % (Auto) 0.3 Baso % (Auto) 0.4 Absolute Neuts (auto) 4.9 Absolute Lymphs (auto) 1.42 Nucleated RBC % 0 Sodium 135 Potassium 3.9 Chloride 99 Carbon Dioxide 19.3 L Anion Gap 17 H BUN 18 Creatinine 1.19 Estim Creat Clear Calc 28.39 L Est GFR (MDRD) Non-Af 45 L BUN/Creatinine Ratio 15.5 Glucose 162 H Calcium 9.6 Total Bilirubin 0.55 AST 30 ALT 8 Alkaline Phosphatase 98 Total Protein 7.3 Albumin 4.3 Globulin 3.0 Albumin/Globulin Ratio 1.4 Lipase 20 Urine Color Yellow Urine Clarity Clear Urine pH 6.5 Ur Specific [place] 1.010 Urine Protein 15 H Urine Glucose (UA) Normal Urine Ketones 5 H Urine Occult Blood 10 H Urine Nitrite Negative Urine Bilirubin Negative Urine Urobilinogen Normal Ur Leukocyte Esterase 25 H Urine RBC 0 SEEN Urine WBC 0 SEEN Ur Squamous Epith Cells 0-5 SEEN Urine Bacteria 0 SEEN Urine Mucus 0 SEEN Radiography X-Ray: Read by ED Physician Diagnostic Testing: Clinical Impression(s) from Imaging Studies Abdomen/Pelvis CT 10/04/24 08:45 IMPRESSION: 1. Small-bowel obstruction with distal transition point in the RIGHT pelvis where small bowel wall thickening is present suggesting enteritis. Question a gradual proximal transition point with associated mesenteric edema. Note that this configuration can be seen in the setting of a developing closed loop obstruction which can coexist with a simple mechanical obstruction. Recommend surgical consultation. No definite imaging evidence of current bowel ischemia, however correlate with clinical evaluation including serum lactate. Trace to small volume free fluid and borderline mesenteric lymphadenopathy may be reactive. 2. Distended gallbladder without calcified stones, convincing inflammation, or biliary dilatation. This could be related to fasting state. If there is concern, consider RIGHT upper quadrant ultrasound and/or HIDA. 3. Indeterminate findings including borderline mesenteric lymphadenopathy as above, a 1.0 cm LEFT adrenal nodule versus nodular thickening, punctate bony sclerotic foci in the pelvis, and a partially imaged at least 4 mm RIGHT basilar pulmonary nodule,. Given reported history of malignancy, recommend outpatient clinical/oncologic follow-up. Comparison with any available outside imaging may also be helpful to establish stability. 4. Additional description as above. Reading Location: [id number] Discharge Plan Dx/Rx/DC Orders Clinical Impression: Small bowel obstruction, S/P laparoscopy with lysis of adhesions, Hypertension Disposition Disposition: Acute Care Hospital [facility]
[2024-10-04] MEDS: 0.9% Normal Saline (1000mL) 1,000 ML 999 ML IV (08:57)
[2024-10-04] MEDS: Ondansetron 4 MG/2 ML Vial IV (08:57)
[2024-10-04] MEDS: Morphine 4 MG/ML Syringe IV ×3 (08:58→17:08)
[2024-10-04 09:15] LABS: Absolute Lymphocyte Count 1.42 X10^3/uL (0.83-4.51); Absolute Neutrophil Count 4.9 X10^3/uL (2.0-7.7); Basophil# 0.03 X10^3/uL; Basophil% 0.4 % (0-1); Eosinophil# 0.02 X10^3/uL; Eosinophils% 0.3 % (0-5); Hematocrit 42.2 % (37-47); Hemoglobin 14.7 g/dL (12.0-15.0); Lymphocyte # 1.42 X10^3/ul (0.83-4.51); Lymphocyte % 20.3 % (19-41); Mean Corp Hgb Conc 34.8 g/dL (32-36); Mean Corpuscular Hgb 30.6 pg (27.0-32.0); Mean Corpuscular Volume 87.7 fL (81-99); Mean Platelet Vol. 9.7 fl (6.2-12.0); Monocyte# 0.59 X10^3/uL; Monocyte% 8.4 % (0-10); NRBC Flagged by Analyzer 0 % (0-5); Neutrophil # 4.93 X10^3/uL (2.7-7.7); Neutrophil % 70.3 % (47-70); Platelet Count 371 K/mm3 (150-450); RBC Distribution Width CV 13.9 % (11.6-14.6); RBC Distribution Width SD 44.6 fl (35.1-43.9); Red Blood Count 4.81 M/mm3 (4.2-5.4)
[2024-10-04 10:02] LABS: ALB/GLOB Ratio 1.4 RATIO (0.9-2.4); AST(SGOT) 30 U/L (<=31); Alanine Aminotransfer ALT/SGPT 8 U/L (<=34); Albumin, Serum 4.3 g/dL (3.4-4.8); Alkaline Phosphatase 98 U/L (35-104); Anion Gap 17 (5-15); BUN 18 mg/dL (4-19); BUN/Creat Ratio 15.5 RATIO (10-20); Calcium,Total 9.6 mg/dL (7.6-11.0); Carbon Dioxide 19.3 mmol/L (21.0-32.0); Chloride 99 mmol/L (98-108); Creatinine, Serum 1.19 mg/dL (0.70-1.20); EST Glomerular Filtration Rate 45 (>60); Estimated Creatinine Clearance 28.39 ml/min (50-250); Glucose 162 mg/dL (70-99); Lipase 20 U/L (13-75); Potassium 3.9 mmol/L (3.3-5.1); Protein, Total 7.3 g/dL (5.9-8.4); Sodium Level 135 mmol/L (133-145); Total Bilirubin 0.55 mg/dL (0.00-1.30)
[2024-10-04] MEDS: fentaNYL 100 MCG/2 ML Ampul 25 MCG IV (10:26)
[2024-10-04 10:35] VITALS: BP 146/69; PULSE 72; RESP 18; O2SAT 96
[2024-10-04 10:35] LABS: Bacteria 0 SEEN /hpf (None Seen); Mucous, Urine 0 SEEN /hpf (<or=2+); Red Blood Cells-Urine 0 SEEN /hpf (0-5); White Blood Cells 0 SEEN /hpf (0-5)
[2024-10-04 10:48] LABS: Color, Urine Yellow (Yellow); Glucose, Dipstick Normal (Normal); Ketone-Dipstick 5 mg/dl (Negative); Leukocyte Esterase-Dipstick 25 /ul (Negative); Nitrite-Dipstick Negative (Negative); Occult Blood-Urine 10 /ul (Negative); Protein-Dipstick 15 mg/dl (Negative); Urine Bilirubin Dipstick Negative (Negative); Urine Clarity Clear (Clear); Urine Urobilinogen Normal (Normal); Urine pH 6.5 (5.0 - 8.0)
[2024-10-04 10:55] LABS: Squamous Epithelial Cells - UA 0-5 SEEN /hpf (5-10)
[2024-10-04] MEDS: Oxymetazoline 0.05% 1 SPRAY SPRAY.BTL 2 SPRAY NASAL (11:07)
--- NOTE | 2024-10-04 11:25 | RAD_ITS ---
PROCEDURE: ABDOMEN SINGLE VIEW (PORTABLE) 10/04/2024 REASON FOR EXAM: NG TUBE PLACEMENT TECHNIQUE: Single view abdomen. COMPARISON: CT of same date FINDINGS: Note that the lower abdomen and pelvis are excluded from the [id number]. Enteric tube tip and side hole within the stomach, looping cranially into the fundus. Bowel dilatation better seen on comparison CT. Multilevel spondylosis. Lumbar dextroscoliosis. RAD/Abdomen Single View (Portable) IMPRESSION: 1. Enteric tube extends into the stomach. 2. Additional description as above. Reading Location: [id number]
[2024-10-04 11:27] VITALS: BP 146/69; PULSE 77; RESP 18; TEMP 36.6; O2SAT 99
[2024-10-04 11:47] LABS: Lactic Acid 1.2 mmol/L (0.0-2.0)
[2024-10-04 12:06] VITALS: BMI 24.3
[2024-10-04] MEDS: 0.9% Normal Saline (1000mL) 1,000 ML 90 ML IV (13:51)
[2024-10-04] MEDS: Morphine 2 MG/ML Syringe IV ×2 (13:53→20:58)
[2024-10-04] MEDS: 0.9% Saline Lock 10 ML Syringe IV ×2 (13:55→20:58)
--- NOTE | 2024-10-04 14:02 | PCM.HP.STD ---
HPI - General General Date of Admission: 10/04/24 Date of Service: 10/04/24 Chief Complaint: Nausea and vomiting; small bowel obstruction HPI Narrative KING KAUFFMAN, is a 83 F who presented to the emergency department at [facility] earlier today with complaints of abdominal pain for the past 2 to 3 days. She does have a history of having prior bowel obstructions in the past. She actually underwent a laparoscopic surgery in March 2024 as a measure to prevent future bowel obstructions. At that time an omental adhesion was taken down. She is also had a previous hysterectomy. She states that she was in usual health until Wednesday night or Wednesday morning of this week. She states that she had nausea, vomiting as well as copious diarrhea. That was her last bowel movement. She states that she did pass some flatus yesterday. She also had some subjective fevers and chills which she has not had in previous episodes of bowel obstructions. The abdominal pain intensified today which prompted her visit to the emergency department. She was seen and evaluated by the ER staff. Blood work was performed and this was fairly unremarkable. She did have a CT scan performed that showed small bowel obstruction with a possible transition point in the right lower quadrant. There was some small bowel thickening concerning for possible enteritis. Patient was subsidy admitted. She states she still having abdominal pain even despite NG tube placement. She denies any further vomiting. She denies any recent sick contacts. She does state that this does feel somewhat different than her previous bowel obstruction admissions. She does question if this could even be viral in nature. [facility] Medical History Hx of hyperlipidemia History of hypertension Cystocele (Unknown) Urinary retention Bladder prolapse Wears glasses Wears dentures Post-menopausal Low iron High cholesterol Constipation Former smoker Leg cramps History of stress test H/O small bowel obstruction Breast cancer, right Gout Osteoarthritis GERD (gastroesophageal reflux disease) HTN (hypertension) Home Medications ?Medication ?Instructions ?Recorded ?Last Taken ?Type allopurinol 300 mg tablet 300 mg PO DAILY 07/07/17 10/03/24 History aspirin 81 mg chewable tablet 81 mg PO DAILY@0800 07/07/17 10/03/24 History cinnamon bark 500 mg capsule 500 mg PO QODAY PRN vitamins 07/07/17 10/03/24 History fish oil-dha-epa 1,200 mg-144 1 ea PO DAILY 07/07/17 10/03/24 History mg-216 mg capsule gzbqubou-wxw-srdjf acid 0.4 1 ea PO DAILY 07/07/17 10/03/24 History mg-lycopene 300 mcg-lutein 250 mcg tablet pravastatin 40 mg tablet 40 mg PO DAILY 07/07/17 10/03/24 History acetaminophen 650 mg 650 mg PO PRN PRN Pain Or Fever 04/11/19 10/03/24 History tablet,extended release (Arthritis Pain Relief (acetaminophen) ER) brimonidine 0.2 % eye drops 1 drp EACH EYE TID 04/26/19 10/03/24 History timolol maleate 0.5 % eye drops 1 drp EACH EYE BID 04/26/19 10/03/24 History omeprazole 40 mg capsule,delayed 40 mg PO DAILY 07/04/22 10/03/24 History release calcium carbonate (Calcium 600) 1,200 mg PO DAILY 11/14/23 10/03/24 History ferrous sulfate 325 mg (65 mg 325 mg PO DAILY 11/14/23 10/03/24 History iron) tablet (Feosol) latanoprost 0.005 % eye drops 1 drp ophthalmic (eye) QHS 11/14/23 10/03/24 History dorzolamide 22.3 mg-timolol 6.8 1 drp ophthalmic (eye) BID 10/04/24 10/03/24 History mg/mL eye drops losartan 100 mg tablet 100 mg PO DAILY 10/04/24 10/03/24 History Allergy/AdvReac Type Severity Reaction Status Date / Time garlic Allergy Intermediate Hives Verified 10/04/24 08:36 lisinopril Allergy NEEDS Verified 10/04/24 08:36 FOLLOW-UP doxycycline AdvReac Intermediate Other Verified 10/04/24 08:36 codeine AdvReac Other Verified 10/04/24 08:36 Family History Mother Breast cancer CVA (cerebral vascular accident) Brother CVA (cerebral vascular accident) Heart disease Surgical History S/P laparoscopy with lysis of adhesions History of hysterectomy History of colonoscopy (~2010) History of lumpectomy of right breast (~03/2019) Social History Smoking Status: Former smoker alcohol intake: never substance use type: does not use ROS Constitutional Constitutional: Reports as per HPI Eyes Eyes: Reports systems reviewed and no addt'l complaints, except as documented ENT HEENT: Reports systems reviewed and no addt'l complaints, except as documented Cardiovascular Cardiovascular: Reports systems reviewed and no addt'l complaints, except as documented Respiratory/Chest Respiratory/Chest: Reports systems reviewed and no addt'l complaints, except as documented Gastrointestinal Gastrointestinal: Reports as per HPI Genitourinary Genitourinary: Reports systems reviewed and no addt'l complaints, except as documented Vital Signs Vital Signs Vital Signs: 10/04/24 08:35 10/04/24 10:35 10/04/24 11:27 Temperature 97.1 F L 98 F Temperature Source Temporal Pulse Rate 82 72 77 Respiratory Rate 14 18 18 Blood Pressure 131/85 H 146/69 H 146/69 H Blood Pressure Mean 100 94 94 Pulse Ox 99 96 99 Oxygen Delivery Method Room Air Weight Weight: 128 lb 9.6 oz Body Mass Index (BMI) 24.3 Physical Exam Const alert and oriented x3 General Appearance: cooperative HEENT normocephalic HEENT Narrative: NG tube in place Eyes Pupil: PERRL Resp normal respiratory effort Effort and Inspection: able to speak in complete sentences Results Medical Records Data Attestation: I reviewed the patient's medical records Lab / Micro Data Attestation: I reviewed the patient's lab results. 10/04/24 09:00 10/04/24 09:00 Labs: Laboratory Results - last 24 hr 10/04/24 09:00: WBC 7.0, RBC 4.81, Hgb 14.7, Hct 42.2, MCV 87.7, MCH 30.6, MCHC 34.8, RDW Std Deviation 44.6 H, RDW Coeff of Wilfredo 13.9, Plt Count 371, MPV 9.7, Immature Gran % (Auto) 0.300, Neut % (Auto) 70.3 H, Lymph % (Auto) 20.3, [place] % (Auto) 8.4, Eos % (Auto) 0.3, Baso % (Auto) 0.4, Absolute Neuts (auto) 4.9, Absolute Lymphs (auto) 1.42, Nucleated RBC % 0, Sodium 135, Potassium 3.9, Chloride 99, Carbon Dioxide 19.3 L, Anion Gap 17 H, BUN 18, Creatinine 1.19, Estim Creat Clear Calc 28.39 L, Est GFR (MDRD) Non-Af 45 L, BUN/Creatinine Ratio 15.5, Glucose 162 H, Calcium 9.6, Total Bilirubin 0.55, AST 30, ALT 8, Alkaline Phosphatase 98, Total Protein 7.3, Albumin 4.3, Globulin 3.0, Albumin/Globulin Ratio 1.4, Lipase 20 10/04/24 10:25: Urine Color Yellow, Urine Clarity Clear, Urine pH 6.5, Ur Specific [place] 1.010, Urine Protein 15 H, Urine Glucose (UA) Normal, Urine Ketones 5 H, Urine Occult Blood 10 H, Urine Nitrite Negative, Urine Bilirubin Negative, Urine Urobilinogen Normal, Ur Leukocyte Esterase 25 H, Urine RBC 0 SEEN, Urine WBC 0 SEEN, Ur Squamous Epith Cells 0-5 SEEN, Urine Bacteria 0 SEEN, Urine Mucus 0 SEEN 10/04/24 11:11: Lactic Acid 1.2 Micro: Microbiology 10/04/24 09:00 Mucosa - Nose SARS-CoV-2, Influenza & RSV (PCR) - Final Imaging Radiology Impression Abdomen/Pelvis CT 10/04/24 08:45 IMPRESSION: 1. Small-bowel obstruction with distal transition point in the RIGHT pelvis where small bowel wall thickening is present suggesting enteritis. Question a gradual proximal transition point with associated mesenteric edema. Note that this configuration can be seen in the setting of a developing closed loop obstruction which can coexist with a simple mechanical obstruction. Recommend surgical consultation. No definite imaging evidence of current bowel ischemia, however correlate with clinical evaluation including serum lactate. Trace to small volume free fluid and borderline mesenteric lymphadenopathy may be reactive. 2. Distended gallbladder without calcified stones, convincing inflammation, or biliary dilatation. This could be related to fasting state. If there is concern, consider RIGHT upper quadrant ultrasound and/or HIDA. 3. Indeterminate findings including borderline mesenteric lymphadenopathy as above, a 1.0 cm LEFT adrenal nodule versus nodular thickening, punctate bony sclerotic foci in the pelvis, and a partially imaged at least 4 mm RIGHT basilar pulmonary nodule,. Given reported history of malignancy, recommend outpatient clinical/oncologic follow-up. Comparison with any available outside imaging may also be helpful to establish stability. 4. Additional description as above. Reading Location: [facility] X-Ray 10/04/24 11:25 IMPRESSION: 1. Enteric tube extends into the stomach. 2. Additional description as above. Reading Location: [facility] Assessment & Plan Assessment/Plan (1) Small bowel obstruction: PLAN: Plan The patient is an 83-year-old female who was admitted with abdominal pain along with nausea and vomiting. She had some initial diarrhea. She has a history of small bowel obstructions in the past. Most of these have resolved without need for surgery although she did have a preventative surgery about 6 months ago. She presented with abdominal pain complaints. Imaging seems to indicate small bowel obstruction with possible transition point in the right lower quadrant. NG tube was placed. We will keep her n.p.o. I am taken the liberty of ordering a small bowel follow-through. We discussed the possibility of surgery should this not resolve with conservative measures. Patient and her daughter are in agreement with this plan. All questions and concerns were addressed. Charges/Coding Visit Charges Inpatient E&M: 01698 Init Hosp L3
--- NOTE | 2024-10-04 15:05 | RAD_ITS ---
EXAM: Small-bowel series CLINICAL HISTORY: SBO COMPARISON: Abdominal radiograph dated October 04, 2024 TECHNIQUE: Following administration of water-soluble contrast, multiple radiographs were obtained at 0, 1, 3, 6, and 12 hours. FINDINGS: Multiple dilated loops of small bowel, raising concern for ileus or small-bowel obstruction. Contrast administered traverses the small bowel reaches the cecum at the 12 hour radiograph. RAD/Small Bowel Series Only IMPRESSION: Delay of contrast reaching the cecum. Reading Location: [id number]
[2024-10-04 18:21] VITALS: BP 120/64; PULSE 73; RESP 17; TEMP 36.7; O2SAT 94
[2024-10-04 20:54] VITALS: BP 111/58; PULSE 75; RESP 18; TEMP 36.9; O2SAT 93
[2024-10-05 00:24] VITALS: BP 119/69; PULSE 72; RESP 18; TEMP 36.9; O2SAT 93
[2024-10-05] MEDS: 0.9% Normal Saline (1000mL) 1,000 ML 90 ML IV ×2 (00:24→11:22)
[2024-10-05 05:23] VITALS: BP 146/74; PULSE 80; RESP 18; TEMP 36.6; O2SAT 96
[2024-10-05 06:46] LABS: Absolute Lymphocyte Count 1.44 X10^3/uL (0.83-4.51); Absolute Neutrophil Count 3.3 X10^3/uL (2.0-7.7); Basophil# 0.04 X10^3/uL; Basophil% 0.7 % (0-1); Eosinophil# 0.08 X10^3/uL; Eosinophils% 1.5 % (0-5); Hematocrit 40.3 % (37-47); Hemoglobin 13.2 g/dL (12.0-15.0); Lymphocyte # 1.44 X10^3/ul (0.83-4.51); Lymphocyte % 26.5 % (19-41); Mean Corp Hgb Conc 32.8 g/dL (32-36); Mean Corpuscular Hgb 30.1 pg (27.0-32.0); Mean Corpuscular Volume 91.8 fL (81-99); Monocyte# 0.61 X10^3/uL; Monocyte% 11.2 % (0-10); NRBC Flagged by Analyzer 0 % (0-5); Neutrophil # 3.27 X10^3/uL (2.7-7.7); Neutrophil % 60.1 % (47-70); POSITIVE MORPHOLOGY YES; Platelet Count 304 K/mm3 (150-450); RBC Distribution Width SD 47.8 fl (35.1-43.9); Red Blood Count 4.39 M/mm3 (4.2-5.4); White Blood Count 5.4 K/mm3 (4.4-11.0)
[2024-10-05 07:08] LABS: Differential Indicated SCAN CRITERIA MET
[2024-10-05 07:09] LABS: Anion Gap 14 (5-15); BUN 22 mg/dL (4-19); BUN/Creat Ratio 21.4 RATIO (10-20); Calcium,Total 8.5 mg/dL (7.6-11.0); Carbon Dioxide 17.2 mmol/L (21.0-32.0); Chloride 114 mmol/L (98-108); Creatinine, Serum 1.01 mg/dL (0.70-1.20); EST Glomerular Filtration Rate 55 (>60); Estimated Creatinine Clearance 33.44 ml/min (50-250); Glucose 106 mg/dL (70-99); Potassium 3.9 mmol/L (3.3-5.1); Sodium Level 146 mmol/L (133-145)
[2024-10-05 07:45] LABS: Differential Comment SCANNED
[2024-10-05 08:16] VITALS: BP 138/59; PULSE 76; RESP 18; TEMP 37.3; O2SAT 94
--- NOTE | 2024-10-05 09:17 | PCM.PN.SRG ---
Subjective Subjective Patient seen and examined on rounds. Small bowel follow-through was performed yesterday and completed overnight. Patient does have contrast in the colon. She has passed 3 normal bowel movements. She states that her abdomen is soft and nontender. She states that it is back to its normal size. Objective Data Objective Data Vital Signs: Vital Signs Temp Pulse Resp BP Pulse Ox O2 Del Method 99.2 F H 76 18 138/59 H 94 Room Air 10/05/24 08:16 10/05/24 08:16 10/05/24 08:16 10/05/24 08:16 10/05/24 08:16 10/05/24 08:16 Oxygen Delivery Method Room Air Weight: 128 lb 9.6 oz Body Mass Index (BMI) 24.3 Intake & Output: Intake and Output for Last 24 Hours 10/03/24 10/04/24 10/05/24 23:59 23:59 23:59 Intake Total 1000 / 1000 949.5 / 949.5 Output Total 200 / 200 Balance 800 / 800 949.5 / 949.5 Lab / Micro Data 10/05/24 06:18 10/05/24 06:18 Labs: Laboratory Results - last 24 hr 10/04/24 09:00: Sodium 135, Potassium 3.9, Chloride 99, Carbon Dioxide 19.3 L, Anion Gap 17 H, BUN 18, Creatinine 1.19, Estim Creat Clear Calc 28.39 L, Est GFR (MDRD) Non-Af 45 L, BUN/Creatinine Ratio 15.5, Glucose 162 H, Calcium 9.6, Total Bilirubin 0.55, AST 30, ALT 8, Alkaline Phosphatase 98, Total Protein 7.3, Albumin 4.3, Globulin 3.0, Albumin/Globulin Ratio 1.4, Lipase 20 10/04/24 10:25: Urine Color Yellow, Urine Clarity Clear, Urine pH 6.5, Ur Specific [place] 1.010, Urine Protein 15 H, Urine Glucose (UA) Normal, Urine Ketones 5 H, Urine Occult Blood 10 H, Urine Nitrite Negative, Urine Bilirubin Negative, Urine Urobilinogen Normal, Ur Leukocyte Esterase 25 H, Urine RBC 0 SEEN, Urine WBC 0 SEEN, Ur Squamous Epith Cells 0-5 SEEN, Urine Bacteria 0 SEEN, Urine Mucus 0 SEEN 10/04/24 11:11: Lactic Acid 1.2 10/05/24 06:18: WBC 5.4, RBC 4.39, Hgb 13.2, Hct 40.3, MCV 91.8, MCH 30.1, MCHC 32.8 D, RDW Std Deviation 47.8 H, RDW Coeff of Wilfredo 14.0, Plt Count 304, MPV 10.0, Immature Gran % (Auto) 0.000, Neut % (Auto) 60.1, Lymph % (Auto) 26.5, [place] % (Auto) 11.2 H, Eos % (Auto) 1.5, Baso % (Auto) 0.7, Absolute Neuts (auto) 3.3, Absolute Lymphs (auto) 1.44, Nucleated RBC % 0, Differential Comment SCANNED, Sodium 146 H, Potassium 3.9, Chloride 114 H, Carbon Dioxide 17.2 L, Anion Gap 14, BUN 22 H, Creatinine 1.01, Estim Creat Clear Calc 33.44 L, Est GFR (MDRD) Non-Af 55 L, BUN/Creatinine Ratio 21.4 H, Glucose 106 H, Calcium 8.5 Micro: Microbiology 10/04/24 09:00 Mucosa - Nose SARS-CoV-2, Influenza & RSV (PCR) - Final Radiography Diagnostic Testing: Radiology Impression Abdomen/Pelvis CT 10/04/24 08:45 IMPRESSION: 1. Small-bowel obstruction with distal transition point in the RIGHT pelvis where small bowel wall thickening is present suggesting enteritis. Question a gradual proximal transition point with associated mesenteric edema. Note that this configuration can be seen in the setting of a developing closed loop obstruction which can coexist with a simple mechanical obstruction. Recommend surgical consultation. No definite imaging evidence of current bowel ischemia, however correlate with clinical evaluation including serum lactate. Trace to small volume free fluid and borderline mesenteric lymphadenopathy may be reactive. 2. Distended gallbladder without calcified stones, convincing inflammation, or biliary dilatation. This could be related to fasting state. If there is concern, consider RIGHT upper quadrant ultrasound and/or HIDA. 3. Indeterminate findings including borderline mesenteric lymphadenopathy as above, a 1.0 cm LEFT adrenal nodule versus nodular thickening, punctate bony sclerotic foci in the pelvis, and a partially imaged at least 4 mm RIGHT basilar pulmonary nodule,. Given reported history of malignancy, recommend outpatient clinical/oncologic follow-up. Comparison with any available outside imaging may also be helpful to establish stability. 4. Additional description as above. Reading Location: [facility] X-Ray 10/04/24 11:25 IMPRESSION: 1. Enteric tube extends into the stomach. 2. Additional description as above. Reading Location: [facility] Small Bowel X-Ray 10/04/24 15:05 IMPRESSION: Delay of contrast reaching the cecum. Reading Location: [id number] Physical Exam Narrative She is alert and oriented x 3. She is in no acute distress. NG tube is currently in place. Abdomen is soft, nontender and nondistended. Assessment & Plan Assessment/Plan (1) Small bowel obstruction: PLAN: Plan The patient is an 83-year-old female admitted with what appeared to be a small bowel obstruction on CT scan. She does have a history of multiple prior small bowel obstructions. Although, her history of this present illness seems to suggest the possibility of an ileus potentially due to viral etiology. Regardless, she is now having positive bowel function. Our plan is to remove the NG tube today and begin a trial clear liquid diet. Would suggest advancement of diet tomorrow if she tolerates clears today. Dr. Banks to cover the next 3 days beginning tomorrow Charges/Coding Visit Charges Inpatient E&M: 82935 Subs Hosp L2
--- NOTE | 2024-10-05 10:19 | PCM.PN.SRG ---
Subjective Subjective Patient evaluated resting comfortably in bed. She notes feeling much improved. She states she is passing flatus and had 3 loose bowel movements over night. She denies any nausea. She feels less distended. Objective Data Objective Data Vital Signs: Vital Signs Temp Pulse Resp BP Pulse Ox O2 Del Method 99.2 F H 76 18 138/59 H 94 Room Air 10/05/24 08:16 10/05/24 08:16 10/05/24 08:16 10/05/24 08:16 10/05/24 08:16 10/05/24 08:16 Oxygen Delivery Method Room Air Weight: 128 lb 9.6 oz Body Mass Index (BMI) 24.3 Intake & Output: Intake and Output for Last 24 Hours 10/03/24 10/04/24 10/05/24 23:59 23:59 23:59 Intake Total 1000 / 1000 949.5 / 949.5 Output Total 200 / 200 Balance 800 / 800 949.5 / 949.5 Lab / Micro Data 10/05/24 06:18 10/05/24 06:18 Labs: Laboratory Results - last 24 hr 10/04/24 10:25: Urine Color Yellow, Urine Clarity Clear, Urine pH 6.5, Ur Specific [place] 1.010, Urine Protein 15 H, Urine Glucose (UA) Normal, Urine Ketones 5 H, Urine Occult Blood 10 H, Urine Nitrite Negative, Urine Bilirubin Negative, Urine Urobilinogen Normal, Ur Leukocyte Esterase 25 H, Urine RBC 0 SEEN, Urine WBC 0 SEEN, Ur Squamous Epith Cells 0-5 SEEN, Urine Bacteria 0 SEEN, Urine Mucus 0 SEEN 10/04/24 11:11: Lactic Acid 1.2 10/05/24 06:18: WBC 5.4, RBC 4.39, Hgb 13.2, Hct 40.3, MCV 91.8, MCH 30.1, MCHC 32.8 D, RDW Std Deviation 47.8 H, RDW Coeff of Wilfredo 14.0, Plt Count 304, MPV 10.0, Immature Gran % (Auto) 0.000, Neut % (Auto) 60.1, Lymph % (Auto) 26.5, [place] % (Auto) 11.2 H, Eos % (Auto) 1.5, Baso % (Auto) 0.7, Absolute Neuts (auto) 3.3, Absolute Lymphs (auto) 1.44, Nucleated RBC % 0, Differential Comment SCANNED, Sodium 146 H, Potassium 3.9, Chloride 114 H, Carbon Dioxide 17.2 L, Anion Gap 14, BUN 22 H, Creatinine 1.01, Estim Creat Clear Calc 33.44 L, Est GFR (MDRD) Non-Af 55 L, BUN/Creatinine Ratio 21.4 H, Glucose 106 H, Calcium 8.5 Micro: Microbiology 10/04/24 09:00 Mucosa - Nose SARS-CoV-2, Influenza & RSV (PCR) - Final Radiography Diagnostic Testing: Radiology Impression Abdomen/Pelvis CT 10/04/24 08:45 IMPRESSION: 1. Small-bowel obstruction with distal transition point in the RIGHT pelvis where small bowel wall thickening is present suggesting enteritis. Question a gradual proximal transition point with associated mesenteric edema. Note that this configuration can be seen in the setting of a developing closed loop obstruction which can coexist with a simple mechanical obstruction. Recommend surgical consultation. No definite imaging evidence of current bowel ischemia, however correlate with clinical evaluation including serum lactate. Trace to small volume free fluid and borderline mesenteric lymphadenopathy may be reactive. 2. Distended gallbladder without calcified stones, convincing inflammation, or biliary dilatation. This could be related to fasting state. If there is concern, consider RIGHT upper quadrant ultrasound and/or HIDA. 3. Indeterminate findings including borderline mesenteric lymphadenopathy as above, a 1.0 cm LEFT adrenal nodule versus nodular thickening, punctate bony sclerotic foci in the pelvis, and a partially imaged at least 4 mm RIGHT basilar pulmonary nodule,. Given reported history of malignancy, recommend outpatient clinical/oncologic follow-up. Comparison with any available outside imaging may also be helpful to establish stability. 4. Additional description as above. Reading Location: [id number] X-Ray 10/04/24 11:25 IMPRESSION: 1. Enteric tube extends into the stomach. 2. Additional description as above. Reading Location: [employer] Small Bowel X-Ray 10/04/24 15:05 IMPRESSION: Delay of contrast reaching the cecum. Reading Location: [id number] Physical Exam HEENT HEENT Narrative: NG tube in place GI GI Narrative: Abdomen- soft, hypoactive bowel sounds. Assessment & Plan Assessment/Plan (1) Small bowel obstruction: PLAN: I am following this patient in conjunction with Dr. San. He has independently evaluated this patient. Labs reviewed Decreased IV fluid rate Small bowel follow-through demonstrated multiple loops small bowel dilated concern for more of an ileus picture Remove NG tube Start clear liquids Discussed with the patient will increase diet slowly Encourage ambulation Probable discharge tomorrow We will continue to monitor this patient Charges/Coding Visit Charges Inpatient E&M: 70541 Subs Hosp L2
--- NOTE | 2024-10-05 11:01 | CASEMGMT ---
ANGLE ARELLANO Assessment Face to Face with patient for initial transition planning/care coordination assessment. ANGLE ARELLANO introduced self and role at [facility], pt voices understanding. Pt is A&Ox4 and is resting comfortably in bed and is calm. Care providers, pharmacy, and demographics verified. Admitting dx: SBO [place] Strata: 3 PCP: Alverto Packer Specialists: Denies Preferred Pharmacy: [facility] Insurance: [facility] A/B, [facility] Plan G Prescription Benefit: Yes LNOK: Vanesa Riojas (Daughter), Kamila Stover (Daughter) Living Arrangements: Pt lives alone in a mobile home with a ramp to enter ADLs/IADLs: Ind Transportation: Self, daughter. Denies concerns DME: Access to a cane but does not use. BP Machine. Denies further needs HHC/SNF: Denies history or needs Pt?s goal: Home Plan: Home, anticipate no additional needs. 6-Click score is 23. No therapy ordered. Pt states that she plans to return home alone at the time of DC and denies the need for HH or OP Tx. Pt states that her neighbor can help as needed as well as her GS. Pt states that she feels safe with this plan and denies further questions or concerns at this time. Report given to MS3 ANGLE ARELLANO. Jeanette Lynne RN, CM
[2024-10-05 15:00] VITALS: BP 117/68; PULSE 70; RESP 18; TEMP 36.8; O2SAT 97
[2024-10-05 21:00] VITALS: BP 119/61; PULSE 71; RESP 16; TEMP 36.7; O2SAT 100
[2024-10-06] MEDS: 0.9% Normal Saline (1000mL) 1,000 ML 90 ML IV (00:56)
[2024-10-06 05:02] VITALS: BP 140/70; PULSE 76; RESP 16; TEMP 36.6; O2SAT 98
--- NOTE | 2024-10-06 08:15 | RAD_ITS ---
EXAM: XR Abdomen, 1 View CLINICAL INDICATION: F/U BOWEL GAS PATTERN TECHNIQUE: Frontal supine view of the abdomen/pelvis. COMPARISON: 10/04/2024 FINDINGS: GASTROINTESTINAL TRACT: Unremarkable. No dilation. BONES/JOINTS: Unremarkable. No acute fracture. RAD/Abdomen Single View (Portable) IMPRESSION: Nonobstructive bowel gas pattern. Reading Location: [facility]
--- NOTE | 2024-10-06 08:44 | PCM.PN.SRG ---
Subjective Subjective Patient seen and examined during AM rounds. She is found resting in bed. She states she has had some abdominal pain overnight. She has felt otherwise that things are definitely moving throughout her abdomen. She reports that she is not passing gas like she thinks she got to. She denies an appetite this morning. Objective Data Objective Data Vital Signs: Vital Signs Temp Pulse Resp BP Pulse Ox O2 Del Method 98 F 76 16 140/70 H 98 Room Air 10/06/24 05:02 10/06/24 05:02 10/06/24 05:02 10/06/24 05:02 10/06/24 05:02 10/06/24 05:02 Oxygen Delivery Method Room Air Weight: 128 lb 9.6 oz Body Mass Index (BMI) 24.3 Intake & Output: Intake and Output for Last 24 Hours 10/04/24 10/05/24 10/06/24 23:59 23:59 23:59 Intake Total 1000 / 1000 2936.5 / 2936.5 Output Total 200 / 200 Balance 800 / 800 2936.5 / 2936.5 Lab / Micro Data 10/05/24 06:18 10/05/24 06:18 Micro: Microbiology 10/04/24 09:00 Mucosa - Nose SARS-CoV-2, Influenza & RSV (PCR) - Final Physical Exam Const oriented x3 and no apparent distress Resp normal respiratory effort GI GI Narrative: Mild distention of the right upper quadrant with tympany on percussion. Mild tenderness with palpation of this area as well. Otherwise nontender. Assessment & Plan Assessment/Plan (1) Small bowel obstruction: PLAN: Plan The patient is an 83-year-old female admitted with what appeared to be a small bowel obstruction on CT scan. She completed a small bowel follow-through yesterday with relatively normal transit time. However, today she complains of some persistent abdominal pain, displays some tympany on exam, and her follow-up [facility]UB demonstrates mild persistence of gas throughout the colon in the stomach. This is suggestive of a ongoing ileus. Therefore, I am inclined to maintain her diet at present threshold of a full liquid diet and await further improvements. Patient for the meantime is encouraged to be out of bed in the chair, chewing gum or sucking on hard candy. Discussion was held with patient and her daughter/son-in-law who were present at bedside. Noah Banks MD General Surgery Endocrine Surgery Pager: [facility] [address] [place] [address], [facility], [address] [place] [address] Office: [phone] Charges/Coding Visit Charges Inpatient E&M: 01923 Subs Hosp L2
[2024-10-06 13:12] VITALS: BP 121/55; PULSE 75; RESP 17; TEMP 37; O2SAT 98
[2024-10-06] MEDS: Pantoprazole Sodium 40 MG Tablet PO (14:58)
[2024-10-06] MEDS: Aspirin 81 MG TAB.CHEW PO (14:59)
[2024-10-06] MEDS: Losartan Potassium 100 MG Tablet PO (14:59)
--- NOTE | 2024-10-06 16:53 | NURSING ---
This RN walked with pt around the whole unit twice. Pt is safe to ambulate on her own in her room and in [place] per this RN as pt gait was safe while walking and asymptomatic.
[2024-10-06] MEDS: Bisacodyl 10 MG Suppository RC (18:20)
[2024-10-06 21:59] VITALS: BP 121/47; PULSE 71; RESP 16; TEMP 36.8; O2SAT 96
[2024-10-06] MEDS: Latanoprost 0.005% 1 Bottle 1 DRP OPHTHALMIC (22:12)
[2024-10-06] MEDS: Pravastatin 40 MG Tablet PO (22:12)
[2024-10-06] MEDS: Dorzolamide HCL/Timolol 10 ml Bottle 1 DRP OPHTHALMIC (22:13)
[2024-10-06] MEDS: BRIMONIDINE 0.2% 5ML BOTTLE 1 DRP EACH EYE (22:14)
[2024-10-06] MEDS: 0.9% Saline Lock 10 ML Syringe IV (22:36)
[2024-10-07 03:52] VITALS: BP 124/48; PULSE 76; RESP 18; TEMP 36.6; O2SAT 97
[2024-10-07] MEDS: BRIMONIDINE 0.2% 5ML BOTTLE 1 DRP EACH EYE (03:57)
--- NOTE | 2024-10-07 07:15 | RAD_ITS ---
PROCEDURE: ABDOMEN SINGLE VIEW (PORTABLE) 10/07/2024 REASON FOR EXAM: F/U COLONIC ILEUS/GASTRIC BUBBLE TECHNIQUE: Single view abdomen. 2 total images to include the entire abdomen and pelvis COMPARISON: 10/06/2024 FINDINGS: No gaseous distention of bowel. Some gas is seen within nondistended appearing colon. A small amount of contrast material is seen in the descending left colon. Visualized lungs appear clear as imaged. Ectatic appearing thoracic aorta. Mild rightward curvature lumbar spine with spondylosis noted. RAD/Abdomen Single View (Portable) IMPRESSION: No gaseous distention of bowel. Reading Location: [id number]
--- NOTE | 2024-10-07 08:00 | PCM.PN.SRG ---
Subjective Subjective Patient seen and examined during AM rounds. She was found sitting on the edge of her bed eating breakfast. She notes passage of lots of flatus after administration of suppository yesterday. She adds that she is feeling better today and has no abdominal pain. Objective Data Objective Data Vital Signs: Vital Signs Temp Pulse Resp BP Pulse Ox O2 Del Method 97.9 F 76 18 124/48 H 97 Room Air 10/07/24 03:52 10/07/24 03:52 10/07/24 03:52 10/07/24 03:52 10/07/24 03:52 10/07/24 03:52 Oxygen Delivery Method Room Air Weight: 128 lb 9.6 oz Body Mass Index (BMI) 24.3 Intake & Output: Intake and Output for Last 24 Hours 10/05/24 10/06/24 10/07/24 23:59 23:59 23:59 Intake Total 2936.5 / 2936.5 2496.0 / 2496.0 Balance 2936.5 / 2936.5 2496.0 / 2496.0 Lab / Micro Data 10/05/24 06:18 10/05/24 06:18 Micro: Microbiology 10/04/24 09:00 Mucosa - Nose SARS-CoV-2, Influenza & RSV (PCR) - Final Radiography Diagnostic Testing: Radiology Impression KUB X-Ray 10/06/24 08:15 IMPRESSION: Nonobstructive bowel gas pattern. Reading Location: [facility] KUB X-Ray 10/07/24 07:15 IMPRESSION: No gaseous distention of bowel. Reading Location: [id number] Physical Exam Const oriented x3 and no apparent distress Resp normal respiratory effort GI GI Narrative: Minimally if at all distended, nontender to palpation, previous tympany with percussion has no longer appreciated Assessment & Plan Assessment/Plan (1) Small bowel obstruction: PLAN: Plan The patient is an 83-year-old female admitted with what appeared to be a small bowel obstruction on CT scan. She completed a small bowel follow-through 2 days ago with relatively normal transit time. However, yesterday she complains of some persistent abdominal pain, displays some tympany on exam, and her follow-up KUB demonstrates mild persistence of gas throughout the colon in the stomach. This was suggestive of a ongoing ileus. Therefore, I maintained her diet where it was and recommended continued ambulation as well as later in the day administered a suppository. Patient has had favorable response with this management and she both subjectively reports an improvement as well as objectively shows a marked improvement with her KUB this morning. With these clinical improvements I have advanced her to a transitional diet. If she tolerates this for lunch we will plan for discharge to home later today while continuing this diet for another 2 weeks as an outpatient. Noah Banks MD General Surgery Endocrine Surgery Pager: [facility] [address] [place] [address], [facility], [address] [place] [address] Office: [phone] Charges/Coding Visit Charges Inpatient E&M: 57907 Subs Hosp L2
[2024-10-07 08:15] VITALS: BP 176/89; PULSE 74; RESP 17; TEMP 36.4; O2SAT 98
[2024-10-07] MEDS: Dorzolamide HCL/Timolol 10 ml Bottle 1 DRP OPHTHALMIC (08:43)
[2024-10-07] MEDS: Losartan Potassium 100 MG Tablet PO (08:43)
[2024-10-07] MEDS: Aspirin 81 MG TAB.CHEW PO (08:43)
[2024-10-07] MEDS: Pantoprazole Sodium 40 MG Tablet PO (08:43)
--- NOTE | 2024-10-07 10:03 | DCINST_ITS ---
Discharge Instructions Diet Discharge Diet: Soft diet (Low fiber (transitional) x 2 wks) DC O2, CPAP, BIPAP needs Home O2 Discharge instructions: No Dressing / Incision Discharge Activity: May Shower Dressing / Incision Call your doctor if you observe: Inability to have a bowel movement, Uncontrolled pain and - (Increased abdominal distention) Follow Up Care Test Results: Test results from this visit will be discussed in further detail at your follow- up appointment, if applicable. Discharge Plan Admission Admit Date/Time: 10/04/24 10:47 Primary Reason for Your Visit: Small bowel obstruction Attending Provider: Salvatore San Primary Care Provider: Alverto Packer Discharge Orders/Prescriptions Prescriptions: Continued acetaminophen [Arthritis Pain Relief (acetam)] 650 mg tablet extended release 650 mg PO PRN PRN (Reason: Pain Or Fever) pravastatin 40 MG tablet 40 mg PO DAILY aspirin 81 MG tablet,chewable 81 mg PO DAILY@0800 allopurinol 300 MG tablet 300 mg PO DAILY cinnamon bark 500 MG capsule 500 mg PO QODAY PRN (Reason: vitamins) ocdrvfey-iat-LX-lycopen-lutein 1 EACH tablet 1 ea PO DAILY fish oil-dha-epa 1 EACH capsule 1 ea PO DAILY brimonidine 1 DROP bottle 1 drp EACH EYE TID omeprazole 40 mg Capsule,Delayed Release(Dr/Ec) 40 mg PO DAILY latanoprost 0.005 % drops 1 drp ophthalmic (eye) QHS Rx Instructions: both eyes calcium carbonate [Calcium 600] 600 mg calcium (1,500 mg) tablet 1,200 mg PO DAILY ferrous sulfate [Feosol] 325 mg (65 mg iron) tablet 325 mg PO DAILY dorzolamide-timolol 22.3-6.8 mg/mL drops 1 drp ophthalmic (eye) BID losartan 100 mg tablet 100 mg PO DAILY Referrals / Follow Up: Alverto Packer MD [Primary Care Provider] - Disposition Disposition (needs filled in before D/C Order can be placed): Home, Self Care
--- NOTE | 2024-10-07 10:08 | PCM.DC.SUM ---
Providers Date of Admission: 10/04/24 Primary Care Physician: Dr. Alevrto Packer MD Reason For Visit: SBO Diagnosis Discharge Diagnosis (1) Small bowel obstruction: Status: Acute Code(s): K56.609 - Unspecified intestinal obstruction, unspecified as to partial versus complete obstruction Plan The patient is an 83-year-old female admitted with what appeared to be a small bowel obstruction on CT scan. She completed a small bowel follow-through 2 days ago with relatively normal transit time. However, yesterday she complains of some persistent abdominal pain, displays some tympany on exam, and her follow-up KUB demonstrates mild persistence of gas throughout the colon in the stomach. This was suggestive of a ongoing ileus. Therefore, I maintained her diet where it was and recommended continued ambulation as well as later in the day administered a suppository. Patient has had favorable response with this management and she both subjectively reports an improvement as well as objectively shows a marked improvement with her KUB this morning. With these clinical improvements I have advanced her to a transitional diet. If she tolerates this for lunch we will plan for discharge to home later today while continuing this diet for another 2 weeks as an outpatient. Noah Banks MD General Surgery Endocrine Surgery Pager: [facility] [address] [place] [address], [address] [place] [address] Office: [phone] Medications at Discharge Home Medications allopurinol 300 mg tablet 300 mg PO DAILY 07/07/17 aspirin 81 mg chewable tablet 81 mg PO DAILY@0800 07/07/17 cinnamon bark 500 mg capsule 500 mg PO QODAY PRN vitamins 07/07/17 fish oil-dha-epa 1,200 mg-144 mg-216 mg capsule 1 ea PO DAILY 07/07/17 ipfdyfrl-jtd-fepyc acid 0.4 mg-lycopene 300 mcg-lutein 250 mcg tablet 1 ea PO DAILY 07/07/17 pravastatin 40 mg tablet 40 mg PO DAILY 07/07/17 acetaminophen 650 mg tablet,extended release (Arthritis Pain Relief (acetaminophen) ER) 650 mg PO PRN PRN Pain Or Fever 04/11/19 brimonidine 0.2 % eye drops 1 drp EACH EYE TID 04/26/19 omeprazole 40 mg capsule,delayed release 40 mg PO DAILY 07/04/22 calcium carbonate (Calcium 600) 1,200 mg PO DAILY 11/14/23 ferrous sulfate 325 mg (65 mg iron) tablet (Feosol) 325 mg PO DAILY 11/14/23 latanoprost 0.005 % eye drops 1 drp ophthalmic (eye) QHS 11/14/23 dorzolamide 22.3 mg-timolol 6.8 mg/mL eye drops 1 drp ophthalmic (eye) BID 10/04/24 losartan 100 mg tablet 100 mg PO DAILY 10/04/24 Hospital Course Operations None Procedures None Summary of Care Provided Hospital Course: Patient 83-year-old female was admitted to the hospital [facility] via the ER on 10/04/2024 with a presumed diagnosis of small bowel obstruction. As such nasogastric tube had been placed and patient underwent small bowel follow-through day of her admission. This was completed without hold-up of contrast and patient went on to have multiple bowel movements. She was advanced to a liquid diet, however, the 2 days following the procedure she experienced some mild slowness with respect to the motility of her bowel and physically exhibited mild distention and tympany on exam. KUB on hospital day 3 showed evidence of gastric distention and colonic distention so her diet was maintained on a full liquid threshold. By the morning of hospital day 4 this had resolved through administration of a suppository and ambulation. Thus her diet was advanced to a transitional diet and she tolerated this advancement without difficulty. She was reevaluated and doing well with a benign abdominal exam. This discharge to home was granted. She is encouraged to continue a transitional diet for 2 weeks following her hospital discharge as well as remain conscientious about her hydration status. Physical Exam Const alert, oriented x3, no apparent distress and well nourished GI soft to palpation, non-tender and non-distended Weight / BMI Weight Weight: 128 lb 9.6 oz Body Mass Index (BMI) 24.3 ABG / Lab / Microbiology Data 10/05/24 06:18 10/05/24 06:18 Microbiology: Microbiology 10/04/24 09:00 Mucosa - Nose SARS-CoV-2, Influenza & RSV (PCR) - Final Radiography Diagnostic Testing: Radiology Impression KUB X-Ray 10/07/24 07:15 IMPRESSION: No gaseous distention of bowel. Reading Location: [id number] D/C Instructions Discharge Diet: Soft diet (Low fiber (transitional) x 2 wks) Call your doctor if you observe: Inability to have a bowel movement, Uncontrolled pain and - (Increased abdominal distention) DC O2, CPAP, BIPAP Needs Home O2 Discharge instructions: No Meaningful Use Info Meaningful Use Meaningful Use Diagnoses (Choose all that apply): None applicable Ischemic Stroke Statin Dosing Therapy Reference: STATIN DOSE THERAPY REFERENCE: * Patients > 75 years receive moderate or high dose statin therapy. * Patients 75 years or YOUNGER should receive HIGH intensity statin dose unless contraindicated. You will be required to document reason for non-treatment if statin daily dose does not meet guidelines. HIGH DOSE STATIN THERAPY DAILY Atorvastatin > than or = to 40 mg Rosuvastatin > than or = to 20 mg Amlodipine + Atorvastatin > than or = to 2.5/40 mg Ezetimibe + Simvastatin 10/80 mg Simvastatin 80mg Discharge Plan Admission Admit Date/Time: 10/04/24 10:47 Primary Reason for Your Visit: Small bowel obstruction Attending Provider: Salvatore San Primary Care Provider: Alverto Packer Discharge Orders/Prescriptions Prescriptions: Continued acetaminophen [Arthritis Pain Relief (acetam)] 650 mg tablet extended release 650 mg PO PRN PRN (Reason: Pain Or Fever) pravastatin 40 MG tablet 40 mg PO DAILY aspirin 81 MG tablet,chewable 81 mg PO DAILY@0800 allopurinol 300 MG tablet 300 mg PO DAILY cinnamon bark 500 MG capsule 500 mg PO QODAY PRN (Reason: vitamins) befyytlm-ayv-YC-lycopen-lutein 1 EACH tablet 1 ea PO DAILY fish oil-dha-epa 1 EACH capsule 1 ea PO DAILY brimonidine 1 DROP bottle 1 drp EACH EYE TID omeprazole 40 mg Capsule,Delayed Release(Dr/Ec) 40 mg PO DAILY latanoprost 0.005 % drops 1 drp ophthalmic (eye) QHS Rx Instructions: both eyes calcium carbonate [Calcium 600] 600 mg calcium (1,500 mg) tablet 1,200 mg PO DAILY ferrous sulfate [Feosol] 325 mg (65 mg iron) tablet 325 mg PO DAILY dorzolamide-timolol 22.3-6.8 mg/mL drops 1 drp ophthalmic (eye) BID losartan 100 mg tablet 100 mg PO DAILY Referrals / Follow Up: Alverto Packer MD [Primary Care Provider] - Disposition Disposition (needs filled in before D/C Order can be placed): Home, Self Care Charges/Coding Visit Charges Inpatient E&M: 31357 Disch Hosp
--- NOTE | 2024-10-07 10:53 | NURSING ---
Sitting in chair after pt walked the halls once thus far today.
[2024-10-07 15:40] VITALS: BP 147/66; PULSE 67; RESP 18; TEMP 36.4; O2SAT 98
--- NOTE | 2024-10-07 15:42 | NURSING ---
Pt has walked a total of 4 times today around the unit. Pt feels good and feels comfortable with going home. Waiting on Daughter to come and go over discharge paper work with pt.
--- NOTE | 2024-10-10 09:47 | CASEMGMT ---
Received vm back from pt from yesterday's F/U tc. Pt stated she is doing well at home and she appreciates all everyone did for her. Pt stated she was thankful for the call.
== END 2024-10-07 16:45 | disposition home or self-care (01) | DRG 390 ==
LOC: ED 10:45 → MS3 11:27
PROVIDERS: Admitting Provider Surgery; Emergency Provider Emergency Medicine; PCP Family Medicine; Visit Provider Surgery
DX: K56.609 Unspecified intestinal obstruction, unspecified as to partial versus complete obstruction (principal); E78.00 Pure hypercholesterolemia, unspecified; I10 Essential (primary) hypertension; K52.9 Noninfective gastroenteritis and colitis, unspecified; K59.00 Constipation, unspecified; M10.9 Gout, unspecified; M19.90 Unspecified osteoarthritis, unspecified site; Z87.891 Personal history of nicotine dependence; Z90.710 Acquired absence of both cervix and uterus; K56.7 Ileus, unspecified; Z79.82 Long term (current) use of aspirin; Z79.899 Other long term (current) drug therapy; Z79.02 Long term (current) use of antithrombotics/antiplatelets; K66.0 Peritoneal adhesions (postprocedural) (postinfection)
CPT/HCPCS: 36415; 74018; 74177; 74250; 80048; 80053; 81001; 83605; 83690; 85025; 87631; 99285; Q9967; A4216; J2405

== ENCOUNTER → 2025-04-18 | Outpatient (CLI) | payer MEDICARE, OTHER, SELFPAY ==
--- NOTE | 2025-04-18 08:14 | BI_ITS ---
EXAM: SCRN MAMM (CAD)W/LUIS CARLOS BILAT DATE: 04/18/2025 CLINICAL HISTORY: F, Age 84 y/o , SCREENING Personal history of breast cancer. Prior right lumpectomy as well as right stereotactic breast biopsy and left excisional breast biopsy. Mother with breast cancer. TECHNIQUE: Procedure Code: [id number] Modality: MG Procedure: SCRN MAMM (CAD)W/LUIS CARLOS BILAT COMPARISON: Prior exam(s) dated April 17, 2024.. FINDINGS: TISSUE DENSITY: The breasts are heterogeneously dense, which may obscure small masses. Bilateral Breast Mammographic Findings: No significant masses, calcifications or other abnormalities are identified. Stable architectural distortion in the central lateral aspect of the right breast in keeping with prior lumpectomy. No new mass lesion or cluster of right calcification is present. Stable small benign-appearing bilateral axillary lymph nodes. No suspicious masses, areas of developing architectural distortion, or suspicious calcifications. There has been no significant interval change. BI/SCRN MAMM (CAD)W/LUIS CARLOS BILAT IMPRESSION: Stable bilateral screening mammograms. OVERALL FINAL ASSESSMENT BI-RADS 2: BENIGN RECOMMENDATION: Routine annual follow-up in 1 Year Additional Recommendation none A letter with findings and recommendations will be mailed to the patient. Reading Location: [facility]
== END | disposition home or self-care (01) ==
PROVIDERS: PCP Family Medicine; Referring Provider Family Medicine; Visit Provider Family Medicine
DX: Z12.31 Encounter for screening mammogram for malignant neoplasm of breast (principal); Z85.3 Personal history of malignant neoplasm of breast; Z80.3 Family history of malignant neoplasm of breast
CPT/HCPCS: 77063; 77067